=== PATIENT | female | born 1935 | race Caucasian/White ===

== ENCOUNTER → 2022-12-19 08:07 | Outpatient (ROUT) | payer OTHER, SELFPAY ==
[2022-12-19 08:24] LABS: Add Manual Diff / Slide Review NO; Basophils Absolute Auto 0 /uL (0-100); Basophils Percent Auto 0.8 % (0-2); Eosinophils Absolute Auto 300 /uL (0-450); Eosinophils Percent Auto 5.1 % (2-4); Hematocrit 35.7 % (36-46); Lymphocytes Absolute Auto 1500 /uL (1100-4500); Lymphocytes Percent Auto 24.6 % (25-40); Mean Corpuscular HGB Conc 33.5 % (30-36); Mean Corpuscular Hemoglobin 28.2 PG (26-34); Mean Corpuscular Volume 84.3 fL (80-100); Monocytes Absolute Auto 700 /uL (0-900); Monocytes Percent Auto 10.5 % (3-14); Neutrophils Absolute Auto 3700 /uL (1500-7000); Platelet Count 264 X10^3/uL (150-400); Red Blood Cell Count 4.24 X10^6/uL (4.0-5.2); Red Cell Distribution Width 14.1 % (11.6-14.8); White Blood Cell Count 6.3 X10^3/uL (4.5-11.0)
[2022-12-19 08:41] LABS: Alanine Aminotransferase 9 IU/L (<35); Albumin 3.8 g/dL (3.5-5.0); Albumin Globulin Ratio 1.1 (1.0-2.8); Alkaline Phosphatase 83 U/L (38-126); Aspartate Aminotransferase 21 IU/L (14-36); BUN Creatinine Ratio 16.7 (6-22); Bilirubin Total 0.6 mg/dL (0.2-1.3); Blood Urea Nitrogen 15 mg/dL (7-17); Calcium 9.5 mg/dL (8.4-10.2); Carbon Dioxide 28 mmol/L (22-32); Chloride 102 mmol/L (98-107); Estimated Glomerular Filt Rate > 60 mL/min (>60); Globulin 3.4 g/dL (1.7-4.1); Glucose 111 mg/dL (80-110); HEMOLYSIS < 15 (0-50); Sodium 138 mmol/L (137-145); Total Protein 7.2 g/dL (6.3-8.2)
[2022-12-19 08:42] LABS: Potassium 4.3 mmol/L (3.4-5.1)
[2022-12-19 09:25] LABS: Vitamin B12 349 pg/mL (239-931)
== END ==
PROVIDERS: Visit Provider Nurse Practitioner Family
DX: E11.9 Type 2 diabetes mellitus without complications (principal); R63.4 Abnormal weight loss
CPT/HCPCS: 36415; 80053; 82607; 83036; 85025

== ENCOUNTER → 2023-02-14 18:19 | Outpatient (ROUT) | payer OTHER, SELFPAY | PROVIDERS: Visit Provider Internal Medicine | DX: N39.0 Urinary tract infection, site not specified (principal) | CPT/HCPCS: 87077; 87086; 87186 ==

== ENCOUNTER 2023-03-09 14:25 | Emergency (ER) | payer OTHER, MEDICAID, SELFPAY ==
[2023-03-09] VITALS (9 sets, daily range): BP systolic 120–137; BP diastolic 58–69; PULSE 61–89; RESP 14–16; TEMP 36.6; O2SAT 95–98; BMI 20.1
--- NOTE | 2023-03-09 14:49 | ED_ITS ---
HPI - Extremity Problem General Chief complaint: Extremity Problem,Nontraumatic Stated complaint: poss blood clot R leg Time Seen by Provider: 03/09/23 14:43 Source: patient Mode of arrival: Ambulatory Limitations: no limitations History of Present Illness HPI Narrative: Patient is an 87-year-old female who last evening developed swelling and redness to her right lower extremity. She denies any specific trauma. She states that her right leg from the mid antoine down was ?beefy red? last evening. She actually states that things are much improved this morning than what they were last evening. She has no pain behind her knee. No pain in her proximal leg. No chest pain. No shortness of breath. No fevers. She can ambulate with only very minimal discomfort. Can flex and extend at her right ankle with only minimal discomfort. She has not on blood thinners. Related Data Previous Rx's Medication Instructions Recorded cephalexin 500 mg tablet 500 mg PO QID 7 days #28 tabs 03/09/23 Allergies Allergy/AdvReac Type Severity Reaction Status Date / Time celecoxib [From Celebrex] AdvReac Verified 03/09/23 14:34 Review of Systems Constitutional Constitutional: Reports system reviewed and no additional complaints, except as documented Musculoskeletal Musculoskeletal: Reports system reviewed and no additional complaints, except as documented Integumentary/Breasts Skin/Breast: Reports system reviewed and no additional complaints, except as documented Neurologic Neurologic: Reports system reviewed and no additional complaints, except as documented Hematologic/Lymphatic On Anticoagulants: No Exam Initial Vital Signs Initial Vital Signs: Vital Signs Temperature 97.9 F 03/09/23 14:29 Pulse Rate 89 03/09/23 14:29 Respiratory Rate 16 03/09/23 14:29 Blood Pressure 120/58 L 03/09/23 14:29 Pulse Oximetry 95 03/09/23 14:29 Oxygen Delivery Method Room Air 03/09/23 14:29 HENVT Head: normal to inspection and normocephalic Resp Effort & Inspection: normal respiratory effort Cardio Rate: regular rate Pulses: dorsalis pedis present on the right Skin Other: Very minimal redness circumferentially from the mid antoine down to her mid foot. No tenderness to palpation. Neuro Sensory Exam: no sensory deficits noted Extrem Other: Only minimal discomfort of her calf muscle. No tenderness behind the right knee. No tenderness along the medial aspect of the right thigh. Scores Wells' Criteria for DVT Active Cancer (Treatment within 6 months): No Bedridden recently >3 days or major surgery within 4 weeks: No Calf Swelling >3cm compared to other leg: Yes Collateral (nonvericose) superficial veins present: No Entire leg swollen: No Localized tenderness along the deep vein system: No Pitting edema, confined to symtomatic leg: No Paralysis, paresis, or recent plaster immobilization of ext: No Previously documented DVT: No Alternative dx to DVT as likely or more likely: Yes Wells' criteria for DVT: -1 Course Orders Ordered: ED Orders 03/09/23 15:33 Basic Metabolic Panel Stat Complete Blood Count AUTO DIFF Stat D Dimer Stat 03/09/23 15:53 US periph venous low extrem rt Stat Vital Signs Vital signs: Vital Signs - 8 hr 03/09/23 14:29 Temperature 97.9 F Pulse Rate 89 Respiratory Rate 16 Blood Pressure 120/58 L Pulse Oximetry 95 Oxygen Delivery Method Room Air MDM - Extremity (Nontraumatic) Lab Data 03/09/23 15:33 03/09/23 15:33 Labs: Lab Results 03/09/23 Range/Units 15:33 WBC 6.5 (4.5-11.0) X10^3/uL RBC 4.11 (4.0-5.2) X10^6/uL Hgb 11.5 L (12.0-16.0) g/dL Hct 34.9 L (36-46) % MCV 85.1 (80-100) fL MCH 27.9 (26-34) PG MCHC 32.8 (30-36) % RDW 14.8 (11.6-14.8) % Plt Count 248 (150-400) X10^3/uL Neut % (Auto) 60.3 (50-75) % Lymph % (Auto) 24.9 L (25-40) % [place] % (Auto) 9.7 (3-14) % Eos % (Auto) 4.2 H (2-4) % Baso % (Auto) 0.9 (0-2) % Neut # (Auto) 3900 (9390-4381) /uL Lymph # (Auto) 1600 (2636-0091) /uL [place] # (Auto) 600 (0-900) /uL Eos # (Auto) 300 (0-450) /uL Baso # (Auto) 100 (0-100) /uL D-Dimer 4957 H (<500) ng/ml Sodium 141 (137-145) mmol/L Potassium 4.5 (3.4-5.1) mmol/L Chloride 106 (98-107) mmol/L Carbon Dioxide 26 (22-32) mmol/L BUN 17 (7-17) mg/dL Creatinine 0.95 (0.52-1.04) mg/dL Estimated GFR 58 L (>60) mL/min BUN/Creatinine Ratio 17.9 (6-22) Glucose 106 (80-110) mg/dL Calcium 9.3 (8.4-10.2) mg/dL Imaging Data US - DVT: Radiologist's Impression: PROCEDURE: US PERIPH VENOUS LOW EXTREM RT INDICATIONS: eval for DVT TECHNIQUE: Real-time imaging, as well as color and pulse Doppler interrogation, were performed of the lower extremity deep veins from the inguinal ligament to the popliteal fossa, with documentation of the visualized calf veins. COMPARISON: [facility], US, US VENOUS LOWER EXTREMITY DOPPLER BILATERAL, 10/04/2020, 9:32. FINDINGS: The common femoral, femoral, popliteal, and the visualized calf veins are normally compressible, and free of intraluminal thrombus. Color and pulse Doppler demonstrate normal phasic intraluminal flow. There is normal augmentation response to distal compression maneuver. IMPRESSION: No findings of lower extremity deep venous thrombosis. MDM Narrative Medical decision making narrative: Patient is positive per Wells criteria for DVT. Her D-dimer is positive. Subsequent ultrasound is negative. She is afebrile. No leukocytosis. Minimal discomfort to palpation of the right lower extremity. She actually reports that the redness in the swelling are better today than what they were last evening. Not convinced that this is cellulitis. We discussed the possibility that this an allergic reaction however there is no specific exposures that would support this. Plan will be to send her home with the print a prescription for antibiotics. She was going to hold on filling this. If over the next 24-48 hours her symptoms worsen or she develops new symptoms she will fill the prescription and take it as directed. She was given return precautions. She expressed understanding and agreement. Discharge Plan Departure Patient Disposition: Home Clinical Impression: Localized swelling of lower leg Activity Restrictions/Additional Instructions: The ultrasound today did not show any signs of a blood clot. Like we discussed I am also not convinced that this is an infection. You have no fevers. Your white blood cell count is negative and you actually report that your symptoms are improving from last evening. Plan will be is to discharge you home with the prescription for antibiotics. I asked that you hold on filling this for now. If over the next 24-48 hours the symptoms return, worsen or you develop fevers worsening pain then you can fill this prescription and take it as directed. If your symptoms just resolve on their own then you can discard this prescription without filling it. Return to the emergency department for new symptoms. Prescriptions: New cephalexin 500 mg tablet 500 mg PO QID 7 Days Qty: 28 0RF Stand Alone Forms: Patient Portal/API
[2023-03-09 15:40] LABS: Add Manual Diff / Slide Review NO; Basophils Absolute Auto 100 /uL (0-100); Basophils Percent Auto 0.9 % (0-2); Eosinophils Absolute Auto 300 /uL (0-450); Eosinophils Percent Auto 4.2 % (2-4); Hematocrit 34.9 % (36-46); Hemoglobin 11.5 g/dL (12.0-16.0); Lymphocytes Absolute Auto 1600 /uL (1100-4500); Lymphocytes Percent Auto 24.9 % (25-40); Mean Corpuscular HGB Conc 32.8 % (30-36); Mean Corpuscular Hemoglobin 27.9 PG (26-34); Mean Corpuscular Volume 85.1 fL (80-100); Monocytes Absolute Auto 600 /uL (0-900); Monocytes Percent Auto 9.7 % (3-14); Neutrophils Absolute Auto 3900 /uL (1500-7000); Neutrophils Percent Auto 60.3 % (50-75); Platelet Count 248 X10^3/uL (150-400); Red Blood Cell Count 4.11 X10^6/uL (4.0-5.2); Red Cell Distribution Width 14.8 % (11.6-14.8); White Blood Cell Count 6.5 X10^3/uL (4.5-11.0)
[2023-03-09 15:48] LABS: D Dimer 4957 ng/ml (<500)
--- NOTE | 2023-03-09 15:53 | DI.US.S_ITS ---
PROCEDURE: US PERIPH VENOUS LOW EXTREM RT INDICATIONS: eval for DVT TECHNIQUE: Real-time imaging, as well as color and pulse Doppler interrogation, were performed of the lower extremity deep veins from the inguinal ligament to the popliteal fossa, with documentation of the visualized calf veins. COMPARISON: [facility], US, US VENOUS LOWER EXTREMITY DOPPLER BILATERAL, 10/04/2020, 9:32. FINDINGS: The common femoral, femoral, popliteal, and the visualized calf veins are normally compressible, and free of intraluminal thrombus. Color and pulse Doppler demonstrate normal phasic intraluminal flow. There is normal augmentation response to distal compression maneuver. IMPRESSION: No findings of lower extremity deep venous thrombosis. Dictated by: Jorge Luis Sweet M.D. on 03/09/2023 at 15:37 Approved by: Jorge Luis Sweet M.D. on 03/09/2023 at 15:38
[2023-03-09 15:55] LABS: BUN Creatinine Ratio 17.9 (6-22); Blood Urea Nitrogen 17 mg/dL (7-17); Calcium 9.3 mg/dL (8.4-10.2); Carbon Dioxide 26 mmol/L (22-32); Chloride 106 mmol/L (98-107); Estimated Glomerular Filt Rate 58 mL/min (>60); Glucose 106 mg/dL (80-110); HEMOLYSIS < 15 (0-50); Potassium 4.5 mmol/L (3.4-5.1); Sodium 141 mmol/L (137-145)
== END 2023-03-09 17:13 | disposition home or self-care (01) ==
PROVIDERS: Emergency Provider Emergency Medicine
DX: M79.89 Other specified soft tissue disorders (principal)
CPT/HCPCS: 36415; 80048; 85025; 85379; 93971; 99283

== ENCOUNTER → 2023-05-20 13:40 | Outpatient (ROUT) | payer OTHER, MEDICAID, SELFPAY ==
[2023-05-20 13:53] LABS: Appearance Urine UA SL CLOUDY; Bilirubin Urine UA NEGATIVE (NEGATIVE); Color Urine UA YELLOW; Glucose Urine UA NEGATIVE (Negative); Ketones Urine UA NEGATIVE (NEGATIVE); Leukocyte Esterase Urine UA 1+ (NEGATIVE); Nitrite Urine UA POSITIVE (Negative); Occult Blood Urine UA NEGATIVE (Negative); Protein Urine UA NEGATIVE (Negative); Urobilinogen Urine UA 0.2 E.U./dL (0.2)
[2023-05-20 13:57] LABS: pH Urine UA 5.5 (4.5-8.0)
[2023-05-20 13:58] LABS: Urine Volume 10mL (spun)
[2023-05-20 14:01] LABS: Bacteria Urine None Seen; Culture Indicated Urine Specimen Cultured; RBC Urine None Seen (0-5/HPF); Squamous Epithelial Cell Urine None Seen (0-5/HPF); WBC Urine 0-1/HPF (0-5/HPF)
== END ==
PROVIDERS: Visit Provider Internal Medicine
DX: Z13.89 Encounter for screening for other disorder (principal)
CPT/HCPCS: 81001; 87077; 87086; 87186

== ENCOUNTER → 2023-06-08 06:49 | Outpatient (ROUT) | payer OTHER, MEDICAID, SELFPAY ==
[2023-06-08 07:30] LABS: Appearance Urine UA CLOUDY; Bilirubin Urine UA NEGATIVE (NEGATIVE); Color Urine UA YELLOW; Glucose Urine UA NEGATIVE (Negative); Ketones Urine UA TRACE (NEGATIVE); Leukocyte Esterase Urine UA 2+ (NEGATIVE); Nitrite Urine UA POSITIVE (Negative); Occult Blood Urine UA 2+ (Negative); Protein Urine UA 2+ (Negative); Specific Gravity Urine UA 1.025 (1.000-1.035); Urobilinogen Urine UA 0.2 E.U./dL (0.2)
[2023-06-08 07:34] LABS: pH Urine UA 5.5 (4.5-8.0)
[2023-06-08 07:41] LABS: Bacteria Urine Many (>30); RBC Urine 1-5/HPF (0-5/HPF); Squamous Epithelial Cell Urine 0-1 /HPF (0-5/HPF); Urine Volume 10mL (spun); WBC Urine >100/HPF (0-5/HPF)
[2023-06-08 07:42] LABS: Culture Indicated Urine Specimen Cultured
== END ==
PROVIDERS: Visit Provider Internal Medicine
DX: Z13.89 Encounter for screening for other disorder (principal)
CPT/HCPCS: 81001; 87077; 87086; 87186

== ENCOUNTER 2023-06-12 15:19 | Inpatient (IN) | payer OTHER, MEDICAID, SELFPAY ==
[2023-06-12] VITALS (18 sets, daily range): BP systolic 83–107; BP diastolic 46–59; PULSE 68–120; RESP 11–41; TEMP 36.6–37.8; O2SAT 92–99; BMI 21.6
--- NOTE | 2023-06-12 16:01 | PC.NURSE ---
Spoke staff at [facility] wanted pt to be evaluated for mild ADB discomfort, ABD distended, increased Urinary incontinence, weakness with 3 falls in past few days. Unknown last BM. Pt is less responsive than her baseline.
--- NOTE | 2023-06-12 16:14 | DI.RAD.S_ITS ---
PROCEDURE: XR ACUTE ABDOMEN SERIES INDICATIONS: Not provided. TECHNIQUE: One view chest and two views of the abdomen were acquired. COMPARISON: None. FINDINGS: Surgical changes and devices: Left total hip arthroplasty. Abdominal aortic stent present. Chest: Moderate emphysema. Hazy left basilar airspace opacity. Abdomen: Bowel gas pattern is normal. No suspicious calcifications. Visualized solid organ contours appear normal. Moderate colonic stool load. Bones: No suspicious bony lesions. IMPRESSION: Hazy left basilar airspace opacity, either infection or atelectasis. Moderate colonic stool load. Dictated by: Claudy Mayorga M.D. on 06/12/2023 at 16:48 Approved by: Claudy Mayorga M.D. on 06/12/2023 at 16:49
[2023-06-12 17:02] LABS: INR 1.1 (0.9-1.3); Prothrombin Time 12.5 SECONDS (9.4-12.5)
[2023-06-12 17:04] LABS: PTT Partial Thromboplastin Tim 30 SECONDS (25.1-36.5)
[2023-06-12 17:05] LABS: Add Manual Diff / Slide Review NO; Basophils Absolute Auto 0 /uL (0-100); Basophils Percent Auto 0.2 % (0-2); Eosinophils Absolute Auto 0 /uL (0-450); Hematocrit 34.9 % (36-46); Hemoglobin 11.4 g/dL (12.0-16.0); Lymphocytes Absolute Auto 100 /uL (1100-4500); Lymphocytes Percent Auto 0.5 % (25-40); Mean Corpuscular HGB Conc 32.6 % (30-36); Mean Corpuscular Hemoglobin 27.4 PG (26-34); Mean Corpuscular Volume 84.3 fL (80-100); Monocytes Absolute Auto 800 /uL (0-900); Monocytes Percent Auto 3.9 % (3-14); Neutrophils Absolute Auto 19200 /uL (1500-7000); Neutrophils Percent Auto 95.4 % (50-75); Platelet Count 231 X10^3/uL (150-400); Red Blood Cell Count 4.14 X10^6/uL (4.0-5.2); Red Cell Distribution Width 14.6 % (11.6-14.8); White Blood Cell Count 20.1 X10^3/uL (4.5-11.0)
[2023-06-12 17:08] LABS: Albumin Globulin Ratio 1.3 (1.0-2.8); Alkaline Phosphatase 87 U/L (38-126); Aspartate Aminotransferase 42 IU/L (14-36); BUN Creatinine Ratio 20.2 (6-22); Bilirubin Total 0.9 mg/dL (0.2-1.3); Blood Urea Nitrogen 22 mg/dL (7-17); Calcium 9.1 mg/dL (8.4-10.2); Carbon Dioxide 24 mmol/L (22-32); Chloride 103 mmol/L (98-107); Estimated Glomerular Filt Rate 49 mL/min (>60); Globulin 3.1 g/dL (1.7-4.1); Glucose 185 mg/dL (80-110); HEMOLYSIS < 15 (0-50); Lipase 12 U/L (23-300); Potassium 4.5 mmol/L (3.4-5.1); Sodium 135 mmol/L (137-145); Total Protein 7.1 g/dL (6.3-8.2)
[2023-06-12 17:14] LABS: Alanine Aminotransferase 29 IU/L (<35); Lactate (Lactic Acid) 4.4 mmol/L (0.7-2.1)
[2023-06-12] MEDS: SODIUM CHLORIDE 0.9% 1,000 ML 1000 ML IV (17:30)
[2023-06-12] MEDS: cefTRIAXone 1,000 MG in SODIUM CHLORIDE 0.9% 100 ML 200 MG IV (17:58)
[2023-06-12 18:02] LABS: Adenovirus Not Detected (Not Detect); B. parapertussis Not Detected (Not Detecte); Bordetella pertussis Not Detected (Not Detect); Chlamydophila pneumoniae Not Detected (Not Detect); Coronavirus 229E Not Detected (Not Detect); Coronavirus HKU1 Not Detected (Not Detect); Coronavirus NL 63 Not Detected (Not Detect); Coronavirus OC43 Not Detected (Not Detect); Human Metapneumovirus Not Detected (Not Detect); Human Rhinovirus/Enterovirus Not Detected (Not Detect); Influenza A Not Detected (Not Detect); Influenza B Not Detected (Not Detect); Mycoplasma pneumoniae Not Detected (Not Detect); Parainfluenza Virus 1 Not Detected (Not Detect); Parainfluenza Virus 2 Not Detected (Not Detect); Parainfluenza Virus 3 Not Detected (Not Detect); Parainfluenza Virus 4 Not Detected (Not Detect); Respiratory Syncytial Virus Not Detected (Not Detect); SARS- CoV-2 Not Detected (Not Detecte)
[2023-06-12 18:08] LABS: Appearance Urine UA CLEAR; Bilirubin Urine UA NEGATIVE (NEGATIVE); Color Urine UA YELLOW; Glucose Urine UA NEGATIVE (Negative); Ketones Urine UA TRACE (NEGATIVE); Leukocyte Esterase Urine UA 1+ (NEGATIVE); Nitrite Urine UA NEGATIVE (Negative); Occult Blood Urine UA NEGATIVE (Negative); Protein Urine UA TRACE (Negative); Urobilinogen Urine UA 0.2 E.U./dL (0.2)
[2023-06-12 18:09] LABS: pH Urine UA 5.5 (4.5-8.0)
--- NOTE | 2023-06-12 18:15 | ED_ITS ---
HPI - Sepsis General Chief Complaint: Upper Respiratory Symptoms Mode of arrival: Wheelchair Source: patient and EMS Evaluation Sepsis Screen: No Definite Risk Sepsis Infection Criteria Present: Documented Infection Narrative: 87-year-old female with history of dementia presents by EMS from her assisted living facility for worsening confusion. History is obtained from daughter at bedside, who last saw the patient 4 days ago. Daughter states that patient recently completed treatment for a urinary tract infection, but yesterday she started antibiotics again out of concern that there may be a UTI. She does not remember the name of the antibiotics, however the antibiotic listed on patient's paperwork from [facility] as 1 of patient's medications. Patient also was complaining of abdominal discomfort earlier in the day to nursing staff, however by the time that patient's daughter arrived to the emergency department patient was pain-free and has not complained of pain since being in the emergency department. Review of Systems Review of Systems Narrative: Limited due to dementia, otherwise see HPI Patient History Medical History HLD (hyperlipidemia) Restless legs HTN (hypertension) Diabetes Social History Smoking Status: Former smoker alcohol intake: current Exam Initial Vital Signs Initial Vital Signs: Vital Signs Temperature 97.8 F 06/12/23 15:17 Pulse Rate 68 06/12/23 15:17 Respiratory Rate 15 06/12/23 15:17 Blood Pressure 94/50 L 06/12/23 15:17 Pulse Oximetry 98 06/12/23 15:17 Oxygen Delivery Method Room Air 06/12/23 15:17 Const: Awake, alert, no acute distress, frail Cardiac: regular rate, regular rhythm RESP: unlabored, clear bilaterally, no wheezing GI: Soft, mild lower abdominal distention, daughter states appears normal, no reproducible tenderness to palpation Skin: Warm, Dry, intact, no rashes Neuro: AO x2, CN II-XII grossly intact, moves all extremities Course Orders Ordered: ED Orders 06/12/23 18:25 Blood Culture Stat 06/12/23 19:41 CT abdomen pelvis w con Stat Acetaminophen (Acetaminophen 325 Mg Tablet) 650 mg PO Q6H PRN PRN Reason: Fever/Mild Pain (1-3) Docusate Sodium (Docusate 100 Mg Capsule) 100 mg PO BID PRN PRN Reason: Constipation Heparin Sodium (Porcine) (Heparin 5,000 Unit/Ml Vial) 5,000 unit SUBCUT BID AMISHA Ceftriaxone Sodium 1,000 mg/ (Sodium Chloride) 100 mls @ 200 mls/hr IV Q24H AMISHA Azithromycin 500 mg/ Dextrose 250 mls @ 250 mls/hr IV Q24H AMISHA Sodium Chloride (Normal Saline 0.9%) 1,000 mls @ 150 mls/hr IV CONT AMISHA Last Admin: 06/13/23 02:25 Dose: 150 mls/hr Documented By: AT Dextrose (D10w) 100 mls @ 1,200 mls/hr IV PRN PRN PRN Reason: Hypoglycemia Insulin Human Lispro (Insulin Lispro 100 Unit/Ml 3ml Vial) 0 unit SUBCUT ACHS AMISHA; Protocol Naloxone HCl (Naloxone 0.4 Mg/Ml Vial) 0.2 mg IV Q2MIN PRN PRN Reason: Opiate Reversal Ondansetron HCl (Ondansetron 4 Mg/2 Ml Inj) 4 mg IV Q8HR PRN PRN Reason: Nausea And Vomiting Pramipexole Dihydrochloride (Pramipexole 0.25 Mg Tablet) 0.5 mg PO BEDTIME PRN PRN Reason: restless leg Discontinued Medications Sodium Chloride (Normal Saline 0.9%) 1,000 mls @ 1,000 mls/hr IV BOLUS ONE Stop: 06/12/23 18:14 Last Infusion: 06/12/23 19:50 Dose: Infused Documented By: Admin: 06/12/23 17:30 Dose: 1,000 mls/hr Documented By: GUERO Ceftriaxone Sodium 1,000 mg/ (Sodium Chloride) 100 mls @ 200 mls/hr IV NOW ONE Stop: 06/12/23 17:52 Last Infusion: 06/12/23 18:21 Dose: Infused Documented By: Admin: 06/12/23 17:58 Dose: 200 mls/hr Documented By: GUERO Azithromycin 500 mg/ Dextrose 250 mls @ 250 mls/hr IV NOW ONE Stop: 06/12/23 17:52 Last Infusion: 06/12/23 19:27 Dose: Infused Documented By: Admin: 06/12/23 18:20 Dose: 250 mls/hr Documented By: GUERO Ondansetron HCl (Ondansetron 4 Mg/2 Ml Inj) 4 mg IV NOW PRN PRN Reason: Nausea And Vomiting Ondansetron HCl (Ondansetron 4 Mg Odt) 4 mg SL NOW PRN PRN Reason: Nausea And Vomiting Pramipexole Dihydrochloride (Pramipexole 0.25 Mg Tablet) 1 mg PO NOW ONE Stop: 06/12/23 19:56 Last Admin: 06/12/23 20:25 Dose: 1 mg Documented By: DKKarl Sodium Biphosphate/Sodium Phosphate (Fleets Enema) 1 each AL NOW ONE Stop: 06/12/23 22:53 Last Admin: 06/13/23 01:03 Dose: 1 each Documented By: AT Vital Signs Vital signs: Vital Signs - 8 hr 06/12/23 19:30 06/12/23 19:30 06/12/23 19:33 Temperature 99.9 F H 99.9 F H Pulse Rate 79 77 Respiratory Rate Blood Pressure 83/54 L Pulse Oximetry 96 95 06/12/23 19:33 06/12/23 20:00 06/12/23 20:30 Temperature 99.7 F H 99.7 F H Pulse Rate 120 H 80 Respiratory Rate 41 H Blood Pressure 84/52 L Pulse Oximetry Sepsis Evaluation (ED) Triage Screening Sepsis Screen: No Definite Risk Level 1 - Infection Sepsis Infection Criteria Present: Documented Infection Level 2 - SIRS Sepsis SIRS Criteria Present: WBC < 4k or > 12k or Bands > 10% Level 3 - Organ Dysfunction Sepsis Organ Dysfunction Criteria Present: New/Unexplained Change in Mental Status Response It is my opinion that his patient have a likely infectious etiology for meeting sepsis criteria: Does Fluid calculation based on 30 mL/kg within 1hr of criteria: Other Antibiotics initiated within 1 hr of Sepis dx: Yes Tissue Perfusion Reassessed within 6 hrs of infusion start time: Yes Date of Tissue Perfusion Reassessment completed: 06/12/23 Time Tissue Perfusion Reassessment completed: 21:00 MDM - Sepsis Differential Diagnosis Current stage of sepsis: sepsis Possible source sepsis: pulmonary Lab Data 06/12/23 16:30 06/12/23 16:30 Labs: Lab Results 06/12/23 06/12/23 06/12/23 Range/Units 16:30 17:10 17:45 WBC 20.1 H (4.5-11.0) X10^3/uL RBC 4.14 (4.0-5.2) X10^6/uL Hgb 11.4 L (12.0-16.0) g/dL Hct 34.9 L (36-46) % MCV 84.3 (80-100) fL MCH 27.4 (26-34) PG MCHC 32.6 (30-36) % RDW 14.6 (11.6-14.8) % Plt Count 231 (150-400) X10^3/uL Neut % (Auto) 95.4 H (50-75) % Lymph % (Auto) 0.5 L (25-40) % [place] % (Auto) 3.9 (3-14) % Eos % (Auto) 0.0 L (2-4) % Baso % (Auto) 0.2 (0-2) % Neut # (Auto) 46740 H (6844-9161) /uL Lymph # (Auto) 100 L (3589-9590) /uL [place] # (Auto) 800 (0-900) /uL Eos # (Auto) 0 (0-450) /uL Baso # (Auto) 0 (0-100) /uL PT 12.5 (9.4-12.5) SECONDS INR 1.1 (0.9-1.3) APTT 30 (25.1-36.5) SECONDS Sodium 135 L (137-145) mmol/L Potassium 4.5 (3.4-5.1) mmol/L Chloride 103 (98-107) mmol/L Carbon Dioxide 24 (22-32) mmol/L BUN 22 H (7-17) mg/dL Creatinine 1.09 H (0.52-1.04) mg/dL Estimated GFR 49 L (>60) mL/min BUN/Creatinine Ratio 20.2 (6-22) Glucose 185 H (80-110) mg/dL Lactate 4.4 H* (0.7-2.1) mmol/L Calcium 9.1 (8.4-10.2) mg/dL Total Bilirubin 0.9 (0.2-1.3) mg/dL AST 42 H (14-36) IU/L ALT 29 (<35) IU/L Alkaline Phosphatase 87 (38-126) U/L Total Protein 7.1 (6.3-8.2) g/dL Albumin 4.0 (3.5-5.0) g/dL Globulin 3.1 (1.7-4.1) g/dL Albumin/Globulin Ratio 1.3 (1.0-2.8) Lipase 12 L (23-300) U/L Procalcitonin 11.0 H (<0.5) ng/mL Urine Color Yellow Urine Appearance Clear Urine pH 5.5 (4.5-8.0) Ur Specific [place] 1.020 (1.000-1.035) Urine Protein Trace H (Negative) Urine Glucose (UA) Negative (Negative) g/dL Urine Ketones Trace H (NEGATIVE) Urine Occult Blood Negative (Negative) Urine Nitrate Negative (Negative) Urine Bilirubin Negative (NEGATIVE) Urine Urobilinogen 0.2 (0.2) E.U./dL Ur Leukocyte Esterase 1+ H (NEGATIVE) Urine RBC 0-1/hpf (0-5/HPF) Urine WBC 1-5/hpf (0-5/HPF) Ur Squamous Epith Cells 1-5 /hpf (0-5/HPF) Urine Bacteria Few (2-10) H (None) Urine Mucus 2+ H (Negative) Ur Culture Indicated? Specimen cultured Vol Urine Centrifuged 10ml (spun) Chlamy pneumoniae PCR Not detected (Not Detect) Adenovirus (PCR) Not detected (Not Detect) B.parapertussis DNA PCR Not detected (Not Detecte) Coronavirus OC43 (PCR) Not detected (Not Detect) Coronavirus HKU1 (PCR) Not detected (Not Detect) Coronavirus 229E (PCR) Not detected (Not Detect) SARS-CoV-2 (PCR) Not detected (Not Detecte) Coronavirus NL63 (PCR) Not detected (Not Detect) Human Metapneumovir PCR Not detected (Not Detect) Influenza Type A (PCR) Not detected (Not Detect) Influenza Type B (PCR) Not detected (Not Detect) M. pneumoniae (PCR) Not detected (Not Detect) Parainfluenza 1 (PCR) Not detected (Not Detect) Parainfluenza 2 (PCR) Not detected (Not Detect) Parainfluenza 3 (PCR) Not detected (Not Detect) Parainfluenza 4 (PCR) Not detected (Not Detect) RSV (PCR) Not detected (Not Detect) Entero/Rhino (PCR) Not detected (Not Detect) 06/12/23 Range/Units 18:20 WBC (4.5-11.0) X10^3/uL RBC (4.0-5.2) X10^6/uL Hgb (12.0-16.0) g/dL Hct (36-46) % MCV (80-100) fL MCH (26-34) PG MCHC (30-36) % RDW (11.6-14.8) % Plt Count (150-400) X10^3/uL Neut % (Auto) (50-75) % Lymph % (Auto) (25-40) % [place] % (Auto) (3-14) % Eos % (Auto) (2-4) % Baso % (Auto) (0-2) % Neut # (Auto) (1525-1823) /uL Lymph # (Auto) (0382-1716) /uL [place] # (Auto) (0-900) /uL Eos # (Auto) (0-450) /uL Baso # (Auto) (0-100) /uL PT (9.4-12.5) SECONDS INR (0.9-1.3) APTT (25.1-36.5) SECONDS Sodium (137-145) mmol/L Potassium (3.4-5.1) mmol/L Chloride (98-107) mmol/L Carbon Dioxide (22-32) mmol/L BUN (7-17) mg/dL Creatinine (0.52-1.04) mg/dL Estimated GFR (>60) mL/min BUN/Creatinine Ratio (6-22) Glucose (80-110) mg/dL Lactate 3.4 H (0.7-2.1) mmol/L Calcium (8.4-10.2) mg/dL Total Bilirubin (0.2-1.3) mg/dL AST (14-36) IU/L ALT (<35) IU/L Alkaline Phosphatase (38-126) U/L Total Protein (6.3-8.2) g/dL Albumin (3.5-5.0) g/dL Globulin (1.7-4.1) g/dL Albumin/Globulin Ratio (1.0-2.8) Lipase (23-300) U/L Procalcitonin (<0.5) ng/mL Urine Color Urine Appearance Urine pH (4.5-8.0) Ur Specific [place] (1.000-1.035) Urine Protein (Negative) Urine Glucose (UA) (Negative) g/dL Urine Ketones (NEGATIVE) Urine Occult Blood (Negative) Urine Nitrate (Negative) Urine Bilirubin (NEGATIVE) Urine Urobilinogen (0.2) E.U./dL Ur Leukocyte Esterase (NEGATIVE) Urine RBC (0-5/HPF) Urine WBC (0-5/HPF) Ur Squamous Epith Cells (0-5/HPF) Urine Bacteria (None) Urine Mucus (Negative) Ur Culture Indicated? Vol Urine Centrifuged Chlamy pneumoniae PCR (Not Detect) Adenovirus (PCR) (Not Detect) B.parapertussis DNA PCR (Not Detecte) Coronavirus OC43 (PCR) (Not Detect) Coronavirus HKU1 (PCR) (Not Detect) Coronavirus 229E (PCR) (Not Detect) SARS-CoV-2 (PCR) (Not Detecte) Coronavirus NL63 (PCR) (Not Detect) Human Metapneumovir PCR (Not Detect) Influenza Type A (PCR) (Not Detect) Influenza Type B (PCR) (Not Detect) M. pneumoniae (PCR) (Not Detect) Parainfluenza 1 (PCR) (Not Detect) Parainfluenza 2 (PCR) (Not Detect) Parainfluenza 3 (PCR) (Not Detect) Parainfluenza 4 (PCR) (Not Detect) RSV (PCR) (Not Detect) Entero/Rhino (PCR) (Not Detect) Imaging Data CT scan - abdomen/pelvis: Radiologist's Impression: PROCEDURE: CT ABDOMEN PELVIS W CON INDICATIONS: ABD DISTENSION, LOWER ABD PAIN TECHNIQUE: After the administration of intravenous contrast, axial sections acquired from the lung bases to the pubic symphysis. Coronal and sagittal reformats were performed. For radiation dose reduction, the following was used: automated exposure control, adjustment of mA and/or kV according to patient size. COMPARISON: [facility], CT, CT ANGIO ABDOMEN PELVIS, 08/04/2021, 8:28. [facility], CR, XR ACUTE ABDOMEN SERIES, 06/12/2023, 16:08. FINDINGS: Image quality: Portions of the lower pelvis are suboptimally evaluated secondary to metallic streak artifact from hip arthroplasty. Lower Chest: No significant findings. ABDOMEN: Liver: No solid mass. Liver demonstrates significant steatosis. Right posterior lateral enhancement is present series 2, image 30 measuring 6 mm. This is unchanged. Gallbladder: No radiopaque gallstones or wall thickening. Biliary ducts: No biliary dilation. Pancreas: No ductal dilation. Mild atrophy. Spleen: Size is within normal limits. Adrenal Glands: No adrenal nodules. Kidneys and Ureters: No hydronephrosis. No solid mass. No complex renal cystic lesion which requires follow up. Simple right renal cyst. Stomach and Bowel: Normal colonic caliber, without significant wall thickening. Appendix is normal. Moderate colonic stool. Colonic diverticula are present without associated inflammatory change Peritoneum: No abnormal intraperitoneal fluid. No free air. Ventral Wall: No significant ventral hernia. Abdominal Nodes: No retroperitoneal or mesenteric adenopathy by size criteria. Vessels: The inferior vena cava is normal in size. 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 Overall appearance is unchanged compared to prior exam. PELVIS: Pelvic Organs: Unremarkable. Bladder: No bladder wall thickening, accounting for underdistention. Pelvic Nodes: No enlarged lymph nodes. Miscellaneous: Bilateral bowel containing inguinal hernias are seen. No inflammatory change or proximal obstruction. No gross imaging of incarceration or strangulation. Bones: No aggressive osseous abnormality. IMPRESSION: No acute intra-abdominal or pelvic process. Prominent colonic stool without obstruction. Diverticulosis. Right posterior lateral hepatic focus of enhancement unchanged. This could represent a small hemangioma. Dictated by: Miriam Singer M.D. on 06/12/2023 at 20:18 Approved by: Miriam Singer M.D. on 06/12/2023 at 20:23 Chest x-ray: Radiologist's Impression: PROCEDURE: XR ACUTE ABDOMEN SERIES INDICATIONS: Not provided. TECHNIQUE: One view chest and two views of the abdomen were acquired. COMPARISON: None. FINDINGS: Surgical changes and devices: Left total hip arthroplasty. Abdominal aortic stent present. Chest: Moderate emphysema. Hazy left basilar airspace opacity. Abdomen: Bowel gas pattern is normal. No suspicious calcifications. Visualized solid organ contours appear normal. Moderate colonic stool load. Bones: No suspicious bony lesions. IMPRESSION: Hazy left basilar airspace opacity, either infection or atelectasis. Moderate colonic stool load. Dictated by: Claudy Mayorga M.D. on 06/12/2023 at 16:48 Approved by: Claudy Mayorga M.D. on 06/12/2023 at 16:49 [facility] Narrative Medical decision making narrative: Several days of mental status change with possible urinary tract infection. Patient is pleasantly confused, daughter at bedside states that she was more confused than her baseline. Although she has no abdominal pain at this time since it was bad enough for patient to complained to staff and be sent over here we will order CT of the abdomen and pelvis. Laboratory work reviewed, WBC count 20.1 with large neutrophil predominance. Sodium 135, potassium 4.5, creatinine 1.09, lactate 4.4, normal liver enzymes, procalcitonin 11. Urinalysis with some bacteria, however infection does not appear to be overwhelming or primary source of sepsis. Chest x-ray shows left airspace opacity, either infection or atelectasis. Given setting of sepsis with elevated procalcitonin, lactic acid, WBC count suspect that this is pneumonia. CT of the abdomen and pelvis shows no acute findings. Patient overall clinically appears to be better than her laboratory work would imply. Patient given broad-spectrum antibiotics. We will admit for further treatment. Discharge Plan Departure Patient Disposition: Admitted As Inpatient Clinical Impression: Sepsis, Pneumonia Admit Date/Time: 06/12/23 20:49 Admit Provider: Navneet Fabian
[2023-06-12 18:16] LABS: Bacteria Urine Few (2-10); Culture Indicated Urine Specimen Cultured; Mucus Urine 2+ (Negative); RBC Urine 0-1/HPF (0-5/HPF); Squamous Epithelial Cell Urine 1-5 /HPF (0-5/HPF); Urine Volume 10mL (spun); WBC Urine 1-5/HPF (0-5/HPF)
[2023-06-12] MEDS: AZITHROMYCIN 500 MG in DEXTROSE 5% IN WATER 250 ML 250 MG IV (18:20)
[2023-06-12 18:32] LABS: Reflexed Lactate in 2 Hours Y
[2023-06-12 18:44] LABS: Lactate 2HR (Lactic Acid Rflx) 3.4 mmol/L (0.7-2.1)
--- NOTE | 2023-06-12 19:41 | DI.CT.S_ITS ---
PROCEDURE: CT ABDOMEN PELVIS W CON INDICATIONS: ABD DISTENSION, LOWER ABD PAIN TECHNIQUE: After the administration of intravenous contrast, axial sections acquired from the lung bases to the pubic symphysis. Coronal and sagittal reformats were performed. For radiation dose reduction, the following was used: automated exposure control, adjustment of mA and/or kV according to patient size. COMPARISON: [facility], CT, CT ANGIO ABDOMEN PELVIS, 08/04/2021, 8:28. [facility], CR, XR ACUTE ABDOMEN SERIES, 06/12/2023, 16:08. FINDINGS: Image quality: Portions of the lower pelvis are suboptimally evaluated secondary to metallic streak artifact from hip arthroplasty. Lower Chest: No significant findings. ABDOMEN: Liver: No solid mass. Liver demonstrates significant steatosis. Right posterior lateral enhancement is present series 2, image 30 measuring 6 mm. This is unchanged. Gallbladder: No radiopaque gallstones or wall thickening. Biliary ducts: No biliary dilation. Pancreas: No ductal dilation. Mild atrophy. Spleen: Size is within normal limits. Adrenal Glands: No adrenal nodules. Kidneys and Ureters: No hydronephrosis. No solid mass. No complex renal cystic lesion which requires follow up. Simple right renal cyst. Stomach and Bowel: Normal colonic caliber, without significant wall thickening. Appendix is normal. Moderate colonic stool. Colonic diverticula are present without associated inflammatory change Peritoneum: No abnormal intraperitoneal fluid. No free air. Ventral Wall: No significant ventral hernia. Abdominal Nodes: No retroperitoneal or mesenteric adenopathy by size criteria. Vessels: The inferior vena cava is normal in size. 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 Overall appearance is unchanged compared to prior exam. PELVIS: Pelvic Organs: Unremarkable. Bladder: No bladder wall thickening, accounting for underdistention. Pelvic Nodes: No enlarged lymph nodes. Miscellaneous: Bilateral bowel containing inguinal hernias are seen. No inflammatory change or proximal obstruction. No gross imaging of incarceration or strangulation. Bones: No aggressive osseous abnormality. IMPRESSION: No acute intra-abdominal or pelvic process. Prominent colonic stool without obstruction. Diverticulosis. Right posterior lateral hepatic focus of enhancement unchanged. This could represent a small hemangioma. Dictated by: Miriam Singer M.D. on 06/12/2023 at 20:18 Approved by: Miriam Singer M.D. on 06/12/2023 at 20:23
[2023-06-12] MEDS: PRAMIPEXOLE 0.25 MG TABLET 1 MG PO (20:25)
--- NOTE | 2023-06-12 23:42 | PM.HP.1 ---
History of Present Illness History of Present Illness Date Patient Seen: 06/12/23 Time Patient Seen: 23:00 Chief complaint: shortness of breath Narrative: 87 y/o with PMH of HTN, HLD, NIDDM, RLS, recurrent UTIs, depression, cognitive deficits, presented to ED with SOB, leukocytosis, hypotensive with evidence of LLL infiltrate. In addition, distended abdomen with severe constipation. Started on empiric antibiotics and IVFs. Unable to provide history. [facility] Medical History (Updated 06/13/23 @ 01:11 by Navneet Arevalo MD) HLD (hyperlipidemia) Restless legs HTN (hypertension) Diabetes Social History (System 05/28/23 @ 10:57 by Lady Latisha Canales) Smoking Status: Former smoker alcohol intake: current Meds Home Medications and Allergies Home Medications Medication Instructions Recorded Confirmed Type acetaminophen 325 mg tablet 325 mg PO 06/13/23 History cranberry extract 500 mg capsule mg PO 06/13/23 History (Cranberry Concentrate) cyanocobalamin (vitamin B-12) 1,000 mcg PO DAILY 06/13/23 06/13/23 History 1,000 mcg tablet (Vitamin B-12) duloxetine 20 mg capsule,delayed 20 mg PO BID 06/13/23 06/13/23 History release furosemide 20 mg tablet 20 mg PO 06/13/23 History lidocaine 5 % topical patch 1 patch topical DAILY 06/13/23 06/13/23 History loperamide 2 mg capsule 2 mg PO 06/13/23 History losartan 25 mg tablet 12.5 mg PO DAILY 06/13/23 06/13/23 History metformin 500 mg tablet 500 mg PO 3XD 06/13/23 06/13/23 History nitrofurantoin 1 cap PO BID 06/13/23 06/13/23 History monohydrate/macrocrystals 100 mg capsule pramipexole 0.5 mg tablet mg PO 06/13/23 History simvastatin 20 mg tablet 20 mg PO 06/13/23 History tolterodine 4 mg PO 06/13/23 History Allergies Allergy/AdvReac Type Severity Reaction Status Date / Time celecoxib [From Celebrex] AdvReac Verified 06/12/23 15:33 Review of Systems Review of Systems Narrative: Unobtainable due to cognitive deficits Exam Vital Signs (past 8 hours): - 06/12/23 16:04 06/12/23 16:29 06/12/23 16:30 Temperature Pulse Rate 87 85 Respiratory Rate Blood Pressure 107/53 L Pulse Oximetry 96 96 Oxygen Flow Rate 06/12/23 16:41 06/12/23 17:00 06/12/23 17:00 Temperature Pulse Rate 86 Respiratory Rate 25 H Blood Pressure 100/56 L Pulse Oximetry 99 94 Oxygen Flow Rate 06/12/23 17:30 06/12/23 17:30 06/12/23 18:00 Temperature 99.9 F H Pulse Rate 87 84 Respiratory Rate 24 23 Blood Pressure 101/58 L Pulse Oximetry 92 Oxygen Flow Rate 06/12/23 18:00 06/12/23 18:30 06/12/23 18:31 Temperature 100.0 F H 100.0 F H Pulse Rate 80 81 Respiratory Rate 26 H 11 L Blood Pressure 99/59 L Pulse Oximetry 92 96 Oxygen Flow Rate 06/12/23 18:31 06/12/23 19:00 06/12/23 19:00 Temperature 100.0 F H Pulse Rate 80 Respiratory Rate Blood Pressure 91/52 L 88/56 L Pulse Oximetry Oxygen Flow Rate 06/12/23 19:30 06/12/23 19:30 06/12/23 19:33 Temperature 99.9 F H 99.9 F H Pulse Rate 79 77 Respiratory Rate Blood Pressure 83/54 L Pulse Oximetry 96 95 Oxygen Flow Rate 06/12/23 19:33 06/12/23 20:00 06/12/23 20:30 Temperature 99.7 F H 99.7 F H Pulse Rate 120 H 80 Respiratory Rate 41 H Blood Pressure 84/52 L Pulse Oximetry Oxygen Flow Rate 06/12/23 21:00 06/12/23 21:20 06/12/23 21:55 Temperature 99.7 F H 97.8 F Pulse Rate 82 Respiratory Rate 30 H 20 Blood Pressure 90/52 L 96/46 L Pulse Oximetry 96 Oxygen Flow Rate 0 Oxygen Delivery Method Room Air Oxygen Flow Rate 0 Const Other: Laying in bed in no distress HENMT Other: appearance normal Resp Other: tachypnea Cardio Other: RRR GI Other: distended abdomen Skin Other: w/o rashes Neuro Other: cognitive deficits Extrem Other: w/o swelling Objective Labs 06/12/23 16:30 06/12/23 16:30 Labs: Laboratory Results - last 24 hr 06/12/23 06/12/23 06/12/23 16:30 17:10 17:45 WBC 20.1 H RBC 4.14 Hgb 11.4 L Hct 34.9 L MCV 84.3 MCH 27.4 MCHC 32.6 RDW 14.6 Plt Count 231 Neut % (Auto) 95.4 H Lymph % (Auto) 0.5 L [place] % (Auto) 3.9 Eos % (Auto) 0.0 L Baso % (Auto) 0.2 Neut # (Auto) 41187 H Lymph # (Auto) 100 L [place] # (Auto) 800 Eos # (Auto) 0 Baso # (Auto) 0 PT 12.5 INR 1.1 APTT 30 Sodium 135 L Potassium 4.5 Chloride 103 Carbon Dioxide 24 BUN 22 H Creatinine 1.09 H Estimated GFR 49 L BUN/Creatinine Ratio 20.2 Glucose 185 H Lactate 4.4 H* Calcium 9.1 Total Bilirubin 0.9 AST 42 H ALT 29 Alkaline Phosphatase 87 Total Protein 7.1 Albumin 4.0 Globulin 3.1 Albumin/Globulin Ratio 1.3 Lipase 12 L Procalcitonin 11.0 H Urine Color Yellow Urine Appearance Clear Urine pH 5.5 Ur Specific [place] 1.020 Urine Protein Trace H Urine Glucose (UA) Negative Urine Ketones Trace H Urine Occult Blood Negative Urine Nitrate Negative Urine Bilirubin Negative Urine Urobilinogen 0.2 Ur Leukocyte Esterase 1+ H Urine RBC 0-1/hpf Urine WBC 1-5/hpf Ur Squamous Epith Cells 1-5 /hpf Urine Bacteria Few (2-10) H Urine Mucus 2+ H Ur Culture Indicated? Specimen cultured Vol Urine Centrifuged 10ml (spun) Chlamy pneumoniae PCR Not detected Adenovirus (PCR) Not detected B.parapertussis DNA PCR Not detected Coronavirus OC43 (PCR) Not detected Coronavirus HKU1 (PCR) Not detected Coronavirus 229E (PCR) Not detected SARS-CoV-2 (PCR) Not detected Coronavirus NL63 (PCR) Not detected Human Metapneumovir PCR Not detected Influenza Type A (PCR) Not detected Influenza Type B (PCR) Not detected M. pneumoniae (PCR) Not detected Parainfluenza 1 (PCR) Not detected Parainfluenza 2 (PCR) Not detected Parainfluenza 3 (PCR) Not detected Parainfluenza 4 (PCR) Not detected RSV (PCR) Not detected Entero/Rhino (PCR) Not detected 06/12/23 18:20 WBC RBC Hgb Hct MCV MCH MCHC RDW Plt Count Neut % (Auto) Lymph % (Auto) [place] % (Auto) Eos % (Auto) Baso % (Auto) Neut # (Auto) Lymph # (Auto) [place] # (Auto) Eos # (Auto) Baso # (Auto) PT INR APTT Sodium Potassium Chloride Carbon Dioxide BUN Creatinine Estimated GFR BUN/Creatinine Ratio Glucose Lactate 3.4 H Calcium Total Bilirubin AST ALT Alkaline Phosphatase Total Protein Albumin Globulin Albumin/Globulin Ratio Lipase Procalcitonin Urine Color Urine Appearance Urine pH Ur Specific [place] Urine Protein Urine Glucose (UA) Urine Ketones Urine Occult Blood Urine Nitrate Urine Bilirubin Urine Urobilinogen Ur Leukocyte Esterase Urine RBC Urine WBC Ur Squamous Epith Cells Urine Bacteria Urine Mucus Ur Culture Indicated? Vol Urine Centrifuged Chlamy pneumoniae PCR Adenovirus (PCR) B.parapertussis DNA PCR Coronavirus OC43 (PCR) Coronavirus HKU1 (PCR) Coronavirus 229E (PCR) SARS-CoV-2 (PCR) Coronavirus NL63 (PCR) Human Metapneumovir PCR Influenza Type A (PCR) Influenza Type B (PCR) M. pneumoniae (PCR) Parainfluenza 1 (PCR) Parainfluenza 2 (PCR) Parainfluenza 3 (PCR) Parainfluenza 4 (PCR) RSV (PCR) Entero/Rhino (PCR) Assessment & Plan Assessment and plan (1) Pneumonia: Status: Acute (2) Sepsis: Status: Acute (3) Constipation: Status: Acute (4) Diabetes: Status: Acute Assessment & Plan narrative: LLL CAP / Sepsis / possible DWAYNE - Rocephin, Zithromax, IVFs Constipation - large colonic stool burden - enema, laxatives NIDDM - hold metformin, questionable PO intake - SS instead HTN - Losartan, Lasix on hold RLS - Mirapex prn HLD - statin on hold Recurrent UTIs - w/o evidence of UTI today DVT prophylaxis - heparin
[2023-06-13] MEDS: FLEETS ENEMA 1 EACH PR (01:03)
[2023-06-13] MEDS: SODIUM CHLORIDE 0.9% 1,000 ML 150 ML IV ×2 (02:25→10:38)
[2023-06-13 04:08] LABS: Add Manual Diff / Slide Review NO; Basophils Absolute Auto 100 /uL (0-100); Basophils Percent Auto 0.4 % (0-2); Eosinophils Absolute Auto 100 /uL (0-450); Eosinophils Percent Auto 0.4 % (2-4); Hematocrit 30.6 % (36-46); Lymphocytes Absolute Auto 200 /uL (1100-4500); Lymphocytes Percent Auto 1.2 % (25-40); Mean Corpuscular HGB Conc 32.9 % (30-36); Mean Corpuscular Hemoglobin 27.3 PG (26-34); Mean Corpuscular Volume 83.1 fL (80-100); Monocytes Absolute Auto 600 /uL (0-900); Monocytes Percent Auto 3.6 % (3-14); Neutrophils Absolute Auto 14900 /uL (1500-7000); Neutrophils Percent Auto 94.4 % (50-75); Platelet Count 200 X10^3/uL (150-400); Red Blood Cell Count 3.68 X10^6/uL (4.0-5.2); Red Cell Distribution Width 14.7 % (11.6-14.8); White Blood Cell Count 15.8 X10^3/uL (4.5-11.0)
[2023-06-13 04:15] LABS: BUN Creatinine Ratio 24.8 (6-22); Blood Urea Nitrogen 27 mg/dL (7-17); Calcium 8.4 mg/dL (8.4-10.2); Carbon Dioxide 22 mmol/L (22-32); Chloride 105 mmol/L (98-107); Estimated Glomerular Filt Rate 49 mL/min (>60); Glucose 170 mg/dL (80-110); HEMOLYSIS < 15 (0-50); Lactate (Lactic Acid) 2.9 mmol/L (0.7-2.1); Potassium 4.1 mmol/L (3.4-5.1); Sodium 133 mmol/L (137-145)
[2023-06-13 05:15] VITALS: BP 95/47; PULSE 94; RESP 19; TEMP 36.8; O2SAT 92
[2023-06-13 05:36] LABS: Reflexed Lactate in 2 Hours Y
[2023-06-13] MEDS: SODIUM CHLORIDE 0.9% 1,000 ML 1000 ML IV (05:58)
[2023-06-13 06:10] LABS: Lactate 2HR (Lactic Acid Rflx) 1.9 mmol/L (0.7-2.1)
[2023-06-13 07:30] VITALS: BP 90/63; RESP 20; TEMP 36.6; O2SAT 93
--- NOTE | 2023-06-13 08:16 | P.PN_ITS ---
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 In addition, distended abdomen with severe constipation. Started on empiric antibiotics and IVFs. Unable to provide history. Today: She appears to have significant cognitive impairment. She has not able to articulate any problems. She was breathing comfortably. Exam Vital Signs (past 8 hours): - 06/13/23 05:15 06/13/23 07:30 Temperature 98.2 F 97.8 F Pulse Rate 94 H Respiratory Rate 19 20 Blood Pressure 95/47 L 90/63 Pulse Oximetry 92 93 Oxygen Flow Rate 0 0 Oxygen Delivery Method Room Air Oxygen Flow Rate 0 Narrative Exam Narrative: Cognitively impaired, restless, no apparent distress. Lungs are clear. Normal rate and effort. Heart is regular, no murmur. Abdomen is soft. Nondistended. No leg edema. She was spontaneous movement of arms and legs. Objective Imaging Multiple studies:: Radiologist's impression: Abdomen and pelvis CT: No acute intra-abdominal or pelvic process. Prominent colonic stool without obstruction. Diverticulosis. Right posterior lateral hepatic focus of enhancement unchanged. This could represent a small hemangioma. Chest x-ray: Hazy left basilar airspace opacity, either infection or atelectasis. Moderate colonic stool load. Labs 06/13/23 03:50 06/13/23 03:50 Labs: Laboratory Results - last 24 hr 06/12/23 06/12/23 06/12/23 16:30 17:10 17:45 WBC 20.1 H RBC 4.14 Hgb 11.4 L Hct 34.9 L MCV 84.3 MCH 27.4 MCHC 32.6 RDW 14.6 Plt Count 231 Neut % (Auto) 95.4 H Lymph % (Auto) 0.5 L [place] % (Auto) 3.9 Eos % (Auto) 0.0 L Baso % (Auto) 0.2 Neut # (Auto) 37408 H Lymph # (Auto) 100 L [place] # (Auto) 800 Eos # (Auto) 0 Baso # (Auto) 0 PT 12.5 INR 1.1 APTT 30 Sodium 135 L Potassium 4.5 Chloride 103 Carbon Dioxide 24 BUN 22 H Creatinine 1.09 H Estimated GFR 49 L BUN/Creatinine Ratio 20.2 Glucose 185 H Lactate 4.4 H* Calcium 9.1 Total Bilirubin 0.9 AST 42 H ALT 29 Alkaline Phosphatase 87 Total Protein 7.1 Albumin 4.0 Globulin 3.1 Albumin/Globulin Ratio 1.3 Lipase 12 L Procalcitonin 11.0 H Urine Color Yellow Urine Appearance Clear Urine pH 5.5 Ur Specific [place] 1.020 Urine Protein Trace H Urine Glucose (UA) Negative Urine Ketones Trace H Urine Occult Blood Negative Urine Nitrate Negative Urine Bilirubin Negative Urine Urobilinogen 0.2 Ur Leukocyte Esterase 1+ H Urine RBC 0-1/hpf Urine WBC 1-5/hpf Ur Squamous Epith Cells 1-5 /hpf Urine Bacteria Few (2-10) H Urine Mucus 2+ H Ur Culture Indicated? Specimen cultured Vol Urine Centrifuged 10ml (spun) Chlamy pneumoniae PCR Not detected Adenovirus (PCR) Not detected B.parapertussis DNA PCR Not detected Coronavirus OC43 (PCR) Not detected Coronavirus HKU1 (PCR) Not detected Coronavirus 229E (PCR) Not detected SARS-CoV-2 (PCR) Not detected Coronavirus NL63 (PCR) Not detected Human Metapneumovir PCR Not detected Influenza Type A (PCR) Not detected Influenza Type B (PCR) Not detected M. pneumoniae (PCR) Not detected Parainfluenza 1 (PCR) Not detected Parainfluenza 2 (PCR) Not detected Parainfluenza 3 (PCR) Not detected Parainfluenza 4 (PCR) Not detected RSV (PCR) Not detected Entero/Rhino (PCR) Not detected 06/12/23 06/13/23 06/13/23 18:20 03:50 05:44 WBC 15.8 H RBC 3.68 L Hgb 10.0 L Hct 30.6 L MCV 83.1 MCH 27.3 MCHC 32.9 RDW 14.7 Plt Count 200 Neut % (Auto) 94.4 H Lymph % (Auto) 1.2 L [place] % (Auto) 3.6 Eos % (Auto) 0.4 L Baso % (Auto) 0.4 Neut # (Auto) 94493 H Lymph # (Auto) 200 L [place] # (Auto) 600 Eos # (Auto) 100 Baso # (Auto) 100 PT INR APTT Sodium 133 L Potassium 4.1 Chloride 105 Carbon Dioxide 22 BUN 27 H Creatinine 1.09 H Estimated GFR 49 L BUN/Creatinine Ratio 24.8 H Glucose 170 H Lactate 3.4 H 2.9 H 1.9 Calcium 8.4 Total Bilirubin AST ALT Alkaline Phosphatase Total Protein Albumin Globulin Albumin/Globulin Ratio Lipase Procalcitonin Urine Color Urine Appearance Urine pH Ur Specific [place] Urine Protein Urine Glucose (UA) Urine Ketones Urine Occult Blood Urine Nitrate Urine Bilirubin Urine Urobilinogen Ur Leukocyte Esterase Urine RBC Urine WBC Ur Squamous Epith Cells Urine Bacteria Urine Mucus Ur Culture Indicated? Vol Urine Centrifuged Chlamy pneumoniae PCR Adenovirus (PCR) B.parapertussis DNA PCR Coronavirus OC43 (PCR) Coronavirus HKU1 (PCR) Coronavirus 229E (PCR) SARS-CoV-2 (PCR) Coronavirus NL63 (PCR) Human Metapneumovir PCR Influenza Type A (PCR) Influenza Type B (PCR) M. pneumoniae (PCR) Parainfluenza 1 (PCR) Parainfluenza 2 (PCR) Parainfluenza 3 (PCR) Parainfluenza 4 (PCR) RSV (PCR) Entero/Rhino (PCR) PFSH Medical History HLD (hyperlipidemia) Restless legs HTN (hypertension) Diabetes Social History Smoking Status: Former smoker alcohol intake: current Assessment & Plan Assessment & Plan narrative: 1. CAP (LLL), present on admission and active. 2. Sepsis. Present on admission and active. 3. Acute kidney injury, present on admission and active. 4. Constipation and abdominal distention, present on admission and active. 5. NIDDM2, present on admission and active. 6. HTN, present on admission and active. 7. RLS, present on admission and active. 8. HLD, present on admission and active. 9. Recurrent UTIs, present on admission and active. Plan: -continue antibiotics soft, ceftriaxone and azithromycin. -bowel program -hold oral diabetic agents monitor glucose -hold blood pressure medications and monitor renal function and blood pressure -out of bed, advance activity -1 small dose of Ativan for agitation. -monitor renal function. -monitor blood pressure. DVT prophylaxis - heparin
--- NOTE | 2023-06-13 09:16 | CM.DANOTE ---
Initial DCP Assessment Visit Note Reviewed EMR and team rounds for status updates. Pt resides at [facility], has a hx of advanced dementia, family were not available at the time of this visit. S[employer]KING [employer]ER will attempt to call her dtr at some point later today to check in re: concerns/needs for eventual d/c back to [facility]. Payor: Pollo Willingham PCP: U/K Pt is a 87 year-old F who presented to the ED via EMS yesterday evening after her dtr visited and found her to have worsening confusion and shortness of breath. She has also had a recent UTI, had been taking oral antibiotics, stopped them, and UTI symptoms worsened again. In the ED she was found to be confused, c/o abdominal pain to staff. Imaging and labs in the ED was concerning for sepsis/pneumonia, she was started on IV ABO's and admitted to the floor for further eval/tx. DCP will continue to follow Discharge Planning/Care Management CM Discharge Assessment Start: 06/13/23 09:06 Freq: Status: Active Protocol: Document 06/13/23 09:06 DPL (Rec: 06/13/23 09:16 DPL [id number]) Discharge Planning Assessment Assigned Medical Referral Coordinator YUVAL Gee Advance Directives? Yes Advance Directives on File Yes History Provided By Family Member,Medical Record Has Patient been admitted in last 30 No days? Prior Living Arrangements Assisted Living Comment Memory care Type of transporation used prior to Relies on Others admit Facility Name Admitted From: [facility] Willing to Return to Facility? Yes Independent with ADL's No Is patient alert and oriented? No Needs Assistance With Bathing,Eating,Grooming, Managing Medications,Home Chores / Shopping Caregiver for Another No DME Already Rented / Owned Bath Bench,Hospital Bed, Elevated Toilet Seat,FWW / Walker Comment [facility]isted Living Barriers to Discharge No Discharge Plan Assisted Living Facility Transportation Arrangement Facility Referrals Initiated None needed Whiteboard Updated in Patient Room with Yes name and ext. # of Medical Referral Coordinator Review Status In Process Please Provide Date Initial DC 06/13/23 Assessment Was Performed
[2023-06-13] MEDS: INSULIN LISPRO 100 UNIT/ML 3ML VIAL SUBCUT (09:21)
[2023-06-13] MEDS: HEPARIN 5,000 UNIT/ML VIAL 5000 UNIT SUBCUT (09:21)
--- NOTE | 2023-06-13 10:10 | DIET.CONS ---
Dietary Consultation Note Admission Date: 06/12/2023 20:49 Assessment: 87 y F admitted with worsening confusion and SOB. Nutrition screened for low MNA. Pt with hx of advanced dementia. Per RN, soft foods recc due to concerns for food pocketing. Coordinated with unit host/kitchen for best tolerated foods. Limited wt hx in chart. Low BMI for age. Ht: 165.1 cm Wt: 52.2 kg BMI: 19.2 UBW: 54.885 kg per chart on 03/09/23 (-5% weight loss in 3 months, non-severe) Last BM: 06/13/23 (06/13/23 01:47) MNA: 9 David Score: 18 Diet: 06/13/23 Breakfast Carbohydrate Consistent Diet Diet Modifications: Carbohydrate level: Medium (3 CHO) Reflex DM orders: No Food Texture: Level 7 - Regular Liquid Consistency: Level 0 - Thin Labs: RBC 3.68 X10^6/uL (4.0-5.2) L 06/13/23 03:50 Hgb 10.0 g/dL (12.0-16.0) L 06/13/23 03:50 Hct 30.6 % (36-46) L 06/13/23 03:50 Creatinine 1.09 mg/dL (0.52-1.04) H 06/13/23 03:50 Lactate 1.9 mmol/L (0.7-2.1) 06/13/23 05:44 Nutrition Diagnosis: Underweight for age r/t inadequate energy intake in setting of advanced dementia as evidenced by BMI 19.2 Interventions: 1. Coordinated with unit host/kitchen and daughter for best tolerated foods EER: [id number] kcals (30 kcals/kg per BMI) 60-70 g protein (1.2 g/kg) Monitoring/Evaluations: f/u prn Electronically Signed by: Karina Lamar 06/13/23 10:10 Clinical Dietitian [address] [id number]
--- NOTE | 2023-06-13 11:07 | PM.DS.1 ---
History of Present Illness History of Present Illness Chief complaint: shortness of breath Narrative: 87 y/o with PMH of HTN, HLD, NIDDM, RLS, recurrent UTIs, depression, cognitive deficits, presented to ED with SOB, leukocytosis, hypotensive with evidence of LLL infiltrate. In addition, distended abdomen with severe constipation. Started on empiric antibiotics and IVFs. Unable to provide history. Discharge Providers Provider Date of admission: 06/12/23 20:49 Discharge Date: 06/13/23 Consults: None. Discharge provider: Rafi Hernandez MD Summary Hospital Course Discharge Diagnosis: 1. CAP (LLL), present on admission and active. 2. Sepsis. Present on admission and active. 3. Acute kidney injury, present on admission and active. 4. Constipation and abdominal distention, present on admission and active. 5. NIDDM2, present on admission and active. 6. HTN, present on admission and active. 7. RLS, present on admission and active. 8. HLD, present on admission and active. 9. Recurrent UTIs, present on admission and active. Hospital Course: She was admitted with possible pneumonia and sepsis as well as constipation. She was started on empiric antibiotics and an enema was given with good results. On the day of discharge I met with her daughter. Her daughter brought up the possibility of returning her to her memory care unit at [facility]. The patient is doing well, she does have baseline severe cognitive impairment but was breathing comfortably on room air and in no distress. Ultimately we agreed to return the patient and continue oral antibiotics for 5 additional days. Status at Discharge Cognitive/behavioral status at discharge: at baseline, confused Functional status at discharge: uses cane/walker Overall status at discharge: patient is back to baseline Time Spent with Patient Time spent: Greater than 30 minutes Exam Vital Signs (past 8 hours): - 06/13/23 05:15 06/13/23 07:30 Temperature 98.2 F 97.8 F Pulse Rate 94 H Respiratory Rate 19 20 Blood Pressure 95/47 L 90/63 Pulse Oximetry 92 93 Oxygen Flow Rate 0 0 Oxygen Delivery Method Room Air Oxygen Flow Rate 0 Narrative Exam Narrative: Cognitively impaired, restless, no apparent distress. Lungs are clear. Normal rate and effort. Heart is regular, no murmur. Abdomen is soft. Nondistended. No leg edema. She was spontaneous movement of arms and legs. Objective Imaging Multiple studies:: Radiologist's impression: Abdomen and pelvis CT: No acute intra-abdominal or pelvic process. Prominent colonic stool without obstruction. Diverticulosis. Right posterior lateral hepatic focus of enhancement unchanged. This could represent a small hemangioma. Chest x-ray: Hazy left basilar airspace opacity, either infection or atelectasis. Moderate colonic stool load. Labs 06/13/23 03:50 06/13/23 03:50 Labs: Laboratory Results - last 24 hr 06/12/23 06/12/23 06/12/23 16:30 17:10 17:45 WBC 20.1 H RBC 4.14 Hgb 11.4 L Hct 34.9 L MCV 84.3 MCH 27.4 MCHC 32.6 RDW 14.6 Plt Count 231 Neut % (Auto) 95.4 H Lymph % (Auto) 0.5 L [place] % (Auto) 3.9 Eos % (Auto) 0.0 L Baso % (Auto) 0.2 Neut # (Auto) 11018 H Lymph # (Auto) 100 L [place] # (Auto) 800 Eos # (Auto) 0 Baso # (Auto) 0 PT 12.5 INR 1.1 APTT 30 Sodium 135 L Potassium 4.5 Chloride 103 Carbon Dioxide 24 BUN 22 H Creatinine 1.09 H Estimated GFR 49 L BUN/Creatinine Ratio 20.2 Glucose 185 H Lactate 4.4 H* Calcium 9.1 Total Bilirubin 0.9 AST 42 H ALT 29 Alkaline Phosphatase 87 Total Protein 7.1 Albumin 4.0 Globulin 3.1 Albumin/Globulin Ratio 1.3 Lipase 12 L Procalcitonin 11.0 H Urine Color Yellow Urine Appearance Clear Urine pH 5.5 Ur Specific [place] 1.020 Urine Protein Trace H Urine Glucose (UA) Negative Urine Ketones Trace H Urine Occult Blood Negative Urine Nitrate Negative Urine Bilirubin Negative Urine Urobilinogen 0.2 Ur Leukocyte Esterase 1+ H Urine RBC 0-1/hpf Urine WBC 1-5/hpf Ur Squamous Epith Cells 1-5 /hpf Urine Bacteria Few (2-10) H Urine Mucus 2+ H Ur Culture Indicated? Specimen cultured Vol Urine Centrifuged 10ml (spun) Chlamy pneumoniae PCR Not detected Adenovirus (PCR) Not detected B.parapertussis DNA PCR Not detected Coronavirus OC43 (PCR) Not detected Coronavirus HKU1 (PCR) Not detected Coronavirus 229E (PCR) Not detected SARS-CoV-2 (PCR) Not detected Coronavirus NL63 (PCR) Not detected Human Metapneumovir PCR Not detected Influenza Type A (PCR) Not detected Influenza Type B (PCR) Not detected M. pneumoniae (PCR) Not detected Parainfluenza 1 (PCR) Not detected Parainfluenza 2 (PCR) Not detected Parainfluenza 3 (PCR) Not detected Parainfluenza 4 (PCR) Not detected RSV (PCR) Not detected Entero/Rhino (PCR) Not detected 06/12/23 06/13/23 06/13/23 18:20 03:50 05:44 WBC 15.8 H RBC 3.68 L Hgb 10.0 L Hct 30.6 L MCV 83.1 MCH 27.3 MCHC 32.9 RDW 14.7 Plt Count 200 Neut % (Auto) 94.4 H Lymph % (Auto) 1.2 L Cors[place] % (Auto) 3.6 Eos % (Auto) 0.4 L Baso % (Auto) 0.4 Neut # (Auto) 32140 H Lymph # (Auto) 200 L [place] # (Auto) 600 Eos # (Auto) 100 Baso # (Auto) 100 PT INR APTT Sodium 133 L Potassium 4.1 Chloride 105 Carbon Dioxide 22 BUN 27 H Creatinine 1.09 H Estimated GFR 49 L BUN/Creatinine Ratio 24.8 H Glucose 170 H Lactate 3.4 H 2.9 H 1.9 Calcium 8.4 Total Bilirubin AST ALT Alkaline Phosphatase Total Protein Albumin Globulin Albumin/Globulin Ratio Lipase Procalcitonin Urine Color Urine Appearance Urine pH Ur Specific [place] Urine Protein Urine Glucose (UA) Urine Ketones Urine Occult Blood Urine Nitrate Urine Bilirubin Urine Urobilinogen Ur Leukocyte Esterase Urine RBC Urine WBC Ur Squamous Epith Cells Urine Bacteria Urine Mucus Ur Culture Indicated? Vol Urine Centrifuged Chlamy pneumoniae PCR Adenovirus (PCR) B.parapertussis DNA PCR Coronavirus OC43 (PCR) Coronavirus HKU1 (PCR) Coronavirus 229E (PCR) SARS-CoV-2 (PCR) Coronavirus NL63 (PCR) Human Metapneumovir PCR Influenza Type A (PCR) Influenza Type B (PCR) M. pneumoniae (PCR) Parainfluenza 1 (PCR) Parainfluenza 2 (PCR) Parainfluenza 3 (PCR) Parainfluenza 4 (PCR) RSV (PCR) Entero/Rhino (PCR) [facility] Medical History HLD (hyperlipidemia) Restless legs HTN (hypertension) Diabetes Social History Smoking Status: Former smoker alcohol intake: current Discharge Assessment & Plan Assessment and Plan Assessment: 1. CAP (LLL), present on admission and active. 2. Sepsis. Present on admission and improved. 3. Acute kidney injury, present on admission and improved. 4. Constipation and abdominal distention, present on admission and improved. 5. NIDDM2, present on admission and active. 6. HTN, present on admission and active. 7. RLS, present on admission and active. 8. HLD, present on admission and active. 9. Recurrent UTIs, present on admission and active. Plan of Treatment: Returned to his area memory care unit. We will resume all usual medications. We will add cefdinir 300 b.i.d. for 5 days. Follow up with PCP for shortness of breath, fevers or lack of improvement. Discharge Plan Discharge Plan Patient Disposition: Assisted Living Transfer to: [facility] Provider Discharge Comment: Stable for discharge back to her memory care facility. Discussed with daughter who believes that this is fine and she would be better off there. Discharge orders & Medications Discharge Orders: Discharge (Order); Ordered 06/13/23 Ordered By: Rafi Hernandez Prescriptions: New cefdinir 300 mg capsule 300 mg PO BID Qty: 10 0RF Continued pramipexole 0.5 mg tablet PO lidocaine 5 % adhesive patch,medicated 1 patch topical DAILY cyanocobalamin (vitamin B-12) [Vitamin B-12] 1,000 mcg tablet 1,000 mcg PO DAILY metformin 500 mg tablet 500 mg PO 3XD acetaminophen 325 mg tablet 325 mg PO Rx Instructions: 2 tabs by mouth loperamide 2 mg capsule 2 mg PO Rx Instructions: prn diarhhea simvastatin 20 mg tablet 20 mg PO losartan 25 mg tablet 12.5 mg PO DAILY furosemide 20 mg tablet 20 mg PO cranberry extract [Cranberry Concentrate] 500 mg capsule PO nitrofurantoin monohyd/m-cryst 100 mg capsule 1 cap PO BID duloxetine 20 mg capsule,delayed release(DR/EC) 20 mg PO BID tolterodine 4 mg capsule 4 mg PO Medication counseling provided by Pharmacist: No Discharge Health Status Multidrug resistant organism: No MDRO Diet/Activity/Treatments Diet: Carb-consistent/Diabetic Liquid consistency: Normal/Thin Food texture: Regular Skin/Wound/Dressing Care Report to your healthcare provider any signs of infection, such as:: chills, fever Visit Report/Discharge Packet Instructions: DI for Pneumonia -- Adult, Cefdinir Stand Alone Forms: Patient Portal/API
--- NOTE | 2023-06-13 11:42 | CM.DPC ---
DCP Cont. Update: Pt has been medically cleared for discharge, her dtr is going to transport her back to [facility] later this morning. No further DCP needs identified at this time.
--- NOTE | 2023-06-13 11:50 | PC.NURSE ---
Patient is A&Ox1, VSS, afebrile on RA. Slightly hypostensive denies dizziness. She is medically cleared for discharge on oral antibiotics. She assisted to dress, stevens catheter and IV removed. Daughter is supportive and bedside and reviews discharge instructions with RN. She reports she has already picked up prescription cefdinir and dropped off to memory care facility. She is [facility] via w[facility]ch [facility] all personal belongings [facility]
--- NOTE | 2023-06-13 13:27 | PC.NURSE ---
Pt out via w/c by [employer] to POV with daughter and all belongings.
== END 2023-06-13 13:29 | DRG 871 ==
LOC: ED 17:46 → AC 20:49
PROVIDERS: Emergency Medicine; Admitting Provider Internal Medicine; Emergency Provider Emergency Medicine; Referring Provider Emergency Medicine; Visit Provider Internal Medicine
DX: A41.9 Sepsis, unspecified organism (principal); J18.9 Pneumonia, unspecified organism; N17.9 Acute kidney failure, unspecified; K59.00 Constipation, unspecified; E11.9 Type 2 diabetes mellitus without complications; I10 Essential (primary) hypertension; G25.81 Restless legs syndrome; E78.5 Hyperlipidemia, unspecified; F03.90 Unspecified dementia, unspecified severity, without behavioral disturbance, psychotic disturbance, mood disturbance, and anxiety; Z79.84 Long term (current) use of oral hypoglycemic drugs; Z87.440 Personal history of urinary (tract) infections; Z87.891 Personal history of nicotine dependence
CPT/HCPCS: 36415; 74022; 74177; 80048; 80053; 81001; 82962; 83605; 83690; 84145; 85025; 85610; 85730; 87040; 87086; 87633; 96365; 96367; 99285; J0696; J1644; J1815; Q9967

== ENCOUNTER 2023-07-07 20:21 | Emergency (ER) | payer OTHER, MEDICAID, SELFPAY ==
[2023-06-12 21:10] VITALS: BMI 21.6
[2023-07-07 20:28] VITALS: BP 191/77; PULSE 67; RESP 16; TEMP 36.6; O2SAT 92; BMI 24.3
--- NOTE | 2023-07-07 20:37 | DI.CT.S_ITS ---
PROCEDURE: CT CERVICAL SPINE WO CON INDICATIONS: fall head injury, hematoma TECHNIQUE: Noncontrast 3 mm thick sections acquired from the skull base to the T4 level. Sagittal and coronal reformats were then constructed. For radiation dose reduction, the following was used: automated exposure control, adjustment of mA and/or kV according to patient size. COMPARISON: None. FINDINGS: Image quality: Excellent. Bones: No fractures or dislocations. Loss of disc height, degenerative endplate changes and bilateral uncovertebral hypertrophic changes are noted throughout cervical spine with dorsal disc osteophyte complex formation at C5-6 and C6-7 levels causing [id number] central canal stenosis and mild bilateral neural foraminal narrowing. Visualized superior ribs are intact. Soft tissues: Prevertebral soft tissues are normal in thickness. No paravertebral hematomas. No apical pneumothoraces. IMPRESSION: 1. No displaced cervical spine fracture or traumatic subluxation. 2. Degenerative disc disease throughout cervical spine as above. Dictated by: Paxton Denton M.D. on 07/07/2023 at 21:08 Approved by: Paxton Denton M.D. on 07/07/2023 at 21:09
--- NOTE | 2023-07-07 20:37 | DI.CT.S_ITS ---
PROCEDURE: CT HEAD/BRAIN WO CON INDICATIONS: fall head injury, hematoma left forhead TECHNIQUE: Noncontrast 4.5 mm thick angled axial sections acquired from the foramen magnum to the vertex, with coronal and sagittal reformats. For radiation dose reduction, the following was used: automated exposure control, adjustment of mA and/or kV according to patient size. COMPARISON: None. FINDINGS: Image quality: Diagnostic. CSF spaces: Basal cisterns are patent. No extra-axial fluid collections. The ventricles are symmetric in size and shape. Brain: No intracranial bleeds or masses. There is cerebral volume loss for age, with resultant ventricular and sulcal prominence. There are periventricular and deep white matter chronic small vessel ischemic changes. There is intracranial internal carotid artery atherosclerosis. Skull and face: Left frontal scalp swelling and hematoma is seen. No acute skull fracture. Sinuses: Visualized sinuses and mastoids are clear. IMPRESSION: 1. No acute intracranial pathology. 2. Left frontal scalp hematoma and swelling. No acute skull fracture. Dictated by: Paxton Denton M.D. on 07/07/2023 at 21:07 Approved by: Paxton Denton M.D. on 07/07/2023 at 21:08
--- NOTE | 2023-07-07 21:12 | DI.RAD.S_ITS ---
PROCEDURE: XR HIP W PEL IF DONE LT 2V INDICATIONS: pain in left hip after fall. TECHNIQUE: AP pelvis and lateral view of the hip acquired. COMPARISON: [facility], CR, XR PELVIS WITH LATERAL HIP LEFT, 05/08/2022, 17:46. [facility], CR, XR ACUTE ABDOMEN SERIES, 06/12/2023, 16:08. FINDINGS: Bones: Patient is status post left hip arthroplasty, with hardware components in expected positions. Left hip alignment is anatomic. No gross hardware loosening or failure. No periprosthetic fracture is seen. Soft tissues: No suspicious soft tissue densities. IMPRESSION: Prior left total hip arthroplasty. Stable anatomic left hip alignment. No gross hardware loosening or failure. No acute fracture or dislocation. Dictated by: Paxton Denton M.D. on 07/07/2023 at 21:42 Approved by: Paxton Denton M.D. on 07/07/2023 at 21:44
[2023-07-07] MEDS: ACETAMINOPHEN 325 MG TABLET 650 MG PO (21:49)
[2023-07-07 23:57] VITALS: PULSE 59; O2SAT 94
[2023-07-07 23:59] VITALS: BP 138/70
[2023-07-08] VITALS (8 sets, daily range): BP systolic 126–175; BP diastolic 64–74; PULSE 57–77; RESP 12–18; O2SAT 92–96
--- NOTE | 2023-07-08 01:01 | ED_ITS ---
HPI - Fall General Chief Complaint: Fall Stated Complaint: GLF no thinners Time Seen by Provider: 07/07/23 20:37 Source: patient, family (daughter), EMS, RN notes reviewed and old records reviewed Mode of arrival: EMS Limitations: no limitations History of Present Illness HPI Narrative: 87-year-old female with history of dementia, hypertension, dyslipidemia, diabetes no reported anticoagulants per family. Patient had a ground level fall today. Reportedly went to lean against a wall and missed. Daughter at bedside states patient is not sure but has had frequent falls. She forgets to use her walker and then falls. Patient has a large goose a has a small cut on her scalp, no reported loss of consciousness she describes some back pain as well as left hip pain. She does not have any neck pain. She denies any headache currently. No chest pain or shortness of breath. No nausea or vomiting. No other GI or urinary symptoms. She has pain when she lays on her hip but is able to lift her left leg. She does not have any pain with the other extremities. Patient former smoker, no regular alcohol intake. Allergic to Celebrex. She lives in a memory care unit. She is accompanied by her daughter. Related Data Home Medications Medication Instructions Recorded Confirmed acetaminophen 325 mg tablet 325 mg PO 06/13/23 cranberry extract 500 mg capsule mg PO 06/13/23 (Cranberry Concentrate) cyanocobalamin (vitamin B-12) 1,000 mcg PO DAILY 06/13/23 06/13/23 1,000 mcg tablet (Vitamin B-12) duloxetine 20 mg capsule,delayed 20 mg PO BID 06/13/23 06/13/23 release furosemide 20 mg tablet 20 mg PO 06/13/23 lidocaine 5 % topical patch 1 patch topical DAILY 06/13/23 06/13/23 loperamide 2 mg capsule 2 mg PO 06/13/23 losartan 25 mg tablet 12.5 mg PO DAILY 06/13/23 06/13/23 metformin 500 mg tablet 500 mg PO 3XD 06/13/23 06/13/23 nitrofurantoin 1 cap PO BID 06/13/23 06/13/23 monohydrate/macrocrystals 100 mg capsule pramipexole 0.5 mg tablet mg PO 06/13/23 simvastatin 20 mg tablet 20 mg PO 06/13/23 tolterodine 4 mg PO 06/13/23 Previous Rx's Medication Instructions Recorded cefdinir 300 mg capsule 300 mg PO BID #10 caps 06/13/23 cephalexin 500 mg capsule 500 mg PO BID 7 days #14 caps 07/08/23 docusate sodium 100 mg capsule 100 mg PO BID PRN constipation #20 07/08/23 (Colace) caps oxycodone 5 mg tablet 5 mg PO Q6H PRN pain #7 tabs 07/08/23 phenazopyridine 100 mg tablet 100 mg PO TID PRN pain 6 doses #6 07/08/23 (Pyridium) tabs Allergies Allergy/AdvReac Type Severity Reaction Status Date / Time celecoxib [From Celebrex] AdvReac Verified 06/12/23 15:33 Review of Systems Review of Systems ROS Unobtainable: All systems reviewed & are unremarkable except as noted in HPI and below Patient History Medical History HLD (hyperlipidemia) Restless legs HTN (hypertension) Diabetes Social History Smoking Status: Former smoker alcohol intake: current Smoking Status: Former smoker alcohol intake frequency: holidays/special occasions only Substance Use Type: does not use Exam Narrative Exam Narrative: GEN: C-collar prior to arrival. Patient appears in mild distress. HEAD: Patient has a large left frontal forehead hematoma, patient has left parietal scalp laceration that is approximately 0.75cm but does gape, no periorbital ecchymosis or swelling,, no raccoon/Whitlock sign. NECK: Nontender, painless range of motion, trachea midline Positive Nexus criteria, there is no line tenderness, distracting injury, altered mental status, patient has dementia at baseline but per family seems to be in her usual, neuro deficit, recent EtOH. EYES: PERRLA, EOMI ENT: External inspection normal other than above, trachea is midline, TM's are normal no hemotypanum, Nares are clear, no septal hematoma, no dental or oral injury, airway is normal and with normal occlusion, No bony tenderness RESP: Chest is nontender and has symmetric movement, no ecchymosis, breath sounds are normal no crackles, wheezes or rales CVS: Heart sounds are normal, no murmur noted, No JVD. ABG/GI: Nontender, soft, normal bowel sounds, no distention, no organomegaly, pelvic rock is negative NEURO: Alert and oriented, neuro is grossly intact, sensation and motor is normal all 4 extremities moving, cranial nerves II through XII are intact, GCS is 15 PSYCH: Normal mood and affect SKIN: Intact, warm and dry, no crepitus and without decubitus BACK: No CVA tenderness, no vertebral tenderness, no step-off's, no crepitus EXT: Patient has tenderness with palpation over her left hip. No obvious deformity. She can straight leg raise her left leg with minimal pain, no pain on the right, no other bony tenderness of upper and lower extremities., no pedal edema, normal color and temperature, 2+ pulses all 4 extremities. Initial Vital Signs Initial Vital Signs: Vital Signs Temperature 97.8 F 07/07/23 20:28 Pulse Rate 67 07/07/23 20:28 Respiratory Rate 16 07/07/23 20:28 Blood Pressure 191/77 H 07/07/23 20:28 Pulse Oximetry 92 07/07/23 20:28 Oxygen Delivery Method Room Air 07/07/23 20:[address] Head Rule Age <16 years old: No Patient on blood thinners: No Seizure after injury: No Exclusion: Patient NOT Excluded, Proceed to next steps Age greater or equal to 65 years: Yes GCS [place] coma scale eye opening: Spontaneous [place] coma scale verbal response: Orientated [place] coma scale motor response: Obey commands [place] coma scale total score: 15 Nexus Score for C-Spine Focal Neurologic deficit present: No Midline spinal tenderness present: No Altered level of conciousness present: Yes (dementia at baseline) Intoxication present: No Distracting Injury Present: No Nexus Criteria for C-spine: 1 Course Orders Ordered: ED Orders 07/07/23 21:12 XR hip w pel if done LT 2V Stat 07/08/23 02:24 Urinalysis and Microscopic Stat Urine Culture Stat Discontinued Medications Acetaminophen (Acetaminophen 325 Mg Tablet) 650 mg PO NOW ONE Stop: 07/07/23 21:45 Last Admin: 07/07/23 21:49 Dose: 650 mg Documented By: CHANG Cephalexin HCl (Cephalexin 250 Mg Capsule) 500 mg PO NOW ONE Stop: 07/08/23 02:40 Last Admin: 07/08/23 02:51 Dose: 500 mg Documented By: MACHO Lidocaine/Prilocaine (Lidocaine/Prilocaine 5 Gm) 5 gm TOP NOW ONE Stop: 07/08/23 01:14 Last Admin: 07/08/23 01:20 Dose: 5 gm Documented By: MACHO Oxycodone/Acetaminophen (Oxycodone/Acetaminophen 5/325 Tablet) 1 tab PO NOW ONE Stop: 07/08/23 02:08 Last Admin: 07/08/23 02:28 Dose: 1 tab Documented By: MACHO Phenazopyridine HCl (Phenazopyridine 100 Mg Tablet) 100 mg PO NOW ONE Stop: 07/08/23 02:40 Last Admin: 07/08/23 02:51 Dose: 100 mg Documented By: MACHO Vital Signs Vital signs: Vital Signs - 8 hr 07/07/23 23:57 07/07/23 23:59 07/08/23 00:00 Pulse Rate 59 L Respiratory Rate Blood Pressure 138/70 145/74 H Pulse Oximetry 94 Oxygen Delivery Method 07/08/23 00:00 07/08/23 00:30 07/08/23 00:30 Pulse Rate 67 57 L Respiratory Rate Blood Pressure 151/66 H Pulse Oximetry 96 Oxygen Delivery Method 07/08/23 01:00 07/08/23 01:00 07/08/23 01:30 Pulse Rate 59 L Respiratory Rate Blood Pressure 153/68 H 143/64 H Pulse Oximetry 96 Oxygen Delivery Method 07/08/23 01:30 07/08/23 01:44 07/08/23 02:00 Pulse Rate 57 L 60 Respiratory Rate Blood Pressure 175/72 H Pulse Oximetry 93 95 Oxygen Delivery Method 07/08/23 03:00 07/08/23 03:00 07/08/23 03:09 Pulse Rate 58 L 77 Respiratory Rate 18 12 Blood Pressure 126/67 Pulse Oximetry 92 93 Oxygen Delivery Method Room Air - Fall Lab Data Labs: Lab Results 07/08/23 Range/Units 02:24 Urine Color Straw Urine Appearance Cloudy Urine pH 7.0 (4.5-8.0) Ur Specific [place] 1.010 (1.000-1.035) Urine Protein Negative (Negative) Urine Glucose (UA) Negative (Negative) g/dL Urine Ketones Negative (NEGATIVE) Urine Occult Blood 1+ H (Negative) Urine Nitrate Positive H (Negative) Urine Bilirubin Negative (NEGATIVE) Urine Urobilinogen Normal (0.2) E.U./dL Ur Leukocyte Esterase 3+ H (NEGATIVE) Urine RBC 0-1/hpf (0-5/HPF) Urine WBC >100/hpf H (0-5/HPF) Ur Squamous Epith Cells 0-1 /hpf (0-5/HPF) Urine Bacteria Many (>30) H (None) Ur Culture Indicated? Specimen cultured Vol Urine Centrifuged 10ml (spun) Imaging Data CT scan - head: Radiologist's Impression: Katiuska Art??87??F??1935 ? Allergy/Adv: celecoxib Close Hip X-Ray (Signed) Paxton Denton - 07/07/[address] (Signed) Paxton Denton - 07/07/[address] (Signed) Paxton Denton - 07/07/23 Telemetry Strips 06/12/23 Abdomen/Pelvis CT (Signed) Miriam Singer - 06/12/23 Chest/Abdomen X-ray (Signed) Claudy Mayorga - 06/12/23 Vascular Ultrasound (Signed) Jorge Luis Sweet - 03/09/23 Launch?[place] [address] CT Scan Report Signed Patient: Katiuska Art MR#: [id number] : 1935 Acct:[id number] Age/Sex: 87 / F Date of Service: 07/07/23 Loc: ED Accession Number: [id number] Procedure: CT head/brain wo con Ordering Provider: Anastasiia Major D.O. PROCEDURE: CT HEAD/BRAIN WO CON INDICATIONS: fall head injury, hematoma left forhead TECHNIQUE: Noncontrast 4.5 mm thick angled axial sections acquired from the foramen magnum to the vertex, with coronal and sagittal reformats. For radiation dose reduction, the following was used: automated exposure control, adjustment of mA and/or kV according to patient size. COMPARISON: None. FINDINGS: Image quality: Diagnostic. CSF spaces: Basal cisterns are patent. No extra-axial fluid collections. The ventricles are symmetric in size and shape. Brain: No intracranial bleeds or masses. There is cerebral volume loss for age, with resultant ventricular and sulcal prominence. There are periventricular and deep white matter chronic small vessel ischemic changes. There is intracranial internal carotid artery atherosclerosis. Skull and face: Left frontal scalp swelling and hematoma is seen. No acute skull fracture. Sinuses: Visualized sinuses and mastoids are clear. IMPRESSION: 1. No acute intracranial pathology. 2. Left frontal scalp hematoma and swelling. No acute skull fracture. Dictated by: Paxton Denton M.D. on 07/07/2023 at 21:07 Approved by: Paxton Denton M.D. on 07/07/2023 at 21:08 CT - cervical spine: Radiologist's Impression: [address] [address] [address] Scan Report? Signed Patient: Katiuska Art MR#: [id number] : 1935 Acct:[id number] Age/Sex: 87 / F Date of Service: 07/07/23 Loc: ED Accession Number: [id number]? ? Procedure: CT cervical spine wo con Ordering Provider: Anastasiia Major D.O. PROCEDURE:? CT CERVICAL SPINE WO CON ? INDICATIONS:? fall head injury, hematoma ? TECHNIQUE:?? Noncontrast 3 mm thick sections acquired from the skull base to the T4 level.? Sagittal? and coronal reformats were then constructed.? For radiation dose reduction, the following? was used:? automated exposure control, adjustment of mA and/or kV according to patient? size.?? ? COMPARISON:? None. ? FINDINGS:?? Image quality:? Excellent.?? ? Bones:? No fractures or dislocations.? Loss of disc height, degenerative endplate changes? and bilateral uncovertebral hypertrophic changes are noted throughout cervical spine with? dorsal disc osteophyte complex formation at C5-6 and C6-7 levels causing [id number]? central canal stenosis and mild bilateral neural foraminal narrowing.? Visualized? superior ribs are intact.?? ? Soft tissues:? Prevertebral soft tissues are normal in thickness.? No paravertebral? hematomas.? No apical pneumothoraces.? IMPRESSION:?? ? 1. No displaced cervical spine fracture or traumatic subluxation. ? 2. Degenerative disc disease throughout cervical spine as above. ? ? Dictated by: Paxton Denton M.D. on 07/07/2023 at 21:08? ? ? Approved by: Paxton Denton M.D. on 07/07/2023 at 21:09? ? hip xray: Radiologist's Impression: [address] [address] XRay Report Signed Patient: Katiuska Art MR#: [id number] : 1935 Acct:[id number] Age/Sex: 87 / F Date of Service: 07/07/23 Loc: ED Accession Number: [id number] Procedure: XR hip w pel if done LT 2V Ordering Provider: Anastasiia Major D.O. PROCEDURE: XR HIP W PEL IF DONE LT 2V INDICATIONS: pain in left hip after fall. TECHNIQUE: AP pelvis and lateral view of the hip acquired. COMPARISON: [facility], CR, XR PELVIS WITH LATERAL HIP LEFT, 05/08/2022, 17:46. [facility], CR, XR ACUTE ABDOMEN SERIES, 06/12/2023, 16:08. FINDINGS: Bones: Patient is status post left hip arthroplasty, with hardware components in expected positions. Left hip alignment is anatomic. No gross hardware loosening or failure. No periprosthetic fracture is seen. Soft tissues: No suspicious soft tissue densities. IMPRESSION: Prior left total hip arthroplasty. Stable anatomic left hip alignment. No gross hardware loosening or failure. No acute fracture or dislocation. Dictated by: Paxton Denton M.D. on 07/07/2023 at 21:42 Approved by: Paxton Denton M.D. on 07/07/2023 at 21:44 [facility] Narrative Medical decision making narrative: Pleasant 87-year-old female who had a suspected mechanical ground level fall. Patient has obvious ecchymosis with a large hematoma on her forehead. Based on age and history of dementia head CT was obtained as well as CT C-spine she is high-risk for fracture. She does not have any neck pain did these show a hematoma but no intracranial bleed fracture, cervical spine does not show any subluxation or fracture. Patient does have very small laceration on the parietal scalp repaired with 1 staple. Patient is tender over the left hip she is pain with movement but is able to straight leg raise hip x-ray shows no acute changes and has left hip arthroplasty which appears expected positions. Patient received Tylenol for pain here in the department. Patient passed ambulation trial. Patient still quite uncomfortable. Daughter states she is tolerated oxycodone in the past so we will give 1 dose here. Discussed can have a PRN dose but increases her fall risk and alteration in mental status particularly with her dementia. They are okay with sparing use. Daughter notes she has had a lot of urinary frequency she is concerned about UTI. Patient had urine sample and has a nitrate positive urine we will go ahead and start Keflex and give dose Pyridium. Discharge Plan Departure Patient Disposition: Home Clinical Impression: Hematoma of frontal scalp, Hip pain, left, Fall, Acute UTI, Laceration of scalp Activity Restrictions/Additional Instructions: Follow up with your physician. You a large hematoma on your scalp but no signs of bleeding in your brain. Your imaging did not show any changes to the hardware in your hip you had some degenerative changes in your neck but no breaks or fractures of the bones. You do have 1 staple in your left scalp that needs to be removed in 7-10 days, this can be done by primary care, urgent care or the emergency department. You can take Tylenol up to a 1000 mg every 6 hours as needed for pain, if in adequate you can take 1 tablet of oxycodone every 6 hours. This medication can make you sleepy do not drive, perform hazardous activities or make any major decisions while taking it. This medication will make you constipated please take a stool softener such as Colace once to twice daily until stools are soft and regular. Your urine does show changes consistent with infection, take oral antibiotic as prescribed. There has also a prescription for Pyridium which she can take 1 tablet every 6 hours for sense of urgency and bladder spasm. This medication will make your urine bright orange. You received your 1st doses here this evening in the emergency department. Prescription was sent to [facility] pharmacy Please return for sudden changes in mentation, severe headaches, persistent vomiting, new weakness, rapidly worsening pain or other new or concerning symptoms. Prescriptions: New cephalexin 500 mg capsule 500 mg PO BID 7 Days Qty: 14 0RF phenazopyridine [Pyridium] 100 mg tablet 100 mg PO TID PRN (Reason: pain) Qty: 6 0RF oxycodone 5 mg tablet 5 mg PO Q6H PRN (Reason: pain) Qty: 7 0RF docusate sodium [Colace] 100 mg capsule 100 mg PO BID PRN (Reason: constipation) Qty: 20 0RF No Action pramipexole 0.5 mg tablet PO lidocaine 5 % adhesive patch,medicated 1 patch topical DAILY cyanocobalamin (vitamin B-12) [Vitamin B-12] 1,000 mcg tablet 1,000 mcg PO DAILY metformin 500 mg tablet 500 mg PO 3XD acetaminophen 325 mg tablet 325 mg PO Rx Instructions: 2 tabs by mouth loperamide 2 mg capsule 2 mg PO Rx Instructions: prn diarhhea simvastatin 20 mg tablet 20 mg PO losartan 25 mg tablet 12.5 mg PO DAILY furosemide 20 mg tablet 20 mg PO cranberry extract [Cranberry Concentrate] 500 mg capsule PO nitrofurantoin monohyd/m-cryst 100 mg capsule 1 cap PO BID duloxetine 20 mg capsule,delayed release(DR/EC) 20 mg PO BID tolterodine 4 mg capsule 4 mg PO cefdinir 300 mg capsule 300 mg PO BID Qty: 10 0RF Stand Alone Forms: Patient Portal/API
[2023-07-08] MEDS: LIDOCAINE/PRILOCAINE 5 GM TOP (01:20)
[2023-07-08] MEDS: OXYCODONE/ACETAMINOPHEN 5/325 TABLET 1 TAB PO (02:28)
[2023-07-08 02:32] LABS: Appearance Urine UA CLOUDY; Color Urine UA Straw
[2023-07-08 02:33] LABS: Glucose Urine UA NEGATIVE (Negative); Ketones Urine UA NEGATIVE (NEGATIVE); Occult Blood Urine UA 1+ (Negative); Protein Urine UA Negative (Negative)
[2023-07-08 02:34] LABS: Bilirubin Urine UA Negative (NEGATIVE); Leukocyte Esterase Urine UA 3+ (NEGATIVE); Nitrite Urine UA POSITIVE (Negative); Urobilinogen Urine UA Normal E.U./dL (0.2)
[2023-07-08 02:37] LABS: Bacteria Urine Many (>30); RBC Urine 0-1/HPF (0-5/HPF); Squamous Epithelial Cell Urine 0-1 /HPF (0-5/HPF); Urine Volume 10mL (spun)
[2023-07-08 02:38] LABS: Culture Indicated Urine Specimen Cultured; WBC Urine >100/HPF (0-5/HPF)
[2023-07-08] MEDS: PHENAZOPYRIDINE 100 MG TABLET PO (02:51)
[2023-07-08] MEDS: cephALEXin 250 MG CAPSULE 500 MG PO (02:51)
== END 2023-07-08 03:11 | disposition home or self-care (01) ==
PROVIDERS: Emergency Provider Emergency Medicine
DX: S01.01XA Laceration without foreign body of scalp, initial encounter (principal); S00.83XA Contusion of other part of head, initial encounter; M25.552 Pain in left hip; N39.0 Urinary tract infection, site not specified; W18.30XA Fall on same level, unspecified, initial encounter; Z91.81 History of falling
CPT/HCPCS: 70450; 72125; 73502; 81001; 87077; 87086; 87186; 99283; 99284

== ENCOUNTER → 2023-08-26 16:55 | Outpatient (ROUT) | payer OTHER, MEDICAID, SELFPAY ==
[2023-06-12 21:10] VITALS: BMI 21.6
[2023-08-26 17:12] LABS: Appearance Urine UA CLEAR; Bilirubin Urine UA NEGATIVE (NEGATIVE); Color Urine UA YELLOW; Glucose Urine UA NEGATIVE (Negative); Ketones Urine UA NEGATIVE (NEGATIVE); Leukocyte Esterase Urine UA TRACE (NEGATIVE); Nitrite Urine UA NEGATIVE (Negative); Occult Blood Urine UA NEGATIVE (Negative); Protein Urine UA NEGATIVE (Negative); Specific Gravity Urine UA 1.025 (1.000-1.035); Urobilinogen Urine UA 0.2 E.U./dL (0.2)
[2023-08-26 17:28] LABS: Bacteria Urine Occasional (0-1); Culture Indicated Urine Specimen Cultured; RBC Urine None Seen (0-5/HPF); Renal Epithelial Cells Urine 0-1/HPF (0-1/HPF); Squamous Epithelial Cell Urine 0-1 /HPF (0-5/HPF); Urine Volume 10mL (spun); WBC Urine 5-10/HPF (0-5/HPF); pH Urine UA 5.5 (4.5-8.0)
== END ==
PROVIDERS: Visit Provider Nurse Practitioner Family
DX: N39.0 Urinary tract infection, site not specified (principal)
CPT/HCPCS: 81001; 87086

== ENCOUNTER → 2023-09-02 19:31 | Outpatient (ROUT) | payer OTHER, MEDICAID, SELFPAY ==
[2023-06-12 21:10] VITALS: BMI 21.6
[2023-09-02 19:41] LABS: Appearance Urine UA CLEAR; Bilirubin Urine UA 1+ (NEGATIVE); Color Urine UA YELLOW; Glucose Urine UA TRACE g/dL (Negative); Ketones Urine UA TRACE (NEGATIVE); Leukocyte Esterase Urine UA TRACE (NEGATIVE); Nitrite Urine UA NEGATIVE (Negative); Occult Blood Urine UA NEGATIVE (Negative); Protein Urine UA TRACE (Negative); Specific Gravity Urine UA 1.025 (1.000-1.035)
[2023-09-02 19:59] LABS: Amorphous Sediment Urine 1+; Bacteria Urine Few (2-10); RBC Urine None Seen (0-5/HPF); Renal Epithelial Cells Urine 1-5/HPF (0-1/HPF); Squamous Epithelial Cell Urine 1-5 /HPF (0-5/HPF); Urine Volume 10mL (spun); WBC Urine 5-10/HPF (0-5/HPF)
[2023-09-02 20:00] LABS: Granular Casts Urine 1-5/LPF; Hyaline Casts Urine 1-5/LPF; Mucus Urine 1+ (Negative)
[2023-09-02 20:02] LABS: Ictotest Urine Positive (Negative)
== END ==
PROVIDERS: Visit Provider Registered Nurse
DX: N39.0 Urinary tract infection, site not specified (principal)
CPT/HCPCS: 81001

== ENCOUNTER → 2023-09-05 15:57 | Outpatient (ROUT) | payer OTHER, MEDICAID, SELFPAY ==
[2023-06-12 21:10] VITALS: BMI 21.6
[2023-09-05 16:22] LABS: Appearance Urine UA CLEAR; Bilirubin Urine UA NEGATIVE (NEGATIVE); Color Urine UA YELLOW; Glucose Urine UA NEGATIVE (Negative); Ketones Urine UA NEGATIVE (NEGATIVE); Leukocyte Esterase Urine UA TRACE (NEGATIVE); Nitrite Urine UA NEGATIVE (Negative); Occult Blood Urine UA NEGATIVE (Negative); Protein Urine UA NEGATIVE (Negative); Specific Gravity Urine UA 1.025 (1.000-1.035); Urobilinogen Urine UA 0.2 E.U./dL (0.2)
[2023-09-05 16:23] LABS: pH Urine UA 5.5 (4.5-8.0)
[2023-09-05 16:24] LABS: Culture Indicated Urine Specimen Cultured; Urine Volume 10mL (spun)
[2023-09-05 16:33] LABS: Bacteria Urine Few (2-10); RBC Urine 0-1/HPF (0-5/HPF); Squamous Epithelial Cell Urine 0-1 /HPF (0-5/HPF); WBC Urine 1-5/HPF (0-5/HPF)
== END ==
PROVIDERS: Visit Provider Registered Nurse
DX: Z13.89 Encounter for screening for other disorder (principal)
CPT/HCPCS: 81001; 87086

== ENCOUNTER → 2023-09-17 14:30 | Outpatient (ROUT) | payer OTHER, MEDICAID, SELFPAY ==
[2023-06-12 21:10] VITALS: BMI 21.6
[2023-09-17 15:00] LABS: Appearance Urine UA CLEAR; Bilirubin Urine UA 1+ (NEGATIVE); Color Urine UA YELLOW; Glucose Urine UA NEGATIVE (Negative); Ketones Urine UA TRACE (NEGATIVE); Leukocyte Esterase Urine UA TRACE (NEGATIVE); Nitrite Urine UA NEGATIVE (Negative); Occult Blood Urine UA NEGATIVE (Negative); Protein Urine UA 1+ (Negative); Specific Gravity Urine UA 1.015 (1.000-1.035)
[2023-09-17 15:08] LABS: Bacteria Urine Moderate (10-30); RBC Urine None Seen (0-5/HPF); Urine Volume 10mL (spun); WBC Urine 5-10/HPF (0-5/HPF)
[2023-09-17 15:09] LABS: Renal Epithelial Cells Urine 1-5/HPF (0-1/HPF); Squamous Epithelial Cell Urine 1-5 /HPF (0-5/HPF)
[2023-09-17 15:11] LABS: Ictotest Urine Positive (Negative)
== END ==
PROVIDERS: Visit Provider Nurse Practitioner Family
DX: N39.0 Urinary tract infection, site not specified (principal)
CPT/HCPCS: 81001; 87086

== ENCOUNTER → 2023-09-18 07:17 | Outpatient (ROUT) | payer OTHER, MEDICAID, SELFPAY ==
[2023-06-12 21:10] VITALS: BMI 21.6
[2023-09-18 07:38] LABS: Add Manual Diff / Slide Review NO; Basophils Absolute Auto 0 /uL (0-100); Basophils Percent Auto 0.3 % (0-2); Eosinophils Absolute Auto 400 /uL (0-450); Eosinophils Percent Auto 4.3 % (2-4); Hematocrit 32.8 % (36-46); Hemoglobin 10.9 g/dL (12.0-16.0); Lymphocytes Absolute Auto 400 /uL (1100-4500); Lymphocytes Percent Auto 4.1 % (25-40); Mean Corpuscular HGB Conc 33.1 % (30-36); Mean Corpuscular Hemoglobin 27.8 PG (26-34); Mean Corpuscular Volume 83.8 fL (80-100); Monocytes Absolute Auto 300 /uL (0-900); Monocytes Percent Auto 2.9 % (3-14); Neutrophils Absolute Auto 9000 /uL (1500-7000); Neutrophils Percent Auto 88.4 % (50-75); Platelet Count 292 X10^3/uL (150-400); Red Blood Cell Count 3.92 X10^6/uL (4.0-5.2); Red Cell Distribution Width 15.2 % (11.6-14.8); White Blood Cell Count 10.2 X10^3/uL (4.5-11.0)
[2023-09-18 08:05] LABS: Alanine Aminotransferase 99 IU/L (<35); Albumin 3.3 g/dL (3.5-5.0); Alkaline Phosphatase 815 U/L (38-126); Aspartate Aminotransferase 128 IU/L (14-36); BUN Creatinine Ratio 29.1 (6-22); Bilirubin Total 1.2 mg/dL (0.2-1.3); Blood Urea Nitrogen 32 mg/dL (7-17); Calcium 9.1 mg/dL (8.4-10.2); Carbon Dioxide 23 mmol/L (22-32); Chloride 106 mmol/L (98-107); Estimated Glomerular Filt Rate 49 mL/min (>60); Globulin 3.2 g/dL (1.7-4.1); Glucose 185 mg/dL (80-110); HEMOLYSIS < 15 (0-50); Potassium 4.2 mmol/L (3.4-5.1); Sodium 136 mmol/L (137-145); Total Protein 6.5 g/dL (6.3-8.2)
[2023-09-18 08:35] LABS: Thyroid Stimulating Hormone 3.71 uIU/mL (0.47-4.68)
== END ==
PROVIDERS: Visit Provider Registered Nurse
DX: N18.9 Chronic kidney disease, unspecified (principal); R53.83 Other fatigue
CPT/HCPCS: 36415; 80053; 84443; 85025

== ENCOUNTER 2023-09-26 13:05 | Emergency (ER) | payer OTHER, MEDICAID, SELFPAY ==
[2023-06-12 21:10] VITALS: BMI 21.6
[2023-09-26] VITALS (7 sets, daily range): BP systolic 121–126; BP diastolic 57–67; PULSE 88–97; RESP 26–30; TEMP 36.4; O2SAT 90–100; BMI 19.6
--- NOTE | 2023-09-26 13:17 | DI.RAD.S_ITS ---
PROCEDURE: XR CHEST 1V INDICATIONS: Chest pain and shortness of breath TECHNIQUE: One view of the chest was acquired. COMPARISON: , CT, CT ANGIO CHEST PE, 05/03/2022, 14:03. , CR, XR CHEST 1 VIEW, 05/03/2022, 11:49. , CR, XR CHEST 1 VIEW, 08/24/2022, 16:13. FINDINGS: Surgical changes and devices: None. Lungs and pleura: The lungs are hyperexpanded. Generalized interstitial prominence can be seen. Mild blunting of the right costophrenic angle is seen. No pneumothorax is seen. Mediastinum: The cardiac contours are within normal limits. The aorta demonstrates calcification and tortuosity. Bones and chest wall: No suspicious bony lesions. Age-appropriate bony degenerative changes are seen. Mild dextroconvex scoliotic curvature is seen. Overlying soft tissues appear unremarkable. IMPRESSION: Generalized interstitial prominence and a likely small right-sided pleural effusion are present. Fluid overload is suspected. No norma cardiomegaly can be seen. Dictated by: Jorge Luis Sweet M.D. on 09/26/2023 at 15:40 Approved by: Jorge Luis Sweet M.D. on 09/26/2023 at 15:41
--- NOTE | 2023-09-26 13:34 | ED.CHESTPAIN ---
HPI - Chest Pain General Chief Complaint: Chest Pain Stated Complaint: Chest pain, wheezing Time Seen by Provider: 09/26/23 13:16 Source: patient and EMS Mode of arrival: EMS Limitations: other History of Present Illness HPI narrative: Patient is an 88-year-old female who states she does not have a reported lung history such as COPD or emphysema who is here for evaluation of chest pain and wheezing and shortness of breath. I am little unsure as to when her symptoms started she did state that yesterday she had some shortness of breath but it seems to have worsened today. She was not on home oxygen. She denies fevers. Denies cough. She does come from [facility] facility. There was reports she was pale and shaky. Potentially some abdominal distention. Patient does seem to have quite a bit of discomfort with HPI and review of systems Related Data Home Medications Medication Instructions Recorded Confirmed acetaminophen 325 mg tablet 325 mg PO 06/13/23 cranberry extract 500 mg capsule mg PO 06/13/23 (Cranberry Concentrate) cyanocobalamin (vitamin B-12) 1,000 mcg PO DAILY 06/13/23 06/13/23 1,000 mcg tablet (Vitamin B-12) duloxetine 20 mg capsule,delayed 20 mg PO BID 06/13/23 06/13/23 release furosemide 20 mg tablet 20 mg PO 06/13/23 lidocaine 5 % topical patch 1 patch topical DAILY 06/13/23 06/13/23 loperamide 2 mg capsule 2 mg PO 06/13/23 losartan 25 mg tablet 12.5 mg PO DAILY 06/13/23 06/13/23 metformin 500 mg tablet 500 mg PO 3XD 06/13/23 06/13/23 nitrofurantoin 1 cap PO BID 06/13/23 06/13/23 monohydrate/macrocrystals 100 mg capsule pramipexole 0.5 mg tablet mg PO 06/13/23 simvastatin 20 mg tablet 20 mg PO 06/13/23 tolterodine 4 mg PO 06/13/23 Previous Rx's Medication Instructions Recorded cefdinir 300 mg capsule 300 mg PO BID #10 caps 06/13/23 docusate sodium 100 mg capsule 100 mg PO BID PRN constipation #20 07/08/23 (Colace) caps oxycodone 5 mg tablet 5 mg PO Q6H PRN pain #7 tabs 07/08/23 phenazopyridine 100 mg tablet 100 mg PO TID PRN pain 6 doses #6 07/08/23 (Pyridium) tabs Allergies Allergy/AdvReac Type Severity Reaction Status Date / Time celecoxib [From Celebrex] AdvReac Verified 06/12/23 15:33 Review of Systems Review of Systems Narrative: See HPI. Very limited secondary to patient's memory issues Patient History Medical History HLD (hyperlipidemia) Restless legs HTN (hypertension) Diabetes Social History Smoking Status: Former smoker alcohol intake: current Smoking Status: Former smoker alcohol intake frequency: holidays/special occasions only Substance Use Type: does not use Exam Initial Vital Signs Initial Vital Signs: Vital Signs Temperature 97.6 F 09/26/23 13:17 Pulse Rate 95 H 09/26/23 13:17 Respiratory Rate 30 H 09/26/23 13:17 Blood Pressure 123/67 09/26/23 13:17 Pulse Oximetry 90 L 09/26/23 13:17 Oxygen Delivery Method Room Air 09/26/23 13:17 Const General: cooperative and comfortable HENMT Head: normal to inspection and normocephalic Resp Effort & Inspection: no cough and tachypneic Auscultation: clear to auscultation bilaterally Cardio Rate: regular rate Rhythm: regular rhythm GI Inspection: normal to inspection and non-distended Palpation: soft and No tender Skin General: no rashes or lesions noted Neuro General: patient alert, patient awake and moves all extremities Extrem General: capillary refill normal Course Orders Ordered: ED Orders 09/26/23 13:17 XR chest 1V Stat EKG-12 Lead Stat RT Consult Eval and Treat Now 09/26/23 13:42 Respiratory Panel (Film Array) Stat 09/26/23 13:55 Complete Blood Count AUTO DIFF Stat Comprehensive Metabolic Panel Stat Lipase Stat Magnesium Stat NT-proBNP (BNP-Adult 18+) Stat Procalcitonin Stat Troponin & CK Cardiac Panel Stat Vital Signs Vital signs: Vital Signs - 8 hr 09/26/23 13:17 09/26/23 16:30 09/26/23 16:30 Temperature 97.6 F Pulse Rate 95 H 88 Respiratory Rate 30 H 26 H Blood Pressure 123/67 121/57 L Pulse Oximetry 90 L 97 Oxygen Delivery Method Room Air Room Air 09/26/23 16:49 Temperature Pulse Rate Respiratory Rate Blood Pressure Pulse Oximetry 98 Oxygen Delivery Method Room Air MDM - Chest Pain Lab Data Attestation: I reviewed the patient's lab results. 09/26/23 13:55 09/26/23 13:55 Labs: Lab Results 09/26/23 09/26/23 Range/Units 13:42 13:55 WBC 14.1 H (4.5-11.0) X10^3/uL RBC 4.17 (4.0-5.2) X10^6/uL Hgb 11.6 L (12.0-16.0) g/dL Hct 36.2 (36-46) % MCV 86.6 (80-100) fL MCH 27.9 (26-34) PG MCHC 32.2 (30-36) % RDW 16.0 H (11.6-14.8) % Plt Count 362 (150-400) X10^3/uL Neut % (Auto) 90.2 H (50-75) % Lymph % (Auto) 5.8 L (25-40) % [place] % (Auto) 2.7 L (3-14) % Eos % (Auto) 0.9 L (2-4) % Baso % (Auto) 0.4 (0-2) % Neut # (Auto) 13826 H (1397-6095) /uL Lymph # (Auto) 800 L (1233-1811) /uL [place] # (Auto) 400 (0-900) /uL Eos # (Auto) 100 (0-450) /uL Baso # (Auto) 100 (0-100) /uL Sodium 141 (137-145) mmol/L Potassium 4.2 (3.4-5.1) mmol/L Chloride 112 H (98-107) mmol/L Carbon Dioxide 16 L (22-32) mmol/L BUN 16 (7-17) mg/dL Creatinine 0.93 (0.52-1.04) mg/dL Estimated GFR 59 L (>60) mL/min BUN/Creatinine Ratio 17.2 (6-22) Glucose 114 H (80-110) mg/dL Calcium 8.8 (8.4-10.2) mg/dL Magnesium 1.8 (1.6-2.3) mg/dL Total Bilirubin 0.8 (0.2-1.3) mg/dL AST 30 (14-36) IU/L ALT 33 (<35) IU/L Alkaline Phosphatase 388 H D (38-126) U/L Total Creatine Kinase 25 L (30-135) U/L Troponin I < 0.012 (0.01-0.034) ng/mL NT-Pro-B Natriuret Pep 665 H (<450) pg/mL Total Protein 7.0 (6.3-8.2) g/dL Albumin 3.4 L (3.5-5.0) g/dL Globulin 3.6 (1.7-4.1) g/dL Albumin/Globulin Ratio 0.9 L (1.0-2.8) Lipase 30 (23-300) U/L Procalcitonin 0.152 (<0.5) ng/mL Chlamy pneumoniae PCR Not detected (Not Detect) Adenovirus (PCR) Not detected (Not Detect) B.parapertussis DNA PCR Not detected (Not Detecte) Coronavirus OC43 (PCR) Not detected (Not Detect) Coronavirus HKU1 (PCR) Not detected (Not Detect) Coronavirus 229E (PCR) Not detected (Not Detect) SARS-CoV-2 (PCR) Not detected (Not Detecte) Coronavirus NL63 (PCR) Not detected (Not Detect) Human Metapneumovir PCR Not detected (Not Detect) Influenza Type A (PCR) Not detected (Not Detect) Influenza Type B (PCR) Not detected (Not Detect) M. pneumoniae (PCR) Not detected (Not Detect) Parainfluenza 1 (PCR) Not detected (Not Detect) Parainfluenza 2 (PCR) Not detected (Not Detect) Parainfluenza 3 (PCR) Not detected (Not Detect) Parainfluenza 4 (PCR) Not detected (Not Detect) RSV (PCR) Not detected (Not Detect) Entero/Rhino (PCR) Not detected (Not Detect) ECG Data Attestation: I personally reviewed and interpreted this ECG as follows: Interpretation: Sinus rhythm Ventricular rate 97 Normal axis Normal QRS Normal QTC No ST T wave changes MDM Narrative Medical decision making narrative: Patient does have leukocytosis however specific source of infection is not found. Chest x-ray does not show a focal pneumonia. Her respiratory panel was negative. She was not clinically in heart failure. Has normal oxygen saturations on room air. She did receive a DuoNeb prior to arrival which potentially help some of her symptoms. Her abdomen is soft. Had a discussion with the patient's daughters who are at bedside. Patient does have a history of memory impairment. Will discharge patient home with return precautions. Discharge Plan Departure Patient Disposition: Home Clinical Impression: Shortness of breath Activity Restrictions/Additional Instructions: Workup here in the emergency department did not show any signs of an infection. Her oxygen saturations were normal on room air. Recommend that she continue all of her normal medications as directed. She can return to the emergency department as needed for new symptoms. Prescriptions: No Action pramipexole 0.5 mg tablet PO lidocaine 5 % adhesive patch,medicated 1 patch topical DAILY cyanocobalamin (vitamin B-12) [Vitamin B-12] 1,000 mcg tablet 1,000 mcg PO DAILY metformin 500 mg tablet 500 mg PO 3XD acetaminophen 325 mg tablet 325 mg PO Rx Instructions: 2 tabs by mouth loperamide 2 mg capsule 2 mg PO Rx Instructions: prn diarhhea simvastatin 20 mg tablet 20 mg PO losartan 25 mg tablet 12.5 mg PO DAILY furosemide 20 mg tablet 20 mg PO cranberry extract [Cranberry Concentrate] 500 mg capsule PO nitrofurantoin monohyd/m-cryst 100 mg capsule 1 cap PO BID duloxetine 20 mg capsule,delayed release(DR/EC) 20 mg PO BID tolterodine 4 mg capsule 4 mg PO cefdinir 300 mg capsule 300 mg PO BID Qty: 10 0RF phenazopyridine [Pyridium] 100 mg tablet 100 mg PO TID PRN (Reason: pain) Qty: 6 0RF oxycodone 5 mg tablet 5 mg PO Q6H PRN (Reason: pain) Qty: 7 0RF docusate sodium [Colace] 100 mg capsule 100 mg PO BID PRN (Reason: constipation) Qty: 20 0RF Stand Alone Forms: Patient Portal/API
--- NOTE | 2023-09-26 13:42 | EKG_ITS ---
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
[2023-09-26 14:11] LABS: Add Manual Diff / Slide Review NO; Basophils Absolute Auto 100 /uL (0-100); Basophils Percent Auto 0.4 % (0-2); Eosinophils Absolute Auto 100 /uL (0-450); Eosinophils Percent Auto 0.9 % (2-4); Hematocrit 36.2 % (36-46); Hemoglobin 11.6 g/dL (12.0-16.0); Lymphocytes Absolute Auto 800 /uL (1100-4500); Lymphocytes Percent Auto 5.8 % (25-40); Mean Corpuscular HGB Conc 32.2 % (30-36); Mean Corpuscular Hemoglobin 27.9 PG (26-34); Mean Corpuscular Volume 86.6 fL (80-100); Monocytes Absolute Auto 400 /uL (0-900); Monocytes Percent Auto 2.7 % (3-14); Neutrophils Absolute Auto 12700 /uL (1500-7000); Neutrophils Percent Auto 90.2 % (50-75); Platelet Count 362 X10^3/uL (150-400); Red Blood Cell Count 4.17 X10^6/uL (4.0-5.2); White Blood Cell Count 14.1 X10^3/uL (4.5-11.0)
[2023-09-26 14:30] LABS: Creatine Kinase 25 U/L (30-135)
[2023-09-26 14:31] LABS: Alanine Aminotransferase 33 IU/L (<35); Albumin 3.4 g/dL (3.5-5.0); Albumin Globulin Ratio 0.9 (1.0-2.8); Alkaline Phosphatase 388 U/L (38-126); Aspartate Aminotransferase 30 IU/L (14-36); BUN Creatinine Ratio 17.2 (6-22); Bilirubin Total 0.8 mg/dL (0.2-1.3); Blood Urea Nitrogen 16 mg/dL (7-17); Calcium 8.8 mg/dL (8.4-10.2); Carbon Dioxide 16 mmol/L (22-32); Chloride 112 mmol/L (98-107); Estimated Glomerular Filt Rate 59 mL/min (>60); Globulin 3.6 g/dL (1.7-4.1); Glucose 114 mg/dL (80-110); Lipase 30 U/L (23-300); Magnesium 1.8 mg/dL (1.6-2.3); Potassium 4.2 mmol/L (3.4-5.1); Sodium 141 mmol/L (137-145)
[2023-09-26 14:33] LABS: HEMOLYSIS 51 (0-50)
[2023-09-26 14:40] LABS: NT-proBNP (BNP-Adult 18+) 665 pg/mL (<450)
[2023-09-26 14:43] LABS: Troponin I < 0.012 ng/mL (0.01-0.034)
[2023-09-26 14:47] LABS: Procalcitonin 0.152 ng/mL (<0.5)
[2023-09-26 15:35] LABS: Adenovirus Not Detected (Not Detect); B. parapertussis Not Detected (Not Detecte); Bordetella pertussis Not Detected (Not Detect); Chlamydophila pneumoniae Not Detected (Not Detect); Coronavirus 229E Not Detected (Not Detect); Coronavirus HKU1 Not Detected (Not Detect); Coronavirus NL 63 Not Detected (Not Detect); Coronavirus OC43 Not Detected (Not Detect); Human Metapneumovirus Not Detected (Not Detect); Human Rhinovirus/Enterovirus Not Detected (Not Detect); Influenza A Not Detected (Not Detect); Influenza B Not Detected (Not Detect); Mycoplasma pneumoniae Not Detected (Not Detect); Parainfluenza Virus 1 Not Detected (Not Detect); Parainfluenza Virus 2 Not Detected (Not Detect); Parainfluenza Virus 3 Not Detected (Not Detect); Parainfluenza Virus 4 Not Detected (Not Detect); Respiratory Syncytial Virus Not Detected (Not Detect); SARS- CoV-2 Not Detected (Not Detecte)
--- NOTE | 2023-09-26 16:30 | PC.NURSE ---
Pt oxygen saturation found to be 100% on 4L NC. Removed NC and placed patient on room air. Oxygen saturation remaining 100% after 10 minutes on room air.
== END 2023-09-26 17:25 | disposition home or self-care (01) ==
PROVIDERS: Emergency Provider Emergency Medicine
DX: R06.02 Shortness of breath (principal); Z79.899 Other long term (current) drug therapy; Z11.52 Encounter for screening for COVID-19
CPT/HCPCS: 36415; 71045; 80053; 82550; 83690; 83735; 83880; 84145; 84484; 85025; 87633; 93005; 93010; 99283; 99284

== ENCOUNTER → 2023-10-08 16:18 | Outpatient (ROUT) | payer OTHER, MEDICAID, SELFPAY ==
[2023-06-12 21:10] VITALS: BMI 21.6
[2023-10-08 16:29] LABS: Appearance Urine UA CLEAR; Bilirubin Urine UA NEGATIVE (NEGATIVE); Color Urine UA YELLOW; Glucose Urine UA NEGATIVE (Negative); Ketones Urine UA TRACE (NEGATIVE); Leukocyte Esterase Urine UA TRACE (NEGATIVE); Nitrite Urine UA NEGATIVE (Negative); Occult Blood Urine UA NEGATIVE (Negative); Protein Urine UA TRACE (Negative); Specific Gravity Urine UA 1.025 (1.000-1.035); Urobilinogen Urine UA 0.2 E.U./dL (0.2)
[2023-10-08 16:32] LABS: pH Urine UA 5.5 (4.5-8.0)
[2023-10-08 16:58] LABS: Bacteria Urine Few (2-10); Culture Indicated Urine Cult Not Indicated; RBC Urine 0-1/HPF (0-5/HPF); Squamous Epithelial Cell Urine 10-30 /HPF (0-5/HPF); Urine Volume 10mL (spun); WBC Urine 0-1/HPF (0-5/HPF)
== END ==
PROVIDERS: Visit Provider Registered Nurse
DX: R35.0 Frequency of micturition (principal)
CPT/HCPCS: 81001; 87086

== ENCOUNTER → 2023-12-19 11:28 | Outpatient (ROUT) | payer OTHER, MEDICAID, SELFPAY ==
[2023-06-12 21:10] VITALS: BMI 21.6
[2023-12-19 12:08] LABS: Appearance Urine UA SL CLOUDY; Bilirubin Urine UA NEGATIVE (NEGATIVE); Color Urine UA YELLOW; Glucose Urine UA NEGATIVE (Negative); Ketones Urine UA NEGATIVE (NEGATIVE); Leukocyte Esterase Urine UA 2+ (NEGATIVE); Nitrite Urine UA POSITIVE (Negative); Occult Blood Urine UA TRACE-INTACT (Negative); Protein Urine UA TRACE (Negative); Specific Gravity Urine UA 1.025 (1.000-1.035); Urobilinogen Urine UA 0.2 E.U./dL (0.2)
[2023-12-19 12:10] LABS: pH Urine UA 5.5 (4.5-8.0)
[2023-12-19 12:24] LABS: Bacteria Urine Many (>30); Culture Indicated Urine Specimen Cultured; RBC Urine None Seen (0-5/HPF); Squamous Epithelial Cell Urine 1-5 /HPF (0-5/HPF); Urine Volume 10mL (spun); WBC Urine 30-100/HPF (0-5/HPF)
== END ==
PROVIDERS: Visit Provider Nurse Practitioner Family
DX: N39.0 Urinary tract infection, site not specified (principal)
CPT/HCPCS: 81001; 87077; 87086; 87186

== ENCOUNTER 2023-12-20 00:44 | Emergency (ER) | payer OTHER, MEDICAID, SELFPAY ==
[2023-06-12 21:10] VITALS: BMI 21.6
[2023-12-20] VITALS (10 sets, daily range): BP systolic 115–157; BP diastolic 57–80; PULSE 88–109; RESP 24–35; TEMP 36.8; O2SAT 89–95
--- NOTE | 2023-12-20 00:45 | DI.RAD.S_ITS ---
PROCEDURE: XR CHEST 1V INDICATIONS: SOB TECHNIQUE: One view of the chest was acquired. COMPARISON: [facility], CR, XR CHEST 1V, 09/26/2023, 13:55. FINDINGS: Surgical changes and devices: None. Lungs and pleura: Mildly prominent interstitium. No drainable pleural effusions. No dense consolidation. Background emphysema is suspected. Mediastinum: Heart size is upper limit of normal, unchanged. Aortic calcifications. The Bones and chest wall: Degenerative changes IMPRESSION: Mildly prominent interstitium could represent edema versus atypical infection. No dense consolidation or pleural effusions on this limited single view study. Dictated by: Juan Jose Mccarthy M.D. on 12/20/2023 at 1:00 Approved by: Juan Jose Mccarthy M.D. on 12/20/2023 at 1:03
[2023-12-20] MEDS: ALBUTEROL/IPRATROPIUM 3 ML AMPUL INH (00:48)
--- NOTE | 2023-12-20 00:50 | EKG_ITS ---
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
--- NOTE | 2023-12-20 00:52 | ED_ITS ---
HPI - General Adult General Chief complaint: Shortness of Breath/Dyspnea Stated complaint: resp distress Time Seen by Provider: 12/20/23 00:44 Source: patient Mode of arrival: Ambulatory Limitations: no limitations History of Present Illness HPI narrative: 88-year-old female. Is a DNR/DNI with limited interventions. Her PLOST form is available for review who was brought to the emergency department for evaluation of what was initially described as respiratory distress. She lives at a locked [facility] care facility near the hospital. She was found to be ?shaking? and ?short of breath? by staff. EMS was called. She did receive a breathing treatment prior to arrival. Here in the ER patient is really unable to provide any HPI. She did state that she was not having chest pain or abdominal pain. Unsure as to if she was had any recent fevers. Patient did have a urinalysis as an outpatient earlier today and was prescribed antibiotics for urinary tract infection. Related Data Home Medications Medication Instructions Recorded Confirmed acetaminophen 325 mg tablet 325 mg PO 06/13/23 cranberry extract 500 mg capsule mg PO 06/13/23 (Cranberry Concentrate) cyanocobalamin (vitamin B-12) 1,000 mcg PO DAILY 06/13/23 06/13/23 1,000 mcg tablet (Vitamin B-12) duloxetine 20 mg capsule,delayed 20 mg PO BID 06/13/23 06/13/23 release furosemide 20 mg tablet 20 mg PO 06/13/23 lidocaine 5 % topical patch 1 patch topical DAILY 06/13/23 06/13/23 loperamide 2 mg capsule 2 mg PO 06/13/23 losartan 25 mg tablet 12.5 mg PO DAILY 06/13/23 06/13/23 metformin 500 mg tablet 500 mg PO 3XD 06/13/23 06/13/23 nitrofurantoin 1 cap PO BID 06/13/23 06/13/23 monohydrate/macrocrystals 100 mg capsule pramipexole 0.5 mg tablet mg PO 06/13/23 simvastatin 20 mg tablet 20 mg PO 06/13/23 tolterodine 4 mg PO 06/13/23 Previous Rx's Medication Instructions Recorded cefdinir 300 mg capsule 300 mg PO BID #10 caps 06/13/23 docusate sodium 100 mg capsule 100 mg PO BID PRN constipation #20 07/08/23 (Colace) caps oxycodone 5 mg tablet 5 mg PO Q6H PRN pain #7 tabs 07/08/23 phenazopyridine 100 mg tablet 100 mg PO TID PRN pain 6 doses #6 07/08/23 (Pyridium) tabs Allergies Allergy/AdvReac Type Severity Reaction Status Date / Time celecoxib [From Celebrex] AdvReac Verified 06/12/23 15:33 Review of Systems Review of Systems ROS Unobtainable: Unobtainable due to mental condition Patient History Medical History HLD (hyperlipidemia) Restless legs HTN (hypertension) Diabetes Social History Smoking Status: Former smoker alcohol intake: current Smoking Status: Former smoker alcohol intake frequency: holidays/special occasions only Substance Use Type: does not use Exam Initial Vital Signs Initial Vital Signs: Vital Signs Temperature 98.3 F 12/20/23 00:41 Pulse Rate 88 12/20/23 00:41 Respiratory Rate 24 12/20/23 00:41 Blood Pressure 115/80 12/20/23 00:41 Pulse Oximetry 94 12/20/23 00:41 Oxygen Delivery Method Aerosol Mask 12/20/23 00:41 Oxygen Flow Rate 9 12/20/23 00:41 Const General: No ill appearing HENMT Head: normal to inspection Resp Effort & Inspection: tachypneic Auscultation: wheezes Cardio Rate: tachycardic Rhythm: regular rhythm GI Palpation: soft Extrem General: normal to inspection Course Orders Ordered: ED Orders 12/20/23 00:45 XR chest 1V Stat EKG-12 Lead Stat RT Consult Eval and Treat Now 12/20/23 00:50 Complete Blood Count AUTO DIFF Stat Comprehensive Metabolic Panel Stat Lipase Stat Magnesium Stat NT-proBNP (BNP-Adult 18+) Stat PTT Partial Thromboplastin Anish Stat Procalcitonin Stat Prothrombin Time INR Stat Troponin & CK Cardiac Panel Stat 12/20/23 01:02 Respiratory Panel (Film Array) Stat Discontinued Medications Albuterol/Ipratropium (Albuterol/Ipratropium 3 Ml Ampul) 3 ml INH NOW ONE Stop: 12/20/23 00:45 Last Admin: 12/20/23 00:48 Dose: 3 ml Documented By: Vital Signs Vital signs: Vital Signs - 8 hr 11/08/24 00:41 12/20/23 00:45 12/20/23 00:46 Temperature 98.3 F Pulse Rate 88 89 Respiratory Rate 24 31 H Blood Pressure 115/80 115/80 Pulse Oximetry 94 95 Oxygen Delivery Method Aerosol Mask Oxygen Flow Rate 9 12/20/23 01:00 12/20/23 01:00 12/20/23 01:30 Temperature Pulse Rate 100 H 109 H Respiratory Rate 33 H 26 H Blood Pressure 157/71 H Pulse Oximetry 93 93 Oxygen Delivery Method Oxygen Flow Rate 12/20/23 01:30 12/20/23 02:00 12/20/23 02:00 Temperature Pulse Rate 108 H Respiratory Rate 27 H Blood Pressure 147/65 H 140/61 Pulse Oximetry 95 Oxygen Delivery Method Oxygen Flow Rate 12/20/23 02:30 12/20/23 02:30 12/20/23 03:00 Temperature Pulse Rate 98 H 97 H Respiratory Rate 25 H 35 H Blood Pressure 139/63 Pulse Oximetry 89 L 92 Oxygen Delivery Method Oxygen Flow Rate 3 3 12/20/23 03:00 12/20/23 03:30 12/20/23 03:30 Temperature Pulse Rate 98 H Respiratory Rate 27 H Blood Pressure 130/57 L 133/62 Pulse Oximetry 92 Oxygen Delivery Method Oxygen Flow Rate 12/20/23 04:00 12/20/23 04:00 Temperature Pulse Rate 99 H Respiratory Rate 29 H Blood Pressure 125/66 Pulse Oximetry 93 Oxygen Delivery Method Oxygen Flow Rate Medical Decision Making Medical Records Medical records reviewed: Yes I reviewed the patient's medical records. Lab Data Lab results reviewed: Yes I reviewed the patient's lab results. 12/20/23 00:50 12/20/23 00:50 Labs: Lab Results 12/20/23 12/20/23 Range/Units 00:50 01:02 WBC 17.4 H (4.5-11.0) X10^3/uL RBC 4.65 (4.0-5.2) X10^6/uL Hgb 12.5 (12.0-16.0) g/dL Hct 38.7 (36-46) % MCV 83.3 (80-100) fL MCH 26.9 (26-34) PG MCHC 32.3 (30-36) % RDW 14.9 H (11.6-14.8) % Plt Count 308 (150-400) X10^3/uL Neut % (Auto) 88.8 H (50-75) % Lymph % (Auto) 8.1 L (25-40) % [place] % (Auto) 1.5 L (3-14) % Eos % (Auto) 1.2 L (2-4) % Baso % (Auto) 0.4 (0-2) % Neut # (Auto) 93571 H (2161-5622) /uL Lymph # (Auto) 1400 (3248-5888) /uL [place] # (Auto) 300 (0-900) /uL Eos # (Auto) 200 (0-450) /uL Baso # (Auto) 100 (0-100) /uL PT 11.0 (9.4-12.5) SECONDS INR 1.0 (0.9-1.3) APTT 29 (25.1-36.5) SECONDS Sodium 136 L (137-145) mmol/L Potassium 3.8 (3.4-5.1) mmol/L Chloride 101 (98-107) mmol/L Carbon Dioxide 27 (22-32) mmol/L BUN 20 H (7-17) mg/dL Creatinine 0.86 (0.52-1.04) mg/dL Estimated GFR > 60 (>60) mL/min BUN/Creatinine Ratio 23.3 H (6-22) Glucose 213 H (80-110) mg/dL Calcium 9.5 (8.4-10.2) mg/dL Magnesium 1.4 L (1.6-2.3) mg/dL Total Bilirubin 0.5 (0.2-1.3) mg/dL AST 19 (14-36) IU/L ALT 14 (<35) IU/L Alkaline Phosphatase 112 (38-126) U/L Total Creatine Kinase 37 (30-135) U/L Troponin I < 0.012 (0.01-0.034) ng/mL NT-Pro-B Natriuret Pep 308 (<450) pg/mL Total Protein 8.1 (6.3-8.2) g/dL Albumin 3.8 (3.5-5.0) g/dL Globulin 4.3 H (1.7-4.1) g/dL Albumin/Globulin Ratio 0.9 L (1.0-2.8) Lipase 192 (23-300) U/L Procalcitonin 0.064 (<0.5) ng/mL Chlamy pneumoniae PCR Not detected (Not Detect) Adenovirus (PCR) Not detected (Not Detect) B. pertussis DNA (PCR) Not detected (Not Detect) B.parapertussis DNA PCR Not detected (Not Detecte) Coronavirus OC43 (PCR) Not detected (Not Detect) Coronavirus HKU1 (PCR) Not detected (Not Detect) Coronavirus 229E (PCR) Not detected (Not Detect) SARS-CoV-2 (PCR) Not detected (Not Detecte) Coronavirus NL63 (PCR) Not detected (Not Detect) Human Metapneumovir PCR Not detected (Not Detect) Influenza Type A (PCR) Not detected (Not Detect) Influenza Type B (PCR) Not detected (Not Detect) M. pneumoniae (PCR) Not detected (Not Detect) Parainfluenza 1 (PCR) Not detected (Not Detect) Parainfluenza 2 (PCR) Not detected (Not Detect) Parainfluenza 3 (PCR) Not detected (Not Detect) Parainfluenza 4 (PCR) Not detected (Not Detect) RSV (PCR) Not detected (Not Detect) Entero/Rhino (PCR) Not detected (Not Detect) Imaging Data Chest x-ray: Radiologist's Impression: PROCEDURE: XR CHEST 1V INDICATIONS: SOB TECHNIQUE: One view of the chest was acquired. COMPARISON: [facility], , XR CHEST 1V, 09/26/2023, 13:55. FINDINGS: Surgical changes and devices: None. Lungs and pleura: Mildly prominent interstitium. No drainable pleural effusions. No dense consolidation. Background emphysema is suspected. Mediastinum: Heart size is upper limit of normal, unchanged. Aortic calcifications. The Bones and chest wall: Degenerative changes IMPRESSION: Mildly prominent interstitium could represent edema versus atypical infection. No dense consolidation or pleural effusions on this limited single view study. ECG Data Attestation: I personally reviewed and interpreted this ECG as follows: Interpretation: Sinus rhythm Ventricular rate of [address] T wave changes MDM Narrative Medical decision making narrative: Review of the medical record shows that she had a very similar presentation several months ago. She received breathing treatments the time when was subsequently discharged home. Here in the ER she received another nebulizer treatment. Labs are relatively unremarkable. Chest x-ray unremarkable. She was not in overt heart failure. Will discharge patient back to her living facility. Discharge Plan Departure Patient Disposition: Home Clinical Impression: Shortness of Breath Instructions: DI for Shortness of Breath Activity Restrictions/Additional Instructions: Recommend that Katiuska continue to take all of her medication as directed. Recommend that her primary doctor be notified of her visit today. Return to the emergency department for new symptoms. Prescriptions: No Action pramipexole 0.5 mg tablet PO lidocaine 5 % adhesive patch,medicated 1 patch topical DAILY cyanocobalamin (vitamin B-12) [Vitamin B-12] 1,000 mcg tablet 1,000 mcg PO DAILY metformin 500 mg tablet 500 mg PO 3XD acetaminophen 325 mg tablet 325 mg PO Rx Instructions: 2 tabs by mouth loperamide 2 mg capsule 2 mg PO Rx Instructions: prn diarhhea simvastatin 20 mg tablet 20 mg PO losartan 25 mg tablet 12.5 mg PO DAILY furosemide 20 mg tablet 20 mg PO cranberry extract [Cranberry Concentrate] 500 mg capsule PO nitrofurantoin monohyd/m-cryst 100 mg capsule 1 cap PO BID duloxetine 20 mg capsule,delayed release(DR/EC) 20 mg PO BID tolterodine 4 mg capsule 4 mg PO cefdinir 300 mg capsule 300 mg PO BID Qty: 10 0RF phenazopyridine [Pyridium] 100 mg tablet 100 mg PO TID PRN (Reason: pain) Qty: 6 0RF oxycodone 5 mg tablet 5 mg PO Q6H PRN (Reason: pain) Qty: 7 0RF docusate sodium [Colace] 100 mg capsule 100 mg PO BID PRN (Reason: constipation) Qty: 20 0RF Stand Alone Forms: Patient Portal/API/Survey
--- NOTE | 2023-12-20 00:52 | EKG_ITS ---
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
[2023-12-20 01:03] LABS: Add Manual Diff / Slide Review NO; Basophils Absolute Auto 100 /uL (0-100); Basophils Percent Auto 0.4 % (0-2); Eosinophils Absolute Auto 200 /uL (0-450); Eosinophils Percent Auto 1.2 % (2-4); Hematocrit 38.7 % (36-46); Hemoglobin 12.5 g/dL (12.0-16.0); Lymphocytes Absolute Auto 1400 /uL (1100-4500); Lymphocytes Percent Auto 8.1 % (25-40); Mean Corpuscular HGB Conc 32.3 % (30-36); Mean Corpuscular Hemoglobin 26.9 PG (26-34); Mean Corpuscular Volume 83.3 fL (80-100); Monocytes Absolute Auto 300 /uL (0-900); Monocytes Percent Auto 1.5 % (3-14); Neutrophils Absolute Auto 15500 /uL (1500-7000); Neutrophils Percent Auto 88.8 % (50-75); Platelet Count 308 X10^3/uL (150-400); Red Blood Cell Count 4.65 X10^6/uL (4.0-5.2); Red Cell Distribution Width 14.9 % (11.6-14.8); White Blood Cell Count 17.4 X10^3/uL (4.5-11.0)
[2023-12-20 01:10] LABS: PTT Partial Thromboplastin Tim 29 SECONDS (25.1-36.5)
[2023-12-20 01:11] LABS: Alanine Aminotransferase 14 IU/L (<35); Albumin 3.8 g/dL (3.5-5.0); Albumin Globulin Ratio 0.9 (1.0-2.8); Alkaline Phosphatase 112 U/L (38-126); Aspartate Aminotransferase 19 IU/L (14-36); BUN Creatinine Ratio 23.3 (6-22); Bilirubin Total 0.5 mg/dL (0.2-1.3); Blood Urea Nitrogen 20 mg/dL (7-17); Calcium 9.5 mg/dL (8.4-10.2); Carbon Dioxide 27 mmol/L (22-32); Chloride 101 mmol/L (98-107); Creatine Kinase 37 U/L (30-135); Estimated Glomerular Filt Rate > 60 mL/min (>60); Globulin 4.3 g/dL (1.7-4.1); Glucose 213 mg/dL (80-110); HEMOLYSIS < 15 (0-50); Lipase 192 U/L (23-300); Magnesium 1.4 mg/dL (1.6-2.3); Potassium 3.8 mmol/L (3.4-5.1); Sodium 136 mmol/L (137-145); Total Protein 8.1 g/dL (6.3-8.2)
[2023-12-20 01:23] LABS: NT-proBNP (BNP-Adult 18+) 308 pg/mL (<450); Troponin I < 0.012 ng/mL (0.01-0.034)
[2023-12-20 01:28] LABS: Procalcitonin 0.064 ng/mL (<0.5)
[2023-12-20 01:53] LABS: Adenovirus Not Detected (Not Detect); B. parapertussis Not Detected (Not Detecte); Bordetella pertussis Not Detected (Not Detect); Chlamydophila pneumoniae Not Detected (Not Detect); Coronavirus 229E Not Detected (Not Detect); Coronavirus HKU1 Not Detected (Not Detect); Coronavirus NL 63 Not Detected (Not Detect); Coronavirus OC43 Not Detected (Not Detect); Human Metapneumovirus Not Detected (Not Detect); Human Rhinovirus/Enterovirus Not Detected (Not Detect); Influenza A Not Detected (Not Detect); Influenza B Not Detected (Not Detect); Mycoplasma pneumoniae Not Detected (Not Detect); Parainfluenza Virus 1 Not Detected (Not Detect); Parainfluenza Virus 2 Not Detected (Not Detect); Parainfluenza Virus 3 Not Detected (Not Detect); Parainfluenza Virus 4 Not Detected (Not Detect); Respiratory Syncytial Virus Not Detected (Not Detect); SARS- CoV-2 Not Detected (Not Detecte)
== END 2023-12-20 04:40 | disposition home or self-care (01) ==
PROVIDERS: Emergency Provider Emergency Medicine
DX: R06.02 Shortness of breath (principal); Z11.52 Encounter for screening for COVID-19
CPT/HCPCS: 36415; 71045; 80053; 82550; 83690; 83735; 83880; 84145; 84484; 85025; 85610; 85730; 87633; 93005; 93010; 94640; 99284

== ENCOUNTER 2023-12-20 09:30 | Inpatient (IN) | payer OTHER, MEDICAID, SELFPAY ==
[2023-06-12 21:10] VITALS: BMI 21.6
[2023-12-20] VITALS (9 sets, daily range): BP systolic 100–134; BP diastolic 50–62; PULSE 74–98; RESP 16–33; TEMP 36.2–37.1; O2SAT 84–97; BMI 19.2
--- NOTE | 2023-12-20 09:38 | EKG_ITS ---
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
--- NOTE | 2023-12-20 09:39 | ED.SOB ---
HPI - SOB/Dyspnea General Chief Complaint: Shortness of Breath/Dyspnea Stated Complaint: SOB Time Seen by Provider: 12/20/23 09:37 Source: patient, EMS, RN notes reviewed and old records reviewed Mode of arrival: EMS Limitations: no limitations History of Present Illness HPI Narrative: 88-year-old female history of dementia, hypertension, dyslipidemia, diabetes type 2 with no report of COPD or emphysema who presents with complaint of shortness of breath this is her 2nd visit in 24 hours. Patient herself states she does feel little short of breath when asked, she denies fevers, no cold cough or congestion, no chest pain she denies any nausea or vomiting. Denies any abdominal pain. Denies any diarrhea or constipation or urinary symptoms. Patient is unable to tell me what medication she takes but that she does take medication. She states she has had a prior surgery but does not recall what it is. Reported allergy to Celebrex. Also reported that patient started cefdinir recently for UTI. She states very remote history of tobacco use when she was young, no alcohol or recreational drugs. Related Data Home Medications Medication Instructions Recorded Confirmed acetaminophen 325 mg tablet 325 mg PO 06/13/23 cranberry extract 500 mg capsule mg PO 06/13/23 (Cranberry Concentrate) cyanocobalamin (vitamin B-12) 1,000 mcg PO DAILY 06/13/23 06/13/23 1,000 mcg tablet (Vitamin B-12) duloxetine 20 mg capsule,delayed 20 mg PO BID 06/13/23 06/13/23 release furosemide 20 mg tablet 20 mg PO 06/13/23 lidocaine 5 % topical patch 1 patch topical DAILY 06/13/23 06/13/23 loperamide 2 mg capsule 2 mg PO 06/13/23 losartan 25 mg tablet 12.5 mg PO DAILY 06/13/23 06/13/23 metformin 500 mg tablet 500 mg PO 3XD 06/13/23 06/13/23 nitrofurantoin 1 cap PO BID 06/13/23 06/13/23 monohydrate/macrocrystals 100 mg capsule pramipexole 0.5 mg tablet mg PO 06/13/23 simvastatin 20 mg tablet 20 mg PO 06/13/23 tolterodine 4 mg PO 06/13/23 Previous Rx's Medication Instructions Recorded cefdinir 300 mg capsule 300 mg PO BID #10 caps 06/13/23 docusate sodium 100 mg capsule 100 mg PO BID PRN constipation #20 07/08/23 (Colace) caps oxycodone 5 mg tablet 5 mg PO Q6H PRN pain #7 tabs 07/08/23 phenazopyridine 100 mg tablet 100 mg PO TID PRN pain 6 doses #6 07/08/23 (Pyridium) tabs Allergies Allergy/AdvReac Type Severity Reaction Status Date / Time celecoxib [From Celebrex] AdvReac Verified 12/20/23 09:37 Review of Systems Review of Systems ROS Unobtainable: All systems reviewed & are unremarkable except as noted in HPI and below Patient History Medical History HLD (hyperlipidemia) Restless legs HTN (hypertension) Diabetes Social History Smoking Status: Former smoker alcohol intake: current Smoking Status: Former smoker alcohol intake frequency: holidays/special occasions only Substance Use Type: does not use Exam Narrative Exam Narrative: GEN: Thin elderly female, alert and oriented x 2, patient appears to be in mild distress. Patient is conversant. HEENT: Atraumatic, pupils are equal round reactive to light, extraocular movements are intact, nares are clear, there is no conjunctival pallor. Throat is clear without any exudates, erythema, tonsillar enlargement or uvular deviation HEART: Regular rate and rhythm without murmur, clicks, rubs. Pulses are equal in upper and lower extremities, no edema bilateral lower extremities. LUNGS: Patient has a little bit of rhonchi in the right lower chest, no wheezes, no crackles, chest moves symmetrically, no tachypnea accessory muscle use ABD:bowel sounds normal, soft, non-tender, no guarding, rebound, rigidity, no masses noted, no hepatosplenomegaly :No CVA tenderness MSCL: Non-tender, no muscle atrophy, muscles strength 5/5 upper and lower extremities, full range of motion NEURO:CN 2-12 intact, sensation normal. Initial Vital Signs Initial Vital Signs: Vital Signs Pulse Rate 95 H 12/20/23 09:36 Respiratory Rate 16 12/20/23 09:36 Pulse Oximetry 84 L 12/20/23 09:36 Course Orders Ordered: ED Orders 12/20/23 09:20 Complete Blood Count AUTO DIFF Stat Comprehensive Metabolic Panel Stat Lactate (Lactic Acid) Stat Lipase Stat NT-proBNP (BNP-Adult 18+) Stat Procalcitonin Stat Troponin & CK Cardiac Panel Stat 12/20/23 09:38 XR chest 1V Stat Respiratory Panel (Film Array) Stat EKG-12 Lead Stat 12/20/23 10:15 Blood Culture Stat Discontinued Medications Albuterol (Albuterol 2.5 Mg/3 Ml Neb (Adult)) 2.5 mg INH NOW ONE Stop: 12/20/23 10:14 Last Admin: 12/20/23 10:45 Dose: 2.5 mg Documented By: GATO Azithromycin (Azithromycin 250 Mg Tablet) 500 mg PO NOW ONE Stop: 12/20/23 10:11 Last Admin: 12/20/23 10:44 Dose: 500 mg Documented By: YNES Furosemide (Furosemide 40 Mg/4 Ml Vial) 40 mg IV NOW ONE Stop: 12/20/23 10:28 Last Admin: 12/20/23 10:44 Dose: 40 mg Documented By: YNES Ceftriaxone Sodium 1,000 mg/ (Sodium Chloride) 100 mls @ 200 mls/hr IV NOW ONE Stop: 12/20/23 10:11 Last Admin: 12/20/23 10:44 Dose: 200 mls/hr Documented By: YNES Vital Signs Vital signs: Vital Signs - 8 hr 12/20/23 09:36 12/20/23 09:40 12/20/23 10:00 Temperature 98.7 F Pulse Rate 95 H 98 H Respiratory Rate 16 16 Blood Pressure 112/59 L 123/56 L Pulse Oximetry 84 L 87 L Oxygen Delivery Method Room Air 12/20/23 10:00 12/20/23 10:30 12/20/23 10:30 Temperature Pulse Rate 96 H 92 H Respiratory Rate 28 H 29 H Blood Pressure 128/55 L Pulse Oximetry 90 L 97 Oxygen Delivery Method 12/20/23 11:00 12/20/23 11:00 Temperature Pulse Rate 92 H Respiratory Rate 33 H Blood Pressure 134/62 Pulse Oximetry 86 L Oxygen Delivery Method MDM - SOB/Dyspnea Lab Data 12/20/23 09:20 12/20/23 09:20 Labs: Lab Results 12/20/23 12/20/23 Range/Units 09:20 09:38 WBC 20.7 H (4.5-11.0) X10^3/uL RBC 4.24 (4.0-5.2) X10^6/uL Hgb 11.3 L (12.0-16.0) g/dL Hct 35.3 L (36-46) % MCV 83.3 (80-100) fL MCH 26.5 (26-34) PG MCHC 31.9 (30-36) % RDW 14.9 H (11.6-14.8) % Plt Count 287 (150-400) X10^3/uL Neut % (Auto) 96.9 H (50-75) % Lymph % (Auto) 1.1 L (25-40) % [place] % (Auto) 2.0 L (3-14) % Eos % (Auto) 0.0 L (2-4) % Baso % (Auto) 0.0 (0-2) % Neut # (Auto) 48052 H (2688-4652) /uL Lymph # (Auto) 200 L (3119-4788) /uL [place] # (Auto) 400 (0-900) /uL Eos # (Auto) 0 (0-450) /uL Baso # (Auto) 0 (0-100) /uL Sodium 137 (137-145) mmol/L Potassium 4.2 (3.4-5.1) mmol/L Chloride 104 (98-107) mmol/L Carbon Dioxide 21 L (22-32) mmol/L BUN 23 H (7-17) mg/dL Creatinine 1.10 H (0.52-1.04) mg/dL Estimated GFR 49 L (>60) mL/min BUN/Creatinine Ratio 20.9 (6-22) Glucose 198 H (80-110) mg/dL Lactate 5.3 H* (0.7-2.1) mmol/L Calcium 9.3 (8.4-10.2) mg/dL Total Bilirubin 0.9 (0.2-1.3) mg/dL AST 28 (14-36) IU/L ALT 65 H (<35) IU/L Alkaline Phosphatase 97 (38-126) U/L Total Creatine Kinase 36 (30-135) U/L Troponin I 0.015 (0.01-0.034) ng/mL NT-Pro-B Natriuret Pep 1220 H (<450) pg/mL Total Protein 7.5 (6.3-8.2) g/dL Albumin 3.7 (3.5-5.0) g/dL Globulin 3.8 (1.7-4.1) g/dL Albumin/Globulin Ratio 1.0 (1.0-2.8) Lipase 32 D (23-300) U/L Procalcitonin 6.26 H (<0.5) ng/mL Chlamy pneumoniae PCR Not detected (Not Detect) Adenovirus (PCR) Not detected (Not Detect) B. pertussis DNA (PCR) Not detected (Not Detect) B.parapertussis DNA PCR Not detected (Not Detecte) Coronavirus OC43 (PCR) Not detected (Not Detect) Coronavirus HKU1 (PCR) Not detected (Not Detect) Coronavirus 229E (PCR) Not detected (Not Detect) SARS-CoV-2 (PCR) Not detected (Not Detecte) Coronavirus NL63 (PCR) Not detected (Not Detect) Human Metapneumovir PCR Not detected (Not Detect) Influenza Type A (PCR) Not detected (Not Detect) Influenza Type B (PCR) Not detected (Not Detect) M. pneumoniae (PCR) Not detected (Not Detect) Parainfluenza 1 (PCR) Not detected (Not Detect) Parainfluenza 2 (PCR) Not detected (Not Detect) Parainfluenza 3 (PCR) Not detected (Not Detect) Parainfluenza 4 (PCR) Not detected (Not Detect) RSV (PCR) Not detected (Not Detect) Entero/Rhino (PCR) Not detected (Not Detect) Imaging Data Chest x-ray: Radiologist's Impression: Close Chest X-Ray (Signed) Paxton Denton - 12/20/23 Chest X-Ray (Signed) Juan Jose Mccarthy - 12/20/23 Chest X-Ray (Signed) Jorge Luis Sweet - 09/26/23 Hip X-Ray (Signed) Paxton Denton - 07/07/[address] (Signed) Paxton Denton - 07/07/[address] (Signed) Paxton Denton - 07/07/23 Telemetry Strips 06/12/23 Abdomen/Pelvis CT (Signed) Miriam Singer - 06/12/23 Chest/Abdomen X-ray (Signed) Claudy Mayorga - 06/12/23 Vascular Ultrasound (Signed) Jorge Luis Sweet - 03/09/23 Launch?Image [address] [address] XRay Report Signed Patient: Katiuska Art MR#: [id number] : 1935 Acct:[id number] Age/Sex: 88 / F Date of Service: 12/20/23 Loc: ED Accession Number: [id number] Procedure: XR chest 1V Ordering Provider: Anastasiia Major D.O. PROCEDURE: XR CHEST 1V INDICATIONS: sob TECHNIQUE: One view of the chest was acquired. COMPARISON: [facility], CR, XR CHEST 1V, 12/20/2023, 0:42. FINDINGS: Surgical changes and devices: None. Lungs and pleura: Chronic emphysematous changes are noted in bilateral lung zambrano. There is mild pulmonary vascular congestion. Perihilar and infrahilar infiltrates cannot be excluded. Blunting of bilateral costophrenic angles are noted suggestive of trace right greater than left bilateral pleural effusion. No pneumothorax. Mediastinum: Mediastinal contours appear normal. Heart size is mildly enlarged. Bones and chest wall: No suspicious bony lesions. Overlying soft tissues appear unremarkable. IMPRESSION: Finding may represent CHF. Underlying perihilar and infrahilar infiltrates cannot be excluded. No pneumothorax. Trace bilateral pleural effusion. Dictated by: Paxton Denton M.D. on 12/20/2023 at 10:06 Approved by: Paxton Denton M.D. on 12/20/2023 at 10:07 ECG Data Attestation: I personally reviewed and interpreted this ECG as follows: Prior ECG tracings: available for review Interpretation: Sinus rhythm rate of 95 CA 168, QRS is 78 QTC 437, no acute ST elevation or depression. Patient has priors with nonspecific change last night EKG from 12/20/2023 had significant artifact so difficult for comparison. [facility] Narrative Medical decision making narrative: 88-year-old female presents for complaint of shortness of breath, initially had difficulty getting a good +with EMS and even here after hand was is 89% initially, no tachycardia, patient is in no respiratory distress. She was seen here last night with negative labs, chest x-ray and EKG as well as respiratory panel these were repeated. Patient does have some rhonchi in the right lower lobe so may have a component of pneumonia. Has recently been on cefdinir for UTI. Patient's paperwork reflects that she was DNR/DNI also noted in Dr. Batista's note from last night. Labs white count of 20, hemoglobin 11.3, platelets of 287. Patient's white count was 17 last night. Coags are negative, sodium is 137 potassium 4.2 chloride 104 CO2 is 21 with a BUN 23 creatinine is 1.10 which is slightly up from prior last night, glucose is 198, lactate elevated 5.3. LFTs are overall appropriate except for an ALT is 65 BNP is increased from yesterday at 1220 was 308 last night. Troponin is 0.015. Procalcitonin is positive at 6.26. Chest x-ray formal read show chronic emphysematous changes noted bilateral lung zambrano mild pulmonary vascular congestion perihilar infra hilar infiltrates can not be excluded blunting of bilateral costophrenic angles suggesting trace right greater than left bilateral pleural effusion no pneumothorax. Chest x-ray from last night while prompt interstitial edema versus atypical infection. EKG sinus rhythm Respiratory panel is negative Patient had lactate, procalcitonin blood cultures added on. After initial white count shows 20 trending upwards from 12. Patient had Rocephin and azithromycin ordered as I suspect she may have pneumonia. Patient's exam seem more consistent with pneumonia but does have a elevated BNP with prior to comparison from last night with chest x-ray findings leaning towards pulmonary edema so was given a dose of Lasix 40 mg. Patient was not given a 30 cc/kilos bolus Ms. Appears to have little bit of fluid overload. She was given 40 mg of Lasix. Given 1 albuterol but minimal improvement no resolution of O2 sat. Spoke with patient's daughter she was aware she was here last night and returned today. She confirms patient is DNR/DNI but okay with other medical interventions. She planning to come see patient little bit later today is currently at work. She does note her mother has a history of Raynaud's and sometimes has difficulty obtaining pulse oximetry. Spoke with Dr. Hernandez, hospitalist accepts for inpatient for pneumonia. Discharge Plan Departure Patient Disposition: Admitted As Inpatient Clinical Impression: Pneumonia, CHF (congestive heart failure) Admit Date/Time: 12/20/23 11:09
[2023-12-20 09:55] LABS: Add Manual Diff / Slide Review NO; Basophils Absolute Auto 0 /uL (0-100); Eosinophils Absolute Auto 0 /uL (0-450); Hematocrit 35.3 % (36-46); Hemoglobin 11.3 g/dL (12.0-16.0); Lymphocytes Absolute Auto 200 /uL (1100-4500); Lymphocytes Percent Auto 1.1 % (25-40); Mean Corpuscular HGB Conc 31.9 % (30-36); Mean Corpuscular Hemoglobin 26.5 PG (26-34); Mean Corpuscular Volume 83.3 fL (80-100); Monocytes Absolute Auto 400 /uL (0-900); Neutrophils Absolute Auto 20100 /uL (1500-7000); Neutrophils Percent Auto 96.9 % (50-75); Platelet Count 287 X10^3/uL (150-400); Red Blood Cell Count 4.24 X10^6/uL (4.0-5.2); Red Cell Distribution Width 14.9 % (11.6-14.8); White Blood Cell Count 20.7 X10^3/uL (4.5-11.0)
[2023-12-20 10:09] LABS: Alanine Aminotransferase 65 IU/L (<35); Albumin 3.7 g/dL (3.5-5.0); Alkaline Phosphatase 97 U/L (38-126); Aspartate Aminotransferase 28 IU/L (14-36); BUN Creatinine Ratio 20.9 (6-22); Bilirubin Total 0.9 mg/dL (0.2-1.3); Blood Urea Nitrogen 23 mg/dL (7-17); Calcium 9.3 mg/dL (8.4-10.2); Carbon Dioxide 21 mmol/L (22-32); Chloride 104 mmol/L (98-107); Creatine Kinase 36 U/L (30-135); Estimated Glomerular Filt Rate 49 mL/min (>60); Globulin 3.8 g/dL (1.7-4.1); Glucose 198 mg/dL (80-110); HEMOLYSIS < 15 (0-50); Lipase 32 U/L (23-300); Potassium 4.2 mmol/L (3.4-5.1); Sodium 137 mmol/L (137-145); Total Protein 7.5 g/dL (6.3-8.2)
[2023-12-20 10:20] LABS: NT-proBNP (BNP-Adult 18+) 1220 pg/mL (<450); Troponin I 0.015 ng/mL (0.01-0.034)
[2023-12-20 10:37] LABS: Lactate (Lactic Acid) 5.3 mmol/L (0.7-2.1)
[2023-12-20] MEDS: cefTRIAXone 1,000 MG in SODIUM CHLORIDE 0.9% 100 ML 200 MG IV (10:44)
[2023-12-20] MEDS: AZITHROMYCIN 250 MG TABLET 500 MG PO (10:44)
[2023-12-20] MEDS: FUROSEMIDE 40 MG/4 ML VIAL IV (10:44)
[2023-12-20] MEDS: ALBUTEROL 2.5 MG/3 ML NEB (ADULT) INH (10:45)
[2023-12-20 10:46] LABS: Adenovirus Not Detected (Not Detect); B. parapertussis Not Detected (Not Detecte); Bordetella pertussis Not Detected (Not Detect); Chlamydophila pneumoniae Not Detected (Not Detect); Coronavirus 229E Not Detected (Not Detect); Coronavirus HKU1 Not Detected (Not Detect); Coronavirus NL 63 Not Detected (Not Detect); Coronavirus OC43 Not Detected (Not Detect); Human Metapneumovirus Not Detected (Not Detect); Human Rhinovirus/Enterovirus Not Detected (Not Detect); Influenza A Not Detected (Not Detect); Influenza B Not Detected (Not Detect); Mycoplasma pneumoniae Not Detected (Not Detect); Parainfluenza Virus 1 Not Detected (Not Detect); Parainfluenza Virus 2 Not Detected (Not Detect); Parainfluenza Virus 3 Not Detected (Not Detect); Parainfluenza Virus 4 Not Detected (Not Detect); Respiratory Syncytial Virus Not Detected (Not Detect); SARS- CoV-2 Not Detected (Not Detecte)
[2023-12-20 10:53] LABS: Procalcitonin 6.26 ng/mL (<0.5)
--- NOTE | 2023-12-20 11:26 | PC.NURSE ---
Tiffani called: patient was started on Macrobid yesterday for a UTI -100mg 2x day x 7days. She has had 1 dose so far.
[2023-12-20 11:52] LABS: Reflexed Lactate in 2 Hours Y
--- NOTE | 2023-12-20 12:00 | P.HP_ITS ---
History of Present Illness History of Present Illness Chief complaint: SOB Narrative: From ED physician: 88-year-old female history of dementia, hypertension, dyslipidemia, diabetes type 2 with no report of COPD or emphysema who presents with complaint of shortness of breath this is her 2nd visit in 24 hours. Patient herself states she does feel little short of breath when asked, she denies fevers, no cold cough or congestion, no chest pain she denies any nausea or vomiting. Denies any abdominal pain. Denies any diarrhea or constipation or urinary symptoms. Patient is unable to tell me what medication she takes but that she does take medication. She states she has had a prior surgery but does not recall what it is. Reported allergy to Celebrex. Also reported that patient started cefdinir recently for UTI. She states very remote history of tobacco use when she was young, no alcohol or recreational drugs. Additional information: The patient denies chest pain, or recent cough. She has cognitive impairment and can only answer simple questions. She denies any nausea, vomiting, or diarrhea. No leg swelling. [facility] Medical History HLD (hyperlipidemia) Restless legs HTN (hypertension) Diabetes Social History household members: none Smoking Status: Former smoker alcohol intake: current Meds Home Medications and Allergies Home Medications Medication Instructions Recorded Confirmed Type acetaminophen 325 mg tablet 325 mg PO 06/13/23 History cefdinir 300 mg capsule 300 mg PO BID #10 caps 06/13/23 Rx cranberry extract 500 mg capsule mg PO 06/13/23 History (Cranberry Concentrate) cyanocobalamin (vitamin B-12) 1,000 mcg PO DAILY 06/13/23 06/13/23 History 1,000 mcg tablet (Vitamin B-12) duloxetine 20 mg capsule,delayed 20 mg PO BID 06/13/23 06/13/23 History release furosemide 20 mg tablet 20 mg PO 06/13/23 History lidocaine 5 % topical patch 1 patch topical DAILY 06/13/23 06/13/23 History loperamide 2 mg capsule 2 mg PO 06/13/23 History losartan 25 mg tablet 12.5 mg PO DAILY 06/13/23 06/13/23 History metformin 500 mg tablet 500 mg PO 3XD 06/13/23 06/13/23 History nitrofurantoin 1 cap PO BID 06/13/23 06/13/23 History monohydrate/macrocrystals 100 mg capsule pramipexole 0.5 mg tablet mg PO 06/13/23 History simvastatin 20 mg tablet 20 mg PO 06/13/23 History tolterodine 4 mg PO 06/13/23 History docusate sodium 100 mg capsule 100 mg PO BID PRN constipation #20 07/08/23 Rx (Colace) caps oxycodone 5 mg tablet 5 mg PO Q6H PRN pain #7 tabs 07/08/23 Rx phenazopyridine 100 mg tablet 100 mg PO TID PRN pain 6 doses #6 07/08/23 Rx (Pyridium) tabs Allergies Allergy/AdvReac Type Severity Reaction Status Date / Time celecoxib [From Celebrex] AdvReac Verified 12/20/23 09:37 Review of Systems Review of Systems Narrative: Difficult to obtain due to cognitive impairment. Exam Vital Signs (past 8 hours): - 12/20/23 09:36 12/20/23 09:40 12/20/23 10:00 Temperature 98.7 F Pulse Rate 95 H 98 H Respiratory Rate 16 16 Blood Pressure 112/59 L 123/56 L Pulse Oximetry 84 L 87 L Oxygen Delivery Method Room Air Oxygen Flow Rate 12/20/23 10:00 12/20/23 10:30 12/20/23 10:30 Temperature Pulse Rate 96 H 92 H Respiratory Rate 28 H 29 H Blood Pressure 128/55 L Pulse Oximetry 90 L 97 Oxygen Delivery Method Oxygen Flow Rate 12/20/23 10:45 12/20/23 11:00 12/20/23 11:00 Temperature Pulse Rate 86 92 H Respiratory Rate 18 33 H Blood Pressure 134/62 Pulse Oximetry 94 86 L Oxygen Delivery Method Nasal Cannula Oxygen Flow Rate 2 12/20/23 11:30 12/20/23 11:30 Temperature Pulse Rate 94 H Respiratory Rate 27 H Blood Pressure 127/61 Pulse Oximetry 89 L Oxygen Delivery Method Oxygen Flow Rate 2 Oxygen Delivery Method Nasal Cannula Oxygen Flow Rate 2 Narrative Exam Narrative: NAD, alert and oriented to person, fluent speech, calm. She attempts to answer questions. Normocephalic skull, EOMI, anicteric sclera, symmetric pupils. Oropharynx unremarkable, no droop. Neck supple, midline trachea, no adenopathy. Lungs clear, normal rate and effort. Minimal wheezing. Heart regular, no murmur gallop or rub. Abdomen is soft, non distended and non tender. Extremities are free of edema. Skin is free of rash or lesions. Joints are not swollen or deformed. Judgment appears to be abnormal. Objective Imaging Chest x-ray: My impression: Bilateral scattered infiltrates and obscuration of diaphragms bilaterally. Radiologist's impression: Finding may represent CHF. Underlying perihilar and infrahilar infiltrates cannot be excluded. No pneumothorax. Trace bilateral pleural effusion. Labs 12/20/23 09:20 12/20/23 09:20 Labs: Laboratory Results - last 24 hr 12/20/23 12/20/23 09:20 09:38 WBC 20.7 H RBC 4.24 Hgb 11.3 L Hct 35.3 L MCV 83.3 MCH 26.5 MCHC 31.9 RDW 14.9 H Plt Count 287 Neut % (Auto) 96.9 H Lymph % (Auto) 1.1 L [place] % (Auto) 2.0 L Eos % (Auto) 0.0 L Baso % (Auto) 0.0 Neut # (Auto) 50523 H Lymph # (Auto) 200 L [place] # (Auto) 400 Eos # (Auto) 0 Baso # (Auto) 0 Sodium 137 Potassium 4.2 Chloride 104 Carbon Dioxide 21 L BUN 23 H Creatinine 1.10 H Estimated GFR 49 L BUN/Creatinine Ratio 20.9 Glucose 198 H Lactate 5.3 H* Calcium 9.3 Total Bilirubin 0.9 AST 28 ALT 65 H Alkaline Phosphatase 97 Total Creatine Kinase 36 Troponin I 0.015 NT-Pro-B Natriuret Pep 1220 H Total Protein 7.5 Albumin 3.7 Globulin 3.8 Albumin/Globulin Ratio 1.0 Lipase 32 D Procalcitonin 6.26 H Chlamy pneumoniae PCR Not detected Adenovirus (PCR) Not detected B. pertussis DNA (PCR) Not detected B.parapertussis DNA PCR Not detected Coronavirus OC43 (PCR) Not detected Coronavirus HKU1 (PCR) Not detected Coronavirus 229E (PCR) Not detected SARS-CoV-2 (PCR) Not detected Coronavirus NL63 (PCR) Not detected Human Metapneumovir PCR Not detected Influenza Type A (PCR) Not detected Influenza Type B (PCR) Not detected M. pneumoniae (PCR) Not detected Parainfluenza 1 (PCR) Not detected Parainfluenza 2 (PCR) Not detected Parainfluenza 3 (PCR) Not detected Parainfluenza 4 (PCR) Not detected RSV (PCR) Not detected Entero/Rhino (PCR) Not detected Assessment & Plan Assessment & Plan narrative: 1. Possible pneumonia, present on admission and active. 2. Pulmonary edema, , present on admission and active. 3. Latic acidosis, present on admission and active. 4. Leulocytosis, present on admission and active. 5. Dementia, present on admission and active. 6. HTN, present on admission and active. 7. DM 2, present on admission and active., 8. HLD, present on admission and active. PLAN: -we will treat for pneumonia with IV antibiotics, ceftriaxone and azithromycin. -blood cultures. -20 mg of Lasix x1. Unable to give IV fluids until we assess her cardiac function with her chest x-ray revealing pulmonary edema and pleural effusions. -echo to assess LV function -trend lactic acid She is DNR Inpatient status, anticipate a 2 midnight length of hospital stay. SUSAN: November 20 if she improves with regard to her breathing. Time-Based Coding :: 40 min spent with patient and on the chart (including review of chart, obtaining history, exam, reviewing outside data, placing orders, documenting exam and treatment plan, and counseling patient) on 12/19. Quality MIPS - Admit I confirm the patient?s Advance Care Plan is present, Code status is documented, Surrogate decision maker is in patient?s record [If Yes, STOP here]: Yes MIPS - Meds 'Current medications' to include all prescriptions, [id number] products, herbals, cannabis/cannabidiol products, and vitamin/mineral/dietary (nutritional) supplements. I have utilized all available resources to obtain, update, or review the patient?s current medications. [If Yes, STOP here]: Yes
[2023-12-20 15:25] LABS: Lactate (Lactic Acid) 3.9 mmol/L (0.7-2.1)
[2023-12-20 16:46] LABS: Reflexed Lactate in 2 Hours Y
--- NOTE | 2023-12-20 18:51 | PC.NURSE ---
Patient arrived to room 210 approximately 1205 this afternoon. VSS, afebrile, on 2 LNC.She is pleasantly confused, forgetful, impulsive but extremely weak, Unable to weight without x2 assist today. Purewick in place. Skin is c/d/i slight moisture rash noted under breasts, nystatin applied. She is agreeable to care. Bed alarm, frequent rounding, q 2 turning, assistance with ADL's.
[2023-12-20] MEDS: HEPARIN 5,000 UNIT/ML VIAL 5000 UNIT SUBCUT (21:49)
[2023-12-20] MEDS: DOCUSATE 100 MG CAPSULE PO (21:49)
[2023-12-20] MEDS: DULOXETINE 20 MG CAPSULE PO (21:49)
[2023-12-20] MEDS: PRAMIPEXOLE 0.25 MG TABLET 0.5 MG PO (21:51)
[2023-12-20 23:08] LABS: Lactate (Lactic Acid) 1.2 mmol/L (0.7-2.1)
--- NOTE | 2023-12-21 02:37 | PC.NURSE ---
0220: PaO2 87% on room air. Patient removing NC and oximask, or turning head away, as soon as being placed on by staff. Dr. Arevalo made aware.
[2023-12-21] MEDS: LORazepam 2 MG/ML INJ 0.5 MG IV (02:45)
[2023-12-21 07:00] VITALS: BP 110/58; PULSE 78; RESP 14; TEMP 36.6; O2SAT 94
[2023-12-21 07:20] LABS: Add Manual Diff / Slide Review NO; Basophils Absolute Auto 0 /uL (0-100); Basophils Percent Auto 0.4 % (0-2); Eosinophils Absolute Auto 300 /uL (0-450); Eosinophils Percent Auto 2.4 % (2-4); Hematocrit 29.5 % (36-46); Hemoglobin 9.8 g/dL (12.0-16.0); Lymphocytes Absolute Auto 900 /uL (1100-4500); Lymphocytes Percent Auto 7.2 % (25-40); Mean Corpuscular Hemoglobin 26.9 PG (26-34); Mean Corpuscular Volume 81.4 fL (80-100); Monocytes Absolute Auto 900 /uL (0-900); Monocytes Percent Auto 7.6 % (3-14); Neutrophils Absolute Auto 10000 /uL (1500-7000); Neutrophils Percent Auto 82.4 % (50-75); Platelet Count 228 X10^3/uL (150-400); Red Blood Cell Count 3.63 X10^6/uL (4.0-5.2); Red Cell Distribution Width 14.9 % (11.6-14.8); White Blood Cell Count 12.1 X10^3/uL (4.5-11.0)
[2023-12-21 07:27] LABS: BUN Creatinine Ratio 26.5 (6-22); Blood Urea Nitrogen 35 mg/dL (7-17); Calcium 8.6 mg/dL (8.4-10.2); Carbon Dioxide 28 mmol/L (22-32); Chloride 103 mmol/L (98-107); Estimated Glomerular Filt Rate 39 mL/min (>60); Glucose 123 mg/dL (80-110); HEMOLYSIS < 15 (0-50); Potassium 4.3 mmol/L (3.4-5.1); Sodium 133 mmol/L (137-145)
--- NOTE | 2023-12-21 07:49 | PM.PN.1 ---
Subjective Subjective Interval history: A 88-year-old female admitted with probable pneumonia and possible pulmonary edema. She declined echo yesterday. S: She states she feels fine and denies any problems. No cough or dyspnea. She is on 2 L of oxygen with SaO2 100%. Exam Vital Signs (past 8 hours): - 12/21/23 03:56 Oxygen Delivery Method Nasal Cannula Oxygen Flow Rate 2 Fraction of Inspired Oxygen 28 Fraction of Inspired Oxygen 28 Oxygen Delivery Method Nasal Cannula Oxygen Flow Rate 2 Narrative Exam Narrative: NAD, alert and oriented. Fluent speech. Lungs are clear, normal rate and effort. Heart is regular, no murmur gallop or rub. Abdomen is soft, non distended. Extremities are free of edema. Objective Imaging Chest x-ray: Radiologist's impression: My impression: Bilateral scattered infiltrates and obscuration of diaphragms bilaterally. Radiologist's impression: Finding may represent CHF. Underlying perihilar and infrahilar infiltrates cannot be excluded. No pneumothorax. Trace bilateral pleural effusion. Labs 12/21/23 06:30 12/21/23 06:30 Labs: Laboratory Results - last 24 hr 12/20/23 12/20/23 12/20/23 09:20 09:38 11:20 WBC 20.7 H RBC 4.24 Hgb 11.3 L Hct 35.3 L MCV 83.3 MCH 26.5 MCHC 31.9 RDW 14.9 H Plt Count 287 Neut % (Auto) 96.9 H Lymph % (Auto) 1.1 L Campbell % (Auto) 2.0 L Eos % (Auto) 0.0 L Baso % (Auto) 0.0 Neut # (Auto) 45326 H Lymph # (Auto) 200 L Campbell # (Auto) 400 Eos # (Auto) 0 Baso # (Auto) 0 Sodium 137 Potassium 4.2 Chloride 104 Carbon Dioxide 21 L BUN 23 H Creatinine 1.10 H Estimated GFR 49 L BUN/Creatinine Ratio 20.9 Glucose 198 H Lactate 5.3 H* 5.0 H* Calcium 9.3 Total Bilirubin 0.9 AST 28 ALT 65 H Alkaline Phosphatase 97 Total Creatine Kinase 36 Troponin I 0.015 NT-Pro-B Natriuret Pep 1220 H Total Protein 7.5 Albumin 3.7 Globulin 3.8 Albumin/Globulin Ratio 1.0 Lipase 32 D Procalcitonin 6.26 H Chlamy pneumoniae PCR Not detected Adenovirus (PCR) Not detected B. pertussis DNA (PCR) Not detected B.parapertussis DNA PCR Not detected Coronavirus OC43 (PCR) Not detected Coronavirus HKU1 (PCR) Not detected Coronavirus 229E (PCR) Not detected SARS-CoV-2 (PCR) Not detected Coronavirus NL63 (PCR) Not detected Human Metapneumovir PCR Not detected Influenza Type A (PCR) Not detected Influenza Type B (PCR) Not detected M. pneumoniae (PCR) Not detected Parainfluenza 1 (PCR) Not detected Parainfluenza 2 (PCR) Not detected Parainfluenza 3 (PCR) Not detected Parainfluenza 4 (PCR) Not detected RSV (PCR) Not detected Entero/Rhino (PCR) Not detected 12/20/23 12/20/23 12/21/23 15:09 22:45 06:30 WBC 12.1 H RBC 3.63 L Hgb 9.8 L Hct 29.5 L MCV 81.4 MCH 26.9 MCHC 33.0 RDW 14.9 H Plt Count 228 Neut % (Auto) 82.4 H Lymph % (Auto) 7.2 L Campbell % (Auto) 7.6 Eos % (Auto) 2.4 Baso % (Auto) 0.4 Neut # (Auto) 89163 H Lymph # (Auto) 900 L Campbell # (Auto) 900 Eos # (Auto) 300 Baso # (Auto) 0 Sodium 133 L Potassium 4.3 Chloride 103 Carbon Dioxide 28 BUN 35 H Creatinine 1.32 H Estimated GFR 39 L BUN/Creatinine Ratio 26.5 H Glucose 123 H Lactate 3.9 H 1.2 Calcium 8.6 Total Bilirubin AST ALT Alkaline Phosphatase Total Creatine Kinase Troponin I NT-Pro-B Natriuret Pep Total Protein Albumin Globulin Albumin/Globulin Ratio Lipase Procalcitonin Chlamy pneumoniae PCR Adenovirus (PCR) B. pertussis DNA (PCR) B.parapertussis DNA PCR Coronavirus OC43 (PCR) Coronavirus HKU1 (PCR) Coronavirus 229E (PCR) SARS-CoV-2 (PCR) Coronavirus NL63 (PCR) Human Metapneumovir PCR Influenza Type A (PCR) Influenza Type B (PCR) M. pneumoniae (PCR) Parainfluenza 1 (PCR) Parainfluenza 2 (PCR) Parainfluenza 3 (PCR) Parainfluenza 4 (PCR) RSV (PCR) Entero/Rhino (PCR) PFSH Medical History HLD (hyperlipidemia) Restless legs HTN (hypertension) Diabetes Social History household members: none Smoking Status: Former smoker alcohol intake: current Assessment & Plan Assessment & Plan narrative: 1. Possible pneumonia, present on admission and active. 2. Pulmonary edema, , present on admission and active. 3. Lactic acidosis, present on admission and resolved. 4. Leukocytosis, present on admission and active. 5. Dementia, present on admission and active. 6. HTN, present on admission and active. 7. DM 2, present on admission and active., 8. HLD, present on admission and active. 9. DWAYNE, new and active. PLAN: -Continue ceftriaxone and azithromycin. -blood cultures negative. -echo to assess LV function, she declined. -lactic acid normalized -wean O2 as able. SUSAN: 12/21 She is DNR Inpatient status, anticipate a 2 midnight length of hospital stay. Time-Based Coding :: [TOTAL MINUTES] spent with patient and on the chart (including review of chart, obtaining history, exam, reviewing outside data, placing orders, documenting exam and treatment plan, and counseling patient) on [DATE]. Quality VTE Deep Vein Thrombosis/Pulmonary Embolism Present on Admission: No
[2023-12-21] MEDS: HEPARIN 5,000 UNIT/ML VIAL 5000 UNIT SUBCUT ×2 (08:57→22:03)
[2023-12-21] MEDS: ATORVASTATIN 20 MG TABLET 10 MG PO (08:57)
[2023-12-21] MEDS: DOCUSATE 100 MG CAPSULE PO ×2 (08:57→22:03)
[2023-12-21] MEDS: LIDOCAINE 5% PATCH 1 EACH TOP (09:02)
[2023-12-21] MEDS: OXYBUTYNIN 5 MG ER TAB 10 MG PO (09:02)
[2023-12-21] MEDS: DULOXETINE 20 MG CAPSULE PO ×2 (09:02→22:03)
[2023-12-21] MEDS: METFORMIN HCL 500 MG TABLET 1000 MG PO (09:02)
[2023-12-21] MEDS: AZITHROMYCIN 500 MG in DEXTROSE 5% IN WATER 250 ML 250 MG IV (09:39)
[2023-12-21] MEDS: cefTRIAXone 1,000 MG in SODIUM CHLORIDE 0.9% 100 ML 200 MG IV (11:41)
[2023-12-21] MEDS: INSULIN LISPRO 100 UNIT/ML 3ML VIAL SUBCUT (12:02)
--- NOTE | 2023-12-21 15:11 | CM.DANOTE ---
Patient is 88 yo F admitted with PNA with pulm edema on . Patient is confused, hx of dementia. Chart reviewed, discussed in rounds, and discussed with patient's daughter, Veronica. Patient resides at [facility] and will return there at d/c, no pt/ot at this time. Possible d/c on Saturday per Dr. Hernandez. Dtr would like to be notified when ready for d/c, states she was recently d/c'd from the ED and she was unaware patient had been sent back. No other needs at this time. HANNAH Yoo Discharge Planning/Care Management CM Discharge Assessment Start: 12/21/23 15:10 Freq: Status: Active Protocol: Document 12/21/23 15:11 KG (Rec: 12/21/23 15:11 KG [id number]) Discharge Planning Assessment Assigned Irish Moss Operator Anh Guerra Advance Directives? Yes Advance Directives on File Yes History Provided By Family Member,Medical Record Has Patient been admitted in last 30 No days? Prior Living Arrangements Assisted Living Comment [facility] Household Members none Type of transporation used prior to Relies on Others admit Facility Name Admitted From: [facility] Willing to Return to Facility? Yes Independent with ADL's No Is patient alert and oriented? No Caregiver for Another No Discharge Plan Assisted Living Facility Transportation Arrangement Facility Referrals Initiated None needed
[2023-12-21] MEDS: METFORMIN HCL 500 MG TABLET PO (17:31)
[2023-12-21 20:00] VITALS: BP 130/64; PULSE 68; RESP 18; TEMP 36.4; O2SAT 95
[2023-12-21] MEDS: PRAMIPEXOLE 0.25 MG TABLET 0.5 MG PO (22:04)
[2023-12-22 06:34] LABS: Add Manual Diff / Slide Review NO; Basophils Absolute Auto 0 /uL (0-100); Basophils Percent Auto 0.6 % (0-2); Eosinophils Absolute Auto 300 /uL (0-450); Eosinophils Percent Auto 3.9 % (2-4); Hematocrit 32.1 % (36-46); Hemoglobin 10.5 g/dL (12.0-16.0); Lymphocytes Absolute Auto 800 /uL (1100-4500); Lymphocytes Percent Auto 10.9 % (25-40); Mean Corpuscular HGB Conc 32.7 % (30-36); Mean Corpuscular Hemoglobin 26.8 PG (26-34); Mean Corpuscular Volume 82.2 fL (80-100); Monocytes Absolute Auto 600 /uL (0-900); Monocytes Percent Auto 8.9 % (3-14); Neutrophils Absolute Auto 5400 /uL (1500-7000); Neutrophils Percent Auto 75.7 % (50-75); Platelet Count 248 X10^3/uL (150-400); Red Blood Cell Count 3.91 X10^6/uL (4.0-5.2); Red Cell Distribution Width 14.7 % (11.6-14.8); White Blood Cell Count 7.1 X10^3/uL (4.5-11.0)
[2023-12-22 06:44] LABS: Blood Urea Nitrogen 26 mg/dL (7-17); Calcium 8.8 mg/dL (8.4-10.2); Carbon Dioxide 24 mmol/L (22-32); Chloride 102 mmol/L (98-107); Estimated Glomerular Filt Rate 52 mL/min (>60); Glucose 113 mg/dL (80-110); HEMOLYSIS < 15 (0-50); Potassium 4.4 mmol/L (3.4-5.1); Sodium 132 mmol/L (137-145)
[2023-12-22 08:00] VITALS: BP 86/58; PULSE 68; TEMP 36.3; O2SAT 94
[2023-12-22] MEDS: ATORVASTATIN 20 MG TABLET 10 MG PO (08:29)
[2023-12-22] MEDS: HEPARIN 5,000 UNIT/ML VIAL 5000 UNIT SUBCUT (08:29)
[2023-12-22] MEDS: DOCUSATE 100 MG CAPSULE PO (08:29)
[2023-12-22] MEDS: OXYBUTYNIN 5 MG ER TAB 10 MG PO (08:29)
[2023-12-22] MEDS: LIDOCAINE 5% PATCH 1 EACH TOP (08:30)
[2023-12-22] MEDS: DULOXETINE 20 MG CAPSULE PO (08:30)
[2023-12-22] MEDS: METFORMIN HCL 500 MG TABLET 1000 MG PO (08:31)
[2023-12-22] MEDS: AZITHROMYCIN 500 MG in DEXTROSE 5% IN WATER 250 ML 250 MG IV (10:16)
--- NOTE | 2023-12-22 10:54 | PT.IIE ---
Current Diagnoses Pneumonia, unspecified organism (12/20/23) Medical History (Last Reviewed 12/21/23 @ 07:50 by Rafi Hernandez MD) Diabetes HLD (hyperlipidemia) HTN (hypertension) Restless legs Physical Therapy Inpatient Evaluation/Re-Eval M1 PT/OT-IP Prior Functional Status Start: 12/22/23 09:13 Freq: NEEDED Status: Active Protocol: Document 12/22/23 09:19 MB (Rec: 12/22/23 10:54 MB [id number]) Medical Review Prior Functional Status Medical History Reviewed Yes Communication Unsure baseline diet, pt with confusion and she is hypoverbal Mobility and Gait Pt cannot report, lives at [facility] per rounds, she does not appear to be familiar with RW when attempted to use to get up with PT this a.m. Activities of Daily Living and IADL's Unsure baseline, lives at [facility] Social History Household Members none Living Arrangements Assisted Living Number of Floors (Floors) One Floor Number of Stairs To Enter/Railing? Accessible entrance and accessible BR, unsure baseline AD use, to return to facility this date M2 PT-IP Current Condition Start: 12/22/23 09:13 Freq: NEEDED Status: Active Protocol: Document 12/22/23 09:19 MB (Rec: 12/22/23 10:54 MB [id number]) Physical Therapy Current Condition Current Condition Evaluation Date 12/22/23 Treatment Diagnosis SOB, sepsis, PNA M3 PT-IP Subjective Start: 12/22/23 09:13 Freq: NEEDED Status: Active Protocol: Document 12/22/23 09:19 MB (Rec: 12/22/23 10:54 MB [id number]) Subjective Physical Therapy Visit Type Type Initial Evaluation Visit Start Time 09:19 Visit Stop Time 09:38 Number of EDITORIAL PROJECT MANAGER Visits 0 Physical Therapy Visit Comments Patient Comments Pt is hypoverbal and does not make conversation, can only answer name and Therapy Pain Assessment Pain When Pain Assessed At Rest Pain Present Pain Present Denied Pain M4 PT-IP Mobility and Gait Start: 12/22/23 09:13 Freq: NEEDED Status: Active Protocol: Document 12/22/23 09:19 MB (Rec: 12/22/23 10:54 MB [id number]) PT-Bed Mobility Assessment Rolling Type of Rolling Roll to Left Level of Assist Contact Guard Assistance Supine to Sit Supine to Sit Contact Guard Assistance Scooting Scooting to Edge of Bed Contact Guard Assistance PT-Transfer Assessment Sit to and From Stand Sit to and from Stand Minimal Assistance,1 Person Assistance,Use of Upper Extremities Equipment Transfer Assistive Device Gait Belt,Front Wheeled Walker Transfers Transfer Destination Chair Transfer Technique Stepping Transfer Ability Level of Assist Minimal Assistance,1 Person Assistance,Use of Upper Extremities Comments Mobility Comments O2 does not read from reader and TALENT DEVELOPMENT ANALYST to change after eval. Pt cannot follow commands to keep right arm still for BP reading and so getting orthostatics is challenging. BP and HR right UE: supine 106 /52, 60; standing 116/62, 76; standing 1' 117/60, 78. Gait Assessment Gait Gait Assistance Required: Minimum Assistance Distance (Feet) 2 Able to Maintain Weight Bearing Status Yes During Gait Assistive Devices Assistive Device Gait Belt,Front Wheeled Walker Orthotic/Prosthetic Devices or Brace: No Gait Deviations General Gait Pattern Flexed Trunk Factors Limiting Gait Function Factors Limiting Gait Function Difficulty Following Directions,Poor Balance,Poor Safety Awareness Comments Gait Comments Pt with posterior lean and tends to warp picker the walker, confusion with AD use PT-Balance Assessment Sitting Balance and Reactions Static Sitting Balance Ability Good Dynamic Sitting Balance Ability Fair Standing Balance and Reactions Static Standing Balance Ability Fair Dynamic Standing Balance Ability Fair Device Used RW and gait, belt, cues not to lift walker and to stand up M5 PT-IP Objective Assessments Start: 12/22/23 09:13 Freq: NEEDED Status: Active Protocol: Document 12/22/23 09:19 MB (Rec: 12/22/23 10:54 MB [id number]) Orientation Orientation/Cognition Level of Alertness Confusional State Orientation Name,Birthday Safety Awareness Decreased Safety Awareness Memory Description Short Term Impaired,Half-Way Impaired Gross Range of Motion Upper Extremity ROM Impairments Appears functional and pt cannot follow commands Lower Extremity ROM Impairments Appears functional for age and pt cannot follow commands Strength Comments Strength Comments Strength appears functional for age and pt cannot follow commands Coordination Assessment Assessment Coordination Comments Pt cannot follow commands Sensation Assessment Comments Sensation Comments Pt cannot follow commands Muscle Tone Muscle Tone WNL Yes M6 PT-IP Treatment Start: 12/22/23 09:13 Freq: NEEDED Status: Active Protocol: Document 12/22/23 09:19 MB (Rec: 12/22/23 10:54 MB [id number]) Physical Therapy Treatment Education Education Provided Safety M7 PT-IP Assessment and Plan Start: 12/22/23 09:13 Freq: NEEDED Status: Active Protocol: Document 12/22/23 09:19 MB (Rec: 12/22/23 10:54 MB [id number]) PT Summary Assessment and Plan Potential Rehabilitation Potential Poor Status of Condition at Evaluation Evolving Summary Impairments Balance,Cognition,Bed Mobility ,Transfers,Gait Progress Towards Goals Slow Progress - Other Assessment Summary Pt is an 88 y/o female presenting with confusion and who was adm with SOB. PT has trouble getting orthostatics given confusion (pt moving arm ) and O2 sats do not read with mobility. She is not dyspneic and does not have pain with mobility. She requires simple cues for bed mobility and has a lot of trouble trying to use RW for balance and stepping. In rounds, discussed that pt may d/c back to [facility] today. She will need 24 hour superv at d/c, assistance for mobility and ADLs. Goals Bed Mobility Goal Standby Assistance Transfer Goal Standby Assistance,Front Wheeled Walker Gait Goal Standby Assistance,Front Wheel Walker Gait Distance 75 Days to Meet Goals 5 Frequency of Treatment Frequency Of Treatment Once a Day Treatment Plan Physical Therapy Treatment Plan Bed Mobility Training,Transfer Training,Gait Training, Therapeutic Exercise,Balance Retraining,Discharge Planning, Hot or Cold Pack,Neuromuscular Re-ed,Coordination Retraining ,Manual Therapy Precautions Other Precautions Fall risk Recommendations To Nursing Amount of Assist Needed 1 Person Assist Discharge Recommendations Other Discharge Recommendations Return to [facility] Transportation Needs at Discharge Private Vehicle,Wheelchair/ Cabulance
[2023-12-22] MEDS: cefTRIAXone 1,000 MG in SODIUM CHLORIDE 0.9% 100 ML 200 MG IV (11:42)
--- NOTE | 2023-12-22 13:09 | P.DS_ITS ---
History of Present Illness History of Present Illness Chief complaint: SOB Narrative: From ED physician: 88-year-old female history of dementia, hypertension, dyslipidemia, diabetes type 2 with no report of COPD or emphysema who presents with complaint of shortness of breath this is her 2nd visit in 24 hours. Patient herself states she does feel little short of breath when asked, she denies fevers, no cold cough or congestion, no chest pain she denies any nausea or vomiting. Denies any abdominal pain. Denies any diarrhea or constipation or urinary symptoms. Patient is unable to tell me what medication she takes but that she does take medication. She states she has had a prior surgery but does not recall what it is. Reported allergy to Celebrex. Also reported that patient started cefdinir recently for UTI. She states very remote history of tobacco use when she was young, no alcohol or recreational drugs. Additional information: The patient denies chest pain, or recent cough. She has cognitive impairment and can only answer simple questions. She denies any nausea, vomiting, or diarrhea. No leg swelling. Discharge Providers Provider Date of admission: 12/20/23 11:09 Discharge Date: 12/22/23 Consults: 12/22/23 08:14 Consult to Physical Therapy Evaluate & Treat Comment: Physician Instructions: Evaluate and Treat Discharge provider: Rafi Hernandez MD Summary Hospital Course Discharge Diagnosis: 1. Possible pneumonia, present on admission and improved. 2. Pulmonary edema, , present on admission and resolved. 3. Lactic acidosis, present on admission and resolved. 4. Leukocytosis, present on admission and resolved. 5. Dementia, present on admission and active. 6. HTN, present on admission and active. 7. DM 2, present on admission and active., 8. HLD, present on admission and active. 9. DWAYNE, new and resolved. 10. Acute hypoxemic respiratory failure, present on admission and improved. 11. Sepsis with WBC of 20.7, lactic acid of over 5, respiratory rate of 28 and acute hypoxic respiratory failure with a SpO2 of 84-87% on room air at arrival. Present on admission and improved. Hospital Course: She was admitted due to shortness a breath and being found to have a possible pneumonia. Her admission chest x-ray also suggested pulmonary edema. She was given IV antibiotics. Fluids were held due to initially DWAYNE. Her lactic acidosis did improve as did her renal function. She was able to wean off from oxygen while being on IV antibiotic and declined a echo. The patient remained stable with regards to hypertension and diabetes. On the day of discharge she was at baseline with saturations between 90 94% on room air and her chronic cognitive impairment. Her creatinine had normalized in her lactic acid had also normalized. Her WBC was 7.1 on the day of discharge. I met with her daughter, and review the situation. She does have oral antibiotics were given to her December 19 which she will continue back at her already. Therapy did assess her in the day of discharge stable for return to her assisted living memory care unit. Status at Discharge Cognitive/behavioral status at discharge: at baseline, confused Functional status at discharge: uses cane/walker Overall status at discharge: patient is progressing back to baseline Time Spent with Patient Time spent: Greater than 30 minutes Exam Vital Signs (past 8 hours): - 12/22/23 08:00 Temperature 97.4 F L Pulse Rate 68 Blood Pressure 86/58 L Pulse Oximetry 94 Oxygen Flow Rate 0 Fraction of Inspired Oxygen 28 Oxygen Delivery Method Room Air Oxygen Flow Rate 0 Narrative Exam Narrative: NAD, alert and oriented. Fluent speech. Cognitive impairment which is chronic. Lungs are clear, normal rate and effort. Heart is regular, no murmur gallop or rub. Abdomen is soft, non distended. Extremities are free of edema. Objective Imaging Chest x-ray: Radiologist's impression: Chest x-ray: My impression: Bilateral scattered infiltrates and obscuration of diaphragms bilaterally. Radiologist's impression: Finding may represent CHF. Underlying perihilar and infrahilar infiltrates cannot be excluded. No pneumothorax. Trace bilateral pleural effusion. Labs 12/22/23 06:00 12/22/23 06:00 Labs: Laboratory Results - last 24 hr 12/22/23 06:00 WBC 7.1 RBC 3.91 L Hgb 10.5 L Hct 32.1 L MCV 82.2 MCH 26.8 MCHC 32.7 RDW 14.7 Plt Count 248 Neut % (Auto) 75.7 H Lymph % (Auto) 10.9 L Bland % (Auto) 8.9 Eos % (Auto) 3.9 Baso % (Auto) 0.6 Neut # (Auto) 5400 Lymph # (Auto) 800 L Bland # (Auto) 600 Eos # (Auto) 300 Baso # (Auto) 0 Sodium 132 L Potassium 4.4 Chloride 102 Carbon Dioxide 24 BUN 26 H Creatinine 1.04 Estimated GFR 52 L BUN/Creatinine Ratio 25.0 H Glucose 113 H Calcium 8.8 [facility] Medical History HLD (hyperlipidemia) Restless legs HTN (hypertension) Diabetes Social History household members: none Smoking Status: Former smoker alcohol intake: current Discharge Assessment & Plan Assessment and Plan Assessment: 1. Possible pneumonia, present on admission and improved. 2. Pulmonary edema, , present on admission and resolved. 3. Lactic acidosis, present on admission and resolved. 4. Leukocytosis, present on admission and resolved. 5. Dementia, present on admission and active. 6. HTN, present on admission and active. 7. DM 2, present on admission and active., 8. HLD, present on admission and active. 9. DWAYNE, new and resolved. 10. Acute hypoxemic respiratory failure, present on admission and improved. 11. Sepsis with WBC of 20.7, lactic acid of over 5, respiratory rate of 28 and acute hypoxic respiratory failure with a SpO2 of 84-87% on room air at arrival. Present on admission and improved. Plan of Treatment: Discharge home to chronic medications without change and continue cefdinir for urine and lung coverage, which she had just started a course of at her home. Discharge Plan Discharge Plan Patient Disposition: Assisted Living Transfer to: [facility] Living Under care of provider: Facility provider Provider Discharge Comment: Stable for discharge home with antibiotics for possible pneumonia. Discharge orders & Medications Discharge Orders: Discharge (Order); Ordered 12/22/23 Ordered By: Rafi Hernandez Prescriptions: Continued pramipexole 0.5 mg tablet 0.5 mg PO BEDTIME lidocaine 5 % adhesive patch,medicated 1 patch topical DAILY cyanocobalamin (vitamin B-12) [Vitamin B-12] 1,000 mcg tablet 1,000 mcg PO DAILY metformin 500 mg tablet 1,000 mg PO DAILY acetaminophen 325 mg tablet 325 mg PO Q6HR PRN (Reason: Pain (Scale Score 1-3)) Rx Instructions: 2 tabs by mouth simvastatin 20 mg tablet 20 mg PO DAILY losartan 25 mg tablet 12.5 mg PO DAILY furosemide 20 mg tablet 20 mg PO DAILY cranberry extract [Cranberry Concentrate] 500 mg capsule 500 mg PO DAILY duloxetine 20 mg capsule,delayed release(DR/EC) 20 mg PO BID tolterodine 4 mg capsule 4 mg PO DAILY cefdinir 300 mg capsule 300 mg PO BID Qty: 10 0RF docusate sodium [Colace] 100 mg capsule 100 mg PO BID PRN (Reason: constipation) Qty: 20 0RF metformin 500 mg Tablet 500 mg PO BEDTIME Discharge Health Status Multidrug resistant organism: No MDRO Diet/Activity/Treatments Diet: Carb-consistent/Diabetic Visit Report/Discharge Packet Instructions: DI for Pneumonia -- Adult Stand Alone Forms: Patient Portal/API Quality VTE Deep Vein Thrombosis/Pulmonary Embolism Present on Admission: No
--- NOTE | 2023-12-22 14:54 | PC.NURSE ---
D/c instructions reviewed with Pt and daughter and d/c packet given to the daughter. Pt to d/c back to [facility]. IV removed. Pt and family confirmed they had all belongings. Pt exited via w/c with daughter.
--- NOTE | 2023-12-22 15:46 | CM.DPNOTE ---
DC Note Discharge home to [facility] today. Placed call to [facility] ([phone]) to review plan. Patient welcomed home, daughter contacted and agreeable. facility van arrived to pick patient up at approx 1345. DC summary and signed med list faxed to [facility] [phone] per [facility]'s request and did not go through, error message. SHARITA
== END 2023-12-22 13:30 | DRG 194 ==
LOC: ED 11:09 → AC 11:10
PROVIDERS: Admitting Provider Hospitalist; Emergency Provider Emergency Medicine; Referring Provider Emergency Medicine; Visit Provider Hospitalist
DX: J18.9 Pneumonia, unspecified organism (principal); E87.20 Acidosis, unspecified; J81.1 Chronic pulmonary edema; N17.9 Acute kidney failure, unspecified; D72.829 Elevated white blood cell count, unspecified; F03.90 Unspecified dementia, unspecified severity, without behavioral disturbance, psychotic disturbance, mood disturbance, and anxiety; I10 Essential (primary) hypertension; E78.5 Hyperlipidemia, unspecified; E11.9 Type 2 diabetes mellitus without complications; G25.81 Restless legs syndrome; Z87.440 Personal history of urinary (tract) infections; Z66 Do not resuscitate; Z87.891 Personal history of nicotine dependence; Z79.84 Long term (current) use of oral hypoglycemic drugs
CPT/HCPCS: 36415; 71045; 80048; 80053; 82550; 82962; 83605; 83690; 83880; 84145; 84484; 85025; 87040; 87633; 93005; 94640; 94762; 96365; 96375; 97161; 99285; J0696; J1644; J1815; J1940; J2060; J7613

== ENCOUNTER 2023-12-22 21:33 | Inpatient (IN) | payer OTHER, MEDICAID, SELFPAY ==
[2023-12-20 12:08] VITALS: BMI 19.2
[2023-12-22] VITALS (11 sets, daily range): BP systolic 109–170; BP diastolic 58–72; PULSE 97–109; RESP 24–36; TEMP 37.2; O2SAT 87–96
--- NOTE | 2023-12-22 21:35 | EKG_ITS ---
[facility] [address] [place] [address] Test Date: 2023-12-22 Pat Name: Katiuska [facility] Department: [facility] Room: Gender: Female Hand Turner: : 1935 Requested By: Order Number: [id number] Reading MD: Sachin Baker MD Measurements Intervals Burt Rate: 102 P: 119 ME: 144 QRS: 212 QRSD: 90 T: 130 QT: 348 QTc: 453 Interpretive Statements Suspect arm lead reversal, interpretation assumes no reversal Sinus tachycardia Lateral infarct , age undetermined Electronically Signed On 12-23-2023 7:31:30 PST by Sachin Baker MD
--- NOTE | 2023-12-22 21:36 | ED.SOB ---
HPI - SOB/Dyspnea General Chief Complaint: Shortness of Breath/Dyspnea Stated Complaint: SOB Time Seen by Provider: 12/22/23 21:35 History of Present Illness HPI Narrative: Patient is a 88-year-old female with a history of dementia, hypertension, hyperlipidemia, diabetes, presents from facility with EMS for evaluation of shortness of breath. According to the patient she has been experiencing intermittent shortness of breath ongoing and persistent for the past several days, has had multiple visits here in the emergency department for the similar things. According to medics when they arrived patient with pulse ox in the low 90s, at time of evaluation patient on 4 L nasal cannula, no dyspnea with conversation protecting airway tolerating secretions no voice changes no stridor no trismus. Review of records show that patient has been seen here for the same 2 times on 12/20/2023. At that time patient did have chest x-ray showed CHF trace bilateral pleural effusions patient is DNR/DNI. At that time patient was given Rocephin and azithromycin and treated for pneumonia. Was given dose of Lasix 40 mg. To note patient does have a history of Raynaud's therefore it is traditionally difficult to get a reliable pulse ox. At that time patient was admitted to the hospital for pneumonia versus CHF exacerbation. Patient was discharged today on cefdinir to cover urine and lung infection 2312: The patient's management plan was discussed Dr. Arevalo, who agrees to admit the patient to their service and assumes care of this patient at this time. Full admission orders will be placed by the primary team. Related Data Home Medications Medication Instructions Recorded Confirmed acetaminophen 325 mg tablet 325 mg PO Q6HR PRN Pain (Scale 06/13/23 12/20/23 Score 1-3) cranberry extract 500 mg capsule 500 mg PO DAILY 06/13/23 12/20/23 (Cranberry Concentrate) cyanocobalamin (vitamin B-12) 1,000 mcg PO DAILY 06/13/23 12/20/23 1,000 mcg tablet (Vitamin B-12) duloxetine 20 mg capsule,delayed 20 mg PO BID 06/13/23 12/20/23 release furosemide 20 mg tablet 20 mg PO DAILY 06/13/23 12/20/23 lidocaine 5 % topical patch 1 patch topical DAILY 06/13/23 12/20/23 losartan 25 mg tablet 12.5 mg PO DAILY 06/13/23 12/20/23 metformin 500 mg tablet 1,000 mg PO DAILY 06/13/23 12/20/23 pramipexole 0.5 mg tablet 0.5 mg PO BEDTIME 06/13/23 12/20/23 simvastatin 20 mg tablet 20 mg PO DAILY 06/13/23 12/20/23 tolterodine 4 mg PO DAILY 06/13/23 12/20/23 metformin 500 mg tablet 500 mg PO BEDTIME 12/20/23 12/20/23 Previous Rx's Medication Instructions Recorded cefdinir 300 mg capsule 300 mg PO BID #10 caps 06/13/23 docusate sodium 100 mg capsule 100 mg PO BID PRN constipation #20 07/08/23 (Colace) caps Allergies Allergy/AdvReac Type Severity Reaction Status Date / Time celecoxib [From Celebrex] AdvReac Verified 12/20/23 09:37 Review of Systems Review of Systems Narrative: General: Denies fever, chills, weight loss HEENT: Denies headache, eye drainage, eye irritation, head trauma, sore throat, voice change Cardiovascular: Denies any chest pain, palpitations, shortness of breath, tachycardia Respiratory: Positive shortness of breath, cough, denies wheeze, stridor GI/: Denies any abdominal pain, nausea, vomiting, diarrhea, bright red blood per rectum, melanotic stools, urinary frequency, urinary retention, dysuria, hematuria MSK: Denies any joint pain, muscle pains, swelling Skin: Denies any rashes, lesions, discoloration Neuro: Denies any headache, lightheadedness, dizziness, fainting, weakness Psych: Denies SI/HI Patient History Medical History HLD (hyperlipidemia) Restless legs HTN (hypertension) Diabetes Social History household members: none Smoking Status: Former smoker alcohol intake: current Smoking Status: Former smoker alcohol intake frequency: holidays/special occasions only Substance Use Type: does not use Exam Narrative Exam Narrative: General: Cooperative, comfortable, well-developed, not in acute distress HEENT: Normocephalic, atraumatic, PERRLA, normal sclera, eyelids normal, Neck: Active full range of motion, atraumatic Chest: Normal to inspection, negative crepitus, no overlying erythema ecchymosis Respiratory: Normal respiratory effort, not in acute respiratory distress, clear to auscultation bilaterally negative cough, wheeze, tachypnea, rhonchi, rales Cardiology: Regular rate rhythm negative gallop, murmur, rubs GI/: Normal to inspection, soft, nonrigid, no tenderness to palpation, exam deferred MSK: Full range of active range of motion of all 4 extremities, atraumatic Skin: No rashes lesions noted Neuro: Alert awake oriented x3, moves all 4 extremities spontaneously, cranial nerves intact, able to answer all questions appropriately follows commands appropriately Psych: Cooperative, negative suicidal or homicidal ideations Initial Vital Signs Initial Vital Signs: Vital Signs Blood Pressure 170/72 H 12/22/23 21:39 Pulse Oximetry 87 L 12/22/23 21:39 Oxygen Delivery Method Nasal Cannula 12/22/23 21:39 Oxygen Flow Rate 4 12/22/23 21:39 Course Orders Ordered: ED Orders 12/22/23 21:35 XR chest 1V Stat EKG-12 Lead Stat 12/22/23 21:39 Arterial Blood Gas STAT 12/22/23 21:58 Complete Blood Count AUTO DIFF Stat Comprehensive Metabolic Panel Stat Lipase Stat NT-proBNP (BNP-Adult 18+) Stat Procalcitonin Stat Troponin & CK Cardiac Panel Stat 12/22/23 22:00 Covid-19 + FLU A/B + RSV - PCR Stat Discontinued Medications Furosemide (Furosemide 40 Mg/4 Ml Vial) 40 mg IV NOW ONE Stop: 12/22/23 22:38 Last Admin: 12/22/23 23:05 Dose: 40 mg Documented By: FELIX Vital Signs Vital signs: Vital Signs - 8 hr 12/22/23 21:39 12/22/23 21:39 12/22/23 21:43 Temperature 98.9 F Pulse Rate 103 H Respiratory Rate 24 Blood Pressure 170/72 H 170/72 H Pulse Oximetry 87 L 88 L Oxygen Delivery Method Nasal Cannula Nasal Cannula Oxygen Flow Rate 4 4 12/22/23 22:02 12/22/23 22:15 12/22/23 22:15 Temperature Pulse Rate 106 H 109 H Respiratory Rate Blood Pressure 161/66 H Pulse Oximetry Oxygen Delivery Method Oxygen Flow Rate 12/22/23 22:16 12/22/23 22:16 12/22/23 22:21 Temperature Pulse Rate 105 H Respiratory Rate Blood Pressure 161/66 H 137/60 Pulse Oximetry Oxygen Delivery Method Oxygen Flow Rate 12/22/23 22:21 Temperature Pulse Rate 104 H Respiratory Rate 36 H Blood Pressure Pulse Oximetry 91 Oxygen Delivery Method Nasal Cannula Oxygen Flow Rate 4 MDM - SOB/Dyspnea Differential Diagnosis Differential diagnosis: Likely congestive heart failure, community acquired pneumonia and other (Electrolyte abnormality, COVID, flu) Lab Data 12/22/23 21:58 12/22/23 21:58 Labs: Lab Results 12/22/23 12/22/23 12/22/23 Range/Units 21:58 22:00 22:15 WBC 7.8 (4.5-11.0) X10^3/uL RBC 4.51 (4.0-5.2) X10^6/uL Hgb 12.1 (12.0-16.0) g/dL Hct 37.2 (36-46) % MCV 82.5 (80-100) fL MCH 26.8 (26-34) PG MCHC 32.5 (30-36) % RDW 14.6 (11.6-14.8) % Plt Count 276 (150-400) X10^3/uL Neut % (Auto) 93.8 H (50-75) % Lymph % (Auto) 3.3 L (25-40) % [place] % (Auto) 1.3 L (3-14) % Eos % (Auto) 1.5 L (2-4) % Baso % (Auto) 0.1 (0-2) % Neut # (Auto) 7300 H (9436-2011) /uL Lymph # (Auto) 300 L (2890-4291) /uL [place] # (Auto) 100 (0-900) /uL Eos # (Auto) 100 (0-450) /uL Baso # (Auto) 0 (0-100) /uL ABG Sample Site Right radial ABG pH 7.41 (7.35-7.45) ABG pCO2 33.3 L (35-45) mmHg ABG pO2 57 L (80-100) mmHg ABG HCO3 21 L (23-27) mmol/L ABG Total CO2 21 L (23-27) mmol/L ABG O2 Saturation 90 L (95-100) % ABG Base Excess -2.9 L (-2-3) mmol/L Rafi Test Positive O2 Delivery Device Cannula Sodium 132 L (137-145) mmol/L Potassium 3.9 (3.4-5.1) mmol/L Chloride 103 (98-107) mmol/L Carbon Dioxide 20 L (22-32) mmol/L BUN 29 H (7-17) mg/dL Creatinine 1.11 H (0.52-1.04) mg/dL Estimated GFR 48 L (>60) mL/min BUN/Creatinine Ratio 26.1 H (6-22) Glucose 148 H (80-110) mg/dL Calcium 9.2 (8.4-10.2) mg/dL Total Bilirubin 0.7 (0.2-1.3) mg/dL AST 29 (14-36) IU/L ALT 20 (<35) IU/L Alkaline Phosphatase 127 H (38-126) U/L Total Creatine Kinase 31 (30-135) U/L Troponin I < 0.012 (0.01-0.034) ng/mL NT-Pro-B Natriuret Pep 2230 H (<450) pg/mL Total Protein 7.6 (6.3-8.2) g/dL Albumin 3.4 L (3.5-5.0) g/dL Globulin 4.2 H (1.7-4.1) g/dL Albumin/Globulin Ratio 0.8 L (1.0-2.8) Lipase 34 (23-300) U/L Procalcitonin 4.42 H (<0.5) ng/mL SARS-CoV-2 (PCR) Negative (Negative) Influenza A (RT-PCR) Flu a negative (NEGATIVE) Influenza B (RT-PCR) Flu b negative (NEGATIVE) RSV (PCR) Negative (Negative) Imaging Data Chest x-ray: Radiologist's Impression: [address] [address] XRay Report Signed Patient: Katiuska Art MR#: [id number] : 1935 Acct:[id number] Age/Sex: 88 / F Date of Service: 12/22/23 Loc: ED Accession Number: [id number] Procedure: XR chest 1V Ordering Provider: David Shea D.O. PROCEDURE: XR CHEST 1V INDICATIONS: chest pain TECHNIQUE: One view of the chest was acquired. COMPARISON: [facility], CR, XR CHEST 1V, 12/20/2023, 9:49. [facility], CR, XR CHEST 1V, 12/20/2023, 0:42. FINDINGS: Surgical changes and devices: Abdominal aortic stent graft is partially imaged. Lungs and pleura: Diffuse bilateral interstitial prominence and chronic emphysematous changes. Suspected trace bilateral pleural effusions. Mediastinum: Mediastinal contours appear normal. Heart size is normal. Bones and chest wall: No suspicious bony lesions. Overlying soft tissues appear unremarkable. IMPRESSION: Trace bilateral pleural effusions. Bilateral interstitial prominence is likely chronic although superimposed edema or a viral or atypical pneumonia are not excluded. ECG Data Interpretation: EKG interpreted ED physician sinus tachycardia 102 beats per minute, QTC 453, normal axis, nonspecific ST changes, no STEMI MDM Narrative Medical decision making narrative: Patient is a 88-year-old female history of dementia, hypertension, hyperlipidemia, diabetes, presents from facility for shortness of breath hypoxemia. This has been ongoing persistent for the past several days was seen recently seen here and discharged for pneumonia, CHF, urinary tract infection. Is on cefdinir for this. While she was at her nursing facility she was noted to have low pulse ox, however it is noted that patient has a history of Raynaud's therefore it attempting pulse ox has been difficult in the past. Medics states that patient was 90% on room air when they initially arrived did place her on 4 L nasal cannula which improved to 97%. At evaluation patient not dyspneic with conversation but complaining of shortness of breath. Patient ABG on 4 L as follows: PH 7.409, pCO2 33.3, PO2 56.9. Patient without leukocytosis, however patient with up trending BNP previous 12/20/2023 was 1220, today it is 2230. He is requiring supplemental oxygen with x-ray consistent with CHF, therefore she will require admission for continued diuresis and supplemental oxygen requirement. Call placed out to hospitalist for admission additional dose of Lasix has been ordered. Discharge Plan Departure Patient Disposition: Admitted as Observation Clinical Impression: CHF (congestive heart failure), Acute hypoxemic respiratory failure Admit Date/Time: 12/22/23 23:11 Admit Provider: Navneet Fabian
--- NOTE | 2023-12-22 22:05 | PC.NURSE ---
RT at bedside upon patient arrival. This RN and RT having difficultly getting a consistent oxygen saturation reading due to patient cold hand and pulling of ear probe. Warm blankets applied and patient redirected many times.
[2023-12-22 22:08] LABS: Add Manual Diff / Slide Review NO; Basophils Absolute Auto 0 /uL (0-100); Basophils Percent Auto 0.1 % (0-2); Eosinophils Absolute Auto 100 /uL (0-450); Eosinophils Percent Auto 1.5 % (2-4); Hematocrit 37.2 % (36-46); Hemoglobin 12.1 g/dL (12.0-16.0); Lymphocytes Absolute Auto 300 /uL (1100-4500); Lymphocytes Percent Auto 3.3 % (25-40); Mean Corpuscular HGB Conc 32.5 % (30-36); Mean Corpuscular Hemoglobin 26.8 PG (26-34); Mean Corpuscular Volume 82.5 fL (80-100); Monocytes Absolute Auto 100 /uL (0-900); Monocytes Percent Auto 1.3 % (3-14); Neutrophils Absolute Auto 7300 /uL (1500-7000); Neutrophils Percent Auto 93.8 % (50-75); Platelet Count 276 X10^3/uL (150-400); Red Blood Cell Count 4.51 X10^6/uL (4.0-5.2); Red Cell Distribution Width 14.6 % (11.6-14.8); White Blood Cell Count 7.8 X10^3/uL (4.5-11.0)
[2023-12-22 22:18] LABS: Alanine Aminotransferase 20 IU/L (<35); Albumin 3.4 g/dL (3.5-5.0); Albumin Globulin Ratio 0.8 (1.0-2.8); Alkaline Phosphatase 127 U/L (38-126); Aspartate Aminotransferase 29 IU/L (14-36); BUN Creatinine Ratio 26.1 (6-22); Bilirubin Total 0.7 mg/dL (0.2-1.3); Blood Urea Nitrogen 29 mg/dL (7-17); Calcium 9.2 mg/dL (8.4-10.2); Carbon Dioxide 20 mmol/L (22-32); Chloride 103 mmol/L (98-107); Creatine Kinase 31 U/L (30-135); Estimated Glomerular Filt Rate 48 mL/min (>60); Globulin 4.2 g/dL (1.7-4.1); Glucose 148 mg/dL (80-110); HEMOLYSIS < 15 (0-50); Lipase 34 U/L (23-300); Potassium 3.9 mmol/L (3.4-5.1); Sodium 132 mmol/L (137-145); Total Protein 7.6 g/dL (6.3-8.2)
[2023-12-22 22:19] LABS: Allen Test for ABG Passed? Positive; Base Excess ABG -2.9 mmol/L (-2-3); Blood Gas Collection Site Right Radial; Delivery System Cannula; HCO3 ABG 21 mmol/L (23-27); Oxygen Saturation ABG 90 % (95-100); PCO2 ABG 33.3 mmHg (35-45); PO2 ABG 57 mmHg (80-100); TCO2 ABG 21 mmol/L (23-27); pH ABG 7.41 (7.35-7.45)
[2023-12-22 22:30] LABS: NT-proBNP (BNP-Adult 18+) 2230 pg/mL (<450); Troponin I < 0.012 ng/mL (0.01-0.034)
[2023-12-22 22:36] LABS: Procalcitonin 4.42 ng/mL (<0.5)
[2023-12-22 22:49] LABS: Influenza A - CEPHEID Flu A NEGATIVE (NEGATIVE); Influenza B - CEPHEID Flu B NEGATIVE (NEGATIVE); Respiratory Syncytial Virus Negative (Negative)
[2023-12-22 22:51] LABS: COVID-19 CEPHEID 4-PLEX PCR Negative (Negative)
[2023-12-22] MEDS: FUROSEMIDE 40 MG/4 ML VIAL IV (23:05)
--- NOTE | 2023-12-22 23:31 | DI.ECHO.S_ITS ---
[facility] +---------+ [facility] : : [address] : : [place] : : [id number] : : Phone: [phone] Echocardiogram Report + + :Name: NORA OJEDA Study Date: 12/23/2023 Height: 65 in : :[facility] ReadingLocation: Weight: 118 lb: : Gender: Female BSA: 1.6 m2 : :: 1935 Age: 88 yrs BP: 86/58 mmHg: :Reason For Study: CONGESTIVE HEART FAILURE : :Ordering Physician: CONSTANZA : :MARILYNN HWANG Performed By: Juliet Gregory : :Referring: MARILYNN MCCORMICK : + + Interpretation Summary Normal left ventricle size with ejection fraction 60-65%. Diastolic parameters suggest a relaxation abnormality of the left ventricle, consistent with probable normal filling pressures. The right ventricle is mildly dilated. The right ventricular systolic function is normal. The left atrium is mildly dilated. The aortic valve is mildly calcified. There is mild mitral annular calcification. The right ventricular systolic pressure is estimated to be at least 38 mmHg based on an estimated right atrial pressure of 15 mm Hg. Procedure: A two-dimensional transthoracic echocardiogram with color flow and Doppler was performed. The study quality was technically adequate. There is no prior echocardiogram noted for this patient. The patient was in sinus rhythm with heart rates between 71-85 bpm during the exam. Left Ventricle: The left ventricle is normal in size and wall thickness. The ejection fraction is estimated to be 60-65%. There are no focal wall motion abnormalities. Diastolic parameters suggest a relaxation abnormality of the left ventricle, consistent with probable normal filling pressures. Right Ventricle: The right ventricle is mildly dilated. The right ventricular systolic function is normal. Atria: The left atrium is mildly dilated. The right atrium is borderline dilated. There is no Doppler evidence for an interatrial shunt. Mitral Valve: There is mild mitral annular calcification. The mitral valve leaflets appear mildly thickened, but open well. There is trace mitral regurgitation. Aortic Valve: The aortic valve is mildly calcified. The aortic valve is trileaflet. There is discrete nodular thickening of the non- coronary cusp. There is mildly reduced leaflet mobility. There is no hemodynamically significant valvular aortic stenosis. No aortic regurgitation is present. Tricuspid Valve: The tricuspid valve is normal in structure and function. There is trace tricuspid regurgitation. The right ventricular systolic pressure is estimated to be at least 38 mmHg based on an estimated right atrial pressure of 15 mm Hg. Pulmonic Valve: The pulmonic valve leaflets are thin and pliable; valve motion is normal. There is no pulmonic valvular regurgitation. Great Vessels: The aortic root is normal size. The dimensions of the ascending aorta are normal. The IVC is dilated (diameter is greater than 2.1 cm) and it collapses less than 50% with a sniff. This suggests a high right atrial pressure of 15 mm Hg. Pericardium/ Pleura There is no pericardial effusion. There is no pleural effusion. MMode/2D Measurements & Calculations LVIDd: 4.2 cm LVOT diam: 2.1 cm LVIDs: 3.0 cm Ao root diam: 3.0 cm FS: 28.7 % asc Aorta Diam: 3.2 cm EPSS: 0.68 cm Ao Arch Diam (Prox Trans): 2.3 cm IVSd: 0.98 cm LVPWd: 0.82 cm LV cortez. diameter/BSA (cm/m^2): 2.7 LV sys. diameter/BSA (cm/m^2): 1.9 LA A2 area: 18.6 cm2 RA long axis: 5.1 cm LA A4 area: 19.3 cm2 RA area: 18.2 cm2 LA length (vol): 5.3 cm RA vol: 55.1 ml LA vol: 56.9 ml RA : 34.9 ml/m2 LA vol index: 36.0 ml/m2 IVC diam: 2.1 cm RVD1 (basal): 4.2 cm RVD2 (mid): 3.1 cm TAPSE: 2.3 cm Doppler Measurements & Calculations Ao V2 max: 185.5 cm/sec LVOT Max Greg: 108.0 cm/sec Ao V2 mean: 130.2 cm/sec LV V1 max P.7 mmHg Ao max P.8 mmHg LV V1 VTI: 22.3 cm Ao mean P.6 mmHg KAY(I,D): 2.2 cm2 Ao V2 VTI: 35.5 cm KAY(V,D): 2.0 cm2 sev ratio: 0.63 KAY indexed to BSA (cm^2/m^2): 1.4 MV E max greg: 75.4 cm/sec TR max greg: 241.1 cm/sec MV A max greg: 102.1 cm/sec TR max P.2 mmHg MV E/A: 0.74 PA V2 max: 95.3 cm/sec Med Peak E' Greg: 5.5 cm/sec PA V2 mean: 65.9 cm/sec E/E' med: 13.7 PA mean P.9 mmHg Lat Peak E' Greg: 6.6 cm/sec PA pr(Accel): 36.2 mmHg E/E' lat: 11.4 E/e' average: 12.6 MV dec time: 0.24 sec SV(LVOT): 77.9 ml Electronically signed by: Sanjana Nuñez on Reading Physician:12/23/2023 12:36 PM
[2023-12-23] VITALS (9 sets, daily range): BP systolic 103–141; BP diastolic 40–62; PULSE 69–89; RESP 15–24; TEMP 36.3–36.9; O2SAT 92–98; BMI 18.5
--- NOTE | 2023-12-23 01:54 | PM.HP.1 ---
History of Present Illness History of Present Illness Date Patient Seen: 12/23/23 Time Patient Seen: 01:00 Chief complaint: SOB Narrative: 88 y/o just discharged to [facility] after hospitalization for CHF, PNA and UTI, where she became progressively short of breath requiring oxygen and was sent to ED. Summary from the hospitalization:She was admitted due to shortness a breath and being found to have a possible pneumonia. Her admission chest x-ray also suggested pulmonary edema. She was given IV antibiotics. Fluids were held due to initially DWAYNE. Her lactic acidosis did improve as did her renal function. She was able to wean off from oxygen while being on IV antibiotic and declined a echo. The patient remained stable with regards to hypertension and diabetes. On the day of discharge she was at baseline with saturations between 90 94% on room air and her chronic cognitive impairment. Her creatinine had normalized in her lactic acid had also normalized. Her WBC was 7.1 on the day of discharge. She is unable to provide history due to dementia She was given Lasix IV in the ED and she was placed in observation [facility] Medical History HLD (hyperlipidemia) Restless legs HTN (hypertension) Diabetes Social History household members: none Smoking Status: Former smoker alcohol intake: current Meds Home Medications and Allergies Home Medications Medication Instructions Recorded Confirmed Type acetaminophen 325 mg tablet 325 mg PO Q6HR PRN Pain (Scale 06/13/23 12/23/23 History Score 1-3) cefdinir 300 mg capsule 300 mg PO BID #10 caps 06/13/23 12/23/23 Rx cranberry extract 500 mg capsule 500 mg PO DAILY 06/13/23 12/23/23 History (Cranberry Concentrate) cyanocobalamin (vitamin B-12) 1,000 mcg PO DAILY 06/13/23 12/23/23 History 1,000 mcg tablet (Vitamin B-12) duloxetine 20 mg capsule,delayed 20 mg PO BID 06/13/23 12/23/23 History release furosemide 20 mg tablet 10 mg PO USEASDIRECTD 06/13/23 12/23/23 History lidocaine 5 % topical patch 1 patch topical DAILY back pain 06/13/23 12/23/23 History losartan 25 mg tablet 12.5 mg PO DAILY 06/13/23 12/23/23 History metformin 500 mg tablet 1,000 mg PO DAILY 06/13/23 12/23/23 History pramipexole 0.5 mg tablet 0.5 mg PO BEDTIME 06/13/23 12/23/23 History simvastatin 20 mg tablet 20 mg PO DAILY 06/13/23 12/23/23 History metformin 500 mg tablet 500 mg PO BEDTIME 12/20/23 12/23/23 History loperamide 2 mg capsule 2 mg PO Q OTHER DAY Diarrhea 12/23/23 12/23/23 History nitrofurantoin 100 mg PO BID 12/23/23 12/23/23 History monohydrate/macrocrystals 100 mg capsule olanzapine 2.5 mg tablet 2.5 mg PO BEDTIME PRN Agitation 12/23/23 12/23/23 History oxycodone 5 mg tablet 5 mg PO Q6HR Pain 12/23/23 12/23/23 History polyethylene glycol 3350 17 17 g PO PRN PRN Constipation 12/23/23 12/23/23 History gram/dose oral powder sennosides 8.6 mg tablet (senna) 17.2 mg PO DAILY 12/23/23 12/23/23 History Allergies Allergy/AdvReac Type Severity Reaction Status Date / Time celecoxib [From Celebrex] AdvReac Verified 12/20/23 09:37 Review of Systems Review of Systems Narrative: Unobtainable due to dementia She was not talking or answering questions Exam Vital Signs (past 8 hours): - 12/22/23 21:39 12/22/23 21:39 12/22/23 21:43 Temperature 98.9 F Pulse Rate 103 H Respiratory Rate 24 Blood Pressure 170/72 H 170/72 H Pulse Oximetry 87 L 88 L Oxygen Delivery Method Nasal Cannula Nasal Cannula Oxygen Flow Rate 4 4 12/22/23 22:02 12/22/23 22:15 12/22/23 22:15 Temperature Pulse Rate 106 H 109 H Respiratory Rate Blood Pressure 161/66 H Pulse Oximetry Oxygen Delivery Method Oxygen Flow Rate 12/22/23 22:16 12/22/23 22:16 12/22/23 22:21 Temperature Pulse Rate 105 H Respiratory Rate Blood Pressure 161/66 H 137/60 Pulse Oximetry Oxygen Delivery Method Oxygen Flow Rate 12/22/23 22:21 12/22/23 22:30 12/22/23 22:30 Temperature Pulse Rate 104 H 103 H Respiratory Rate 36 H Blood Pressure 132/58 L Pulse Oximetry 91 90 L Oxygen Delivery Method Nasal Cannula Nasal Cannula Oxygen Flow Rate 4 5 12/22/23 23:00 12/22/23 23:01 12/22/23 23:01 Temperature Pulse Rate 103 H 102 H Respiratory Rate Blood Pressure 109/58 L Pulse Oximetry 92 Oxygen Delivery Method Nasal Cannula Oxygen Flow Rate 4 12/22/23 23:14 12/22/23 23:30 12/22/23 23:30 Temperature Pulse Rate 97 H Respiratory Rate Blood Pressure 157/68 H Pulse Oximetry 96 Oxygen Delivery Method Nasal Cannula Nasal Cannula Oxygen Flow Rate 4 12/22/23 23:32 12/23/23 00:10 12/23/23 00:30 Temperature 98.4 F Pulse Rate 89 Respiratory Rate 20 Blood Pressure 122/56 L Pulse Oximetry 95 95 Oxygen Delivery Method Oxygen Flow Rate 7 5 7 Oxygen Delivery Method Nasal Cannula Oxygen Flow Rate 7 Const Other: not in distress HENMT Other: oxygen via NC, atraumatic Resp Other: decreased airflow b/l Cardio Other: RRR GI Other: soft, not tender Skin Other: w/o rashes Neuro Other: w/o acute focal weakness Extrem Other: w/o edema Psych Other: cognitive deficits Objective ECG Impression: NSR, w/o ischemic changes Labs 12/22/23 21:58 12/22/23 21:58 Labs: Laboratory Results - last 24 hr 12/22/23 12/22/23 12/22/23 21:58 22:00 22:15 WBC 7.8 RBC 4.51 Hgb 12.1 Hct 37.2 MCV 82.5 MCH 26.8 MCHC 32.5 RDW 14.6 Plt Count 276 Neut % (Auto) 93.8 H Lymph % (Auto) 3.3 L Kay % (Auto) 1.3 L Eos % (Auto) 1.5 L Baso % (Auto) 0.1 Neut # (Auto) 7300 H Lymph # (Auto) 300 L Kay # (Auto) 100 Eos # (Auto) 100 Baso # (Auto) 0 ABG Sample Site Right radial ABG pH 7.41 ABG pCO2 33.3 L ABG pO2 57 L ABG HCO3 21 L ABG Total CO2 21 L ABG O2 Saturation 90 L ABG Base Excess -2.9 L Rafi Test Positive O2 Delivery Device Cannula Sodium 132 L Potassium 3.9 Chloride 103 Carbon Dioxide 20 L BUN 29 H Creatinine 1.11 H Estimated GFR 48 L BUN/Creatinine Ratio 26.1 H Glucose 148 H Calcium 9.2 Total Bilirubin 0.7 AST 29 ALT 20 Alkaline Phosphatase 127 H Total Creatine Kinase 31 Troponin I < 0.012 NT-Pro-B Natriuret Pep 2230 H Total Protein 7.6 Albumin 3.4 L Globulin 4.2 H Albumin/Globulin Ratio 0.8 L Lipase 34 Procalcitonin 4.42 H SARS-CoV-2 (PCR) Negative Influenza A (RT-PCR) Flu a negative Influenza B (RT-PCR) Flu b negative RSV (PCR) Negative Assessment & Plan Assessment and plan (1) Acute hypoxemic respiratory failure: Status: Acute (2) CHF (congestive heart failure): Status: Acute (3) Emphysema (subcutaneous) (surgical) resulting from a procedure: Status: Acute (4) HTN (hypertension): Status: Acute (5) Diabetes: Status: Acute (6) Restless legs: Status: Acute (7) Dementia: Status: Acute Assessment & Plan narrative: Acute Hypoxemic Respiratory Failure - 2nd to CHF and underlying severe emphysema - diuresed with lasix, monitored renal function and electrolytes, Is/Os - repeated hypoxia in the absence of PNA or significant pulmonary edema - prn bronchodilator - echocardiogram - she should probably have arranged home oxygen, her CXR shows severe emphysema HTN/CKD - Losartan held as on increased Lasix NIDDM - metformin, CCD, SS Dementia - supportive care RLS - pramipexole DVT prophylaxis - heparin Time-Based Coding :: [TOTAL MINUTES] spent with patient and on the chart (including review of chart, obtaining history, exam, reviewing outside data, placing orders, documenting exam and treatment plan, and counseling patient) on [DATE].
--- NOTE | 2023-12-23 02:02 | PC.NURSE ---
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 Denies pain. Alert to self, place, & date. Confused about situation. Restless at times and removes nasal cannula. VSS, SpO2 in mid 90's on 7L NC. 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 Patient does not appear edematous, SOB, or in any distress. Lungs are clear/diminished. Voiding via purewick. Fall precautions in place. Plan of care ongoing.
[2023-12-23 08:20] LABS: Add Manual Diff / Slide Review NO; Basophils Absolute Auto 0 /uL (0-100); Basophils Percent Auto 0.1 % (0-2); Eosinophils Absolute Auto 0 /uL (0-450); Hematocrit 33.7 % (36-46); Hemoglobin 10.6 g/dL (12.0-16.0); Lymphocytes Absolute Auto 300 /uL (1100-4500); Lymphocytes Percent Auto 1.6 % (25-40); Mean Corpuscular HGB Conc 31.6 % (30-36); Mean Corpuscular Hemoglobin 26.3 PG (26-34); Mean Corpuscular Volume 83.3 fL (80-100); Monocytes Absolute Auto 1000 /uL (0-900); Monocytes Percent Auto 5.4 % (3-14); Neutrophils Absolute Auto 18000 /uL (1500-7000); Neutrophils Percent Auto 92.9 % (50-75); Platelet Count 239 X10^3/uL (150-400); Red Blood Cell Count 4.04 X10^6/uL (4.0-5.2); Red Cell Distribution Width 14.9 % (11.6-14.8); White Blood Cell Count 19.4 X10^3/uL (4.5-11.0)
[2023-12-23 08:30] LABS: BUN Creatinine Ratio 24.6 (6-22); Blood Urea Nitrogen 32 mg/dL (7-17); Calcium 8.6 mg/dL (8.4-10.2); Carbon Dioxide 23 mmol/L (22-32); Chloride 103 mmol/L (98-107); Estimated Glomerular Filt Rate 40 mL/min (>60); Glucose 181 mg/dL (80-110); HEMOLYSIS < 15 (0-50); Phosphorous 4.5 mg/dL (2.8-4.1); Potassium 4.1 mmol/L (3.4-5.1); Sodium 135 mmol/L (137-145)
[2023-12-23 08:39] LABS: NT-proBNP (BNP-Adult 18+) 3370 pg/mL (<450)
[2023-12-23] MEDS: HEPARIN 5,000 UNIT/ML VIAL 5000 UNIT SUBCUT ×2 (08:45→20:10)
[2023-12-23] MEDS: METFORMIN HCL 500 MG TABLET 1000 MG PO (08:48)
[2023-12-23] MEDS: OXYBUTYNIN 5 MG ER TAB 10 MG PO (08:48)
[2023-12-23] MEDS: CEFDINIR 300 MG CAPSULE PO ×2 (08:48→20:10)
[2023-12-23] MEDS: FUROSEMIDE 40 MG TABLET PO (08:50)
[2023-12-23 09:55] LABS: D Dimer 19006 ng/ml (<500)
[2023-12-23 09:59] LABS: NT-proBNP (BNP-Adult 18+) 3280 pg/mL (<450); Troponin I < 0.012 ng/mL (0.01-0.034)
--- NOTE | 2023-12-23 12:04 | PC.NURSE ---
pt is confused, alert to self only and has pulled out her IV. Pt is refusing to wear her oxygen as well. Provider informed.
--- NOTE | 2023-12-23 12:06 | PM.PN.1 ---
Subjective Subjective Interval history: S; she feels little short of breath in his still in the oxygen. Review of x-ray reveals pleural effusions. Dimer is elevated, as his BNP. Troponin is normal. Exam Vital Signs (past 8 hours): - 12/23/23 06:59 12/23/23 07:00 Temperature 97.3 F L Pulse Rate 75 69 Respiratory Rate 24 Blood Pressure 141/48 H Pulse Oximetry 92 98 Oxygen Delivery Method High Flow Nasal Cannula Humidification Oxygen Flow Rate 7 5 Oxygen Delivery Method High Flow Nasal Cannula,Humidification Oxygen Flow Rate 5 Narrative Exam Narrative: NAD, alert and oriented. Fluent speech. 7 L O2 N/C. Lungs are clear, normal rate and effort. Heart is regular, no murmur gallop or rub. Abdomen is soft, non distended. Extremities are free of edema. Objective Labs 12/23/23 08:10 12/23/23 08:10 Labs: Laboratory Results - last 24 hr 12/22/23 12/22/23 12/22/23 21:58 22:00 22:15 WBC 7.8 RBC 4.51 Hgb 12.1 Hct 37.2 MCV 82.5 MCH 26.8 MCHC 32.5 RDW 14.6 Plt Count 276 Neut % (Auto) 93.8 H Lymph % (Auto) 3.3 L Lagrange % (Auto) 1.3 L Eos % (Auto) 1.5 L Baso % (Auto) 0.1 Neut # (Auto) 7300 H Lymph # (Auto) 300 L Lagrange # (Auto) 100 Eos # (Auto) 100 Baso # (Auto) 0 D-Dimer ABG Sample Site Right radial ABG pH 7.41 ABG pCO2 33.3 L ABG pO2 57 L ABG HCO3 21 L ABG Total CO2 21 L ABG O2 Saturation 90 L ABG Base Excess -2.9 L Rafi Test Positive O2 Delivery Device Cannula Sodium 132 L Potassium 3.9 Chloride 103 Carbon Dioxide 20 L BUN 29 H Creatinine 1.11 H Estimated GFR 48 L BUN/Creatinine Ratio 26.1 H Glucose 148 H Calcium 9.2 Phosphorus Total Bilirubin 0.7 AST 29 ALT 20 Alkaline Phosphatase 127 H Total Creatine Kinase 31 Troponin I < 0.012 NT-Pro-B Natriuret Pep 2230 H Total Protein 7.6 Albumin 3.4 L Globulin 4.2 H Albumin/Globulin Ratio 0.8 L Lipase 34 Procalcitonin 4.42 H SARS-CoV-2 (PCR) Negative Influenza A (RT-PCR) Flu a negative Influenza B (RT-PCR) Flu b negative RSV (PCR) Negative 12/23/23 12/23/23 08:10 09:30 WBC 19.4 H D RBC 4.04 Hgb 10.6 L Hct 33.7 L MCV 83.3 MCH 26.3 MCHC 31.6 RDW 14.9 H Plt Count 239 Neut % (Auto) 92.9 H Lymph % (Auto) 1.6 L Lagrange % (Auto) 5.4 Eos % (Auto) 0.0 L Baso % (Auto) 0.1 Neut # (Auto) 43769 H Lymph # (Auto) 300 L Lagrange # (Auto) 1000 H Eos # (Auto) 0 Baso # (Auto) 0 D-Dimer 87805 H ABG Sample Site ABG pH ABG pCO2 ABG pO2 ABG HCO3 ABG Total CO2 ABG O2 Saturation ABG Base Excess Rafi Test O2 Delivery Device Sodium 135 L Potassium 4.1 Chloride 103 Carbon Dioxide 23 BUN 32 H Creatinine 1.30 H Estimated GFR 40 L BUN/Creatinine Ratio 24.6 H Glucose 181 H Calcium 8.6 Phosphorus 4.5 H Total Bilirubin AST ALT Alkaline Phosphatase Total Creatine Kinase Troponin I < 0.012 NT-Pro-B Natriuret Pep 3370 H 3280 H Total Protein Albumin Globulin Albumin/Globulin Ratio Lipase Procalcitonin SARS-CoV-2 (PCR) Influenza A (RT-PCR) Influenza B (RT-PCR) RSV (PCR) [facility] Medical History HLD (hyperlipidemia) Restless legs HTN (hypertension) Diabetes Social History household members: none Smoking Status: Former smoker alcohol intake: current Assessment & Plan Assessment & Plan narrative: Acute Hypoxemic Respiratory Failure, present on admission and active. - 2nd to CHF and underlying severe emphysema - diuresed with lasix, monitored renal function and electrolytes, Is/Os - repeated hypoxia in the absence of PNA or significant pulmonary edema - prn bronchodilator - echocardiogram - she should probably have arranged home oxygen, her CXR shows severe emphysema HTN/CKD, stable. - Losartan held as on increased Lasix NIDDM - metformin, CCD, SS Dementia, stable. - supportive care RLS, stable. - pramipexole PLAN: -check dimer, BNP, and troponin. -2D echo to assess LV function and rule out evidence of pulmonary hypertension. SUSAN: 12/23. Requires a 2nd midnight of care, supports inpatient status. DVT prophylaxis - heparin Time-Based Coding :: [TOTAL MINUTES] spent with patient and on the chart (including review of chart, obtaining history, exam, reviewing outside data, placing orders, documenting exam and treatment plan, and counseling patient) on [DATE].
--- NOTE | 2023-12-23 12:27 | DIET.CONS ---
Dietary Consultation Note Admission Date: 12/22/2023 23:11 Assessment: 88 y F admitted for SOB. RD screened for low MNA score. Pt w/ PMH of dementia, CHF, CKD, NIDDM (A1c 7.0% 12/19/22). Pt is confused, EMR reviewed. Average recorded PO intakes <50%. BMI underweight for age. Ht: 160.02 cm Wt: 47.5 kg BMI: 18.5 UBW: 53.524 kg on 09/26/23 (-11% weight in 3 months, severe) Last BM: () MNA: 4 David Score: 19 Diet: 12/23/23 Breakfast General (Regular) Diet Diet Modifications: Food Texture: Level 7 - Regular Liquid Consistency: Level 0 - Thin Labs: RBC 4.04 X10^6/uL (4.0-5.2) 12/23/23 08:10 Hgb 10.6 g/dL (12.0-16.0) L 12/23/23 08:10 Hct 33.7 % (36-46) L 12/23/23 08:10 Creatinine 1.30 mg/dL (0.52-1.04) H 12/23/23 08:10 NT-Pro-B Natriuret Pep 3280 pg/mL (<450) H 12/23/23 09:30 Nutrition Diagnosis: Unintentional weight loss r/t decreased PO intakes aeb 11% weight loss in 3 months, severe Interventions: 1. ONS BID EER: 0186-1119 kcals (30-35 kcals/kg) 50 g protein (renal) Monitoring/Evaluations: PO intakes, ONS tolerance Electronically Signed by: Karina Lamar 12/23/23 12:27 Clinical Dietitian [address] [id number]
[2023-12-23] MEDS: LOSARTAN 25 MG TABLET 12.5 MG PO (13:05)
--- NOTE | 2023-12-23 16:12 | CM.DANOTE ---
B DCP Assessment note pt is an 88yo F here with CHF/resp failure. Readmit, returned to ED same day of DC. PCP none listed, likely [facility] provider Payer [employer] and Medicaid LICENSED LIFE AND HEALTH AGENT reviewed EMR. per chart, pt lives at [facility] Memory care, discharged there Saturday. pt immediately returned to ED. Pt POC is Dtr Veronica ([phone]). Per provider in morning rounds, echo pending. SUSAN tomorrow. Per RN, pt keep taking oxygen off due to confusion/dementia. oriented to self only. [employer] HE[employer] AGENT unable to coordinate with [facility] or dtr today due to triaging needs. P: anticipate return to [facility] when medically stable. CM team will follow closely for coordination of return to [facility]. YUVAL Morley Discharge Planning/Care Management CM Discharge Assessment Start: 12/23/23 16:10 Freq: Status: Active Protocol: Document 12/23/23 16:10 (Rec: 12/23/23 16:11 [id number]) Discharge Planning Assessment Assigned Senior Marketing Specialist YUVAL Amado DPOA/Assigned Designee Name Veronicaawilda Contact Information [phone] Advance Directives? Yes Advance Directives on File Yes History Provided By Patient,Medical Record Prior Living Arrangements Assisted Living Comment [facility] Household Members none Type of transporation used prior to Relies on Others admit Facility Name Admitted From: [facility]isted [facility] Independent with ADL's No Is patient alert and oriented? No Needs Assistance With Meal Prep,Managing Medications ,Home Chores / Shopping Discharge Plan Assisted Living Facility Transportation Arrangement Facility Referrals Initiated None needed Whiteboard Updated in Patient Room with No name and ext. # of Senior Marketing Specialist Review Status In Process Please Provide Date Initial DC 12/23/23 Assessment Was Performed Next Review Type Continued Stay Review
[2023-12-23] MEDS: METFORMIN HCL 500 MG TABLET PO (20:11)
[2023-12-23] MEDS: PRAMIPEXOLE 0.25 MG TABLET 0.5 MG PO (20:11)
[2023-12-24 04:00] VITALS: BP 105/50; PULSE 61; RESP 16; TEMP 36.3; O2SAT 91
[2023-12-24 08:00] VITALS: BP 119/63; PULSE 59; RESP 16; TEMP 36.4; O2SAT 94
[2023-12-24 08:36] VITALS: BP 119/63
[2023-12-24] MEDS: FUROSEMIDE 40 MG TABLET PO (08:36)
[2023-12-24] MEDS: OXYBUTYNIN 5 MG ER TAB 10 MG PO (08:36)
[2023-12-24] MEDS: LOSARTAN 25 MG TABLET 12.5 MG PO (08:36)
[2023-12-24] MEDS: CEFDINIR 300 MG CAPSULE PO (08:36)
[2023-12-24] MEDS: CYANOCOBALAMIN (VITAMIN B-12) 500 MCG TABLET 1000 MCG PO (08:36)
[2023-12-24] MEDS: HEPARIN 5,000 UNIT/ML VIAL 5000 UNIT SUBCUT (08:39)
[2023-12-24] MEDS: METFORMIN HCL 500 MG TABLET 1000 MG PO (08:39)
--- NOTE | 2023-12-24 11:13 | CM.DPNOTE ---
Addendum entered by YUVAL Morley 12/24/23 15:50: GRINDER AND HONER OPERATOR AUTOMATIC coordinated with Rebecca maintenance director at [facility], can take pt back, p/u at 4:30. will pickling operator pt in room. stave machine tender updated dtr. in agreement with plan. GRINDER AND HONER OPERATOR AUTOMATIC updated RN/TAPPER SUPERVISOR. gave report number. GRINDER AND HONER OPERATOR AUTOMATIC updated provider. GRINDER AND HONER OPERATOR AUTOMATIC to place signed med list in chart to take with pt to [facility] Addendum entered by YUVAL Morley 12/24/23 12:28: Per RN, pt able to ambulate with walker to bathroom indep. PT eval pending. Per Herminia Elizalde at [facility], asked for updated information on pt's vitals. GRINDER AND HONER OPERATOR AUTOMATIC right faxed copy of screenshot of vitals. Per Herminia Elizalde, new [facility] transportation director Rebecca plans to review clinicals and assess pt this afternoon Original Note: DCP Npte GRINDER AND HONER OPERATOR AUTOMATIC reviewed EMR. Per chart review, pt on room air. Per RN, pt was only 1PA due to being on O2 before and our staff not wanting pt to get tangled in cord. Per provider in morning rounds/nursing staff, pt pulse ox was reading different readouts on different fingers? doing well on room air, different fingers just need to be tested for most accurate measure. Per provider, pt will not dc home on O2. per provider, pt can dc back to [facility] today. GRINDER AND HONER OPERATOR AUTOMATIC spoke with John, memory home care physical therapist at [facility] (p [phone] and f [phone]). John shared her concerns about accepting pt back if not at baseline mobility and asked that pt work with PT to confirm mobility status. Asked for current clinicals. Concerned about pt's UTI. Concerned about accepting her back on O2. GRINDER AND HONER OPERATOR AUTOMATIC updated John that pt currently on PO abx from last admission for UTI and that pt will not go home on O2. GRINDER AND HONER OPERATOR AUTOMATIC faxed current clinicals to [facility], PT eval pending. John reports maintenance director rebecca will come to assess pt sometime between [phone], likely can take pt back today. P: anticipate return to [facility] today pending PT evals/[facility] maintenance director assessment. transport pending. CM team will update dtr Veronica with news when able YUVAL Morley
[2023-12-24 12:00] VITALS: BP 130/53; PULSE 75; RESP 18; TEMP 36.4; O2SAT 95
--- NOTE | 2023-12-24 14:20 | PT.IIE ---
Current Diagnoses Type 2 diabetes mellitus without complications (12/22/23) Unspecified dementia, unspecified severity, without behavioral disturbance, psychotic disturbance, mood disturbance, and anxiety (12/22/23) Restless legs syndrome (12/22/23) Essential (primary) hypertension (12/22/23) Heart failure, unspecified (12/22/23) Acute respiratory failure with hypoxia (12/22/23) Emphysema (subcutaneous) resulting from a procedure, initial encounter (12/22/23) Medical History (Last Reviewed 12/23/23 @ 12:07 by Rafi Hernandez MD) Diabetes HLD (hyperlipidemia) HTN (hypertension) Restless legs Physical Therapy Inpatient Evaluation/Re-Eval M1 PT/OT-IP Prior Functional Status Start: 12/24/23 14:53 Freq: NEEDED Status: Active Protocol: Document 12/24/23 14:20 AB (Rec: 12/24/23 15:03 AB [id number]) Medical Review Prior Functional Status Medical History Reviewed Yes Communication able to make needs known but with confusion Mobility and Gait pt stated that she was modified independent with ambulation using a FWW but stated that she has people to assist her if needed Social History Household Members caregiver Living Arrangements Assisted Living Number of Stairs To Enter/Railing? pt lives at [facility] Home Environment High Toilet,Walk in Shower Home Equipment Front Wheel Walker,Hand Held Shower,Grab Bars Near Toilet, Grab Bars In Shower Additional Social History Comment has an adjustable bed per pt M2 PT-IP Current Condition Start: 12/24/23 14:53 Freq: NEEDED Status: Active Protocol: Document 12/24/23 14:20 AB (Rec: 12/24/23 15:03 AB [id number]) Physical Therapy Current Condition Current Condition Evaluation Date 12/24/23 Treatment Diagnosis CHF; difficulty in walking Onset Date 12/22/23 M3 PT-IP Subjective Start: 12/24/23 14:53 Freq: NEEDED Status: Active Protocol: Document 12/24/23 14:20 AB (Rec: 12/24/23 15:03 AB [id number]) Subjective Physical Therapy Visit Type Type Initial Evaluation Visit Start Time 14:20 Visit Stop Time 14:50 Number of PHOTOGRAPHIC PROCESS SCREEN MAKER Visits 0 Physical Therapy Visit Comments Patient Comments agreeable to do PT Therapy Pain Assessment Pain Present Pain Present Denied Pain M4 PT-IP Mobility and Gait Start: 11/12/24 14:53 Freq: NEEDED Status: Active Protocol: Document 12/24/23 14:20 AB (Rec: 12/24/23 15:03 AB [id number]) PT-Bed Mobility Assessment Supine to Sit Supine to Sit Standby Assistance,Head of Bed Elevated PT-Transfer Assessment Sit to and From Stand Sit to and from Stand Minimal Assistance,1 Person Assistance,Use of Upper Extremities Equipment Transfer Assistive Device Gait Belt,Front Wheeled Walker Orthotic/Prosthetic Devices or Brace: No Transfers Transfer Destination Chair Transfer Technique ambulated Transfer Ability Level of Assist Minimal Assistance,1 Person Assistance,Use of Upper Extremities Comments Mobility Comments pt supin ein bed and agreed to get up. obtained PLOF and home set up but pt with memory issues and not sure with info provided. pt completed supine to sit SBA and able to sit on EOB SBA. completed sit to stand min A with increase posterior trunk lean requiring assist for steadiness and cues to get to midline. pt ambulated in room ~ 35 ft using FWW min A and cues. pt with unsteady small based gait with (+) LOB x 1 requiring min A for regaining balance. pt also needs cues to maneuvering FWW. pt agreed to sit on the chair. positioned pt on the chair. call light and table placed within reach. informed casework supervisor regarding pt's mobility level. Gait Assessment Gait Gait Assistance Required: Minimum Assistance,1 Person Assist Distance (Feet) 35 Able to Maintain Weight Bearing Status Yes During Gait Assistive Devices Assistive Device Gait Belt,Front Wheeled Walker Orthotic/Prosthetic Devices or Brace: No Factors Limiting Gait Function Factors Limiting Gait Function Decreased Activity Tolerance, Decreased Strength,Difficulty Following Directions,Poor Balance,Poor Safety Awareness PT-Balance Assessment Sitting Balance and Reactions Static Sitting Balance Ability Normal Dynamic Sitting Balance Ability Good Standing Balance and Reactions Static Standing Balance Ability Fair Dynamic Standing Balance Ability Fair Device Used FWW M5 PT-IP Objective Assessments Start: 12/24/23 14:53 Freq: NEEDED Status: Active Protocol: Document 12/24/23 14:20 AB (Rec: 12/24/23 15:03 AB [id number]) Orientation Orientation/Cognition Level of Alertness Alert Orientation Name Language Function Ability No Deficits Noted Safety Awareness Decreased Safety Awareness Memory Description Short Term Impaired,Automotive Refinish Technician Impaired Comments with confusion Gross Range of Motion Lower Extremity ROM Assessment Within Functional Limits Strength Lower Extremity Strength Assessment Within Functional Limits Sensation Assessment Sensation Gross Sensation WNL Muscle Tone Muscle Tone WNL Yes M6 PT-IP Treatment Start: 12/24/23 14:53 Freq: NEEDED Status: Active Protocol: Document 12/24/23 14:20 AB (Rec: 12/24/23 15:03 AB [id number]) Physical Therapy Treatment Education Education Provided Safety M7 PT-IP Assessment and Plan Start: 12/24/23 14:53 Freq: NEEDED Status: Active Protocol: Document 12/24/23 14:20 AB (Rec: 12/24/23 15:03 AB [id number]) PT Summary Assessment and Plan Potential Rehabilitation Potential Fair Status of Condition at Evaluation Evolving Summary Impairments Pain,ROM,Strength,Balance, Coordination,Sensation,Tone, Cognition,Bed Mobility, Transfers,Gait,Activity Tolerance Assessment Summary pt is an 88 y/o F who is admitted for CHF. pt with dx of dementia affecting current level of assistance due to decrease safety awareness. pt requiring SBA with bed mobility, min A for transfers and ambulation using FWW with (+) LOB requiring min A for recovery. pt will require assist and may go back to [facility] if [facility] will be able to provide appropriate assistance to pt. pt will benefit from HHPT. Goals Bed Mobility Goal Independent Transfer Goal Independent,Front Wheeled Walker Gait Goal Independent,Front Wheel Walker Gait Distance 200 Days to Meet Goals 10 Frequency of Treatment Frequency Of Treatment Once a Day Treatment Plan Physical Therapy Treatment Plan Bed Mobility Training,Transfer Training,Gait Training, Therapeutic Exercise,Balance Retraining,Discharge Planning, Hot or Cold Pack,Neuromuscular Re-ed,Coordination Retraining Precautions Other Precautions falls Recommendations To Nursing Amount of Assist Needed 1 Person Assist Discharge Recommendations PT Discharge Recommendations Home with 24/7 Assist Available,Home Health Transportation Needs at Discharge Private Vehicle,Wheelchair/ Cabulance
--- NOTE | 2023-12-24 15:57 | PM.DS.1 ---
History of Present Illness History of Present Illness Chief complaint: SOB Narrative: From H&P: 88 y/o just discharged to [facility] after hospitalization for CHF, PNA and UTI, where she became progressively short of breath requiring oxygen and was sent to ED. Summary from the hospitalization:She was admitted due to shortness a breath and being found to have a possible pneumonia. Her admission chest x-ray also suggested pulmonary edema. She was given IV antibiotics. Fluids were held due to initially DWAYNE. Her lactic acidosis did improve as did her renal function. She was able to wean off from oxygen while being on IV antibiotic and declined a echo. The patient remained stable with regards to hypertension and diabetes. On the day of discharge she was at baseline with saturations between 90 94% on room air and her chronic cognitive impairment. Her creatinine had normalized in her lactic acid had also normalized. Her WBC was 7.1 on the day of discharge. She is unable to provide history due to dementia She was given Lasix IV in the ED and she was placed in observation Discharge Providers Provider Date of admission: 12/22/23 23:11 Discharge Date: 12/24/23 Consults: 12/24/23 10:02 Consult to Physical Therapy Evaluate & Treat Comment: Physician Instructions: Evaluate and Treat Discharge provider: Rafi Hernandez MD Summary Hospital Course Discharge Diagnosis: Acute hypoxemic respiratory failure, present on admission and active. Acute on chronic heart failure, present on admission and improved. HTN/CKD, stable. NIDDM, stable. Dementia, stable. RLS, stable. Hospital Course: She was discharged home after being admitted for pneumonia and possible volume overload. In the day of discharge she would SpO2 of 94% on room air. She came back several hours later, said to be hypoxemic and short of breath. She was on 7 L of oxygen overnight and is weaned down to no oxygen over the next day. Her nurse notes that the patient was widely variable SBO Saturday depending on which finger is used, this was corroborated by her daughter who notes that she has been telling the facility this for many years. The patient never appeared to be in distress or clearly short of breath since her arrival. She was continued on oral antibiotics and oral Lasix without any other interventions. She was felt to be stable for discharge back to the facility, we will increase her Lasix to 40 mg a day from 20 to see if this does make any difference. The facility is urged to check her oxygenation on multiple fingers and talked to her daughter before activated EMS. Status at Discharge Cognitive/behavioral status at discharge: at baseline, confused Functional status at discharge: independent ambulation Overall status at discharge: patient is back to baseline Time Spent with Patient Time spent: Greater than 30 minutes Exam Vital Signs (past 8 hours): - 12/24/23 08:00 12/24/23 08:36 12/24/23 12:00 Temperature 97.6 F 97.5 F L Pulse Rate 59 L 75 Respiratory Rate 16 18 Blood Pressure 119/63 119/63 130/53 L Pulse Oximetry 94 95 Oxygen Delivery Method Room Air Oxygen Flow Rate 0 Narrative Exam Narrative: NAD, alert and oriented. Fluent speech. Baseline cognitive impairment. Lungs are clear, normal rate and effort. Heart is regular, no murmur gallop or rub. Abdomen is soft, non distended. Extremities are free of edema. Objective Imaging Chest x-ray: Radiologist's impression: IMPRESSION: Trace bilateral pleural effusions. Bilateral interstitial prominence is likely chronic although superimposed edema or a viral or atypical pneumonia are not excluded. Echo: Radiologist's impression: Interpretation Summary Normal left ventricle size with ejection fraction 60-65%. Diastolic parameters suggest a relaxation abnormality of the left ventricle, consistent with probable normal filling pressures. The right ventricle is mildly dilated. The right ventricular systolic function is normal. The left atrium is mildly dilated. The aortic valve is mildly calcified. There is mild mitral annular calcification. The right ventricular systolic pressure is estimated to be at least 38 mmHg based on an estimated right atrial pressure of 15 mm Hg. Labs 12/23/23 08:10 12/23/23 08:10 [facility] Medical History HLD (hyperlipidemia) Restless legs HTN (hypertension) Diabetes Social History household members: caregiver Smoking Status: Former smoker alcohol intake: current Discharge Assessment & Plan Assessment and Plan Assessment: Acute hypoxemic respiratory failure, present on admission and active. Acute on chronic heart failure, present on admission and improved. HTN/CKD, stable. NIDDM, stable. Dementia, stable. RLS, stable. Plan of Treatment: Discussed with daughter and facility, we will discharge home on a higher dose of Lasix with close follow up. He was advised to check her oximetry on multiple fingers as she reads differently on different fingers. Discharge Plan Discharge Plan Patient Disposition: Home Transfer to: [facility] Provider Discharge Comment: Stable for discharge back to assisted living on an increased dose of Lasix. Resume physical therapy. Discharge orders & Medications Prescriptions: New furosemide [Lasix] 40 mg tablet 40 mg PO DAILY Qty: 30 0RF Continued pramipexole 0.5 mg tablet 0.5 mg PO BEDTIME lidocaine 5 % adhesive patch,medicated 1 patch topical DAILY cyanocobalamin (vitamin B-12) [Vitamin B-12] 1,000 mcg tablet 1,000 mcg PO DAILY metformin 500 mg tablet 1,000 mg PO DAILY acetaminophen 325 mg tablet 325 mg PO Q6HR PRN (Reason: Pain (Scale Score 1-3)) Rx Instructions: 2 tabs by mouth simvastatin 20 mg tablet 20 mg PO DAILY losartan 25 mg tablet 12.5 mg PO DAILY furosemide 20 mg tablet 10 mg PO USEASDIRECTD Rx Instructions: give 10mg every sat, sat, saturday PO for fluid control cranberry extract [Cranberry Concentrate] 500 mg capsule 500 mg PO DAILY duloxetine 20 mg capsule,delayed release(DR/EC) 20 mg PO BID cefdinir 300 mg capsule 300 mg PO BID Qty: 10 0RF loperamide 2 mg capsule 2 mg PO Q OTHER DAY sennosides [senna] 8.6 mg tablet 17.2 mg PO DAILY olanzapine 2.5 mg tablet 2.5 mg PO BEDTIME PRN (Reason: Agitation) polyethylene glycol 3350 17 gram/dose powder 17 g PO PRN PRN (Reason: Constipation) oxycodone 5 mg tablet 5 mg PO Q6HR nitrofurantoin monohyd/m-cryst 100 mg capsule 100 mg PO BID metformin 500 mg Tablet 500 mg PO BEDTIME Discharge Health Status Multidrug resistant organism: No MDRO Diet/Activity/Treatments Diet: Carb-consistent/Diabetic Visit Report/Discharge Packet Instructions: DI for Heart Failure Stand Alone Forms: Congestive Heart Failure, Patient Portal/API, Stroke Signs & Symptoms
--- NOTE | 2023-12-24 16:15 | PC.NURSE ---
Addendum entered by Maci Ndiaye R.N. 12/24/23 16:39: Pt out via w/c by [facility] personnel with packet and all belongings. Original Note: Called report to [facility] at [facility] and gave full Pt status-no further questions. Packet with script and d/c info to go with Pt upon transport.
== END 2023-12-24 16:40 | DRG 291 ==
LOC: ED 22:44 → AC 23:12
PROVIDERS: Hospitalist; Admitting Provider Internal Medicine; Emergency Provider Student in an Organized Health Care Education/Training Program; Referring Provider Student in an Organized Health Care Education/Training Program; Visit Provider Internal Medicine
DX: I13.0 Hypertensive heart and chronic kidney disease with heart failure and stage 1 through stage 4 chronic kidney disease, or unspecified chronic kidney disease (principal); J96.01 Acute respiratory failure with hypoxia; N39.0 Urinary tract infection, site not specified; I50.9 Heart failure, unspecified; J43.9 Emphysema, unspecified; G25.81 Restless legs syndrome; F03.90 Unspecified dementia, unspecified severity, without behavioral disturbance, psychotic disturbance, mood disturbance, and anxiety; N18.9 Chronic kidney disease, unspecified; E11.22 Type 2 diabetes mellitus with diabetic chronic kidney disease; E78.5 Hyperlipidemia, unspecified; Z87.891 Personal history of nicotine dependence; Z11.52 Encounter for screening for COVID-19; Z79.84 Long term (current) use of oral hypoglycemic drugs
CPT/HCPCS: 0241U; 36415; 36600; 71045; 80048; 80053; 81001; 82550; 82805; 82962; 83690; 83735; 83880; 84100; 84145; 84484; 85025; 85379; 85610; 85730; 87077; 87086; 87186; 87633; 93005; 93010; 93306; 94640; 94762; 96374; 97162; 97530; 99284; 99285; J1644; J1940

== ENCOUNTER → 2024-01-01 06:26 | Outpatient (ROUT) | payer OTHER, MEDICAID, SELFPAY ==
[2023-12-23 00:55] VITALS: BMI 18.5
[2024-01-01 08:38] LABS: BUN Creatinine Ratio 31.9 (6-22); Blood Urea Nitrogen 45 mg/dL (7-17); Carbon Dioxide 26 mmol/L (22-32); Chloride 103 mmol/L (98-107); Estimated Glomerular Filt Rate 36 mL/min (>60); Glucose 162 mg/dL (80-110); HEMOLYSIS < 15 (0-50); Potassium 4.4 mmol/L (3.4-5.1); Sodium 136 mmol/L (137-145)
== END ==
PROVIDERS: Visit Provider Nurse Practitioner Family
DX: I50.9 Heart failure, unspecified (principal)
CPT/HCPCS: 36415; 80048

== ENCOUNTER → 2024-01-25 13:37 | Outpatient (ROUT) | payer OTHER, MEDICAID, SELFPAY ==
[2023-12-23 00:55] VITALS: BMI 18.5
[2024-01-25 13:47] LABS: Appearance Urine UA CLEAR; Bilirubin Urine UA NEGATIVE (NEGATIVE); Color Urine UA YELLOW; Glucose Urine UA NEGATIVE (Negative); Ketones Urine UA NEGATIVE (NEGATIVE); Leukocyte Esterase Urine UA TRACE (NEGATIVE); Nitrite Urine UA NEGATIVE (Negative); Occult Blood Urine UA NEGATIVE (Negative); Protein Urine UA NEGATIVE (Negative); Specific Gravity Urine UA 1.015 (1.000-1.035); Urobilinogen Urine UA 0.2 E.U./dL (0.2)
[2024-01-25 13:58] LABS: Bacteria Urine Occasional (0-1); Culture Indicated Urine Cult Not Indicated; RBC Urine None Seen (0-5/HPF); Squamous Epithelial Cell Urine 0-1 /HPF (0-5/HPF); Urine Volume 10mL (spun); WBC Urine 1-5/HPF (0-5/HPF)
== END ==
PROVIDERS: Visit Provider Nurse Practitioner Family
DX: N39.0 Urinary tract infection, site not specified (principal)
CPT/HCPCS: 81001

== ENCOUNTER → 2024-01-29 06:25 | Outpatient (ROUT) | payer OTHER, MEDICAID, SELFPAY ==
[2023-12-23 00:55] VITALS: BMI 18.5
[2024-01-29 08:27] LABS: Blood Urea Nitrogen 27 mg/dL (7-17); Calcium 9.4 mg/dL (8.4-10.2); Carbon Dioxide 30 mmol/L (22-32); Chloride 104 mmol/L (98-107); Estimated Glomerular Filt Rate 38 mL/min (>60); Glucose 155 mg/dL (80-110); HEMOLYSIS < 15 (0-50); Potassium 4.3 mmol/L (3.4-5.1); Sodium 140 mmol/L (137-145)
== END ==
PROVIDERS: Visit Provider Nurse Practitioner Family
DX: N18.9 Chronic kidney disease, unspecified (principal); I50.9 Heart failure, unspecified
CPT/HCPCS: 36415; 80048

== ENCOUNTER 2024-04-10 16:38 | Inpatient (IN) | payer OTHER, MEDICAID, SELFPAY ==
[2023-12-23 00:55] VITALS: BMI 18.5
[2024-04-10] VITALS (30 sets, daily range): BP systolic 92–139; BP diastolic 43–81; PULSE 63–82; RESP 15–35; TEMP 36.4–38.8; O2SAT 87–97; BMI 20.5
--- NOTE | 2024-04-10 17:03 | DI.RAD.S_ITS ---
PROCEDURE: XR CHEST 1V INDICATIONS: suspected sepsis TECHNIQUE: One view of the chest was acquired. COMPARISON: [facility], CR, XR CHEST 1V, 12/22/2023, 21:39. [facility], CR, XR CHEST 1V, 12/20/2023, 9:49. FINDINGS AND IMPRESSION: On this single view study, no dense airspace disease or pleural effusions. Mildly prominent interstitium could represent atypical infection. Cardiomegaly. Aortic calcifications. Degenerative osseous changes. Dictated by: Juan Jose Mccarthy M.D. on 04/10/2024 at 17:28 Approved by: Juan Jose Mccarthy M.D. on 04/10/2024 at 17:29
--- NOTE | 2024-04-10 17:16 | EKG_ITS ---
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
[2024-04-10 17:22] LABS: Add Manual Diff / Slide Review NO; Basophils Absolute Auto 0 /uL (0-100); Basophils Percent Auto 0.4 % (0-2); Eosinophils Absolute Auto 200 /uL (0-450); Eosinophils Percent Auto 1.5 % (2-4); Hematocrit 35.9 % (36-46); Hemoglobin 11.6 g/dL (12.0-16.0); Lymphocytes Absolute Auto 600 /uL (1100-4500); Lymphocytes Percent Auto 5.3 % (25-40); Mean Corpuscular HGB Conc 32.3 % (30-36); Mean Corpuscular Hemoglobin 27.4 PG (26-34); Mean Corpuscular Volume 84.8 fL (80-100); Monocytes Absolute Auto 300 /uL (0-900); Monocytes Percent Auto 2.7 % (3-14); Neutrophils Absolute Auto 9700 /uL (1500-7000); Neutrophils Percent Auto 90.1 % (50-75); Platelet Count 285 X10^3/uL (150-400); Red Blood Cell Count 4.23 X10^6/uL (4.0-5.2); Red Cell Distribution Width 15.7 % (11.6-14.8); White Blood Cell Count 10.8 X10^3/uL (4.5-11.0)
[2024-04-10 17:27] LABS: Prothrombin Time 11.5 SECONDS (9.4-12.5)
[2024-04-10 17:30] LABS: PTT Partial Thromboplastin Tim 35 SECONDS (25.1-36.5)
[2024-04-10] MEDS: SODIUM CHLORIDE 0.9% 1,000 ML 1000 ML IV (17:30)
[2024-04-10 17:31] LABS: Alanine Aminotransferase 15 IU/L (<35); Albumin 4.3 g/dL (3.5-5.0); Albumin Globulin Ratio 0.9 (1.0-2.8); Alkaline Phosphatase 114 U/L (38-126); Aspartate Aminotransferase 24 IU/L (14-36); BUN Creatinine Ratio 26.7 (6-22); Bilirubin Total 0.5 mg/dL (0.2-1.3); Blood Urea Nitrogen 32 mg/dL (7-17); Calcium 8.9 mg/dL (8.4-10.2); Carbon Dioxide 26 mmol/L (22-32); Chloride 99 mmol/L (98-107); Estimated Glomerular Filt Rate 44 mL/min (>60); Globulin 4.8 g/dL (1.7-4.1); Glucose 210 mg/dL (80-110); HEMOLYSIS < 15 (0-50); Lactate (Lactic Acid) 2.5 mmol/L (0.7-2.1); Lipase 109 U/L (23-300); Potassium 3.7 mmol/L (3.4-5.1); Sodium 138 mmol/L (137-145); Total Protein 9.1 g/dL (6.3-8.2)
[2024-04-10] MEDS: SODIUM CHLORIDE 0.9% 500 ML 1000 ML IV ×2 (17:38→21:53)
[2024-04-10 17:48] LABS: Procalcitonin 0.112 ng/mL (<0.5)
[2024-04-10] MEDS: ACETAMINOPHEN 325 MG TABLET 650 MG PO (17:52)
[2024-04-10 18:10] LABS: COVID-19 CEPHEID 4-PLEX PCR Negative (Negative); Influenza A - CEPHEID Flu A NEGATIVE (NEGATIVE); Influenza B - CEPHEID Flu B NEGATIVE (NEGATIVE); Respiratory Syncytial Virus Negative (Negative)
--- NOTE | 2024-04-10 18:10 | ED.FEVER ---
HPI - Fever General Chief Complaint: Fever Stated Complaint: acting different, shivering Time Seen by Provider: 04/10/24 18:01 Source: EMS Mode of arrival: EMS History of Present Illness HPI Narrative: Patient is an 88-year-old female with a history of hypertension, diabetes, restless leg syndrome, and anxiety who presents with fever and general malaise. She denies chest pain, shortness of breath, and abdominal pain. She reports pain during urination and has a history of urinary tract infections. She has no new swelling in her legs and no recent changes in her abdominal size. She lives at a local care facility . The patient was brought in by EMS after they initially transported her roommate earlier in the day. Past Medical History: Hypertension, diabetes, restless leg syndrome, anxiety, heart failure. Medications: Tylenol administered for fever. Related Data Home Medications Medication Instructions Recorded Confirmed acetaminophen 325 mg tablet 325 mg PO Q6HR PRN Pain (Scale 06/13/23 04/10/24 Score 1-3) cranberry extract 500 mg capsule 500 mg PO DAILY 06/13/23 04/10/24 (Cranberry Concentrate) cyanocobalamin (vitamin B-12) 1,000 mcg PO DAILY 06/13/23 04/10/24 1,000 mcg tablet (Vitamin B-12) duloxetine 20 mg capsule,delayed 20 mg PO BID 06/13/23 04/10/24 release lidocaine 5 % topical patch 1 patch topical DAILY back pain 06/13/23 04/10/24 losartan 25 mg tablet 12.5 mg PO DAILY 06/13/23 04/10/24 metformin 500 mg tablet 1,000 mg PO DAILY 06/13/23 04/10/24 pramipexole 0.5 mg tablet 0.5 mg PO BEDTIME 06/13/23 04/10/24 simvastatin 20 mg tablet 20 mg PO DAILY 06/13/23 04/10/24 metformin 500 mg tablet 500 mg PO BEDTIME 12/20/23 04/10/24 loperamide 2 mg capsule 2 mg PO Q OTHER DAY Diarrhea 12/23/23 04/10/24 olanzapine 2.5 mg tablet 2.5 mg PO BEDTIME PRN Agitation 12/23/23 04/10/24 polyethylene glycol 3350 17 17 g PO PRN PRN Constipation 12/23/23 04/10/24 gram/dose oral powder sennosides 8.6 mg tablet (senna) 17.2 mg PO DAILY 12/23/23 04/10/24 Previous Rx's Medication Instructions Recorded furosemide 40 mg tablet (Lasix) 40 mg PO DAILY #30 tabs 12/24/23 Allergies Allergy/AdvReac Type Severity Reaction Status Date / Time celecoxib [From Celebrex] AdvReac Verified 12/20/23 09:37 Review of Systems Review of Systems Narrative: Constitutional: Reports fever and general malaise. ENT: Denies stuffy nose. Cardiovascular: Denies chest pain. Respiratory: Denies shortness of breath. Gastrointestinal: Denies abdominal pain, normal abdominal size. Genitourinary: Reports pain during urination, history of urinary tract infections. Musculoskeletal: No new swelling in legs. Skin: No overlying skin rash. Neurologic: No focal deficits. Patient History Medical History HLD (hyperlipidemia) Restless legs HTN (hypertension) Diabetes Social History household members: caregiver Smoking Status: Former smoker alcohol intake: current Smoking Status: Former smoker alcohol intake frequency: holidays/special occasions only Exam Narrative Exam Narrative: General: Well appearing, well nourished, in no distress. Skin: Good turgor, no rash, unusual bruising or prominent lesions. Head: Normocephalic, atraumatic. HEENT: Conjunctiva clear, EOM intact, PERRL, Mucous membranes moist. Neck: Supple, normal ROM. Heart: Regular rate and rhythm, no murmur or gallop or rubs. Lungs: Clear to auscultation. No rales, rhonchi, or wheezes. Abdomen: Soft and nontender. Bowel sounds normal. No mass or hernia. Back: Spine normal without deformity or tenderness, no CVA tenderness. Extremities: No deformities, edema. Peripheral pulses intact. Neurologic: CN 2-12 normal. Normal sensation and motor exam. Psychiatric: Alert but answers orientation questions somewhat incorrectly knows her name but unable to say where she is coming from, generally well answer questions correctly however. Normal mood and affect. Initial Vital Signs Initial Vital Signs: Vital Signs Temperature 100.2 F H 04/10/24 16:48 Pulse Rate 75 04/10/24 16:48 Respiratory Rate 22 04/10/24 16:48 Blood Pressure 128/77 04/10/24 16:48 Pulse Oximetry 96 04/10/24 16:48 Oxygen Delivery Method Room Air 04/10/24 16:48 Course Orders Ordered: Acetaminophen (Acetaminophen 325 Mg Tablet) 650 mg PO Q6H PRN PRN Reason: Fever/Mild Pain (1-3) Atorvastatin Calcium (Atorvastatin 20 Mg Tablet) 10 mg PO DAILY [facility] Duloxetine HCl (Duloxetine 20 Mg Capsule) 20 mg PO BID [facility] Furosemide (Furosemide 40 Mg Tablet) 40 mg PO DAILY [facility] Heparin Sodium (Porcine) (Heparin 5,000 Unit/Ml Vial) 5,000 unit SUBCUT BID [facility] Last Admin: 04/10/24 22:45 Dose: Not Given Documented By: DENNISE Azithromycin 500 mg/ Dextrose 250 mls @ 250 mls/hr IV BEDTIME [facility] Ceftriaxone Sodium 1,000 mg/ (Sodium Chloride) 100 mls @ 200 mls/hr IV BEDTIME [facility] Dextrose (D10w) 100 mls @ 999 mls/hr IV PRN PRN PRN Reason: Hypoglycemia Insulin Glargine (Insulin Glargine 100 Unit/Ml 3ml Pen) 10 unit SUBCUT BEDTIME [facility] Last Admin: 04/11/24 00:35 Dose: 10 unit Documented By: DENNISE Co-signed By: STEFANI Insulin Human Lispro (Insulin Lispro 100 Unit/Ml 3ml Vial) 0 unit SUBCUT ACHS [facility]; Protocol Naloxone HCl (Naloxone 0.4 Mg/Ml Vial) 0.2 mg IV Q2MIN PRN PRN Reason: Opiate Reversal Ondansetron HCl (Ondansetron 4 Mg/2 Ml Inj) 4 mg IV NOW PRN PRN Reason: Nausea And Vomiting Ondansetron HCl (Ondansetron 4 Mg Odt) 4 mg SL NOW PRN PRN Reason: Nausea And Vomiting Ondansetron HCl (Ondansetron 4 Mg/2 Ml Inj) 4 mg IV Q8HR PRN PRN Reason: Nausea And Vomiting Pramipexole Dihydrochloride (Pramipexole 0.25 Mg Tablet) 0.5 mg PO BEDTIME [facility] Discontinued Medications Acetaminophen (Acetaminophen 325 Mg Tablet) 650 mg PO NOW ONE Stop: 04/10/24 17:40 Last Admin: 04/10/24 17:52 Dose: 650 mg Documented By: [email or web address] Acetaminophen (Acetaminophen 325 Mg Tablet) 975 mg PO NOW ONE Stop: 04/10/24 21:48 Last Admin: 04/10/24 22:00 Dose: 975 mg Documented By: [email or web address] Sodium Chloride (Normal Saline 0.9%) 1,000 mls @ 1,000 mls/hr IV BOLUS ONE Stop: 04/10/24 18:02 Last Infusion: 04/10/24 17:36 Dose: Infused Documented By: Admin: 04/10/24 17:30 Dose: 1,000 mls/hr Documented By: KAYLENE Sodium Chloride (Normal Saline 0.9%) 500 mls @ 1,000 mls/hr IV BOLUS ONE Stop: 04/10/24 18:04 Last Infusion: 04/10/24 18:45 Dose: Infused Documented By: Admin: 04/10/24 17:38 Dose: 1,000 mls/hr Documented By: [email or web address] Ceftriaxone Sodium 1,000 mg/ (Sodium Chloride) 100 mls @ 200 mls/hr IV NOW ONE Stop: 04/10/24 19:22 Last Infusion: 04/10/24 20:21 Dose: Infused Documented By: Admin: 04/10/24 19:47 Dose: 200 mls/hr Documented By: [email or web address] Azithromycin 500 mg/ Dextrose 250 mls @ 250 mls/hr IV NOW ONE Stop: 04/10/24 19:22 Last Infusion: 04/10/24 21:48 Dose: Infused Documented By: Admin: 04/10/24 20:33 Dose: 250 mls/hr Documented By: [email or web address] Sodium Chloride (Normal Saline 0.9%) 500 mls @ 1,000 mls/hr IV BOLUS ONE Stop: 04/10/24 22:18 Last Admin: 04/10/24 21:53 Dose: 1,000 mls/hr Documented By: [email or web address] Sodium Chloride (Normal Saline 0.9%) 500 mls @ 1,000 mls/hr IV BOLUS ONE Stop: 04/11/24 03:59 Non-Formulary Medication (Simvastatin) 20 mg PO DAILY [facility] Vital Signs Vital signs: Vital Signs - 8 hr 04/10/24 19:30 04/10/24 19:44 04/10/24 19:54 Pulse Rate 74 79 Respiratory Rate 20 24 Blood Pressure 131/60 131/60 Pulse Oximetry 92 91 Oxygen Flow Rate 2 2 04/10/24 19:54 04/10/24 20:00 04/10/24 20:08 Pulse Rate 77 79 Respiratory Rate 20 24 15 Blood Pressure 127/58 L 120/60 Pulse Oximetry 91 91 91 Oxygen Flow Rate 2.5 2.5 2.5 MDM - Fever Lab Data 04/10/24 17:08 04/10/24 17:08 Labs: Lab Results 04/10/24 04/10/24 04/10/24 Range/Units 17:08 17:10 18:35 WBC 10.8 (4.5-11.0) X10^3/uL RBC 4.23 (4.0-5.2) X10^6/uL Hgb 11.6 L (12.0-16.0) g/dL Hct 35.9 L (36-46) % MCV 84.8 (80-100) fL MCH 27.4 (26-34) PG MCHC 32.3 (30-36) % RDW 15.7 H (11.6-14.8) % Plt Count 285 (150-400) X10^3/uL Neut % (Auto) 90.1 H (50-75) % Lymph % (Auto) 5.3 L (25-40) % [place] % (Auto) 2.7 L (3-14) % Eos % (Auto) 1.5 L (2-4) % Baso % (Auto) 0.4 (0-2) % Neut # (Auto) 9700 H (9481-7925) /uL Lymph # (Auto) 600 L (3451-1253) /uL [place] # (Auto) 300 (0-900) /uL Eos # (Auto) 200 (0-450) /uL Baso # (Auto) 0 (0-100) /uL PT 11.5 (9.4-12.5) SECONDS INR 1.0 (0.9-1.3) APTT 35 (25.1-36.5) SECONDS Sodium 138 (137-145) mmol/L Potassium 3.7 (3.4-5.1) mmol/L Chloride 99 (98-107) mmol/L Carbon Dioxide 26 (22-32) mmol/L BUN 32 H (7-17) mg/dL Creatinine 1.20 H (0.52-1.04) mg/dL Estimated GFR 44 L (>60) mL/min BUN/Creatinine Ratio 26.7 H (6-22) Glucose 210 H (80-110) mg/dL Lactate 2.5 H (0.7-2.1) mmol/L Calcium 8.9 (8.4-10.2) mg/dL Total Bilirubin 0.5 (0.2-1.3) mg/dL AST 24 (14-36) IU/L ALT 15 (<35) IU/L Alkaline Phosphatase 114 (38-126) U/L NT-Pro-B Natriuret Pep 737 H (<450) pg/mL Total Protein 9.1 H (6.3-8.2) g/dL Albumin 4.3 (3.5-5.0) g/dL Globulin 4.8 H (1.7-4.1) g/dL Albumin/Globulin Ratio 0.9 L (1.0-2.8) Lipase 109 (23-300) U/L Procalcitonin 0.112 (<0.5) ng/mL TSH 3.22 (0.47-4.68) uIU/mL Urine Color Yellow Urine Appearance Clear Urine pH 6.0 (4.5-8.0) Ur Specific [place] 1.010 (1.000-1.035) Urine Protein Negative (Negative) Urine Glucose (UA) Trace H (Negative) g/dL Urine Ketones Negative (NEGATIVE) Urine Occult Blood Negative (Negative) Urine Nitrate Negative (Negative) Urine Bilirubin Negative (NEGATIVE) Urine Urobilinogen 0.2 (0.2) E.U./dL Ur Leukocyte Esterase 1+ H (NEGATIVE) Urine RBC None seen (0-5/HPF) Urine WBC 1-5/hpf (0-5/HPF) Ur Squamous Epith Cells 0-1 /hpf (0-5/HPF) Urine Bacteria Occasional (0-1) (None) Ur Culture Indicated? Specimen cultured Vol Urine Centrifuged 10ml (spun) SARS-CoV-2 (PCR) Negative (Negative) Influenza A (RT-PCR) Flu a negative (NEGATIVE) Influenza B (RT-PCR) Flu b negative (NEGATIVE) RSV (PCR) Negative (Negative) 04/10/24 Range/Units 19:20 WBC (4.5-11.0) X10^3/uL RBC (4.0-5.2) X10^6/uL Hgb (12.0-16.0) g/dL Hct (36-46) % MCV (80-100) fL MCH (26-34) PG MCHC (30-36) % RDW (11.6-14.8) % Plt Count (150-400) X10^3/uL Neut % (Auto) (50-75) % Lymph % (Auto) (25-40) % [place] % (Auto) (3-14) % Eos % (Auto) (2-4) % Baso % (Auto) (0-2) % Neut # (Auto) (5940-3129) /uL Lymph # (Auto) (0638-1828) /uL [place] # (Auto) (0-900) /uL Eos # (Auto) (0-450) /uL Baso # (Auto) (0-100) /uL PT (9.4-12.5) SECONDS INR (0.9-1.3) APTT (25.1-36.5) SECONDS Sodium (137-145) mmol/L Potassium (3.4-5.1) mmol/L Chloride (98-107) mmol/L Carbon Dioxide (22-32) mmol/L BUN (7-17) mg/dL Creatinine (0.52-1.04) mg/dL Estimated GFR (>60) mL/min BUN/Creatinine Ratio (6-22) Glucose (80-110) mg/dL Lactate 1.9 (0.7-2.1) mmol/L Calcium (8.4-10.2) mg/dL Total Bilirubin (0.2-1.3) mg/dL AST (14-36) IU/L ALT (<35) IU/L Alkaline Phosphatase (38-126) U/L NT-Pro-B Natriuret Pep (<450) pg/mL Total Protein (6.3-8.2) g/dL Albumin (3.5-5.0) g/dL Globulin (1.7-4.1) g/dL Albumin/Globulin Ratio (1.0-2.8) Lipase (23-300) U/L Procalcitonin (<0.5) ng/mL TSH (0.47-4.68) uIU/mL Urine Color Urine Appearance Urine pH (4.5-8.0) Ur Specific [place] (1.000-1.035) Urine Protein (Negative) Urine Glucose (UA) (Negative) g/dL Urine Ketones (NEGATIVE) Urine Occult Blood (Negative) Urine Nitrate (Negative) Urine Bilirubin (NEGATIVE) Urine Urobilinogen (0.2) E.U./dL Ur Leukocyte Esterase (NEGATIVE) Urine RBC (0-5/HPF) Urine WBC (0-5/HPF) Ur Squamous Epith Cells (0-5/HPF) Urine Bacteria (None) Ur Culture Indicated? Vol Urine Centrifuged SARS-CoV-2 (PCR) (Negative) Influenza A (RT-PCR) (NEGATIVE) Influenza B (RT-PCR) (NEGATIVE) RSV (PCR) (Negative) I reviewed patient's laboratory workup which was overall reassuring patient has a mildly elevated white count at 10.8, lactic acid 2.5 no significant electrolyte abnormalities that require ED intervention. No significant anemia or thrombocytopenia. - Negative for COVID influenza A/B or RSV - procalcitonin 0.112 - urinalysis shows no signs of infection - no signs of significant abnormalities to LFTs, bilirubin and no abdominal tenderness lower suspicion for gallbladder etiology of patient's fever - patient admitted to inpatient team for ongoing management of potential pneumonia, trending of patient's blood cultures that were obtained prior to antibiotic administration. Patient has not been hypotensive or significantly tachycardic while here in the emergency department under my care. ECG Data Attestation: I personally reviewed and interpreted this ECG as follows: Prior ECG tracings: not available for review Interpretation: EKG reviewed this shows normal sinus rate with a rate of 72, no significant the enlarged MT interval, no significantly lengthened QRS duration, QTC 407. No signs of significant T-wave inversion, ST-elevation or other findings meeting STEMI criteria. MDM Narrative Medical decision making narrative: 88-year-old female history of diabetes, hypertension, CHF presenting to the Emergency department for fever and concerns for some confusion. INITIAL EVALUATION AND PLAN: - Perform flu test. - Obtain lab work. - Collect urine sample. - Conduct chest X-ray to rule out pneumonia. - Differential diagnosis includes but is not limited to: urinary tract infection, influenza, pneumonia, and other viral illnesses, bacteremia, skin infection - patient's lab evaluation as documented above - x-ray independently interpreted with no signs of consolidation or significant pneumonia, radiology read confirms only interstitial haziness believe possible atypical infection - Given patient's age, risk factors, new O2 requirement we will start treating with ceftriaxone and azithromycin for possible atypical pneumonia. - Lower suspicion for intra-abdominal source given patient has no abdominal tenderness on exam, urine studies show no signs of infection -- no signs of significant abnormalities to LFTs, bilirubin and no abdominal tenderness lower suspicion for gallbladder etiology of patient's fever - patient admitted to inpatient team for ongoing management of potential pneumonia, trending of patient's blood cultures that were obtained prior to antibiotic administration. Patient has not been hypotensive or significantly tachycardic while here in the emergency department under my care. - Jared Negro Discharge Plan Departure Patient Disposition: Admitted As Inpatient Clinical Impression: Bacteremia, Pneumonia Admit Date/Time: 04/10/24 20:08 Admit Provider: Gregg Lang
--- NOTE | 2024-04-10 18:13 | DI.CT.S_ITS ---
PROCEDURE: CT HEAD/BRAIN WO CON INDICATIONS: AMS TECHNIQUE: Noncontrast 4.5 mm thick angled axial sections acquired from the foramen magnum to the vertex, with coronal and sagittal reformats. For radiation dose reduction, the following was used: automated exposure control, adjustment of mA and/or kV according to patient size. COMPARISON: [facility], CT, CT HEAD/BRAIN WO CON, 07/07/2023, 20:50. FINDINGS: Image quality: Excellent CSF spaces: Basal cisterns are patent. Lateral ventricles are symmetric. Ventriculomegaly again seen, moderate Volume: Vascular calcifications. Periventricular white matter disease is commonly seen with chronic microangiopathy. Volume loss is present. These findings are moderate Brain: No intracranial hemorrhage. Salazar-white differentiation is grossly maintained. Craniofacial structures: No displaced fracture. Sinuses are clear. Orbits are intact. IMPRESSION: No acute intracranial pathology. If there is high concern for parenchymal pathology, consider further evaluation with MRI. Similar moderate senescent changes and ventriculomegaly, as described above Dictated by: Juan Jose Mccarthy M.D. on 04/10/2024 at 19:21 Approved by: Juan Jose Mccarthy M.D. on 04/10/2024 at 19:22
--- NOTE | 2024-04-10 18:21 | PC.NURSE ---
spoke with daughter/ASHISH Martin at this time, informed of pt status. Daughter confirms baseline mental status as confused. pt has hx of dementia and in memory care with frequent UTIs and incontinence. Provider aware
[2024-04-10 18:45] LABS: Appearance Urine UA CLEAR; Bilirubin Urine UA NEGATIVE (NEGATIVE); Color Urine UA YELLOW; Glucose Urine UA TRACE g/dL (Negative); Ketones Urine UA NEGATIVE (NEGATIVE); Leukocyte Esterase Urine UA 1+ (NEGATIVE); Nitrite Urine UA NEGATIVE (Negative); Occult Blood Urine UA NEGATIVE (Negative); Protein Urine UA NEGATIVE (Negative); Urobilinogen Urine UA 0.2 E.U./dL (0.2)
[2024-04-10 18:52] LABS: Reflexed Lactate in 2 Hours Y
[2024-04-10 19:07] LABS: Bacteria Urine Occasional (0-1); Culture Indicated Urine Specimen Cultured; RBC Urine None Seen (0-5/HPF); Squamous Epithelial Cell Urine 0-1 /HPF (0-5/HPF); Urine Volume 10mL (spun); WBC Urine 1-5/HPF (0-5/HPF)
[2024-04-10 19:39] LABS: Lactate 2HR (Lactic Acid Rflx) 1.9 mmol/L (0.7-2.1)
--- NOTE | 2024-04-10 19:44 | DI.CT.S_ITS ---
PROCEDURE: CT ANGIO CHEST PE PROTOCOL INDICATIONS: PE rule out TECHNIQUE: After the administration of intravenous contrast, 2 mm thick sections acquired from the pulmonary apices to the posterior costophrenic angles. 3-dimensional maximum intensity projection (MIP) coronal and sagittal reformats were then acquired through the thorax. For radiation dose reduction, the following was used: automated exposure control, adjustment of mA and/or kV according to patient size. COMPARISON: None. FINDINGS: Image quality: Diagnostic. Pulmonary arteries: Pulmonary arteries are normal in size, and demonstrate no intraluminal filling defects to suggest central pulmonary embolism. Lower Neck: No enlarged lymph nodes. Thyroid: No thyroid nodules which require sonographic follow up, per consensus guidelines. Axillae: No enlarged lymph nodes. Chest Wall: Unremarkable. Bones: Multilevel degenerative changes of the spine. Decreased osseous mineralization. Lungs and Pleura: No pneumothorax or pleural effusions. Biapical pleuroparenchymal scarring. Mild dependent atelectasis bilaterally. Mild interlobular septal thickening is noted. Peripheral reticulations, likely representing fibrotic changes. Lingular nodule measuring 6 x 4 mm (5/122). Small opacity in the left lower lobe (5/142) may be infectious. Heart: Heart size is normal. Severe coronary artery calcifications. No pericardial effusion. Thoracic Vessels: No aortic aneurysm. Atherosclerotic vascular calcifications. Mediastinum and [place]: No enlarged lymph nodes. Esophagus: No wall thickening. No hiatal hernia. Upper Abdomen: Visualized upper abdomen solid organs and bowel loops appear normal. IMPRESSION: No pulmonary embolus. Mild interlobular septal thickening is noted, may represent edema. Small opacity in the left lower lobe, may be infectious. Nodule in the lingula measuring 6 x 4 mm. Per Fleischner criteria, if patient is high risk, optional CT chest can be obtained in 12 months to assess stability. Dictated by: Amador Leach M.D. on 04/10/2024 at 21:17 Approved by: Amador Leach M.D. on 04/10/2024 at 21:25
[2024-04-10 19:46] LABS: Thyroid Stimulating Hormone 3.22 uIU/mL (0.47-4.68)
[2024-04-10] MEDS: cefTRIAXone 1,000 MG in SODIUM CHLORIDE 0.9% 100 ML 200 MG IV (19:47)
[2024-04-10] MEDS: AZITHROMYCIN 500 MG in DEXTROSE 5% IN WATER 250 ML 250 MG IV (20:33)
[2024-04-10] MEDS: ACETAMINOPHEN 325 MG TABLET 975 MG PO (22:00)
[2024-04-10 23:52] LABS: NT-proBNP (BNP-Adult 18+) 737 pg/mL (<450)
[2024-04-11] VITALS (10 sets, daily range): BP systolic 87–126; BP diastolic 45–67; PULSE 58–72; RESP 15–18; TEMP 36.2–36.9; O2SAT 92–97
[2024-04-11] MEDS: INSULIN GLARGINE 100 UNIT/ML 3ML PEN 10 UNIT SUBCUT (00:35)
[2024-04-11 01:04] LABS: Acinetobacter calcoa-baumannii Not Detected (Not Detect); Bacteroides fragilis Not Detected (Not Detect); Candida albicans Not Detected (Not Detect); Candida auris Not Detected (Not Detect); Candida glabrata Not Detected (Not Detect); Candida krusei Not Detected (Not Detect); Candida parapsilosis Not Detected (Not Detect); Candida tropicalis Not Detected (Not Detect); Cryptococcus neoformans/gatti Not Detected (Not Detect); Enterobacter cloacae complex Not Detected (Not Detect); Enterobacterales Not Detected (Not Detect); Enterococcus faecalis Not Detected (Not Detect); Enterococcus faecium Not Detected (Not Detect); Haemophilus influenzae Not Detected (Not Detect); Klebsiella aerogenes Not Detected (Not Detect); Listeria monocytogenes Not Detected (Not Detect); Neisseria meningitidis Not Detected (Not Detect); Proteus species Not Detected (Not Detect); Pseudomonas aeruginosa Not Detected (Not Detect); Salmonella species Not Detected (Not Detect); Serratia marcescens Not Detected (Not Detect); Staphylococcus epidermidis Not Detected (Not Detect); Staphylococcus lugdunensis Not Detected (Not Detect); Staphylococcus species Not Detected (Not Detect); Stenotrophomonas maltophilia Not Detected (Not Detect); Streptococcus agalactiae (Gr B Detected (Not Detect); Streptococcus pneumonia Not Detected (Not Detect); Streptococcus pyogenes (Gr A) Not Detected (Not Detect); Streptococcus species Detected (Not Detect)
[2024-04-11] MEDS: SODIUM CHLORIDE 0.9% 500 ML 1000 ML IV (04:25)
[2024-04-11 06:09] LABS: Add Manual Diff / Slide Review NO; Basophils Absolute Auto 100 /uL (0-100); Basophils Percent Auto 0.6 % (0-2); Eosinophils Absolute Auto 0 /uL (0-450); Eosinophils Percent Auto 0.1 % (2-4); Hematocrit 28.6 % (36-46); Hemoglobin 9.4 g/dL (12.0-16.0); Lymphocytes Absolute Auto 600 /uL (1100-4500); Lymphocytes Percent Auto 4.9 % (25-40); Mean Corpuscular HGB Conc 32.7 % (30-36); Mean Corpuscular Hemoglobin 27.4 PG (26-34); Mean Corpuscular Volume 83.7 fL (80-100); Monocytes Absolute Auto 300 /uL (0-900); Monocytes Percent Auto 2.7 % (3-14); Neutrophils Absolute Auto 11300 /uL (1500-7000); Neutrophils Percent Auto 91.7 % (50-75); Platelet Count 220 X10^3/uL (150-400); Red Blood Cell Count 3.42 X10^6/uL (4.0-5.2); Red Cell Distribution Width 15.2 % (11.6-14.8); White Blood Cell Count 12.3 X10^3/uL (4.5-11.0)
[2024-04-11 06:19] LABS: Blood Urea Nitrogen 30 mg/dL (7-17); Carbon Dioxide 26 mmol/L (22-32); Chloride 104 mmol/L (98-107); Estimated Glomerular Filt Rate 44 mL/min (>60); Glucose 145 mg/dL (80-110); HEMOLYSIS < 15 (0-50); Potassium 3.7 mmol/L (3.4-5.1); Sodium 137 mmol/L (137-145)
--- NOTE | 2024-04-11 06:47 | PM.HP.1 ---
History of Present Illness History of Present Illness Chief complaint: acting different, shivering Narrative: 88-year-old female with past medical history of restless leg syndrome, hypertension, gre-myoxoak-sgsbiputw diabetes, CHF and anxiety presents with a fever. Per the patient's report, the patient noted to have increasing fatigue and developed a fever today. The patient admitted to have some dysuria and report a history of urinary tract infection. Otherwise the patient denies any nausea, vomiting, abdominal pain, diarrhea, chest pain, coughing or shortness of breath. In emergency room, the patient was hemodynamically stable initially without signs of sepsis. WBC was 10 and lactic acid was normal. Upper respiratory viral panel was negative. Chest x-ray is just possible atypical pneumonia. The patient however did require [address] angio of the chest shows no pulm embolism but did show small posterior left lower lobe suggest possible infection. There is also a nodule in the lung measuring 6 x 4 mm I recommend to repeat CT chest in 12 months. There is also possible pulmonary edema mild. The patient was given IV ceftriaxone and azithromycin. FORMERLY [facility] Medical History HLD (hyperlipidemia) Restless legs HTN (hypertension) Diabetes Social History household members: caregiver Smoking Status: Former smoker alcohol intake: current Meds Home Medications and Allergies Home Medications Medication Instructions Recorded Confirmed Type acetaminophen 325 mg tablet 325 mg PO Q6HR PRN Pain (Scale 06/13/23 04/10/24 History Score 1-3) cranberry extract 500 mg capsule 500 mg PO DAILY 06/13/23 04/10/24 History (Cranberry Concentrate) cyanocobalamin (vitamin B-12) 1,000 mcg PO DAILY 06/13/23 04/10/24 History 1,000 mcg tablet (Vitamin B-12) duloxetine 20 mg capsule,delayed 20 mg PO BID 06/13/23 04/10/24 History release lidocaine 5 % topical patch 1 patch topical DAILY back pain 06/13/23 04/10/24 History losartan 25 mg tablet 12.5 mg PO DAILY 06/13/23 04/10/24 History metformin 500 mg tablet 1,000 mg PO DAILY 06/13/23 04/10/24 History pramipexole 0.5 mg tablet 0.5 mg PO BEDTIME 06/13/23 04/10/24 History simvastatin 20 mg tablet 20 mg PO DAILY 06/13/23 04/10/24 History metformin 500 mg tablet 500 mg PO BEDTIME 12/20/23 04/10/24 History loperamide 2 mg capsule 2 mg PO Q OTHER DAY Diarrhea 12/23/23 04/10/24 History olanzapine 2.5 mg tablet 2.5 mg PO BEDTIME PRN Agitation 12/23/23 04/10/24 History polyethylene glycol 3350 17 17 g PO PRN PRN Constipation 12/23/23 04/10/24 History gram/dose oral powder sennosides 8.6 mg tablet (senna) 17.2 mg PO DAILY 12/23/23 04/10/24 History furosemide 40 mg tablet (Lasix) 40 mg PO DAILY #30 tabs 12/24/23 04/10/24 Rx Allergies Allergy/AdvReac Type Severity Reaction Status Date / Time celecoxib [From Celebrex] AdvReac Verified 12/20/23 09:37 Review of Systems Review of Systems ROS: Yes All systems reviewed with the patient and are negative except as otherwise documented Exam Vital Signs (past 8 hours): - 04/10/24 23:00 04/10/24 23:00 04/11/24 01:30 Temperature 97.9 F 97.5 F L Pulse Rate 63 72 Respiratory Rate 18 18 Blood Pressure 92/43 L 95/46 L Pulse Oximetry 95 92 Oxygen Delivery Method Nasal Cannula Oxygen Flow Rate 2 0 04/11/24 04:00 04/11/24 05:20 Temperature 97.2 F L Pulse Rate 60 62 Respiratory Rate 18 Blood Pressure 87/45 L 97/56 L Pulse Oximetry 95 94 Oxygen Delivery Method Oxygen Flow Rate 0.5 0 Oxygen Delivery Method Nasal Cannula Oxygen Flow Rate 0 Narrative Exam Narrative: Physical Exam: GENERAL: The patient is not in any acute distressed. Awake and alert. HEENT: Nonicteric sclerae, PERRLA, EOMI. Oropharynx clear. Moist mucous membranes. Conjunctivae appear well perfused. HEART: Regular rate and rhythm without murmurs. No lower extremities edema. LUNGS: Clear to auscultation bilaterally. No wheezing, crackles or rhonchi ABDOMEN: Soft, positive bowel sounds, nontender. SKIN: No rash, no excessive bruising, petechiae, or purpura. NEUROLOGIC: AxO x 3. Cranial nerves II-XII intact without motor/sensory deficit. Objective Labs 04/11/24 04:50 04/11/24 04:50 Labs: Laboratory Results - last 24 hr 04/10/24 04/10/24 04/10/24 17:08 17:10 18:35 WBC 10.8 RBC 4.23 Hgb 11.6 L Hct 35.9 L MCV 84.8 MCH 27.4 MCHC 32.3 RDW 15.7 H Plt Count 285 Neut % (Auto) 90.1 H Lymph % (Auto) 5.3 L [place] % (Auto) 2.7 L Eos % (Auto) 1.5 L Baso % (Auto) 0.4 Neut # (Auto) 9700 H Lymph # (Auto) 600 L [place] # (Auto) 300 Eos # (Auto) 200 Baso # (Auto) 0 PT 11.5 INR 1.0 APTT 35 Sodium 138 Potassium 3.7 Chloride 99 Carbon Dioxide 26 BUN 32 H Creatinine 1.20 H Estimated GFR 44 L BUN/Creatinine Ratio 26.7 H Glucose 210 H Lactate 2.5 H Calcium 8.9 Total Bilirubin 0.5 AST 24 ALT 15 Alkaline Phosphatase 114 NT-Pro-B Natriuret Pep 737 H Total Protein 9.1 H Albumin 4.3 Globulin 4.8 H Albumin/Globulin Ratio 0.9 L Lipase 109 Procalcitonin 0.112 TSH 3.22 Urine Color Yellow Urine Appearance Clear Urine pH 6.0 Ur Specific [place] 1.010 Urine Protein Negative Urine Glucose (UA) Trace H Urine Ketones Negative Urine Occult Blood Negative Urine Nitrate Negative Urine Bilirubin Negative Urine Urobilinogen 0.2 Ur Leukocyte Esterase 1+ H Urine RBC None seen Urine WBC 1-5/hpf Ur Squamous Epith Cells 0-1 /hpf Urine Bacteria Occasional (0-1) Ur Culture Indicated? Specimen cultured Vol Urine Centrifuged 10ml (spun) A.calcoaceticus-baumannii cmplx PCR Bacteroides fragilis Aide albicans (PCR) Aide auris (PCR) C. glabrata (PCR) C. krusei (PCR) C. parapsilosis (PCR) C. tropicalis (PCR) SARS-CoV-2 (PCR) Negative C. neoform/gattii (PCR) Enterobacterales (PCR) E. cloacae complex PCR Enterococc faecalis PCR Enterococc faecium PCR E. coli (PCR) H. influenzae (PCR) Influenza A (RT-PCR) Flu a negative Influenza B (RT-PCR) Flu b negative Klebsiella aerogenes (PCR) Klebsiella oxytoca PCR Klebsiella pneumoniae List. monocytogenes PCR N. meningitidis (PCR) Proteus species (PCR) RSV (PCR) Negative Salmonella spp. (PCR) Serratia marcescens PCR Staphylococcus sp PCR Staph aureus (PCR) mecA/C & MREJ Resist Gene mecA/C-Methicil Resis Gene mcr-1 Colistin Res Gene PCR Staph epidermidis (PCR) Staph lugdunensis PCR S. maltophilia (PCR) Streptococcus sp PCR Group A Strep (PCR) Strep agalactiae (PCR) Strep pneumoniae (PCR) P. aeruginosa (PCR) Jason/B-Vanco Res Genes blaIMP Car res Gene PCR KPC-Carbap Res Gene PCR blaNDM Car Res Gene PCR OXA-48 Carbapenem Resis Gene (PCR) blaVIM Car Res Gene PCR CTX-M Gene Resistance (PCR) 04/10/24 04/10/24 04/11/24 19:20 23:43 04:50 WBC 12.3 H RBC 3.42 L Hgb 9.4 L Hct 28.6 L MCV 83.7 MCH 27.4 MCHC 32.7 RDW 15.2 H Plt Count 220 Neut % (Auto) 91.7 H Lymph % (Auto) 4.9 L [place] % (Auto) 2.7 L Eos % (Auto) 0.1 L Baso % (Auto) 0.6 Neut # (Auto) 69878 H Lymph # (Auto) 600 L [place] # (Auto) 300 Eos # (Auto) 0 Baso # (Auto) 100 PT INR APTT Sodium 137 Potassium 3.7 Chloride 104 Carbon Dioxide 26 BUN 30 H Creatinine 1.20 H Estimated GFR 44 L BUN/Creatinine Ratio 25.0 H Glucose 145 H Lactate 1.9 Calcium 8.0 L Total Bilirubin AST ALT Alkaline Phosphatase NT-Pro-B Natriuret Pep Total Protein Albumin Globulin Albumin/Globulin Ratio Lipase Procalcitonin TSH Urine Color Urine Appearance Urine pH Ur Specific [place] Urine Protein Urine Glucose (UA) Urine Ketones Urine Occult Blood Urine Nitrate Urine Bilirubin Urine Urobilinogen Ur Leukocyte Esterase Urine RBC Urine WBC Ur Squamous Epith Cells Urine Bacteria Ur Culture Indicated? Vol Urine Centrifuged A.calcoaceticus-baumannii cmplx PCR Not detected Bacteroides fragilis Not detected Aide albicans (PCR) Not detected Aide auris (PCR) Not detected C. glabrata (PCR) Not detected C. krusei (PCR) Not detected C. parapsilosis (PCR) Not detected C. tropicalis (PCR) Not detected SARS-CoV-2 (PCR) C. neoform/gattii (PCR) Not detected Enterobacterales (PCR) Not detected E. cloacae complex PCR Not detected Enterococc faecalis PCR Not detected Enterococc faecium PCR Not detected E. coli (PCR) Not detected H. influenzae (PCR) Not detected Influenza A (RT-PCR) Influenza B (RT-PCR) Klebsiella aerogenes (PCR) Not detected Klebsiella oxytoca PCR Not detected Klebsiella pneumoniae Not detected List. monocytogenes PCR Not detected N. meningitidis (PCR) Not detected Proteus species (PCR) Not detected RSV (PCR) Salmonella spp. (PCR) Not detected Serratia marcescens PCR Not detected Staphylococcus sp PCR Not detected Staph aureus (PCR) Not detected mecA/C & MREJ Resist Gene Not applicable mecA/C-Methicil Resis Gene Not applicable mcr-1 Colistin Res Gene PCR Not applicable Staph epidermidis (PCR) Not detected Staph lugdunensis PCR Not detected S. maltophilia (PCR) Not detected Streptococcus sp PCR Detected Group A Strep (PCR) Not detected Strep agalactiae (PCR) Detected Strep pneumoniae (PCR) Not detected P. aeruginosa (PCR) Not detected Jason/B-Vanco Res Genes Not applicable blaIMP Car res Gene PCR Not applicable KPC-Carbap Res Gene PCR Not applicable blaNDM Car Res Gene PCR Not applicable OXA-48 Carbapenem Resis Gene (PCR) Not applicable blaVIM Car Res Gene PCR Not applicable CTX-M Gene Resistance (PCR) Not applicable Assessment & Plan Assessment & Plan narrative: Community acquired pneumonia. Admit the patient to medical telemetry as inpatient. Continue IV ceftriaxone and azithromycin. Of note the patient is not septic at this point. Acute respiratory failure with hypoxemia. Again CT angio of the chest shows no pulmonary embolism. Though there was questionable mild pulmonary edema. Will monitor now and treat as above. Wean down oxygen as able. Confusion. Could be related to underlying infection. CT head is negative. Patient's mentation is improving. Monitor for now. Aqm-peulxkf-eayhhhzpq diabetes. Hold home metformin. Subcu insulin and monitor glucose. Current glucose in the 200s. Hypertension. Monitor blood pressure and resume home medication accordingly. History of CHF again no clear signs of volume overload no CT angio suggest mild edema. Resume home oral medication of Lasix for now. Check BNP. Hyperlipidemia. Resume home statin. Restless leg syndrome. Resume home pramipexole. DVT prophylaxis heparin subcu. CODE STATUS DNR/DNI Disposition likely home in versus care facility in 2 days ADDENDUM: Note blood culture came back positive for GPC. Vancomycin ordered. Time-Based Coding :: [TOTAL MINUTES] spent with patient and on the chart (including review of chart, obtaining history, exam, reviewing outside data, placing orders, documenting exam and treatment plan, and counseling patient) on [DATE]. Quality VTE Deep Vein Thrombosis/Pulmonary Embolism Present on Admission: No
--- NOTE | 2024-04-11 07:01 | PC.NURSE ---
Pt arrived on floor @ 2250 just finishing 500 ml bolus rom ER for hypotension BP monitored ~Q1 through night, provider updated the same. Pt weaned off O2 ~0400 (see vitals in EMAR) Pt restless/ambulated on unit 1p/ww, tolerated well. 500 ml bolus given ~0430, pressures improved, final BP this shift 105/51 (72)
[2024-04-11] MEDS: ATORVASTATIN 20 MG TABLET 10 MG PO (09:58)
[2024-04-11] MEDS: FUROSEMIDE 40 MG TABLET PO (09:59)
[2024-04-11] MEDS: HEPARIN 5,000 UNIT/ML VIAL 5000 UNIT SUBCUT ×2 (09:59→22:20)
[2024-04-11] MEDS: DULOXETINE 20 MG CAPSULE PO ×2 (09:59→22:20)
[2024-04-11] MEDS: INSULIN LISPRO 100 UNIT/ML 3ML VIAL SUBCUT ×2 (10:08→17:31)
[2024-04-11] MEDS: VANCOMYCIN HCL 750 MG in SODIUM CHLORIDE 0.9% 250 ML 250 MG IV (10:09)
--- NOTE | 2024-04-11 10:58 | DI.ECHO.S_ITS ---
[facility] : : [address] : [place] : : [id number] : : Phone: [phone] Echocardiogram Report + + :Name: NORA OJEDA Study Date: 04/12/2024 Height: 65 in : :Hospital ReadingLocation: Weight: 123 lb: : Gender: Female BSA: 1.6 m2 : :: 1935 Age: 88 yrs : :Reason For Study: BACTEREMIA : :Ordering Physician: LICHA, : :SANKET SAUCEDO Performed By: Juliet Gregory : :Referring: SANKET HURT : + + Interpretation Summary The left ventricle is normal in size. Left ventricular systolic function appears normal without focal wall motion abnormalities. The ejection fraction is estimated to be 55-60%. The right ventricle is normal in size and function. The right ventricular systolic pressure is estimated to be at least 52 mmHg based on an estimated right atrial pressure of 15 mm Hg. The left atrium is mildly dilated. There is no obvious vegetation seen on the mitral valve. There is mild mitral regurgitation. The aortic valve is mildly calcified. There is no aortic valve stenosis. There is no obvious aortic valvular vegetation. There is no obvious tricuspid valve vegetation. A pulmonic valvular vegetation cannot be excluded. Procedure: A two-dimensional transthoracic echocardiogram with color flow and Doppler was performed. The study quality was technically adequate. Comparison is made with the echocardiogram of 12/23/2023. Patient had frequent tremors throughout exam causing EKG artifact. The heart rate ranged between 69-98 bpm during the study. Left Ventricle: The left ventricle is normal in size. There is normal left ventricular wall thickness. Left ventricular systolic function appears normal without focal wall motion abnormalities. The ejection fraction is estimated to be 55-60%. Right Ventricle: The right ventricle is normal in size and function. Atria: The left atrium is mildly dilated. Right atrial size is normal. There is no Doppler evidence for an interatrial shunt. Mitral Valve: The mitral valve leaflets appear mildly thickened, but open well. There is mild mitral annular calcification. There is no obvious vegetation seen on the mitral valve. There is mild mitral regurgitation. Aortic Valve: The aortic valve is mildly calcified. The aortic valve is trileaflet. There is mild aortic valve sclerosis. There is no obvious aortic valvular vegetation. There is no aortic valve stenosis. Tricuspid Valve: The tricuspid valve is normal. There is no obvious tricuspid valve vegetation. There is mild tricuspid regurgitation. The right ventricular systolic pressure is estimated to be at least 52 mmHg based on an estimated right atrial pressure of 15 mm Hg. Pulmonic Valve: The pulmonic valve leaflets are thin and pliable; valve motion is normal. A pulmonic valvular vegetation cannot be excluded. There is no pulmonic valvular regurgitation. Great Vessels: The aortic root is normal size. The dimensions of the ascending aorta are normal. The IVC is dilated (diameter is greater than 2.1 cm) and it collapses less than 50% with a sniff. This suggests a high right atrial pressure of 15 mm Hg. Pericardium/ Pleura There is no pericardial effusion. There is no pleural effusion. MMode/2D Measurements & Calculations LVIDd: 4.9 cm LVOT diam: 2.0 cm LVIDs: 2.9 cm Ao root diam: 3.0 cm FS: 40.1 % asc Aorta Diam: 3.1 cm IVSd: 0.55 cm LVPWd: 0.67 cm LV cortez. diameter/BSA (cm/m^2): 3.0 LV sys. diameter/BSA (cm/m^2): 1.8 LA A2 area: 17.0 cm2 RA long axis: 4.8 cm LA A4 area: 19.8 cm2 RA area: 20.8 cm2 LA length (vol): 5.5 cm RA vol: 76.1 ml LA vol: 51.7 ml RA : 47.3 ml/m2 LA vol index: 32.2 ml/m2 IVC diam: 2.9 cm RVD1 (basal): 4.0 cm RVD2 (mid): 2.9 cm TAPSE: 2.7 cm Doppler Measurements & Calculations Ao V2 max: 185.0 cm/sec LVOT Max Greg: 96.5 cm/sec Ao V2 mean: 123.3 cm/sec LV V1 max P.7 mmHg Ao max P.7 mmHg LV V1 VTI: 20.5 cm Ao mean P.8 mmHg KAY(I,D): 1.5 cm2 Ao V2 VTI: 39.8 cm KAY(V,D): 1.6 cm2 sev ratio: 0.51 KAY indexed to BSA (cm^2/m^2): 0.96 MV E max greg: 125.9 cm/sec TR max greg: 305.1 cm/sec MV A max greg: 108.9 cm/sec TR max P.2 mmHg MV E/A: 1.2 PA V2 max: 84.6 cm/sec Med Peak E' Greg: 8.6 cm/sec PA V2 mean: 58.3 cm/sec E/E' med: 14.6 PA mean P.5 mmHg Lat Peak E' Greg: 10.0 cm/sec PA pr(Accel): 36.6 mmHg E/E' lat: 12.6 E/e' average: 13.6 MV dec time: 0.18 sec SV(LVOT): 61.2 ml Reading Physician:12:49 PM
--- NOTE | 2024-04-11 11:03 | PC.NURSE ---
[id number] Report received from nightswaft RN. Patient GARYO keshav's 1. Reoriented to place and time. Patient assisted to bathroom using front wheeled walker. Able to ZARATE. Denies numbness and tingling. Denies pain. PIV to left arm, dressing, clean, dry and intact. Call light within reach and bed in lowest position. 1030 Daughter at the bedside. Patient assisted to bathroom.
--- NOTE | 2024-04-11 11:25 | PT.IIE ---
Medical History (Last Reviewed 12/23/23 @ 12:07 by Rafi Hernandez MD) Diabetes HLD (hyperlipidemia) HTN (hypertension) Restless legs Physical Therapy Inpatient Evaluation/Re-Eval M1 PT/OT-IP Prior Functional Status Start: 04/11/24 12:31 Freq: NEEDED Status: Active Protocol: Document 04/11/24 11:25 AB (Rec: 04/11/24 12:46 AB [id number]) Medical Review Prior Functional Status Medical History Reviewed Yes Communication able to make needs known; with confusion Mobility and Gait daughter provided pt's PLOF and home setup: stated that pt requires supervision with ambulation using a FWW. pt lives at [facility]. Activities of Daily Living and IADL's pt gets assistance with dressing, shower and toileting needs Social History Household Members caregiver Living Arrangements Assisted Living Number of Stairs To Enter/Railing? pt lives at [facility] Home Environment Standard Height Toilet,Walk in Shower Home Equipment Front Wheel Walker,Raised Toilet Seat w/Armrests,Shower Seat with Backrest,Hand Held Shower,Grab Bars In Shower Additional Social History Comment pt has a hospital bed without rails M2 PT-IP Current Condition Start: 04/11/24 12:31 Freq: NEEDED Status: Active Protocol: Document 04/11/24 11:25 AB (Rec: 04/11/24 12:46 AB [id number]) Physical Therapy Current Condition Current Condition Evaluation Date 04/11/24 Treatment Diagnosis Bactermia; PNA; difficulty in walking Onset Date 04/10/24 M3 PT-IP Subjective Start: 04/11/24 12:31 Freq: NEEDED Status: Active Protocol: Document 04/11/24 11:25 AB (Rec: 04/11/24 12:46 AB [id number]) Subjective Physical Therapy Visit Type Type Initial Evaluation Visit Start Time 11:25 Visit Stop Time 11:55 Number of PANEL MAKER Visits 0 M4 PT-IP Mobility and Gait Start: 04/11/24 12:31 Freq: NEEDED Status: Active Protocol: Document 04/11/24 11:25 AB (Rec: 04/11/24 12:46 AB [id number]) PT-Bed Mobility Assessment Supine to Sit Supine to Sit Standby Assistance PT-Transfer Assessment Sit to and From Stand Sit to and from Stand Minimal Assistance,1 Person Assistance,Use of Upper Extremities Equipment Transfer Assistive Device Gait Belt,Front Wheeled Walker Orthotic/Prosthetic Devices or Brace: No Transfers Transfer Destination Toilet Transfer Technique ambulated Transfer Ability Level of Assist Contact Guard Assistance, Minimal Assistance,1 Person Assistance,Use of Upper Extremities Comments Mobility Comments pt sitting up from supine in bed with daughter in room. daughter stated that pt wants to use the toilet. PT assisted pt. pt needing CGA to min A for sitting balance with occasional posterior LOB. cued to correct. pt completed sit to stand min A and cues and ambulated to the toilet using FWW min A and cues. needs assistance with maneuvering fWW. pt needed assistance with hygiene care and brief management. sit to stand from the toilet using grab bar min A and pt ambulated towards the sink using fWW min A. pt able to stand CGA while completing handwashing. pt agreed to walk more and completed ~ 40 ft in room using fWW CGA to min A. pt sat on the chair. positioned pt on the chair. call light and table placed within reach. Left pt with daughter in room. Gait Assessment Gait Gait Assistance Required: Contact Guard Assist,Minimum Assistance Distance (Feet) 40 Able to Maintain Weight Bearing Status Yes During Gait Assistive Devices Assistive Device Gait Belt,Front Wheeled Walker Orthotic/Prosthetic Devices or Brace: No Gait Deviations General Gait Pattern Decreased Stride Length, Decreased Feet Clearance, Flexed Trunk Factors Limiting Gait Function Factors Limiting Gait Function Decreased Activity Tolerance, Decreased Strength,Difficulty Following Directions,Limited Range of Motion,Poor Balance, Poor Safety Awareness PT-Balance Assessment Sitting Balance and Reactions Static Sitting Balance Ability Good Dynamic Sitting Balance Ability Fair Standing Balance and Reactions Static Standing Balance Ability Fair Dynamic Standing Balance Ability Fair Device Used FWW M5 PT-IP Objective Assessments Start: 04/11/24 12:31 Freq: NEEDED Status: Active Protocol: Document 04/11/24 11:25 AB (Rec: 04/11/24 12:46 AB [id number]) Orientation Orientation/Cognition Level of Alertness Alert Orientation Name Safety Awareness Decreased Safety Awareness Memory Description Short Term Impaired,Fdc Impaired Comments with confusion Gross Range of Motion Lower Extremity ROM Assessment Within Functional Limits Strength Lower Extremity Strength Assessment Within Functional Limits Muscle Tone Muscle Tone WNL Yes M6 PT-IP Treatment Start: 04/11/24 12:31 Freq: NEEDED Status: Active Protocol: Document 04/11/24 11:25 AB (Rec: 04/11/24 12:46 AB [id number]) Physical Therapy Treatment Education Education Provided Safety M7 PT-IP Assessment and Plan Start: 04/11/24 12:31 Freq: NEEDED Status: Active Protocol: Document 04/11/24 11:25 AB (Rec: 04/11/24 12:46 AB [id number]) PT Summary Assessment and Plan Potential Rehabilitation Potential Fair Status of Condition at Evaluation Evolving Summary Impairments Pain,ROM,Strength,Balance, Coordination,Cognition,Bed Mobility,Transfers,Gait, Activity Tolerance Assessment Summary pt is an 88 y/o F who is admitte for bateremia, PNA. pt requiring CGA to min A using FWW. Pt lives at [facility] and was only needing supervision using FWW prior to admission. pt to continue PT here in the hospital to improve overall strength and mobility. Goals Bed Mobility Goal Standby Assistance Transfer Goal Standby Assistance,Front Wheeled Walker Gait Goal Standby Assistance,Front Wheel Walker Gait Distance 200 Days to Meet Goals 5 Frequency of Treatment Frequency Of Treatment Once a Day Treatment Plan Physical Therapy Treatment Plan Bed Mobility Training,Transfer Training,Gait Training, Therapeutic Exercise,Balance Retraining,Discharge Planning, Hot or Cold Pack,Neuromuscular Re-ed,Coordination Retraining ,Manual Therapy Precautions Other Precautions falls Recommendations To Nursing Amount of Assist Needed 1 Person Assist Discharge Recommendations PT Discharge Recommendations Home with 24/ Assist Available,Home Health Transportation Needs at Discharge Private Vehicle
[2024-04-11] MEDS: cefTRIAXone 1,000 MG in SODIUM CHLORIDE 0.9% 100 ML 200 MG IV (13:02)
--- NOTE | 2024-04-11 14:35 | CM.DANOTE ---
Initial DCP Assessment Note Pt is an 88 yo female, resident at [facility], admitted for management of PNA with acute resp failure, hypoxemia. PCP: MD [facility]ison Payer: [employer] DE/GRACIELA Reviewed chart, pt discussed in multidisciplinary rounds this morning. Patient lives at [facility]; receives assist with meals, chores, showering, toileting and med management. Patient uses a FWW and needs cueing due to dementia. Supportive daughter Veronica at bedside throughout the day. Plan: Discharge back to [facility] is anticipated when medically stable to do so, r/o need and/or want for HH with daughter and facility staff. PT has cleared patient for this plan. CM team will plan to follow clinical course closely. Anticipate need for coordination upon discharge. YUVAL Marcelo Discharge Planning/Care Management CM Discharge Assessment Start: 04/11/24 14:32 Freq: Status: Active Protocol: Document 04/11/24 14:32 SHARITA (Rec: 04/11/24 14:35 SHARITA [id number]) Discharge Planning Assessment Assigned Medical Library Assistant YUVAL Weeks DPOA/Assigned Designee Name moncho Siddiqui Contact Information [phone] Advance Directives? Yes Advance Directives on File Yes History Provided By Family Member,Medical Record Prior Living Arrangements Assisted Living Household Members caregiver Type of transporation used prior to Relies on Others admit Facility Name Admitted From: [facility] Willing to Return to Facility? Yes Independent with ADL's No Is patient alert and oriented? No Needs Assistance With Bathing,Grooming,Meal Prep, Toileting,Managing Medications ,Home Chores / Shopping DME Already Rented / Owned FWW / Walker Barriers to Discharge No Discharge Plan Assisted Living Facility Transportation Arrangement Facility vs family Referrals Initiated None needed Additional Comment Follow for HH referral
--- NOTE | 2024-04-11 15:56 | P.PN_ITS ---
Subjective Subjective Interval history: 88 F admitted with what looks to be group B strep bacteremia, most probably from a pneumonia. She feels well today, mild cough but no other symptoms. Encephalopathy has improved. Exam Vital Signs (past 8 hours): - 04/11/24 10:00 Temperature 98.3 F Pulse Rate 64 Respiratory Rate 15 Blood Pressure 115/56 L Pulse Oximetry 94 Oxygen Flow Rate 0 Oxygen Delivery Method Room Air Oxygen Flow Rate 0 Narrative Exam Narrative: Physical Exam: GENERAL: The patient is not in any acute distressed. Awake and alert. HEENT: Nonicteric sclerae, PERRLA, EOMI. Oropharynx clear. Moist mucous membranes. HEART: Regular rate and rhythm without murmurs. No lower extremities edema. LUNGS: Clear to auscultation bilaterally. LLL rhonchi no wheezing ABDOMEN: Soft, positive bowel sounds, nontender. SKIN: No rash, no excessive bruising, petechiae, or purpura. Objective Labs 04/11/24 04:50 04/11/24 04:50 Labs: Laboratory Results - last 24 hr 04/10/24 04/10/24 04/10/24 17:08 17:10 18:35 WBC 10.8 RBC 4.23 Hgb 11.6 L Hct 35.9 L MCV 84.8 MCH 27.4 MCHC 32.3 RDW 15.7 H Plt Count 285 Neut % (Auto) 90.1 H Lymph % (Auto) 5.3 L Mckenzie % (Auto) 2.7 L Eos % (Auto) 1.5 L Baso % (Auto) 0.4 Neut # (Auto) 9700 H Lymph # (Auto) 600 L Mckenzie # (Auto) 300 Eos # (Auto) 200 Baso # (Auto) 0 PT 11.5 INR 1.0 APTT 35 Sodium 138 Potassium 3.7 Chloride 99 Carbon Dioxide 26 BUN 32 H Creatinine 1.20 H Estimated GFR 44 L BUN/Creatinine Ratio 26.7 H Glucose 210 H Lactate 2.5 H Calcium 8.9 Total Bilirubin 0.5 AST 24 ALT 15 Alkaline Phosphatase 114 NT-Pro-B Natriuret Pep 737 H Total Protein 9.1 H Albumin 4.3 Globulin 4.8 H Albumin/Globulin Ratio 0.9 L Lipase 109 Procalcitonin 0.112 TSH 3.22 Urine Color Yellow Urine Appearance Clear Urine pH 6.0 Ur Specific [place] 1.010 Urine Protein Negative Urine Glucose (UA) Trace H Urine Ketones Negative Urine Occult Blood Negative Urine Nitrate Negative Urine Bilirubin Negative Urine Urobilinogen 0.2 Ur Leukocyte Esterase 1+ H Urine RBC None seen Urine WBC 1-5/hpf Ur Squamous Epith Cells 0-1 /hpf Urine Bacteria Occasional (0-1) Ur Culture Indicated? Specimen cultured Vol Urine Centrifuged 10ml (spun) A.calcoaceticus-baumannii cmplx PCR Bacteroides fragilis Aide albicans (PCR) Aide auris (PCR) C. glabrata (PCR) C. krusei (PCR) C. parapsilosis (PCR) C. tropicalis (PCR) SARS-CoV-2 (PCR) Negative C. neoform/gattii (PCR) Enterobacterales (PCR) E. cloacae complex PCR Enterococc faecalis PCR Enterococc faecium PCR E. coli (PCR) H. influenzae (PCR) Influenza A (RT-PCR) Flu a negative Influenza B (RT-PCR) Flu b negative Klebsiella aerogenes (PCR) Klebsiella oxytoca PCR Klebsiella pneumoniae List. monocytogenes PCR N. meningitidis (PCR) Proteus species (PCR) RSV (PCR) Negative Salmonella spp. (PCR) Serratia marcescens PCR Staphylococcus sp PCR Staph aureus (PCR) mecA/C & MREJ Resist Gene mecA/C-Methicil Resis Gene mcr-1 Colistin Res Gene PCR Staph epidermidis (PCR) Staph lugdunensis PCR S. maltophilia (PCR) Streptococcus sp PCR Group A Strep (PCR) Strep agalactiae (PCR) Strep pneumoniae (PCR) P. aeruginosa (PCR) Jason/B-Vanco Res Genes blaIMP Car res Gene PCR KPC-Carbap Res Gene PCR blaNDM Car Res Gene PCR OXA-48 Carbapenem Resis Gene (PCR) blaVIM Car Res Gene PCR CTX-M Gene Resistance (PCR) 04/10/24 04/10/24 04/11/24 19:20 23:43 04:50 WBC 12.3 H RBC 3.42 L Hgb 9.4 L Hct 28.6 L MCV 83.7 MCH 27.4 MCHC 32.7 RDW 15.2 H Plt Count 220 Neut % (Auto) 91.7 H Lymph % (Auto) 4.9 L Mckenzie % (Auto) 2.7 L Eos % (Auto) 0.1 L Baso % (Auto) 0.6 Neut # (Auto) 30381 H Lymph # (Auto) 600 L Mckenzie # (Auto) 300 Eos # (Auto) 0 Baso # (Auto) 100 PT INR APTT Sodium 137 Potassium 3.7 Chloride 104 Carbon Dioxide 26 BUN 30 H Creatinine 1.20 H Estimated GFR 44 L BUN/Creatinine Ratio 25.0 H Glucose 145 H Lactate 1.9 Calcium 8.0 L Total Bilirubin AST ALT Alkaline Phosphatase NT-Pro-B Natriuret Pep Total Protein Albumin Globulin Albumin/Globulin Ratio Lipase Procalcitonin TSH Urine Color Urine Appearance Urine pH Ur Specific [place] Urine Protein Urine Glucose (UA) Urine Ketones Urine Occult Blood Urine Nitrate Urine Bilirubin Urine Urobilinogen Ur Leukocyte Esterase Urine RBC Urine WBC Ur Squamous Epith Cells Urine Bacteria Ur Culture Indicated? Vol Urine Centrifuged A.calcoaceticus-baumannii cmplx PCR Not detected Bacteroides fragilis Not detected Aide albicans (PCR) Not detected Aide auris (PCR) Not detected C. glabrata (PCR) Not detected C. krusei (PCR) Not detected C. parapsilosis (PCR) Not detected C. tropicalis (PCR) Not detected SARS-CoV-2 (PCR) C. neoform/gattii (PCR) Not detected Enterobacterales (PCR) Not detected E. cloacae complex PCR Not detected Enterococc faecalis PCR Not detected Enterococc faecium PCR Not detected E. coli (PCR) Not detected H. influenzae (PCR) Not detected Influenza A (RT-PCR) Influenza B (RT-PCR) Klebsiella aerogenes (PCR) Not detected Klebsiella oxytoca PCR Not detected Klebsiella pneumoniae Not detected List. monocytogenes PCR Not detected N. meningitidis (PCR) Not detected Proteus species (PCR) Not detected RSV (PCR) Salmonella spp. (PCR) Not detected Serratia marcescens PCR Not detected Staphylococcus sp PCR Not detected Staph aureus (PCR) Not detected mecA/C & MREJ Resist Gene Not applicable mecA/C-Methicil Resis Gene Not applicable mcr-1 Colistin Res Gene PCR Not applicable Staph epidermidis (PCR) Not detected Staph lugdunensis PCR Not detected S. maltophilia (PCR) Not detected Streptococcus sp PCR Detected Group A Strep (PCR) Not detected Strep agalactiae (PCR) Detected Strep pneumoniae (PCR) Not detected P. aeruginosa (PCR) Not detected Jason/B-Vanco Res Genes Not applicable blaIMP Car res Gene PCR Not applicable KPC-Carbap Res Gene PCR Not applicable blaNDM Car Res Gene PCR Not applicable OXA-48 Carbapenem Resis Gene (PCR) Not applicable blaVIM Car Res Gene PCR Not applicable CTX-M Gene Resistance (PCR) Not applicable [facility] Medical History HLD (hyperlipidemia) Restless legs HTN (hypertension) Diabetes Social History household members: caregiver Smoking Status: Former smoker alcohol intake: current Assessment & Plan Assessment & Plan narrative: #Sepsis with acute metabolic encephalopathy, acute respiratory failure with hypoxia secondary to gram positive bacteremia. POA, improving - PCR for blood cultures showing group B strep - continue ceftriaxone (increased to 2g daily given bacteremia) and vancomycin for now pending final speciation and sensitivity. - encephalopathy improving today. - repeat blood cultures tomorrow to show clearance. Treatment is typically at least 2 weeks of IV antibiotics. - TTE ordered - source is probably pulmonary based on initial evaluation and imaging. #Nze-iicwkzn-edyxkhtqn diabetes. POA, chronic - hypoglycemic with 10 U of lantus given overnight - hold lantus, sliding scale only. hold home metformin #Hypertension. chronic - continue home furosemide #Chronic diastolic heart failure, POA - continue home furosemide 40 mg daily, appears euvolemic on exam today #Hyperlipidemia. chronic - continue home statin #Restless leg syndrome. chronic - continue home pramipexole. Chronic cognitive impairment - resides at [facility] normally. DVT prophylaxis heparin subcu. CODE STATUS DNR/DNI, surrogate is patient's daughter Disposition likely SNF with IV antibiotics. Inpatient status, likely 2-3 more days in the hospital needed. I have utilized all available immediate resources to obtain, update, or review the patient's current medications. Additional history obtained via discussions with the overnight provider and patient's daughter. These discussions contributed to the creation of the above assessment and plan. I have reviewed patient's presenting documentation, labs, and imaging personally. Time-Based Coding :: [TOTAL MINUTES] spent with patient and on the chart (including review of chart, obtaining history, exam, reviewing outside data, placing orders, documenting exam and treatment plan, and counseling patient) on [DATE]. Quality VTE Deep Vein Thrombosis/Pulmonary Embolism Present on Admission: No
[2024-04-11] MEDS: cefTRIAXone 2,000 MG in SODIUM CHLORIDE 0.9% 100 ML 200 MG IV (20:40)
[2024-04-11] MEDS: OLANZapine 2.5 MG TABLET PO (22:20)
[2024-04-11] MEDS: PRAMIPEXOLE 0.25 MG TABLET 0.5 MG PO (22:20)
[2024-04-11] MEDS: AZITHROMYCIN 500 MG in DEXTROSE 5% IN WATER 250 ML 250 MG IV (22:56)
[2024-04-12] MEDS: VANCOMYCIN HCL 750 MG in SODIUM CHLORIDE 0.9% 250 ML 250 MG IV (03:33)
[2024-04-12 04:00] VITALS: BP 113/51; PULSE 71; RESP 18; TEMP 36.8; O2SAT 92
[2024-04-12 05:01] LABS: Add Manual Diff / Slide Review NO; Basophils Absolute Auto 100 /uL (0-100); Eosinophils Absolute Auto 100 /uL (0-450); Eosinophils Percent Auto 1.2 % (2-4); Hemoglobin 9.3 g/dL (12.0-16.0); Lymphocytes Absolute Auto 1300 /uL (1100-4500); Mean Corpuscular HGB Conc 33.2 % (30-36); Mean Corpuscular Hemoglobin 27.6 PG (26-34); Mean Corpuscular Volume 83.1 fL (80-100); Monocytes Absolute Auto 900 /uL (0-900); Monocytes Percent Auto 12.5 % (3-14); Neutrophils Absolute Auto 4800 /uL (1500-7000); Neutrophils Percent Auto 67.3 % (50-75); Platelet Count 200 X10^3/uL (150-400); Red Blood Cell Count 3.37 X10^6/uL (4.0-5.2); Red Cell Distribution Width 15.3 % (11.6-14.8); White Blood Cell Count 7.1 X10^3/uL (4.5-11.0)
[2024-04-12 05:06] LABS: Alanine Aminotransferase 24 IU/L (<35); Albumin 3.1 g/dL (3.5-5.0); Albumin Globulin Ratio 0.9 (1.0-2.8); Alkaline Phosphatase 98 U/L (38-126); Aspartate Aminotransferase 39 IU/L (14-36); Bilirubin Total 0.2 mg/dL (0.2-1.3); Blood Urea Nitrogen 21 mg/dL (7-17); Calcium 8.1 mg/dL (8.4-10.2); Carbon Dioxide 24 mmol/L (22-32); Chloride 105 mmol/L (98-107); Estimated Glomerular Filt Rate 51 mL/min (>60); Globulin 3.6 g/dL (1.7-4.1); Glucose 111 mg/dL (80-110); HEMOLYSIS < 15 (0-50); Magnesium 1.7 mg/dL (1.6-2.3); Potassium 3.8 mmol/L (3.4-5.1); Sodium 135 mmol/L (137-145); Total Protein 6.7 g/dL (6.3-8.2)
[2024-04-12 05:08] LABS: C-Reactive Protein Quant 7.5 mg/dL (<1.0)
[2024-04-12 05:20] LABS: Erythrocyte Sedimentation Rate 52 MM/HR (0-20)
[2024-04-12] MEDS: HALOPERIDOL 5 MG/ML VIAL 2.5 MG IV (05:45)
--- NOTE | 2024-04-12 06:37 | PC.NURSE ---
Pt refusing to get back into bed. Suspicious of staff, confused, alert only to self. 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 Agitation increasing, refusing to express wants and needs. Patient placed back into bed, but frequently attempts to leave bed despite redirection, reorientation, and education. Rec'd order for one time dose of 2.5 mg IV haldol. Pt tolerated administration. Pt still only alert to self, does report an increase in spasticity of legs from RLS. This RN near bedside to ensure patient safety until patient ceases attempts to exit bed without assistance.
[2024-04-12] MEDS: ACETAMINOPHEN 325 MG TABLET 650 MG PO (07:01)
[2024-04-12 08:00] VITALS: BP 134/48; PULSE 76; RESP 20; TEMP 36.3; O2SAT 92
[2024-04-12] MEDS: MAGNESIUM CHLORIDE 64 MG TABLET 128 MG PO (08:12)
[2024-04-12] MEDS: HEPARIN 5,000 UNIT/ML VIAL 5000 UNIT SUBCUT ×2 (08:12→20:33)
[2024-04-12] MEDS: ATORVASTATIN 20 MG TABLET 10 MG PO (08:12)
[2024-04-12] MEDS: DULOXETINE 20 MG CAPSULE PO ×2 (08:12→20:34)
[2024-04-12] MEDS: FUROSEMIDE 40 MG TABLET PO (08:12)
[2024-04-12] MEDS: INSULIN LISPRO 100 UNIT/ML 3ML VIAL SUBCUT (08:13)
[2024-04-12 09:26] VITALS: O2SAT 95
[2024-04-12] MEDS: OXYCODONE IR 5 MG TABLET 2.5 MG PO (10:02)
--- NOTE | 2024-04-12 10:22 | P.PN_ITS ---
Subjective Subjective Interval history: 88 F admitted with group B strep bacteremia, most probably from a pneumonia but urine culture also positive with group B strep. She was restless last night, complains of discomfort in her legs, received haldol without much relief. Suspect related to SCDs, will stop these. Will trial small oxycodone dose of 2.5 mg to see if improvement. Exam Vital Signs (past 8 hours): - 04/12/24 04:00 04/12/24 08:00 04/12/24 09:26 Temperature 98.2 F 97.4 F L Pulse Rate 71 76 Respiratory Rate 18 20 Blood Pressure 113/51 L 134/48 L Pulse Oximetry 92 92 95 Oxygen Delivery Method Nasal Cannula Oxygen Flow Rate 1 1 1 Oxygen Delivery Method Nasal Cannula Oxygen Flow Rate 1 Narrative Exam Narrative: Physical Exam: GENERAL: The patient is not in any acute distressed. Awake and alert. HEENT: Nonicteric sclerae, PERRLA, EOMI. Oropharynx clear. Moist mucous membranes. HEART: Regular rate and rhythm without murmurs. No lower extremities edema. LUNGS: Clear to auscultation bilaterally. LLL rhonchi no wheezing ABDOMEN: Soft, positive bowel sounds, nontender. SKIN: No rash, no excessive bruising, petechiae, or purpura. Objective Labs 04/12/24 04:30 04/12/24 04:30 Labs: Laboratory Results - last 24 hr 04/12/24 04:30 WBC 7.1 RBC 3.37 L Hgb 9.3 L Hct 28.0 L MCV 83.1 MCH 27.6 MCHC 33.2 RDW 15.3 H Plt Count 200 Neut % (Auto) 67.3 D Lymph % (Auto) 18.0 L Pershing % (Auto) 12.5 Eos % (Auto) 1.2 L Baso % (Auto) 1.0 Neut # (Auto) 4800 Lymph # (Auto) 1300 Pershing # (Auto) 900 Eos # (Auto) 100 Baso # (Auto) 100 ESR 52 H Sodium 135 L Potassium 3.8 Chloride 105 Carbon Dioxide 24 BUN 21 H Creatinine 1.05 H Estimated GFR 51 L BUN/Creatinine Ratio 20.0 Glucose 111 H Calcium 8.1 L Magnesium 1.7 Total Bilirubin 0.2 AST 39 H ALT 24 Alkaline Phosphatase 98 C-Reactive Protein 7.5 H Total Protein 6.7 Albumin 3.1 L Globulin 3.6 Albumin/Globulin Ratio 0.9 L [facility] Medical History HLD (hyperlipidemia) Restless legs HTN (hypertension) Diabetes Social History household members: caregiver Smoking Status: Former smoker alcohol intake: current Assessment & Plan Assessment & Plan narrative: #Sepsis with acute metabolic encephalopathy, acute respiratory failure with hypoxia secondary to group B strep bacteremia. POA, improving - blood cultures showing group B strep, 4/4 bottles. Repeat blood cultures 04/11 pending still. - continue ceftriaxone (increased to 2g daily given bacteremia). Stopped vancomycin as cultures show sensitivity to ceftriaxone. - encephalopathy has improved. Likely restless overnight due to SCDs, will stop and trial pain medications. - repeat blood cultures tomorrow to show clearance. Treatment is typically at least 2 weeks of IV antibiotics. - TTE ordered - source is probably pulmonary based on initial evaluation and imaging. #Hlx-khsqknj-ywevbjvat diabetes. POA, chronic - hypoglycemic with 10 U of lantus given overnight on HD#1. - hold lantus, sliding scale only. hold home metformin #Hypertension. chronic - continue home furosemide #Chronic diastolic heart failure, POA - continue home furosemide 40 mg daily, appears euvolemic on exam today #Hyperlipidemia. chronic - continue home statin #Restless leg syndrome. chronic - continue home pramipexole, with overnight issues will attempt moving up bedtime dosing to 1800. - will trial additional gabapentin given inability to sit for more than 15 minutes today. start with 100 at lunch, 200 mg at bedtime. Chronic cognitive impairment - resides at [facility] normally. - continue home olanzapine at night DVT prophylaxis heparin subcu. CODE STATUS DNR/DNI, surrogate is patient's daughter Disposition likely SNF with IV antibiotics. Inpatient status, likely 2-3 more days in the hospital needed. I have utilized all available immediate resources to obtain, update, or review the patient's current medications. Additional history obtained via discussions with the overnight provider, bedside RN, case finishing machine adjuster today. These discussions contributed to the creation of the above assessment and plan. I have reviewed patient's presenting documentation, labs, and imaging personally. Time-Based Coding :: [TOTAL MINUTES] spent with patient and on the chart (including review of chart, obtaining history, exam, reviewing outside data, placing orders, documenting exam and treatment plan, and counseling patient) on [DATE]. Quality VTE Deep Vein Thrombosis/Pulmonary Embolism Present on Admission: No
--- NOTE | 2024-04-12 12:24 | PT-IP ANOTE ---
PT checks on pt who is finishing her lunch. Daughter nearby and they state she has been up walking in halls this morning. Pleasantly declining mobility at this time.
[2024-04-12] MEDS: GABAPENTIN 100 MG CAPSULE PO (12:26)
[2024-04-12] MEDS: OXYCODONE IR 5 MG TABLET PO (13:48)
--- NOTE | 2024-04-12 14:27 | CM.DPNOTE ---
DCP note RETAIL DEPARTMENT RESET reviewed EMR per provider in morning rounds, culture pos with group B strep. needs 2 weeks of IV Ceftriaxone. need PICC line. no PICC ordered at this time, RETAIL DEPARTMENT RESET inquired with RN on if there is a PICC plan. RETAIL DEPARTMENT RESET spoke with Alla Dtr ([phone]). Dtr preference is for pt to return to [facility] but acknowledges cannot with IV abx. preference is [facility] RETAIL DEPARTMENT RESET reviewed potential barriers (i.e. [employer] MCR auth) dtr expressed understanding. will review 2nd choices if [facility] unable to accept pt. RETAIL DEPARTMENT RESET spoke with Emmy at . acceptance pending, their DNS will review tomorrow. will attempt [employer] auth. PASRR pending. P: pt needs two weeks SNF for IV ceftriaxone final dosing pending, [facility] reviewing/auth pending. PICC Needed. CM team will continue to follow closely/update dtr as needed. vs return to [facility] if no IV abx indicated. YUVAL Morley
[2024-04-12 16:00] VITALS: BP 142/67; PULSE 65; RESP 18; TEMP 36.1; O2SAT 92
[2024-04-12 17:11] LABS: Hemoglobin A1C% w Est Avg Glu 6.9 % (4.0-6.0)
[2024-04-12] MEDS: PRAMIPEXOLE 0.25 MG TABLET 0.5 MG PO (18:39)
[2024-04-12 20:00] VITALS: BP 127/65; PULSE 60; RESP 12; TEMP 36.2; O2SAT 98
[2024-04-12] MEDS: AZITHROMYCIN 500 MG in DEXTROSE 5% IN WATER 250 ML 250 MG IV (20:24)
[2024-04-12] MEDS: OLANZapine 2.5 MG TABLET PO (20:34)
[2024-04-12] MEDS: GABAPENTIN 100 MG CAPSULE 200 MG PO (20:34)
[2024-04-12 21:04] VITALS: O2SAT 98
[2024-04-12] MEDS: cefTRIAXone 2,000 MG in SODIUM CHLORIDE 0.9% 100 ML 200 MG IV (22:14)
[2024-04-13] VITALS (7 sets, daily range): BP systolic 116–139; BP diastolic 56–73; PULSE 65–79; RESP 12–17; TEMP 36.1–36.5; O2SAT 93–97
[2024-04-13 05:06] LABS: Add Manual Diff / Slide Review NO; Basophils Absolute Auto 0 /uL (0-100); Basophils Percent Auto 0.5 % (0-2); Eosinophils Absolute Auto 300 /uL (0-450); Eosinophils Percent Auto 3.6 % (2-4); Hematocrit 28.2 % (36-46); Hemoglobin 9.4 g/dL (12.0-16.0); Lymphocytes Absolute Auto 1300 /uL (1100-4500); Lymphocytes Percent Auto 18.1 % (25-40); Mean Corpuscular HGB Conc 33.5 % (30-36); Mean Corpuscular Hemoglobin 27.9 PG (26-34); Mean Corpuscular Volume 83.2 fL (80-100); Monocytes Absolute Auto 1000 /uL (0-900); Monocytes Percent Auto 14.1 % (3-14); Neutrophils Absolute Auto 4400 /uL (1500-7000); Neutrophils Percent Auto 63.7 % (50-75); Platelet Count 216 X10^3/uL (150-400); Red Blood Cell Count 3.38 X10^6/uL (4.0-5.2); Red Cell Distribution Width 15.2 % (11.6-14.8)
[2024-04-13 05:16] LABS: Alanine Aminotransferase 20 IU/L (<35); Albumin 3.2 g/dL (3.5-5.0); Albumin Globulin Ratio 0.9 (1.0-2.8); Alkaline Phosphatase 102 U/L (38-126); Aspartate Aminotransferase 30 IU/L (14-36); Bilirubin Total 0.3 mg/dL (0.2-1.3); Blood Urea Nitrogen 18 mg/dL (7-17); Calcium 8.5 mg/dL (8.4-10.2); Carbon Dioxide 24 mmol/L (22-32); Chloride 107 mmol/L (98-107); Estimated Glomerular Filt Rate 44 mL/min (>60); Globulin 3.7 g/dL (1.7-4.1); Glucose 108 mg/dL (80-110); HEMOLYSIS < 15 (0-50); Magnesium 1.9 mg/dL (1.6-2.3); Potassium 3.9 mmol/L (3.4-5.1); Sodium 138 mmol/L (137-145); Total Protein 6.9 g/dL (6.3-8.2)
[2024-04-13] MEDS: ATORVASTATIN 20 MG TABLET 10 MG PO (09:55)
[2024-04-13] MEDS: DULOXETINE 20 MG CAPSULE PO ×2 (09:56→20:55)
[2024-04-13] MEDS: FUROSEMIDE 40 MG TABLET PO (09:56)
[2024-04-13] MEDS: HEPARIN 5,000 UNIT/ML VIAL 5000 UNIT SUBCUT ×2 (09:56→20:55)
--- NOTE | 2024-04-13 11:12 | PC.NURSE ---
Patient up ambulating in the halls, she is confused but pleasant. She denies pain and when she discharges she will have outpatient iv antibiotics in the SNF. Patient is unbalanced when she ambulated per PT, and tends to go to the right side. She is a min assist when ambulating.
--- NOTE | 2024-04-13 11:32 | PT.IPTN ---
Current Diagnoses Pneumonia, unspecified organism (04/10/24) Physical Therapy Treatment Note M2 PT-IP Current Condition Start: 04/11/24 12:31 Freq: NEEDED Status: Active Protocol: Document 04/13/24 10:42 SP (Rec: 04/13/24 11:55 SP [id number]) Physical Therapy Current Condition Current Condition Evaluation Date 04/11/24 Treatment Diagnosis Bactermia; PNA; difficulty in walking Onset Date 04/10/24 M3 PT-IP Subjective Start: 04/11/24 12:31 Freq: NEEDED Status: Active Protocol: Document 04/13/24 10:42 SP (Rec: 04/13/24 11:55 SP [id number]) Subjective Physical Therapy Visit Type Type Treatment Note Visit Start Time 10:42 Visit Stop Time 11:32 Notes Visitor patient's deepa Shelton in room when arrived , pt agreeable to her staying during tx. *Contact precautions were removed. Number of SERVICING MANAGER Visits 1 Physical Therapy Visit Comments Patient Comments Pt up in bed when arrived, agreeable to working with SERVICING MANAGER. M4 PT-IP Mobility and Gait Start: 04/11/24 12:31 Freq: NEEDED Status: Active Protocol: Document 04/13/24 10:42 SP (Rec: 04/13/24 11:55 SP [id number]) PT-Bed Mobility Assessment Sit to Supine Sit to Supine Standby Assistance,1 Person Assistance Scooting Scooting to Edge of Bed Standby Assistance PT-Transfer Assessment Sit to and From Stand Sit to and from Stand Contact Guard Assistance, Minimal Assistance,1 Person Assistance,Use of Upper Extremities Equipment Transfer Assistive Device Gait Belt,Front Wheeled Walker Orthotic/Prosthetic Devices or Brace: No Transfers Transfer Destination Chair,Toilet Transfer Technique ambulated with FWW Transfer Ability Level of Assist Contact Guard Assistance, Minimal Assistance,1 Person Assistance,Use of Upper Extremities Comments Mobility Comments Pt vitals BP supine LUE 132/80 HR 65 and SaO2 95% on RA. SaO2 88-91% on RA during mobility. Education on use of blue pickle blowing device found in her chair for carryover exhale breath support reduction congestion another provider must have given her. Complete sup>sit, scoot to EOB close SBA HOB flat today. STS cues push from bed comingtostanding /c FWW CGA- Min A due to R trunk lean . Cues midline L inside FWW. Progressed gait into hallway approx 200 ft /c FWW CG, 3 instances of Min A for LOB to R during turning. Pt needs Mod cuing for head up and navigation directioning to her room, bathroom, full pivot back to toilet, CG-Min A self pant mgt standing 1 UE on FWW/ rail hand over hand directioning, controlled sit and stand Min A, self pericare ), gait to sink CGA /c FWW. Completes wash hand unsupported close SBA. Pt returns to chair, Modcues for body and FWW assist backing up / centering front chair CG/ Luke controlled sit. SERVICING MANAGER assisted recliner leg elevation, donned chair alarm due fall risk and call light with tray needs in front. Friend in room when left. Pt and friend stated a man without badge nor lab coat came Yesterday and today, seemed like a visitor. SERVICING MANAGER passed this info along to [facility] nurse for safety awareness. Gait Assessment Gait Gait Assistance Required: Contact Guard Assist,Minimum Assistance Distance (Feet) 100 Assistive Devices Assistive Device Gait Belt,Front Wheeled Walker Orthotic/Prosthetic Devices or Brace: No Gait Deviations General Gait Pattern Decreased Stride Length, Decreased Feet Clearance, Flexed Trunk,Lateral Trunk Lean,Narrow Based Gait Factors Limiting Gait Function Factors Limiting Gait Function Decreased Activity Tolerance, Decreased Strength,Difficulty Following Directions,Poor Balance,Poor Safety Awareness Comments Gait Comments See mobility comments, had 3 LOB to R during turns, Min A recovery /c FWW Stair Climbing Assessment Comments Stair Climbing Comments no stairs at [facility] need to assess. PT-Balance Assessment Sitting Balance and Reactions Static Sitting Balance Ability Good Dynamic Sitting Balance Ability Fair Standing Balance and Reactions Static Standing Balance Ability Fair Dynamic Standing Balance Ability Fair Device Used FWW & GB M5 PT-IP Objective Assessments Start: 04/11/24 12:31 Freq: NEEDED Status: Active Protocol: Document 04/11/24 11:25 AB (Rec: 04/11/24 12:46 AB [id number]) Orientation Orientation/Cognition Level of Alertness Alert Orientation Name Safety Awareness Decreased Safety Awareness Memory Description Short Term Impaired,Freelance Digital Project Manager Impaired Comments with confusion Gross Range of Motion Lower Extremity ROM Assessment Within Functional Limits Strength Lower Extremity Strength Assessment Within Functional Limits Muscle Tone Muscle Tone WNL Yes M6 PT-IP Treatment Start: 04/11/24 12:31 Freq: NEEDED Status: Active Protocol: Document 04/13/24 10:42 SP (Rec: 04/13/24 11:55 SP [id number]) Physical Therapy Treatment Education Education Provided Safety M7 PT-IP Assessment and Plan Start: 04/11/24 12:31 Freq: NEEDED Status: Active Protocol: Document 04/13/24 10:42 SP (Rec: 04/13/24 11:55 SP [id number]) PT Summary Assessment and Plan Potential Rehabilitation Potential Fair Status of Condition at Evaluation Evolving Summary Impairments Pain,ROM,Strength,Balance, Coordination,Cognition,Bed Mobility,Transfers,Gait, Activity Tolerance Progress Towards Goals Slow Progress due to Activity Tolerance Assessment Summary Pt improved SBA sup>sit, CG/ MIn A transfers and gait with FWW, had 3 LOB to right during turns, tends to body position more to right in FWW, cues for corrections. She has decreased memory to directioning, needs hand over hand duringtransfers UEs on chair and proper positioning on FWW. Currently, he will require SNF for strength and safety transfer and gait stretegies and balance at d/c. Pt lives at [facility] and was only needing supervision using FWW prior to admission. pt to continue PT here in the hospital to improve overall strength and mobility. Goals Bed Mobility Goal Standby Assistance Transfer Goal Standby Assistance,Front Wheeled Walker Gait Goal Standby Assistance,Front Wheel Walker Gait Distance 200 Days to Meet Goals 5 Frequency of Treatment Frequency Of Treatment Once a Day Treatment Plan Physical Therapy Treatment Plan Bed Mobility Training,Transfer Training,Gait Training, Therapeutic Exercise,Balance Retraining,Discharge Planning, Hot or Cold Pack,Neuromuscular Re-ed,Coordination Retraining ,Manual Therapy Precautions Other Precautions falls Recommendations To Nursing Amount of Assist Needed 1 Person Assist Discharge Recommendations PT Discharge Recommendations SNF Rehab Transportation Needs at Discharge Wheelchair/Cabulance
--- NOTE | 2024-04-13 12:12 | DIET.CONS ---
Dietary Consultation Note Admission Date: 04/10/2024 20:08 Assessment: 88 y F admitted for sepsis. Dietitian screened for MNA. PMH of chronic cognitive impairment, CKD, CHF, and non-insulin dependent diabetes with latest A1c of 6.9%. EMR reviewed. Pt with 75-100% recorded PO intakes. UBW: Pt +8.5 kg from last admission in Dec 2023 (47.5 kg on 12/23/23). Pt's weight was trending between 55-60 kg first half of 2023. Per hospitalist progress note, pt appears euvolemic Ht: 165.1 cm Wt: 56 kg BMI: 20.5 Last BM: 04/08/24 (04/10/24 22:34) MNA: 8 David Score: 19 Diet: 04/11/24 Breakfast Carbohydrate Consistent Diet Diet Modifications: Carbohydrate level: Medium (3 CHO) Reflex DM orders: No Food Texture: Level 7 - Regular Liquid Consistency: Level 0 - Thin Nutrition Percent Meal Consumed 75% 04/13/24 10:00 Percent Meal Consumed 100% 04/12/24 12:41 Labs: RBC 3.38 X10^6/uL (4.0-5.2) L 04/13/24 04:10 Hgb 9.4 g/dL (12.0-16.0) L 04/13/24 04:10 Hct 28.2 % (36-46) L 04/13/24 04:10 Creatinine 1.20 mg/dL (0.52-1.04) H 04/13/24 04:10 Hemoglobin A1c 6.9 % (4.0-6.0) H 04/12/24 04:30 Lactate 1.9 mmol/L (0.7-2.1) 04/10/24 19:20 NT-Pro-B Natriuret Pep 737 pg/mL (<450) H 04/10/24 17:08 Monitoring/Evaluations: Continuing to monitor PO intakes Electronically Signed by: Karina Lamar 04/13/24 12:12 Clinical Dietitian [address] [id number]
[2024-04-13] MEDS: GABAPENTIN 100 MG CAPSULE PO (12:19)
--- NOTE | 2024-04-13 13:52 | P.PN_ITS ---
Subjective Subjective Interval history: 88 F admitted with group B strep bacteremia, most probably from a pneumonia but urine culture also positive with group B strep. Legs much less restless today. Exam Vital Signs (past 8 hours): - 04/13/24 08:00 04/13/24 08:18 04/13/24 12:00 Temperature 97.4 F L 97 F L Pulse Rate 71 73 Respiratory Rate 17 17 Blood Pressure 120/70 139/73 Pulse Oximetry 93 97 93 Oxygen Delivery Method Nasal Cannula Oxygen Flow Rate 0 1 0 Fraction of Inspired Oxygen 24 SaO2/FiO2 Ratio 408 Oxygen Delivery Method Nasal Cannula Oxygen Flow Rate 0 Narrative Exam Narrative: Physical Exam: GENERAL: The patient is not in any acute distressed. Awake and alert. HEENT: Nonicteric sclerae, PERRLA, EOMI. Oropharynx clear. Moist mucous membranes. HEART: Regular rate and rhythm without murmurs. No lower extremities edema. LUNGS: Clear to auscultation bilaterally. LLL rhonchi no wheezing ABDOMEN: Soft, positive bowel sounds, nontender. SKIN: No rash, no excessive bruising, petechiae, or purpura. Objective Labs 04/13/24 04:10 04/13/24 04:10 Labs: Laboratory Results - last 24 hr 04/12/24 04/13/24 04:30 04:10 WBC 7.0 RBC 3.38 L Hgb 9.4 L Hct 28.2 L MCV 83.2 MCH 27.9 MCHC 33.5 RDW 15.2 H Plt Count 216 Neut % (Auto) 63.7 Lymph % (Auto) 18.1 L [place] % (Auto) 14.1 H Eos % (Auto) 3.6 Baso % (Auto) 0.5 Neut # (Auto) 4400 Lymph # (Auto) 1300 [place] # (Auto) 1000 H Eos # (Auto) 300 Baso # (Auto) 0 Sodium 138 Potassium 3.9 Chloride 107 Carbon Dioxide 24 BUN 18 H Creatinine 1.20 H Estimated GFR 44 L BUN/Creatinine Ratio 15.0 Glucose 108 Hemoglobin A1c 6.9 H Calcium 8.5 Magnesium 1.9 Total Bilirubin 0.3 AST 30 ALT 20 Alkaline Phosphatase 102 Total Protein 6.9 Albumin 3.2 L Globulin 3.7 Albumin/Globulin Ratio 0.9 L [facility] Medical History HLD (hyperlipidemia) Restless legs HTN (hypertension) Diabetes Social History household members: caregiver Smoking Status: Former smoker alcohol intake: current Assessment & Plan Assessment & Plan narrative: #Sepsis with acute metabolic encephalopathy, acute respiratory failure with hypoxia secondary to group B strep bacteremia. POA, improving - blood cultures showing group B strep, 4/4 bottles. Repeat blood cultures 04/11 without growth. - continue ceftriaxone (increased to 2g daily given bacteremia). Stopped vancomycin as cultures show sensitivity to ceftriaxone. - encephalopathy has improved. Likely restless overnight due to SCDs, improved today. - 2 weeks of IV ceftriaxone, PICC tomorrow if repeat cultures negative at 48 hours. Will discuss with outpatient ID provider if any outpatient evaluation is needed or additional recommendations. - TTE without obvious vegetation. - source is probably pulmonary vs urine based on initial evaluation and imaging. #[id number]-[id number] diabetes. POA, chronic - hypoglycemic with 10 U of lantus given overnight on HD#1. - daughter refusing any insulin for patient, but blood sugars had been okay. Stopped fingersticks. Resume metformin on discharge. #Hypertension. chronic - continue home furosemide #Chronic diastolic heart failure, POA - continue home furosemide 40 mg daily, appears euvolemic on exam today #Hyperlipidemia. chronic - continue home statin #Restless leg syndrome. chronic, active. - continue home pramipexole, with overnight restlessness moved up bedtime dosing to 1800. - also added gabapentin with 100 at lunch, 200 mg at bedtime on 04/12 due to restless legs and inability to sit for more than 15 minutes per daughter. Oxycodone 2.5 not effective but 5 mg was better. Try to limit oxycodone to very severe symptoms. Chronic cognitive impairment - resides at [facility] normally. - continue home olanzapine at night DVT prophylaxis heparin subcu. CODE STATUS DNR/DNI, surrogate is patient's daughter Disposition likely SNF with IV antibiotics. Inpatient status, likely 2-3 more days in the hospital needed. Anticipate discharge 04/15. I have utilized all available immediate resources to obtain, update, or review the patient's current medications. Additional history obtained via discussions with the overnight provider, bedside RN, rehabilitation case coordinator today. These discussions contributed to the creation of the above assessment and plan. I have reviewed patient's presenting documentation, labs, and imaging personally. Time-Based Coding :: [TOTAL MINUTES] spent with patient and on the chart (including review of chart, obtaining history, exam, reviewing outside data, placing orders, documenting exam and treatment plan, and counseling patient) on [DATE]. Quality VTE Deep Vein Thrombosis/Pulmonary Embolism Present on Admission: No
--- NOTE | 2024-04-13 14:40 | OT.IP.EVAL ---
Current Diagnoses Pneumonia, unspecified organism (04/10/24) Past Medical History (Last Reviewed 12/23/23 @ 12:07 by Rafi Hernandez MD) Diabetes HLD (hyperlipidemia) HTN (hypertension) Restless legs Occupational Therapy Inpatient Evaluation/Re-Eval M1 PT/OT-IP Prior Functional Status Start: 04/11/24 12:31 Freq: NEEDED Status: Active Protocol: Document 04/13/24 14:17 JESUSNJALPHONSE (Rec: 04/13/24 14:40 [facility] [id number]) Medical Review Prior Functional Status Medical History Reviewed Yes Communication able to make needs known; with confusion Mobility and Gait daughter provided pt's PLOF and home setup: stated that pt requires supervision with ambulation using a FWW. pt lives at [facility]. Activities of Daily Living and IADL's pt gets assistance with dressing, shower and toileting needs Social History Household Members caregiver Living Arrangements Assisted Living Number of Stairs To Enter/Railing? pt lives at [facility] Home Environment Standard Height Toilet,Walk in Shower Home Equipment Front Wheel Walker,Raised Toilet Seat w/Armrests,Shower Seat with Backrest,Hand Held Shower,Grab Bars In Shower Additional Social History Comment pt has a hospital bed without rails M2 OT-IP Current Condition Start: 04/13/24 14:16 Freq: Status: Active Protocol: Document 04/13/24 14:17 JOAQUIN (Rec: 04/13/24 14:40 [facility] [id number]) Occupational Therapy Current Condition Current Condition Evaluation Date 04/13/24 Treatment Diagnosis pneumonia, acute respiratory failure with hypoxia, confusion Diagnosis Onset Date 04/10/24 Post Operative Precautions Other Precautions falls M3 OT- IP Subjective and Pain Start: 04/13/24 14:16 Freq: Status: Active Protocol: Document 04/13/24 14:17 JESUSNJALPHONSE (Rec: 04/13/24 14:40 [facility] [id number]) OT- Subjective Occupational Therapy Visit Type Type Initial Evaluation Visit Start Time 13:54 Visit Stop Time 14:10 Notes Pt pleasantly confused. Pt sitting up in chair and agreeable to OT eval. Occupational Therapy Visit Comments Patient Comments to go home OT Pain Assessment Pain Present Pain Present Denied Pain M4 OT- IP ADL's Start: 04/13/24 14:16 Freq: Status: Active Protocol: Document 04/13/24 14:17 JESUSNJTRAYNARAYAN (Rec: 04/13/24 14:40 [facility] [id number]) OT [id number] Comments OT Self-Feeding Comments not observed OT ADL-Grooming General Evaluation Grooming Ability Standby Assistance Areas Needing Assistance Combing/Brushing Hair,Face Washing Comments OT Grooming Comments sink side with vcs to locate items on counter OT ADL-Oral Care General Eval Oral Care Ability Standby Assistance Comments Oral Care Comments sink side with vcs to locate items on counter OT ADL-Dressing General Eval Upper Body Dressing Ability Standby Assistance Lower Body Dressing Ability Standby Assistance Comments OT Dressing Comments pt doff and dons sock while sitting EOB on request without assistance. pt is able to adjust and manage her gown when standing and preparing to amb in room. OT ADL-Toileting Comments OT Toileting Comments pt declined, stating she had just gone to the bathroom OT ADL-Bathing Comments OT Bathing Comments pt declined bathing at this time M5 OT- IP IADL's Start: 04/13/24 14:16 Freq: Status: Active Protocol: Document 04/13/24 14:17 JOAQUIN (Rec: 04/13/24 14:40 [facility] [id number]) OT-Instrumental Activities of Daily Living Home Safety Awareness Ability to Problem Solve Emergency Unable to Problem Solve Situations Medication Management Medication Management Caregiver Provides Supervision Money Management Money Management Caregiver Provides Supervision Meal Preparation Meal Preparation Caregiver Provides Supervision Cash Applications Coordinator Cash Applications Coordinator Caregiver Provides Assist Driving Driving Caregiver Provides Supervision OT- IP Functional Cognition Start: 04/13/24 14:16 Freq: Status: Active Protocol: Document 04/13/24 14:17 JOAQUIN (Rec: 04/13/24 14:40 [facility] [id number]) Cognitive Factors Limiting Selfcare Function Cognitive Ability Level of Alertness Confusional State Patient Orientation Name Attention Span Ability Capable of Focused Attention, Capable of Sustained Attention Ability to Follow Commands Able to Follow One Step Commands Memory Description Immediate Intact,Short Term Impaired,Finishing Area Supervisor Impaired, Working Impaired Problem Solving Ability Unable to Identify Errors, Needs Assist to Identify Solutions Executive Function Ability Unable to Switch Focus,Unable to Filter Distractions,Unable to Make Plans,Unable to Remember Details Cognitive Comments Cognitive Assessment Comments pt may benefit from SLUMs OT- Vision and Hearing OT- Hearing Assessment OT- Hearing Assessment WFL OT- Vision Assessment Visual Acuity WFL,Glasses For Reading M7 OT- IP Mobility and Balance Start: 04/13/24 14:16 Freq: Status: Active Protocol: Document 04/13/24 14:17 JOAQUIN (Rec: 04/13/24 14:40 [facility] [id number]) OT-Transfer Assessment Sit to and From Stand Sit to and from Stand Contact Guard Assistance,1 Person Assistance,Use of Upper Extremities Transfers Transfer Ability Contact Guard Assistance,1 Person Assistance,Use of Upper Extremities Technique Transfer Technique ambulated with FWW Devices Transfer Assistive Devices Gait Belt,Front Wheeled Walker Orthotic/Prosthetic Devices or Brace: No Comments Mobility Comments Pt vitals SaO2 95% on RA. Pt pushes up from chair and reaches for walker when standing without vcs. Pt amb with FWW to sink for sink side ADLs with CGA. Pt balances sink side for several minutes without LOB and good safety awareness. Pt returns to chair , requiring vcs to reach back with UE for chair prior to sitting. OT- Gait Assessment Gait Gait Assistance Required: Contact Guard Assist Distance (Feet) 15 Able to Maintain Weight Bearing Status Yes During Gait Assistive Devices Assistive Device Gait Belt,Front Wheeled Walker Orthotic/Prosthetic Devices or Brace: No OT- Balance Assessment Sitting Balance and Reactions Static Sitting Balance Ability Good Dynamic Sitting Balance Ability Good Standing Balance and Reactions Static Standing Balance Ability Good Dynamic Standing Balance Ability Fair M8 OT- IP Objective Assessments Start: 04/13/24 14:16 Freq: Status: Active Protocol: Document 04/13/24 14:17 JOAQUIN (Rec: 04/13/24 14:40 [facility] [id number]) OT Gross Range of Motion Upper Extremity Range of Motion Assessment Within Functional Limits OT Strength Upper Extremity Strength Assessment Within Functional Limits Hand Public Service Administrator Strength Hand Dominance Right Comments Strength Comments Pt with 4-/5 UE strength grossly OT-Muscle Tone Assessment Muscle Tone WNL Yes M9 OT- IP Assessment and Plan Start: 04/13/24 14:16 Freq: Status: Active Protocol: Document 04/13/24 14:17 JOAQUIN (Rec: 04/13/24 14:40 [facility] [id number]) OT Summary Assessment and Plan Potential Rehabilitation Potential Good Analytic Complexity at Evaluation Low Summary OT Impairments Strength,Functional Cognition, Dressing,Toileting,Bathing, Toilet Transfers,Shower Transfers Progress Towards Goals Progressing Toward Goals Assessment Summary Pt is an 88 yo F who is pleasantly confused. Pt is A&O to name only and may benefit from SLUMS assessment. Per chart review, pt lives at [facility] and has assistance with BADL/ IADL tasks as needed. Pt O2 on room air was 93% following sink side ADLs. Pt performs sink side ADLs with vc to find items to use. Pt don/doffs sock while seated without assistance. Pt would may need increased assistance with more taxing task like dressing after performing bathing. Pt may benefit from energy conservation education if this is taxing. Pt is appropriate for skilled OT services to address BADLs, functional cognition, activity tolerance, and functional t/fs. Goals Self-Feeding Goal Independent Grooming Goal Independent Dressing Goal Independent Toileting Goal Independent Bathing Goal Standby Assistance Toilet Transfer Goal Independent Shower Transfer Goal Standby Assistance Days to Meet Goals 5 Frequency of Treatment Other frequency 5x/wk Treatment Plan OT Treatment Plan ADL Training,Functional Cognition Training,Functional Mobility,Therapeutic Exercises ,Patient/Family Education, Discharge Planning Discharge Recommendations OT Discharge Recommendations Home with 24/7 Assist Available,Home Health Transportation Needs at Discharge Private Vehicle,Wheelchair/ Cabulance
--- NOTE | 2024-04-13 16:30 | CM.DPNOTE ---
DCP note PRODUCT MARKETING ANALYST reviewed EMR Per charge histotechnologist, PICC nurse available in house tomorrow. Per Ana Maria at , submitting for one time auth with danie [place]. Courtney from needs to review tomorrow to make sure they can meet her needs. PASRR needed PRODUCT MARKETING ANALYST met with pt and dtr Veronica in room. updated on auth/acceptance pending. answered questions to best of ability. pt pleasantly confused. dtr remains in agreement with plan. P: dc to [facility], pending auth/acceptance. NEED PICC. UPDATE DTR when DC time/date known so she can be here for DC to assist with pt paperwork. YUVAL Morley
[2024-04-13] MEDS: PRAMIPEXOLE 0.25 MG TABLET 0.5 MG PO (17:32)
[2024-04-13] MEDS: cefTRIAXone 2,000 MG in SODIUM CHLORIDE 0.9% 100 ML 200 MG IV (20:55)
[2024-04-13] MEDS: GABAPENTIN 100 MG CAPSULE 200 MG PO (20:55)
[2024-04-13] MEDS: AZITHROMYCIN 500 MG in DEXTROSE 5% IN WATER 250 ML 250 MG IV (21:44)
[2024-04-14] VITALS: BP 118/66; PULSE 62; RESP 15; TEMP 36; O2SAT 96
--- NOTE | 2024-04-14 04:28 | PC.NURSE ---
Deferred patients 0400 vitals to allow for uninterrupted sleep. Patients vital signs have been stable up till this point and appears to be resting comfortably with even unlabored breathing.
[2024-04-14 08:00] VITALS: BP 129/63; PULSE 60; RESP 15; TEMP 36.1; O2SAT 95
[2024-04-14 08:15] LABS: Add Manual Diff / Slide Review NO; Basophils Absolute Auto 0 /uL (0-100); Basophils Percent Auto 0.8 % (0-2); Eosinophils Absolute Auto 200 /uL (0-450); Eosinophils Percent Auto 3.8 % (2-4); Hematocrit 29.8 % (36-46); Lymphocytes Absolute Auto 1000 /uL (1100-4500); Lymphocytes Percent Auto 15.3 % (25-40); Mean Corpuscular HGB Conc 33.4 % (30-36); Mean Corpuscular Hemoglobin 27.8 PG (26-34); Mean Corpuscular Volume 83.4 fL (80-100); Monocytes Absolute Auto 700 /uL (0-900); Monocytes Percent Auto 11.4 % (3-14); Neutrophils Absolute Auto 4300 /uL (1500-7000); Neutrophils Percent Auto 68.7 % (50-75); Platelet Count 249 X10^3/uL (150-400); Red Blood Cell Count 3.58 X10^6/uL (4.0-5.2); White Blood Cell Count 6.3 X10^3/uL (4.5-11.0)
[2024-04-14] MEDS: DULOXETINE 20 MG CAPSULE PO ×2 (08:30→21:17)
[2024-04-14] MEDS: FUROSEMIDE 40 MG TABLET PO (08:30)
[2024-04-14] MEDS: ATORVASTATIN 20 MG TABLET 10 MG PO (08:30)
[2024-04-14] MEDS: HEPARIN 5,000 UNIT/ML VIAL 5000 UNIT SUBCUT ×2 (08:30→21:16)
[2024-04-14 08:40] LABS: Alanine Aminotransferase 18 IU/L (<35); Albumin 3.3 g/dL (3.5-5.0); Albumin Globulin Ratio 0.9 (1.0-2.8); Alkaline Phosphatase 107 U/L (38-126); Aspartate Aminotransferase 25 IU/L (14-36); BUN Creatinine Ratio 15.3 (6-22); Bilirubin Total 0.4 mg/dL (0.2-1.3); Blood Urea Nitrogen 18 mg/dL (7-17); Calcium 8.5 mg/dL (8.4-10.2); Carbon Dioxide 28 mmol/L (22-32); Chloride 102 mmol/L (98-107); Estimated Glomerular Filt Rate 45 mL/min (>60); Globulin 3.8 g/dL (1.7-4.1); Glucose 196 mg/dL (80-110); HEMOLYSIS < 15 (0-50); Magnesium 1.9 mg/dL (1.6-2.3); Potassium 3.9 mmol/L (3.4-5.1); Sodium 136 mmol/L (137-145); Total Protein 7.1 g/dL (6.3-8.2)
--- NOTE | 2024-04-14 09:50 | PC.NURSE ---
SKIN: Katiuska's bottom is red but blanchable. She has a small macerated area of skin inside her left butt cheek, that is intact and not open. Looks like it may have been caused from a shearing pressure to area. Cream applied to bottom, and waffle cushion put underneath her bottom while she sits in the chair. Will also apply and allevyn foam pad for extra cushion. When she is lying down we will also reposition her side to side.
--- NOTE | 2024-04-14 11:04 | CM.DPNOTE ---
DCP note EXECUTIVE PERSONAL ASSISTANT reviewed EMR per provider in morning rounds, still waiting to hear back from [facility] on final dosing but pt will likely remain on the same IV abx at nd. getting PICC today Per Ana Maria at , continuing to review her clinicals for official acceptance. attempting bed by nurses station. [employer] auth pending. hopeful that dtr or someone in family could be with pt during the day time at least for first few days to assist if pt attempts to run/gets confused. will coordinate with [facility] to confirm pt can return there after . Per RN, pt has not been messing with IV currently but can inquire about placing a wrap over PICC line to help keep pt from pulling it out incase she picks at it. EXECUTIVE PERSONAL ASSISTANT spoke with dtr Veronica, updated her on the above. expressed understanding. continues to hope pt can dc to , continues to want to be present for the dc and hopes to be notified when we know answers so she can coordinate being off at work. Veronica reports she will arrange for either her or someone else in family to be with pt during the middle of the day at least initially to be with pt to help with any potential confusion. EXECUTIVE PERSONAL ASSISTANT completed hospital exempt PASRR, provider signed. P: pending official acceptance/[employer] auth, dc to . transport via facility van. CM team will continue to follow closely for DCP coordination YUVAL Morley
--- NOTE | 2024-04-14 11:23 | P.PN_ITS ---
Subjective Subjective Interval history: 88 F admitted with group B strep bacteremia, most probably from a pneumonia but urine culture also positive with group B strep. Legs much less restless today, no complaints Exam Vital Signs (past 8 hours): - 04/14/24 08:00 Temperature 96.9 F L Pulse Rate 60 Respiratory Rate 15 Blood Pressure 129/63 Pulse Oximetry 95 Oxygen Flow Rate 0 Fraction of Inspired Oxygen 24 SaO2/FiO2 Ratio 408 Oxygen Delivery Method Nasal Cannula Oxygen Flow Rate 0 Narrative Exam Narrative: Physical Exam: GENERAL: The patient is not in any acute distressed. Awake and alert. HEENT: Nonicteric sclerae, PERRLA, EOMI. Oropharynx clear. Moist mucous membranes. HEART: Regular rate and rhythm without murmurs. No lower extremities edema. LUNGS: Clear to auscultation bilaterally. LLL rhonchi no wheezing ABDOMEN: Soft, positive bowel sounds, nontender. SKIN: No rash, no excessive bruising, petechiae, or purpura. Objective Labs 04/14/24 08:00 04/14/24 08:00 Labs: Laboratory Results - last 24 hr 04/14/24 08:00 WBC 6.3 RBC 3.58 L Hgb 10.0 L Hct 29.8 L MCV 83.4 MCH 27.8 MCHC 33.4 RDW 15.0 H Plt Count 249 Neut % (Auto) 68.7 Lymph % (Auto) 15.3 L [place] % (Auto) 11.4 Eos % (Auto) 3.8 Baso % (Auto) 0.8 Neut # (Auto) 4300 Lymph # (Auto) 1000 L [place] # (Auto) 700 Eos # (Auto) 200 Baso # (Auto) 0 Sodium 136 L Potassium 3.9 Chloride 102 Carbon Dioxide 28 BUN 18 H Creatinine 1.18 H Estimated GFR 45 L BUN/Creatinine Ratio 15.3 Glucose 196 H Calcium 8.5 Magnesium 1.9 Total Bilirubin 0.4 AST 25 ALT 18 Alkaline Phosphatase 107 Total Protein 7.1 Albumin 3.3 L Globulin 3.8 Albumin/Globulin Ratio 0.9 L PFSH Medical History HLD (hyperlipidemia) Restless legs HTN (hypertension) Diabetes Social History household members: caregiver Smoking Status: Former smoker alcohol intake: current Assessment & Plan Assessment & Plan narrative: #Sepsis with acute metabolic encephalopathy, acute respiratory failure with hypoxia secondary to group B strep bacteremia. POA, improving - blood cultures showing group B strep, 4/4 bottles. Repeat blood cultures 04/11 without growth. - continue ceftriaxone (increased to 2g daily given bacteremia). Stopped vancomycin as cultures show sensitivity to ceftriaxone. - encephalopathy has improved. Likely restless overnight due to SCDs, improved today. - 2 weeks of IV ceftriaxone, PICC ordered for today. Stop date will be 04/26/2024. - TTE without obvious vegetation. - source is probably pulmonary vs urine based on initial evaluation and imaging. #Lmy-yzertqh-bnniuvvgx diabetes. POA, chronic - hypoglycemic with 10 U of lantus given overnight on HD#1. - daughter refusing any insulin for patient, but blood sugars had been okay. Stopped fingersticks. Resume metformin on discharge. #Hypertension. chronic - continue home furosemide #Chronic diastolic heart failure, POA - continue home furosemide 40 mg daily, appears euvolemic on exam today #Hyperlipidemia. chronic - continue home statin #Restless leg syndrome. chronic, active. - continue home pramipexole, with overnight restlessness moved up bedtime dosing to 1800. - also added gabapentin with 100 at lunch, 200 mg at bedtime on 04/12 due to restless legs and inability to sit for more than 15 minutes per daughter. Oxycodone 2.5 not effective but 5 mg was better. Try to limit oxycodone to very severe symptoms. Chronic cognitive impairment - resides at [facility] normally. - continue home olanzapine at night DVT prophylaxis heparin subcu. CODE STATUS DNR/DNI, surrogate is patient's daughter Disposition likely SNF with IV antibiotics. Inpatient status. Anticipate discharge 04/15 but pending insurance authorization per director of casework department. I have utilized all available immediate resources to obtain, update, or review the patient's current medications. Additional history obtained via discussions with the director of casework department today. These discussions contributed to the creation of the above assessment and plan. I have reviewed patient's presenting documentation, labs, and imaging personally. Time-Based Coding :: [TOTAL MINUTES] spent with patient and on the chart (including review of chart, obtaining history, exam, reviewing outside data, placing orders, documenting exam and treatment plan, and counseling patient) on [DATE]. Quality VTE Deep Vein Thrombosis/Pulmonary Embolism Present on Admission: No
[2024-04-14 12:00] VITALS: BP 128/66; PULSE 77; RESP 14; TEMP 36.1; O2SAT 96
[2024-04-14] MEDS: GABAPENTIN 100 MG CAPSULE PO (13:19)
--- NOTE | 2024-04-14 14:00 | OT.IP.TRT ---
Current Diagnoses Pneumonia, unspecified organism (04/10/24) Occupational Therapy Treatment Note M2 OT-IP Current Condition Start: 04/13/24 14:16 Freq: Status: Active Protocol: Document 04/13/24 14:17 JOAQUIN (Rec: 04/13/24 14:40 [facility] [id number]) Occupational Therapy Current Condition Current Condition Evaluation Date 04/13/24 Treatment Diagnosis pneumonia, acute respiratory failure with hypoxia, confusion Diagnosis Onset Date 04/10/24 Post Operative Precautions Other Precautions falls M3 OT- IP Subjective and Pain Start: 04/13/24 14:16 Freq: Status: Active Protocol: Document 04/14/24 14:01 [facility] (Rec: 04/14/24 14:08 [facility] [id number]) OT- Subjective Occupational Therapy Visit Type Type Treatment Note Visit Start Time 13:45 Visit Stop Time 14:00 Occupational Therapy Visit Comments Patient Comments Pt states not needing to use the toilet or do any self care needs at this time. OT Pain Assessment Pain Present Pain Present Denied Pain M4 OT- IP ADL's Start: 04/13/24 14:16 Freq: Status: Active Protocol: Document 04/13/24 14:17 JOAQUIN (Rec: 04/13/24 14:40 [facility] [id number]) OT [id number] Comments OT Self-Feeding Comments not observed OT ADL-Grooming General Evaluation Grooming Ability Standby Assistance Areas Needing Assistance Combing/Brushing Hair,Face Washing Comments OT Grooming Comments sink side with vcs to locate items on counter OT ADL-Oral Care General Eval Oral Care Ability Standby Assistance Comments Oral Care Comments sink side with vcs to locate items on counter OT ADL-Dressing General Eval Upper Body Dressing Ability Standby Assistance Lower Body Dressing Ability Standby Assistance Comments OT Dressing Comments pt doff and dons sock while sitting EOB on request without assistance. pt is able to adjust and manage her gown when standing and preparing to amb in room. OT ADL-Toileting Comments OT Toileting Comments pt declined, stating she had just gone to the bathroom OT ADL-Bathing Comments OT Bathing Comments pt declined bathing at this time M5 OT- IP IADL's Start: 04/13/24 14:16 Freq: Status: Active Protocol: Document 04/13/24 14:17 JOAQUIN (Rec: 04/13/24 14:40 [facility] [id number]) OT-Instrumental Activities of Daily Living Home Safety Awareness Ability to Problem Solve Emergency Unable to Problem Solve Situations Medication Management Medication Management Caregiver Provides Supervision Money Management Money Management Caregiver Provides Supervision Meal Preparation Meal Preparation Caregiver Provides Supervision Road Freight Conductor Road Freight Conductor Caregiver Provides Assist Driving Driving Caregiver Provides Supervision M6 OT- IP Functional Cognition Start: 04/13/24 14:16 Freq: Status: Active Protocol: Document 04/14/24 14:01 [facility] (Rec: 04/14/24 14:08 [facility] [id number]) Cognitive Factors Limiting Selfcare Function Cognitive Ability Level of Alertness Alert,Confusional State Patient Orientation Name,Place Attention Span Ability Capable of Focused Attention, Capable of Sustained Attention Ability to Follow Commands Able to Follow One Step Commands Memory Description Short Term Impaired,Correction Impaired,Working Impaired Problem Solving Ability Unable to Identify Errors, Needs Assist to Identify Solutions Executive Function Ability Unable to Switch Focus,Unable to Filter Distractions,Unable to Make Plans,Unable to Remember Details Cognitive Tests SLUMS Pt scored 7/30 which implies dementia but would be best to reassess when pt is feeling better. Pt current score implies dementia. Pt able to add 30 + 3, and do calculation of 100-23, pt able to draw the numbers on the clock correctly, pt able to draw the x on the triangle and figure our the largest shape. Pt admits to having difficulty to get her words out. Cognitive Comments Cognitive Assessment Comments Pt is pleasant and cooperative . Pt needing to have the call light in front of her to remind her to push it if needing assistance. M7 OT- IP Mobility and Balance Start: 04/13/24 14:16 Freq: Status: Active Protocol: Document 04/13/24 14:17 [facility] (Rec: 04/13/24 14:40 [facility] [id number]) OT-Transfer Assessment Sit to and From Stand Sit to and from Stand Contact Guard Assistance,1 Person Assistance,Use of Upper Extremities Transfers Transfer Ability Contact Guard Assistance,1 Person Assistance,Use of Upper Extremities Technique Transfer Technique ambulated with FWW Devices Transfer Assistive Devices Gait Belt,Front Wheeled Walker Orthotic/Prosthetic Devices or Brace: No Comments Mobility Comments Pt vitals SaO2 95% on RA. Pt pushes up from chair and reaches for walker when standing without vcs. Pt amb with FWW to sink for sink side ADLs with CGA. Pt balances sink side for several minutes without LOB and good safety awareness. Pt returns to chair , requiring vcs to reach back with UE for chair prior to sitting. OT- Gait Assessment Gait Gait Assistance Required: Contact Guard Assist Distance (Feet) 15 Able to Maintain Weight Bearing Status Yes During Gait Assistive Devices Assistive Device Gait Belt,Front Wheeled Walker Orthotic/Prosthetic Devices or Brace: No OT- Balance Assessment Sitting Balance and Reactions Static Sitting Balance Ability Good Dynamic Sitting Balance Ability Good Standing Balance and Reactions Static Standing Balance Ability Good Dynamic Standing Balance Ability Fair M8 OT- IP Objective Assessments Start: 04/13/24 14:16 Freq: Status: Active Protocol: Document 04/13/24 14:17 [facility] (Rec: 04/13/24 14:40 [facility] [id number]) OT Gross Range of Motion Upper Extremity Range of Motion Assessment Within Functional Limits OT Strength Upper Extremity Strength Assessment Within Functional Limits Hand Chisel Grinder Strength Hand Dominance Right Comments Strength Comments Pt with 4-/5 UE strength grossly OT-Muscle Tone Assessment Muscle Tone WNL Yes M9 OT- IP Assessment and Plan Start: 04/13/24 14:16 Freq: Status: Active Protocol: Document 04/14/24 14:01 [facility] (Rec: 04/14/24 14:08 [facility] [id number]) OT Summary Assessment and Plan Potential Rehabilitation Potential Good Analytic Complexity at Evaluation Low Summary OT Impairments Strength,Functional Cognition, Dressing,Toileting,Bathing, Toilet Transfers,Shower Transfers Progress Towards Goals Progressing Toward Goals Assessment Summary Pt scored 7/30 on the SLUMS, which implies dementia. Pt looking to go to skilled rehab when medically stable. To go over energy conservation needs with pt tomorrow. Goals Self-Feeding Goal Independent Grooming Goal Independent Dressing Goal Independent Toileting Goal Standby Assistance Bathing Goal Standby Assistance Toilet Transfer Goal Standby Assistance Shower Transfer Goal Standby Assistance Days to Meet Goals 4 Treatment Plan OT Treatment Plan ADL Training,Functional Cognition Training,Functional Mobility,Therapeutic Exercises ,Patient/Family Education, Discharge Planning Discharge Recommendations OT Discharge Recommendations Home with 24/ Assist Available,Home Health Transportation Needs at Discharge Private Vehicle
--- NOTE | 2024-04-14 14:30 | PT.IPTN ---
Current Diagnoses Pneumonia, unspecified organism (04/10/24) Physical Therapy Treatment Note M2 PT-IP Current Condition Start: 04/11/24 12:31 Freq: NEEDED Status: Active Protocol: Document 04/13/24 10:42 SP (Rec: 04/13/24 11:55 SP [id number]) Physical Therapy Current Condition Current Condition Evaluation Date 04/11/24 Treatment Diagnosis Bactermia; PNA; difficulty in walking Onset Date 04/10/24 M3 PT-IP Subjective Start: 04/11/24 12:31 Freq: NEEDED Status: Active Protocol: Document 04/14/24 14:30 AB (Rec: 04/14/24 15:21 AB [id number]) Subjective Physical Therapy Visit Type Type Treatment Note Visit Start Time 14:30 Visit Stop Time 15:15 Number of PRESCHOOL PROGRAM DIRECTOR Visits 0 Physical Therapy Visit Comments Patient Comments agreeable to do PT M4 PT-IP Mobility and Gait Start: 04/11/24 12:31 Freq: NEEDED Status: Active Protocol: Document 04/14/24 14:30 [facility] (Rec: 04/14/24 15:21 AB [id number]) PT-Bed Mobility Assessment Sit to Supine Sit to Supine Minimal Assistance,1 Person Assistance,Head of Bed Elevated PT-Transfer Assessment Sit to and From Stand Sit to and from Stand Contact Guard Assistance,1 Person Assistance,Use of Upper Extremities Equipment Transfer Assistive Device Gait Belt,Front Wheeled Walker Orthotic/Prosthetic Devices or Brace: No Transfers Transfer Destination Bed Transfer Technique ambulated Transfer Ability Level of Assist Contact Guard Assistance, Minimal Assistance,1 Person Assistance,Use of Upper Extremities Comments Mobility Comments pt sitting on the chair and agreeable to do PT. completed sit to stand CGA and ambulated in the hallway using FWW CGA to min A. pt needing assist with maneuering of FWW and tends to bump/run into things. pt sat back on chair. refused to do LE exercises. nurse came in and wants pt back in bed for PICC line. pt agreed to get back in bed. sit to stand CGA and ambulated to EOB ~ 15 ft using FWW CGA to min . pt completed sit to supine min A for LE elevation and positioning. Left pt with nurse. Gait Assessment Gait Gait Assistance Required: Contact Guard Assist,Minimum Assistance Distance (Feet) 75 Able to Maintain Weight Bearing Status Yes During Gait Assistive Devices Assistive Device Gait Belt,Front Wheeled Walker Orthotic/Prosthetic Devices or Brace: No Gait Deviations General Gait Pattern Decreased Stride Length, Decreased Feet Clearance, Flexed Trunk Factors Limiting Gait Function Factors Limiting Gait Function Decreased Activity Tolerance, Decreased Strength,Difficulty Following Directions,Limited Range of Motion,Poor Balance, Poor Safety Awareness M5 PT-IP Objective Assessments Start: 04/11/24 12:31 Freq: NEEDED Status: Active Protocol: Document 04/11/24 11:25 AB (Rec: 04/11/24 12:46 [facility] [id number]) Orientation Orientation/Cognition Level of Alertness Alert Orientation Name Safety Awareness Decreased Safety Awareness Memory Description Short Term Impaired,Bacteriologist Soil Impaired Comments with confusion Gross Range of Motion Lower Extremity ROM Assessment Within Functional Limits Strength Lower Extremity Strength Assessment Within Functional Limits Muscle Tone Muscle Tone WNL Yes M6 PT-IP Treatment Start: 04/11/24 12:31 Freq: NEEDED Status: Active Protocol: Document 04/14/24 14:30 AB (Rec: 04/14/24 15:21 AB [id number]) Physical Therapy Treatment Education Education Provided Safety M7 PT-IP Assessment and Plan Start: 04/11/24 12:31 Freq: NEEDED Status: Active Protocol: Document 04/14/24 14:30 AB (Rec: 04/14/24 15:21 AB [id number]) PT Summary Assessment and Plan Potential Rehabilitation Potential Fair Summary Impairments Pain,ROM,Strength,Balance, Coordination,Sensation,Tone, Cognition,Bed Mobility, Transfers,Gait,Activity Tolerance Progress Towards Goals Slow Progress due to Medical Issues,Slow Progress due to Activity Tolerance Assessment Summary pt improving slowly with mobility and requiring CGA to min A with ambulation using FWW. pt lives at [facility] and will have assistance. pt may go back to [facility] with assistance and HHPT. will continue to assess. Goals Bed Mobility Goal Standby Assistance Transfer Goal Standby Assistance,Front Wheeled Walker Gait Goal Standby Assistance,Front Wheel Walker Gait Distance 200 Days to Meet Goals 5 Frequency of Treatment Frequency Of Treatment Once a Day Treatment Plan Physical Therapy Treatment Plan Bed Mobility Training,Transfer Training,Gait Training, Therapeutic Exercise,Balance Retraining,Discharge Planning, Hot or Cold Pack,Neuromuscular Re-ed,Coordination Retraining ,Manual Therapy Precautions Other Precautions falls Recommendations To Nursing Amount of Assist Needed 1 Person Assist Discharge Recommendations PT Discharge Recommendations Home with 03/09 Assist Available,Home Health,SNF Rehab Transportation Needs at Discharge Private Vehicle,Wheelchair/ Cabulance
[2024-04-14 16:00] VITALS: BP 133/66; PULSE 66; RESP 14; TEMP 36; O2SAT 96
[2024-04-14] MEDS: PRAMIPEXOLE 0.25 MG TABLET 0.5 MG PO (18:13)
[2024-04-14] MEDS: ACETAMINOPHEN 325 MG TABLET 650 MG PO (18:13)
[2024-04-14 20:00] VITALS: BP 120/66; PULSE 59; RESP 18; TEMP 35.6; O2SAT 92
[2024-04-14] MEDS: cefTRIAXone 2,000 MG in SODIUM CHLORIDE 0.9% 100 ML 200 MG IV (21:16)
[2024-04-14] MEDS: OLANZapine 2.5 MG TABLET PO (21:17)
[2024-04-14] MEDS: GABAPENTIN 100 MG CAPSULE 200 MG PO (21:17)
[2024-04-15 04:00] VITALS: BP 118/63; PULSE 57; RESP 17; TEMP 36.4; O2SAT 98
[2024-04-15] MEDS: ATORVASTATIN 20 MG TABLET 10 MG PO (08:29)
[2024-04-15] MEDS: FUROSEMIDE 40 MG TABLET PO (08:31)
[2024-04-15] MEDS: DULOXETINE 20 MG CAPSULE PO ×2 (08:31→20:03)
[2024-04-15] MEDS: HEPARIN 5,000 UNIT/ML VIAL 5000 UNIT SUBCUT ×2 (08:32→20:03)
[2024-04-15 08:49] VITALS: BP 135/79; PULSE 57; RESP 22; O2SAT 95
[2024-04-15 09:00] VITALS: BP 133/64; PULSE 63; RESP 13; TEMP 36; O2SAT 96
--- NOTE | 2024-04-15 11:28 | PM.PN.1 ---
Subjective Subjective Interval history: S: She was comfortable, denies any chest pain or dyspnea. She has a right arm midline in place. She was receiving a total of 14 days of ceftriaxone for bacteremia. We are awaiting authorization for [facility] facility from her ensure. Exam Vital Signs (past 8 hours): - 04/15/24 04:00 04/15/24 07:38 04/15/24 08:49 Temperature 97.5 F L Pulse Rate 57 L 57 L Respiratory Rate 17 22 Blood Pressure 118/63 135/79 Pulse Oximetry 98 95 Oxygen Delivery Method Room Air Oxygen Flow Rate 0 04/15/24 09:00 Temperature 96.8 F L Pulse Rate 63 Respiratory Rate 13 Blood Pressure 133/64 Pulse Oximetry 96 Oxygen Delivery Method Oxygen Flow Rate 0 Fraction of Inspired Oxygen 24 SaO2/FiO2 Ratio 408 Oxygen Delivery Method Room Air Oxygen Flow Rate 0 Narrative Exam Narrative: NAD, alert and oriented. Fluent speech. Lungs are clear, normal rate and effort. Heart is regular, no murmur gallop or rub. Abdomen is soft, non distended. Extremities are free of edema. Objective Labs 04/14/24 08:00 04/14/24 08:00 [facility] Medical History HLD (hyperlipidemia) Restless legs HTN (hypertension) Diabetes Social History household members: caregiver Smoking Status: Former smoker alcohol intake: current Assessment & Plan Assessment & Plan narrative: #Sepsis with acute metabolic encephalopathy, acute respiratory failure with hypoxia secondary to group B strep bacteremia. POA, improving - blood cultures showing group B strep, 4/4 bottles. Repeat blood cultures 04/11 without growth. - continue ceftriaxone (increased to 2g daily given bacteremia). Stopped vancomycin as cultures show sensitivity to ceftriaxone. - encephalopathy has improved. Likely restless overnight due to SCDs, improved today. - 2 weeks of IV ceftriaxone, PICC ordered for today. Stop date will be 04/26/2024. - TTE without obvious vegetation. - source is probably pulmonary vs urine based on initial evaluation and imaging. #Iqn-xoeuvcm-emhvtbcbr diabetes. POA, chronic and stable. - hypoglycemic with 10 U of lantus given overnight on HD#1. - daughter refusing any insulin for patient, but blood sugars had been okay. Stopped fingersticks. Resume metformin on discharge. #Hypertension. chronic - continue home furosemide #Chronic diastolic heart failure, POA - continue home furosemide 40 mg daily, appears euvolemic on exam today #Hyperlipidemia. chronic - continue home statin #Restless leg syndrome. chronic, active. - continue home pramipexole, with overnight restlessness moved up bedtime dosing to 1800. - also added gabapentin with 100 at lunch, 200 mg at bedtime on 04/12 due to restless legs and inability to sit for more than 15 minutes per daughter. Oxycodone 2.5 not effective but 5 mg was better. Try to limit oxycodone to very severe symptoms. Chronic cognitive impairment - resides at [facility] normally. - continue home olanzapine at night PLAN: -discharge to [facility] complete 14 total days of ceftriaxone when authorized by zach. -she is currently medically stable for discharge. DVT prophylaxis heparin SQ. CODE STATUS DNR/DNI, surrogate is patient's daughter Time-Based Coding :: [TOTAL MINUTES] spent with patient and on the chart (including review of chart, obtaining history, exam, reviewing outside data, placing orders, documenting exam and treatment plan, and counseling patient) on [DATE]. Quality VTE Deep Vein Thrombosis/Pulmonary Embolism Present on Admission: No
[2024-04-15] MEDS: GABAPENTIN 100 MG CAPSULE PO (11:53)
--- NOTE | 2024-04-15 14:05 | PT.IPTN ---
Current Diagnoses Pneumonia, unspecified organism (04/10/24) Physical Therapy Treatment Note M2 PT-IP Current Condition Start: 04/11/24 12:31 Freq: NEEDED Status: Active Protocol: Document 04/13/24 10:42 SP (Rec: 04/13/24 11:55 SP [id number]) Physical Therapy Current Condition Current Condition Evaluation Date 04/11/24 Treatment Diagnosis Bactermia; PNA; difficulty in walking Onset Date 04/10/24 M3 PT-IP Subjective Start: 04/11/24 12:31 Freq: NEEDED Status: Active Protocol: Document 04/15/24 14:05 AB (Rec: 04/15/24 15:47 AB [id number]) Subjective Physical Therapy Visit Type Type Treatment Note Visit Start Time 14:05 Visit Stop Time 14:50 Number of WIRELESS TELEGRAPHER Visits 0 Physical Therapy Visit Comments Patient Comments agreeable to do PT M4 PT-IP Mobility and Gait Start: 04/11/24 12:31 Freq: NEEDED Status: Active Protocol: Document 04/15/24 14:05 AB (Rec: 04/15/24 15:47 AB [id number]) PT-Transfer Assessment Sit to and From Stand Sit to and from Stand Contact Guard Assistance, Minimal Assistance,1 Person Assistance,Use of Upper Extremities Equipment Transfer Assistive Device Gait Belt,Front Wheeled Walker Orthotic/Prosthetic Devices or Brace: No Transfers Transfer Destination Toilet Transfer Technique ambulated Transfer Ability Level of Assist Contact Guard Assistance, Minimal Assistance,1 Person Assistance,Use of Upper Extremities Comments Mobility Comments pt sitting on the chair and daughter in room. pt agreed to do PT. completed sit to stand CGA and ambulated in the hallway using FWW ~ 250 ft CGA to occasionally min A for turns and assist with maneuvering FWW. pt with stooped and forward head posture. cued for upright position. pt with dx dementia and needing frequent cues for turning and positioning. pt requested to use the toilet and ambulated to the toilet using fWW CGA to min A. required cues for safety, assist with hygiene care and brief management. pt completed sit to stand from the toilet CGA to min A and cues. pt ambulated from the toilet to the sink using FWW CGA to min A. pt able to maintain standing CGA while completing handwashing. pt ambulated back to chair using FWW CGA to min A. positioned pt on the chair. call light and table placed within reach. left pt with daughter in room. Gait Assessment Gait Gait Assistance Required: Contact Guard Assist,Minimum Assistance,1 Person Assist Distance (Feet) 250 Able to Maintain Weight Bearing Status Yes During Gait Assistive Devices Assistive Device Gait Belt,Front Wheeled Walker Orthotic/Prosthetic Devices or Brace: No Gait Deviations General Gait Pattern Antalgic,Decreased Stride Length,Decreased Feet Clearance,Lateral Trunk Lean Factors Limiting Gait Function Factors Limiting Gait Function Decreased Activity Tolerance, Decreased Strength,Difficulty Following Directions,Limited Range of Motion,Poor Balance, Poor Safety Awareness M5 PT-IP Objective Assessments Start: 04/11/24 12:31 Freq: NEEDED Status: Active Protocol: Document 04/11/24 11:25 AB (Rec: 04/11/24 12:46 AB [id number]) Orientation Orientation/Cognition Level of Alertness Alert Orientation Name Safety Awareness Decreased Safety Awareness Memory Description Short Term Impaired,Image Archivist Impaired Comments with confusion Gross Range of Motion Lower Extremity ROM Assessment Within Functional Limits Strength Lower Extremity Strength Assessment Within Functional Limits Muscle Tone Muscle Tone WNL Yes M6 PT-IP Treatment Start: 04/11/24 12:31 Freq: NEEDED Status: Active Protocol: Document 04/15/24 14:05 AB (Rec: 04/15/24 15:47 AB [id number]) Physical Therapy Treatment Education Education Provided Safety M7 PT-IP Assessment and Plan Start: 04/11/24 12:31 Freq: NEEDED Status: Active Protocol: Document 04/15/24 14:05 AB (Rec: 04/15/24 15:47 AB [id number]) PT Summary Assessment and Plan Potential Rehabilitation Potential Fair Summary Impairments Pain,ROM,Strength,Balance, Coordination,Sensation,Tone, Cognition,Bed Mobility, Transfers,Gait,Activity Tolerance Progress Towards Goals Slow Progress due to Medical Issues,Slow Progress - Other Assessment Summary pt requiring CGA to min A with mobility using FWW and frequent cues for safety. pt awaiting insurance auth for SNF placement. will continue to assess pt's progress. Goals Bed Mobility Goal Standby Assistance Transfer Goal Standby Assistance,Front Wheeled Walker Gait Goal Standby Assistance,Front Wheel Walker Gait Distance 200 Days to Meet Goals 5 Frequency of Treatment Frequency Of Treatment Once a Day Treatment Plan Physical Therapy Treatment Plan Bed Mobility Training,Transfer Training,Gait Training, Therapeutic Exercise,Balance Retraining,Discharge Planning, Hot or Cold Pack,Neuromuscular Re-ed,Coordination Retraining ,Manual Therapy Precautions Other Precautions falls Recommendations To Nursing Amount of Assist Needed 1 Person Assist Discharge Recommendations PT Discharge Recommendations SNF Rehab Transportation Needs at Discharge Private Vehicle,Wheelchair/ Cabulance - PT assist CGA to min A
--- NOTE | 2024-04-15 15:49 | CM.DPNOTE ---
DCP Cont According to Ana Maria at [facility], no auth from [facility] yet. Emailed updated clinical to Ana Maria to send on to [facility] reviewers. CM team following closely for coordination of discharge plan. JW
--- NOTE | 2024-04-15 15:50 | OT.IP.TRT ---
Current Diagnoses Pneumonia, unspecified organism (04/10/24) Occupational Therapy Treatment Note M2 OT-IP Current Condition Start: 04/13/24 14:16 Freq: Status: Active Protocol: Document 04/13/24 14:17 JOAQUIN (Rec: 04/13/24 14:40 JESUSWYALPHONSE [id number]) Occupational Therapy Current Condition Current Condition Evaluation Date 04/13/24 Treatment Diagnosis pneumonia, acute respiratory failure with hypoxia, confusion Diagnosis Onset Date 04/10/24 Post Operative Precautions Other Precautions falls M3 OT- IP Subjective and Pain Start: 04/13/24 14:16 Freq: Status: Active Protocol: Document 04/15/24 15:53 [facility] (Rec: 04/15/24 16:02 [facility] [id number]) OT- Subjective Occupational Therapy Visit Type Type Treatment Note Visit Start Time 15:40 Visit Stop Time 15:50 Occupational Therapy Visit Comments Patient Comments Pt states willing to take a shower tomorrow but just content to stay in the recliner for now. Patient/Caregiver Goals To go home. OT Pain Assessment Pain When Pain Assessed At Rest Pain Present Pain Present Denied Pain M4 OT- IP ADL's Start: 04/13/24 14:16 Freq: Status: Active Protocol: Document 04/13/24 14:17 JOAQUIN (Rec: 04/13/24 14:40 JESUSWYALPHONSE [id number]) OT [id number]-Incsfzp Comments OT Self-Feeding Comments not observed OT ADL-Grooming General Evaluation Grooming Ability Standby Assistance Areas Needing Assistance Combing/Brushing Hair,Face Washing Comments OT Grooming Comments sink side with vcs to locate items on counter OT ADL-Oral Care General Eval Oral Care Ability Standby Assistance Comments Oral Care Comments sink side with vcs to locate items on counter OT ADL-Dressing General Eval Upper Body Dressing Ability Standby Assistance Lower Body Dressing Ability Standby Assistance Comments OT Dressing Comments pt doff and dons sock while sitting EOB on request without assistance. pt is able to adjust and manage her gown when standing and preparing to amb in room. OT ADL-Toileting Comments OT Toileting Comments pt declined, stating she had just gone to the bathroom OT ADL-Bathing Comments OT Bathing Comments pt declined bathing at this time M5 OT- IP IADL's Start: 04/13/24 14:16 Freq: Status: Active Protocol: Document 04/13/24 14:17 JESUSWYTRAYNARAYAN (Rec: 04/13/24 14:40 [facility] [id number]) OT-Instrumental Activities of Daily Living Home Safety Awareness Ability to Problem Solve Emergency Unable to Problem Solve Situations Medication Management Medication Management Caregiver Provides Supervision Money Management Money Management Caregiver Provides Supervision Meal Preparation Meal Preparation Caregiver Provides Supervision Fuse Coiler Fuse Coiler Caregiver Provides Assist Driving Driving Caregiver Provides Supervision M6 OT- IP Functional Cognition Start: 04/13/24 14:16 Freq: Status: Active Protocol: Document 04/15/24 15:53 [facility] (Rec: 04/15/24 16:02 [facility] [id number]) Cognitive Factors Limiting Selfcare Function Cognitive Ability Level of Alertness Confusional State Patient Orientation Name,Birthday Attention Span Ability Capable of Focused Attention, Capable of Sustained Attention Memory Description Short Term Impaired,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 When being told she is in the hospital, pt immediately forgets. Pt states that she will being going home with her mom who is in her late 90's when asking pt. Able to point out that pt is 88 years old and when adding the age her mom (which pt states was in her late 20's when the pt was born) that would make her mom's age well over 115 years old. Afterwards pt able to realize that her mom is not alive. Pt will benefit from going home and having a structured routine with familiar people around her. M7 OT- IP Mobility and Balance Start: 04/13/24 14:16 Freq: Status: Active Protocol: Document 04/13/24 14:17 GUNJANNARAYAN (Rec: 04/13/24 14:40 [facility] [id number]) OT-Transfer Assessment Sit to and From Stand Sit to and from Stand Contact Guard Assistance,1 Person Assistance,Use of Upper Extremities Transfers Transfer Ability Contact Guard Assistance,1 Person Assistance,Use of Upper Extremities Technique Transfer Technique ambulated with FWW Devices Transfer Assistive Devices Gait Belt,Front Wheeled Walker Orthotic/Prosthetic Devices or Brace: No Comments Mobility Comments Pt vitals SaO2 95% on RA. Pt pushes up from chair and reaches for walker when standing without vcs. Pt amb with FWW to sink for sink side ADLs with CGA. Pt balances sink side for several minutes without LOB and good safety awareness. Pt returns to chair , requiring vcs to reach back with UE for chair prior to sitting. OT- Gait Assessment Gait Gait Assistance Required: Contact Guard Assist Distance (Feet) 15 Able to Maintain Weight Bearing Status Yes During Gait Assistive Devices Assistive Device Gait Belt,Front Wheeled Walker Orthotic/Prosthetic Devices or Brace: No OT- Balance Assessment Sitting Balance and Reactions Static Sitting Balance Ability Good Dynamic Sitting Balance Ability Good Standing Balance and Reactions Static Standing Balance Ability Good Dynamic Standing Balance Ability Fair M8 OT- IP Objective Assessments Start: 04/13/24 14:16 Freq: Status: Active Protocol: Document 04/13/24 14:17 TJOHNSNARAYAN (Rec: 04/13/24 14:40 TJOHNSTON [id number]) OT Gross Range of Motion Upper Extremity Range of Motion Assessment Within Functional Limits OT Strength Upper Extremity Strength Assessment Within Functional Limits Hand Primer Supervisor Strength Hand Dominance Right Comments Strength Comments Pt with 4-/5 UE strength grossly OT-Muscle Tone Assessment Muscle Tone WNL Yes M9 OT- IP Assessment and Plan Start: 04/13/24 14:16 Freq: Status: Active Protocol: Document 04/15/24 15:53 [facility] (Rec: 04/15/24 16:02 [facility] [id number]) OT Summary Assessment and Plan Potential Rehabilitation Potential Good Analytic Complexity at Evaluation Low Summary OT Impairments Strength,Functional Cognition, Dressing,Toileting,Bathing, Toilet Transfers,Shower Transfers Progress Towards Goals Progressing Toward Goals Assessment Summary Pt still pleasantly confused and thinking that her mom is going to bring her home tomorrow. Pt needing continuous education to be able to use the call light. Chair alarm placed on pt. Pt to go home with 24/7 assist when medically stable. Goals Self-Feeding Goal Independent Grooming Goal Independent Dressing Goal Standby Assistance Toileting Goal Standby Assistance Bathing Goal Contact Guard Assistance Toilet Transfer Goal Standby Assistance Shower Transfer Goal Standby Assistance Days to Meet Goals 7 Frequency of Treatment Other frequency 5x/week Treatment Plan OT Treatment Plan ADL Training,Functional Cognition Training,Functional Mobility,Therapeutic Exercises ,Patient/Family Education, Discharge Planning Other Treatment Recommendations and Next Shower Treatment Focus Discharge Recommendations OT Discharge Recommendations Home with 24/7 Assist Available Transportation Needs at Discharge Private Vehicle
[2024-04-15] MEDS: PRAMIPEXOLE 0.25 MG TABLET 0.5 MG PO (18:07)
[2024-04-15 20:00] VITALS: BP 132/70; PULSE 79; RESP 19; TEMP 36.1; O2SAT 93
[2024-04-15] MEDS: cefTRIAXone 2,000 MG in SODIUM CHLORIDE 0.9% 100 ML 200 MG IV (20:02)
[2024-04-15] MEDS: GABAPENTIN 100 MG CAPSULE 200 MG PO (20:03)
[2024-04-16 04:00] VITALS: BP 138/72; PULSE 72; RESP 17; TEMP 36.2; O2SAT 91
[2024-04-16 08:00] VITALS: BP 133/66; PULSE 87; RESP 14; TEMP 36.2; O2SAT 93
[2024-04-16] MEDS: DULOXETINE 20 MG CAPSULE PO (08:28)
[2024-04-16] MEDS: ATORVASTATIN 20 MG TABLET 10 MG PO (08:28)
[2024-04-16] MEDS: FUROSEMIDE 40 MG TABLET PO (08:29)
[2024-04-16] MEDS: HEPARIN 5,000 UNIT/ML VIAL 5000 UNIT SUBCUT (08:29)
--- NOTE | 2024-04-16 09:03 | PT.IPTN ---
Current Diagnoses Pneumonia, unspecified organism (04/10/24) Physical Therapy Treatment Note M2 PT-IP Current Condition Start: 04/11/24 12:31 Freq: NEEDED Status: Active Protocol: Document 04/13/24 10:42 SP (Rec: 04/13/24 11:55 SP [id number]) Physical Therapy Current Condition Current Condition Evaluation Date 04/11/24 Treatment Diagnosis Bactermia; PNA; difficulty in walking Onset Date 04/10/24 M3 PT-IP Subjective Start: 04/11/24 12:31 Freq: NEEDED Status: Active Protocol: Document 04/16/24 08:52 SP (Rec: 04/16/24 09:17 SP [id number]) Subjective Physical Therapy Visit Type Type Treatment Note Visit Start Time 08:52 Visit Stop Time 09:03 Number of INTELLIGENCE OPERATIONS Visits 1 Physical Therapy Visit Comments Patient Comments agreeable to do PT M4 PT-IP Mobility and Gait Start: 04/11/24 12:31 Freq: NEEDED Status: Active Protocol: Document 04/16/24 08:52 SP (Rec: 04/16/24 09:17 SP [id number]) PT-Transfer Assessment Sit to and From Stand Sit to and from Stand Standby Assistance,1 Person Assistance,Use of Upper Extremities Equipment Transfer Assistive Device Gait Belt,Front Wheeled Walker Orthotic/Prosthetic Devices or Brace: No Transfers Transfer Destination Chair Transfer Technique ambulated /c FWW Transfer Ability Level of Assist Standby Assistance,Contact Guard Assistance,1 Person Assistance,Use of Upper Extremities Comments Mobility Comments Pt up in chair when arrived. Redirecting push from chair vs pulling on FWW to stand close SBA. Gait into hallway 136 ft /c FWW, cues to body positioning center within FWW, tends to be more right slight outside FWW, cues for keeping head up and navigation/ obstacle mgt in hallway, tends to run into wall, can scan talkingto nursing at station slight trunk deviations but no LOB. Pt returned to chair, all needs in reach with chair alarm donned, fall risk. Gait Assessment Gait Gait Assistance Required: Standby Assistance,Contact Guard Assist,1 Person Assist Distance (Feet) 250 Able to Maintain Weight Bearing Status Yes During Gait Assistive Devices Assistive Device Gait Belt,Front Wheeled Walker Orthotic/Prosthetic Devices or Brace: No Gait Deviations General Gait Pattern Antalgic,Decreased Stride Length,Decreased Feet Clearance,Lateral Trunk Lean, Narrow Based Gait Factors Limiting Gait Function Factors Limiting Gait Function Decreased Activity Tolerance, Decreased Strength,Difficulty Following Directions,Poor Balance,Poor Safety Awareness Comments Gait Comments see mobility comments Stair Climbing Assessment Comments Stair Climbing Comments no stairs at [facility] need to assess. PT-Balance Assessment Sitting Balance and Reactions Static Sitting Balance Ability Normal Dynamic Sitting Balance Ability Good Standing Balance and Reactions Static Standing Balance Ability Good Dynamic Standing Balance Ability Fair Device Used FWW & GB Functional Assessments Other Functional Tests Performed Deviations noted scan looking to talk to nurse, no LOB using FWW close SBA/CGA M5 PT-IP Objective Assessments Start: 04/11/24 12:31 Freq: NEEDED Status: Active Protocol: Document 04/11/24 11:25 AB (Rec: 04/11/24 12:46 AB [id number]) Orientation Orientation/Cognition Level of Alertness Alert Orientation Name Safety Awareness Decreased Safety Awareness Memory Description Short Term Impaired,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 Comments with confusion Gross Range of Motion Lower Extremity ROM Assessment Within Functional Limits Strength Lower Extremity Strength Assessment Within Functional Limits Muscle Tone Muscle Tone WNL Yes M6 PT-IP Treatment Start: 04/11/24 12:31 Freq: NEEDED Status: Active Protocol: Document 04/16/24 08:52 SP (Rec: 04/16/24 09:17 SP [id number]) Physical Therapy Treatment Education Education Provided Safety M7 PT-IP Assessment and Plan Start: 04/11/24 12:31 Freq: NEEDED Status: Active Protocol: Document 04/16/24 08:52 SP (Rec: 04/16/24 09:17 SP [id number]) PT Summary Assessment and Plan Potential Rehabilitation Potential Fair Status of Condition at Evaluation Evolving Summary Impairments Pain,ROM,Strength,Balance, Coordination,Sensation,Tone, Cognition,Bed Mobility, Transfers,Gait,Activity Tolerance Progress Towards Goals Progressing Toward Goals Assessment Summary Pt is CG/close SBA during all mobility /c FWW, cues for safety use hands stand/sit vs pulling on FWW. Cues for obstacle mgt in hallway /c FWW close SBA/CG, deviation gait no LOB scanning to talk to nurse. Pt seems close to baseline, pt awaiting insurance auth for SNF placement vs 03/09 available. will continue to assess pt's progress. Goals Bed Mobility Goal Standby Assistance Transfer Goal Standby Assistance,Front Wheeled Walker Gait Goal Standby Assistance,Front Wheel Walker Gait Distance 200 Days to Meet Goals 5 Frequency of Treatment Frequency Of Treatment Once a Day Treatment Plan Physical Therapy Treatment Plan Bed Mobility Training,Transfer Training,Gait Training, Therapeutic Exercise,Balance Retraining,Discharge Planning, Hot or Cold Pack,Neuromuscular Re-ed,Coordination Retraining ,Manual Therapy Other Recommendations and Next Treatment Balance assessment, recheck Focus bed mob, safety strategies during mobility. Precautions Other Precautions falls Recommendations To Nursing Amount of Assist Needed Standby Assistance,1 Person Assist Discharge Recommendations PT Discharge Recommendations Home with 03/09 Assist Available,SNF Rehab,Home vs SNF Transportation Needs at Discharge Private Vehicle,Wheelchair/ Cabulance - PT assist CGA to min A
--- NOTE | 2024-04-16 10:12 | PM.DS.1 ---
History of Present Illness History of Present Illness Chief complaint: acting different, shivering Narrative: From H&P: 88-year-old female with past medical history of restless leg syndrome, hypertension, frb-vbccvrk-szaryrpmo diabetes, CHF and anxiety presents with a fever. Per the patient's report, the patient noted to have increasing fatigue and developed a fever today. The patient admitted to have some dysuria and report a history of urinary tract infection. Otherwise the patient denies any nausea, vomiting, abdominal pain, diarrhea, chest pain, coughing or shortness of breath. In emergency room, the patient was hemodynamically stable initially without signs of sepsis. WBC was 10 and lactic acid was normal. Upper respiratory viral panel was negative. Chest x-ray is just possible atypical pneumonia. The patient however did require [address] angio of the chest shows no pulm embolism but did show small posterior left lower lobe suggest possible infection. There is also a nodule in the lung measuring 6 x 4 mm I recommend to repeat CT chest in 12 months. There is also possible pulmonary edema mild. The patient was given IV ceftriaxone and azithromycin. Discharge Providers Provider Date of admission: 04/10/24 20:08 Discharge Date: 04/16/24 Consults: 04/10/24 20:29 Consult to Occupational Therapy Evaluate & Treat Comment: Physician Instructions: Evaluate and treat Consult to Physical Therapy Evaluate & Treat Comment: Physician Instructions: Evaluate and Treat Discharge provider: Rafi Hernandez MD Summary Hospital Course Discharge Diagnosis: 1. Sepsis with acute septic encephalopathy, acute respiratory failure with hypoxia secondary to group B strep bacteremia. POA, improving - blood cultures showing group B strep, 4/4 bottles. Repeat blood cultures 04/11 without growth. - continue ceftriaxone (increased to 2g daily given bacteremia). Stopped vancomycin as cultures show sensitivity to ceftriaxone. - encephalopathy has improved. Likely restless overnight due to SCDs, improved today. - 2 weeks of IV ceftriaxone, PICC ordered for today. Stop date will be 04/26/2024. - TTE without obvious vegetation. - source is probably pulmonary vs urine based on initial evaluation and imaging. 2. Ncu-ksmbtyd-sudtovoxw diabetes. Present on admission and stable. 3. Hypertension. Present on admission and stable. - continue home furosemide 4. Chronic diastolic heart failure, present on admission and stable. - continue home furosemide 40 mg daily, appears euvolemic. 5. Hyperlipidemia. Present on admission and chronic - continue home statin 6. Restless leg syndrome. chronic, active. - continue home pramipexole, with overnight restlessness moved up bedtime dosing to 1800. - also added gabapentin with 100 at lunch, 200 mg at bedtime on 04/12 due to restless legs and inability to sit for more than 15 minutes per daughter. Oxycodone 2.5 not effective but 5 mg was better. Try to limit oxycodone to very severe symptoms. 7. Chronic cognitive impairment, present on admission and stable. - resides at [facility] normally. - continue home olanzapine at night 8. Depression, present on admission and stable. She takes chronic duloxetine 20 mg daily. Hospital Course: She was admitted initially with fatigue and fever. She turned out to have group B strep bacteremia. It was unclear if this related to a urine tract infection or pneumonia. She was treated with ceftriaxone after initially receiving azithromycin as well. She will complete a 14 day course. Gabapentin was added for restless legs with some improvement of the symptoms. She was on chronic olanzapine at night prior to admission. She was stable for discharge with resolution of fevers. Repeat blood cultures on April 12 were negative after the positive blood cultures on April 10. A urine dip and April 10 revealed 1+ leukocyte esterase positivity and urine culture revealed Pseudomonas and strep group B. chest imaging was not convincing for pneumonia. There was a nodule in the lingula at 6 x 4 mm with repeat chest CT to be considered in 12 months. Status at Discharge Cognitive/behavioral status at discharge: at baseline, confused Functional status at discharge: uses cane/walker Overall status at discharge: patient is back to baseline Time Spent with Patient Time spent: Greater than 30 minutes Exam Vital Signs (past 8 hours): - 04/16/24 04:00 04/16/24 07:36 04/16/24 08:00 Temperature 97.1 F L 97.1 F L Pulse Rate 72 87 Respiratory Rate 17 14 Blood Pressure 138/72 133/66 Pulse Oximetry 91 93 Oxygen Delivery Method Room Air Oxygen Flow Rate 0 0 Fraction of Inspired Oxygen 24 SaO2/FiO2 Ratio 408 Oxygen Delivery Method Room Air Oxygen Flow Rate 0 Narrative Exam Narrative: NAD, alert and oriented. Fluent speech. Lungs are clear, normal rate and effort. Heart is regular, no murmur gallop or rub. Abdomen is soft, non distended. Extremities are free of edema. Objective Imaging Multiple studies:: Radiologist's impression: Echo: nterpretation Summary The left ventricle is normal in size. Left ventricular systolic function appears normal without focal wall motion abnormalities. The ejection fraction is estimated to be 55-60%. The right ventricle is normal in size and function. The right ventricular systolic pressure is estimated to be at least 52 mmHg based on an estimated right atrial pressure of 15 mm Hg. The left atrium is mildly dilated. There is no obvious vegetation seen on the mitral valve. There is mild mitral regurgitation. The aortic valve is mildly calcified. There is no aortic valve stenosis. There is no obvious aortic valvular vegetation. There is no obvious tricuspid valve vegetation. A pulmonic valvular vegetation cannot be excluded. Chest CTA: IMPRESSION: No pulmonary embolus. Mild interlobular septal thickening is noted, may represent edema. Small opacity in the left lower lobe, may be infectious. Nodule in the lingula measuring 6 x 4 mm. Per Fleischner criteria, if patient is high risk, optional CT chest can be obtained in 12 months to assess stability. Head CT: No acute intracranial pathology. If there is high concern for parenchymal pathology, consider further evaluation with MRI. Similar moderate senescent changes and ventriculomegaly, as described above Chest x-ray: On this single view study, no dense airspace disease or pleural effusions. Mildly prominent interstitium could represent atypical infection. Cardiomegaly. Aortic calcifications. Degenerative osseous changes. Labs 04/14/24 08:00 04/14/24 08:00 [facility] Medical History HLD (hyperlipidemia) Restless legs HTN (hypertension) Diabetes Social History household members: caregiver Smoking Status: Former smoker alcohol intake: current Discharge Assessment & Plan Assessment and Plan Assessment: 1. Septic encephalopathy, resolved. 2. UTI, improving. 3. Strep B bacteremia, active and improving. 4. Acute hypoxic respiratory failure, resolved. Plan of Treatment: Transfer to [facility], complete 14 days of IV ceftriaxone. Last day will be April 26. She was a midline in place. Discharge Plan Discharge Plan Patient Disposition: SNF Transfer to: [facility] Under care of provider: SNF Providers. Provider Discharge Comment: Stable for discharge to [facility]p facility for completion of IV antibiotics, 14 day course. Discharge orders & Medications Prescriptions: New gabapentin 100 mg Capsule 200 mg PO BEDTIME Qty: 30 0RF gabapentin 100 mg Capsule 100 mg PO 1200 Qty: 30 0RF ceftriaxone 2 gram Recon Soln 2,000 mg IV BEDTIME Qty: 10 0RF oxycodone 5 mg Tablet 5 mg PO Q4HR PRN (Reason: Pain, Moderate (4-6)) Qty: 20 0RF Continued pramipexole 0.5 mg tablet 0.5 mg PO BEDTIME lidocaine 5 % adhesive patch,medicated 1 patch topical DAILY cyanocobalamin (vitamin B-12) [Vitamin B-12] 1,000 mcg tablet 1,000 mcg PO DAILY metformin 500 mg tablet 1,000 mg PO DAILY acetaminophen 325 mg tablet 325 mg PO Q6HR PRN (Reason: Pain (Scale Score 1-3)) Rx Instructions: 2 tabs by mouth simvastatin 20 mg tablet 20 mg PO DAILY losartan 25 mg tablet 12.5 mg PO DAILY cranberry extract [Cranberry Concentrate] 500 mg capsule 500 mg PO DAILY duloxetine 20 mg capsule,delayed release(DR/EC) 20 mg PO BID loperamide 2 mg capsule 2 mg PO Q OTHER DAY sennosides [senna] 8.6 mg tablet 17.2 mg PO DAILY olanzapine 2.5 mg tablet 2.5 mg PO BEDTIME PRN (Reason: Agitation) polyethylene glycol 3350 17 gram/dose powder 17 g PO PRN PRN (Reason: Constipation) furosemide [Lasix] 40 mg tablet 40 mg PO DAILY Qty: 30 0RF metformin 500 mg Tablet 500 mg PO BEDTIME Medication counseling provided by Pharmacist: No Discharge Health Status Multidrug resistant organism: No MDRO Diet/Activity/Treatments Diet: Carb-consistent/Diabetic Liquid consistency: Normal/Thin Food texture: Regular Skin/Wound/Dressing Care Report to your healthcare provider any signs of infection, such as:: chills, fever, night sweats, increased pain and unusual redness Visit Report/Discharge Packet Stand Alone Forms: Patient Portal/API Quality VTE Deep Vein Thrombosis/Pulmonary Embolism Present on Admission: No
--- NOTE | 2024-04-16 12:12 | CM.DPNOTE ---
DC Note Discharge to [facility]; auth through [employer] [facility] has been secured. Emailed Ana Maria at DC Summary, med list w/ printed Rx, DC visit report, Hospital exempt PASRR, diet orders. Bedside RN updated and calling report. Wheelchair van arranged for draft roller picker at 1215. Placed call to daughter Veronica who remains agreeable to plan; dtr plans to meet patient at this afternoon. Plan: Discharge to via wheelchair, [employer] auth secured. SHARITA
--- NOTE | 2024-04-16 12:41 | PC.NURSE ---
Addendum entered by Carol Pfeiffer R.N. 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 PICC left in place for outpatient antibiotic use, PIV discontinued prior to discharge. Original Note: Pt A&O to self and vague situation, on RA, ambulatory w/ FWW, gait belt to BR. Report given to receiving [facility] at [facility].
== END 2024-04-16 13:15 | DRG 871 ==
LOC: ED 20:07 → AC 20:09
PROVIDERS: Emergency Medicine; Internal Medicine; Admitting Provider Internal Medicine; Emergency Provider Emergency Medicine; Referring Provider Emergency Medicine; Visit Provider Internal Medicine
DX: A40.1 Sepsis due to streptococcus, group B (principal); G93.41 Metabolic encephalopathy; J96.01 Acute respiratory failure with hypoxia; R65.21 Severe sepsis with septic shock; J15.3 Pneumonia due to streptococcus, group B; I50.32 Chronic diastolic (congestive) heart failure; N39.0 Urinary tract infection, site not specified; R91.1 Solitary pulmonary nodule; I11.0 Hypertensive heart disease with heart failure; E78.5 Hyperlipidemia, unspecified; G25.81 Restless legs syndrome; E11.649 Type 2 diabetes mellitus with hypoglycemia without coma; G31.84 Mild cognitive impairment of uncertain or unknown etiology; F32.A Depression, unspecified; B96.5 Pseudomonas (aeruginosa) (mallei) (pseudomallei) as the cause of diseases classified elsewhere; Z87.891 Personal history of nicotine dependence; Z66 Do not resuscitate; Z79.84 Long term (current) use of oral hypoglycemic drugs
CPT/HCPCS: 0241U; 36415; 36569; 70450; 71045; 71275; 80048; 80053; 81001; 82962; 83036; 83605; 83690; 83735; 83880; 84145; 84443; 85025; 85610; 85651; 85730; 86140; 87040; 87077; 87086; 87147; 87154; 87186; 93005; 93306; 94760; 94762; 96361; 96365; 96367; 97116; 97129; 97162; 97165; 97530; 99285; J0696; J1630; J1642; J1644; J1815; J3370; Q9967

== ENCOUNTER 2024-05-15 08:23 | Emergency (ER) | payer OTHER, MEDICAID, SELFPAY ==
[2024-04-10 22:34] VITALS: BMI 20.5
[2024-05-15] VITALS (8 sets, daily range): BP systolic 129–145; BP diastolic 60–65; PULSE 56–61; RESP 16; TEMP 36.6; O2SAT 80–100
--- NOTE | 2024-05-15 08:28 | DI.RAD.S_ITS ---
PROCEDURE: XR CHEST 1V INDICATIONS: Possible stroke TECHNIQUE: One view of the chest was acquired. COMPARISON: [facility], CT, CT ANGIO HEAD AND NECK, 05/15/2024, 8:36. [facility], CR, XR CHEST 1V, 04/10/2024, 17:04. [facility], CR, XR CHEST 1V, 12/22/2023, 21:39. FINDINGS: Surgical changes and devices: None. Lungs and pleura: Increased interstitial prominence. No pleural effusions or pneumothorax. Mediastinum: Mediastinal contours appear normal. Heart size is normal. Bones and chest wall: No suspicious bony lesions. Overlying soft tissues appear unremarkable. IMPRESSION: Diffuse interstitial prominence, correlate for signs of pulmonary edema. Dictated by: Amador Leach M.D. on 05/15/2024 at 9:40 Approved by: Amador Leach M.D. on 05/15/2024 at 9:42
--- NOTE | 2024-05-15 08:28 | DI.CT.S_ITS ---
PROCEDURE: CT STROKE INDICATIONS: Positive BE-FAST, Stroke symptoms TECHNIQUE: Noncontrast 4.5 mm thick angled axial sections acquired from the foramen magnum to the vertex, with coronal reformats. For radiation dose reduction, the following was used: automated exposure control, adjustment of mA and/or kV according to patient size. COMPARISON: [facility], CT, CT HEAD/BRAIN WO CON, 04/10/2024, 18:23. FINDINGS: Image quality: Diagnostic. CSF spaces: Basal cisterns are patent. No extra-axial fluid collections. The ventricles are symmetric in size and shape. Brain: No intracranial bleeds or masses. There is cerebral volume loss for age, with resultant ventricular and sulcal prominence. There are periventricular and deep white matter chronic small vessel ischemic changes. There is intracranial internal carotid artery atherosclerosis. Skull and face: Calvarium and visualized facial bones appear intact, without suspicious lesions. Sinuses: Visualized sinuses and mastoids are clear. IMPRESSION: No acute intracranial pathology. Findings close with Dr. Tran by the covering radiologist at 9:01 a.m. On 05/15/2024. This study fulfills neurological imaging criteria for inclusion or exclusion of acute stroke therapies based on available published neurological guidelines. Dictated by: Amador Leach M.D. on 05/15/2024 at 9:20 Approved by: Amador Leach M.D. on 05/15/2024 at 9:22
--- NOTE | 2024-05-15 08:31 | DI.CT.S_ITS ---
PROCEDURE: CT ANGIO HEAD AND NECK INDICATIONS: r/o stroke TECHNIQUE: After the administration of intravenous contrast, 1 mm thick sections acquired from the aortic arch through the [place] of [place]. 3-dimensional ymoluoi-vptwzfiid-tkfkmyiimg (MIP) and/or volume rendering reformats were acquired of the central intracranial vasculature and neck separately. For radiation dose reduction, the following was used: automated exposure control, adjustment of mA and/or kV according to patient size. COMPARISON: None. FINDINGS: Image quality: Diagnostic. BRAIN: Please refer to same day CT of the head. HEAD CT ANGIOGRAPHY: Anterior circulation: Intracranial internal carotid arteries are normal in size and flow. The flow within the paired anterior cerebral arteries is normal and symmetric. The flow within the middle cerebral arteries is normal and symmetric. The anterior communicating artery is seen. No aneurysms are seen. Posterior circulation: Visualized portions of the vertebral arteries demonstrate normal caliber, and join to form a normal appearing basilar artery. Flow within the posterior cerebral arteries is normal and symmetric. No aneurysms are seen. NECK CT ANGIOGRAPHY: Carotid system: The great vessels demonstrate a conventional anatomy as they arise from the aortic arch with atherosclerotic calcifications. The origins of the common carotid arteries appear patent. The common carotid arteries demonstrate normal caliber and courses. The bifurcation regions are both widely patent with atherosclerotic calcifications. The internal carotid arteries demonstrate normal calibers and courses. Posterior circulation: The origins of the vertebral arteries both appear widely patent. The more superior extracranial portions of both vertebral arteries also demonstrate normal courses and calibers. They join to form a normal appearing basilar artery. Soft tissues: Visualized neck soft tissues demonstrate no suspicious abnormalities. Mild interlobular septal thickening within the visualized lung apices, consider pulmonary edema. Left upper lobe posterior subpleural nodule measuring 3 mm (5/272). Bones: No suspicious bony lesions. Visualized cervical spine appears normally aligned. Multilevel degenerative changes of the spine. IMPRESSION: No significant intracranial arterial abnormality is seen. No significant abnormality is seen within the arteries of the neck. Mild interlobular septal thickening within the visualized lung apices, consider pulmonary edema. Left upper lobe subpleural nodule posteriorly measuring 3 mm. Findings are concordant with preliminary interpretation provided by [facility]. Any quantitative measurements of stenosis were performed using NASCET criteria. Dictated by: Amador Leach M.D. on 05/15/2024 at 9:42 Approved by: Amador Leach M.D. on 05/15/2024 at 9:51
--- NOTE | 2024-05-15 08:35 | ED_ITS ---
HPI - Altered Mental Status General Chief Complaint: Weakness Stated Complaint: Slurred speech Time Seen by Provider: 05/15/24 08:27 History of Present Illness HPI narrative: A 88year-old female history of dementia, hypertension, chf, dyslipidemia, diabetes, presents from [address] [place] [address] for evaluation of possible CVA at 7:10 am with slurred speech. Her symptoms have since resolved. Patient is a DNR DNI. Other than what is stated 14 point review of system is negative Related Data Home Medications Medication Instructions Recorded Confirmed acetaminophen 325 mg tablet 325 mg PO Q6HR PRN Pain (Scale 06/13/23 04/10/24 Score 1-3) cranberry extract 500 mg capsule 500 mg PO DAILY 06/13/23 04/10/24 (Cranberry Concentrate) cyanocobalamin (vitamin B-12) 1,000 mcg PO DAILY 06/13/23 04/10/24 1,000 mcg tablet (Vitamin B-12) duloxetine 20 mg capsule,delayed 20 mg PO BID 06/13/23 04/10/24 release lidocaine 5 % topical patch 1 patch topical DAILY back pain 06/13/23 04/10/24 losartan 25 mg tablet 12.5 mg PO DAILY 06/13/23 04/10/24 metformin 500 mg tablet 1,000 mg PO DAILY 06/13/23 04/10/24 pramipexole 0.5 mg tablet 0.5 mg PO BEDTIME 06/13/23 04/10/24 simvastatin 20 mg tablet 20 mg PO DAILY 06/13/23 04/10/24 metformin 500 mg tablet 500 mg PO BEDTIME 12/20/23 04/10/24 loperamide 2 mg capsule 2 mg PO Q OTHER DAY Diarrhea 12/23/23 04/10/24 olanzapine 2.5 mg tablet 2.5 mg PO BEDTIME PRN Agitation 12/23/23 04/10/24 polyethylene glycol 3350 17 17 g PO PRN PRN Constipation 12/23/23 04/10/24 gram/dose oral powder sennosides 8.6 mg tablet (senna) 17.2 mg PO DAILY 12/23/23 04/10/24 Previous Rx's Medication Instructions Recorded furosemide 40 mg tablet (Lasix) 40 mg PO DAILY #30 tabs 12/24/23 ceftriaxone 2 gram solution for 2,000 mg IV BEDTIME #10 doses 04/16/24 injection gabapentin 100 mg capsule 100 mg PO 1200 #30 caps 04/16/24 gabapentin 100 mg capsule 200 mg (2 x 100 mg) PO BEDTIME #30 04/16/24 caps oxycodone 5 mg tablet 5 mg PO Q4HR PRN Pain, Moderate 04/16/24 (4-6) #20 tabs aspirin 81 mg capsule 81 mg PO DAILY #30 caps 05/15/24 atorvastatin 40 mg tablet 40 mg PO QPM #30 tabs 05/15/24 clopidogrel 75 mg tablet (Plavix) 75 mg PO DAILY #21 tabs 05/15/24 Allergies Allergy/AdvReac Type Severity Reaction Status Date / Time celecoxib [From Celebrex] AdvReac Verified 12/20/23 09:37 Review of Systems Review of Systems ROS Unobtainable: All systems reviewed & are unremarkable except as noted in HPI and below Patient History Medical History HLD (hyperlipidemia) Restless legs HTN (hypertension) Diabetes Social History household members: caregiver alcohol intake: current alcohol intake frequency: holidays/special occasions only Exam Narrative Exam Narrative: GENERAL: [88] year old patient appears stated age. Well-developed patient, in mild distress. HEAD: Atraumatic. Normocephalic. EYES: Pupils equal round and reactive. Extraocular motions intact. No scleral icterus. No injection or drainage. ENT: Nose without bleeding, purulent drainage. Throat without erythema, tonsillar hypertrophy or exudate. Airway patent. NECK: Trachea midline. Non tender CARDIOVASCULAR: Regular rate and rhythm without murmurs, gallops, or rubs. RESPIRATORY: Clear to auscultation. Breath sounds equal bilaterally. No wheezes, rales, or rhonchi. GASTROINTESTINAL: Abdomen soft, non-tender, nondistended. EXTREMITIES: No edema or joint tenderness. BACK: Nontender without deformity or crepitance. No flank tenderness. NEURO: AOx2, gcs 15 nonfocal neuro exam b/l u/e 5/5 b/l l/e 5/5, neg pronator drift, SKIN: No rash or erythema of visible areas Initial Vital Signs Initial Vital Signs: Vital Signs Temperature 97.8 F 05/15/24 08:28 Pulse Rate 59 L 05/15/24 08:28 Respiratory Rate 16 05/15/24 08:28 Blood Pressure 145/64 H 05/15/24 08:28 Pulse Oximetry 100 05/15/24 08:28 Oxygen Delivery Method Room Air 05/15/24 08:28 Scores NIH Stroke Scale Level of Conciousness: Alert, keenly responsive Open/close eyes, close hand: Performs both tasks correctly Best gaze horizontal: Normal Visual zambrano: No visual loss Facial palsy: Normal symetrical movement Left arm drift: No drift for full 10 sec Right arm drift: No drift for full 10 sec Left leg drift: No drift for full 5 sec Right leg drift: No drift for full 5 sec Limb ataxia: Absent Sensory on face/arms/legs: Normal, no sensory loss Best language: No aphasia, normal Dysarthria: Normal Extinction or inattention: No abnormality Citation:: NIH Stroke scale 1 Course Orders Ordered: ED Orders 05/15/24 08:15 Complete Blood Count AUTO DIFF Stat Comprehensive Metabolic Panel Stat Magnesium Stat NT-proBNP (BNP-Adult 18+) Stat PTT Partial Thromboplastin Anish Stat Prothrombin Time INR Stat Troponin & CK Cardiac Panel Stat 05/15/24 08:28 CT Stroke Stat XR chest 1V Stat EKG-12 Lead Stat 05/15/24 08:31 CT angio head and neck Stat 05/15/24 10:42 Urine Drug Screen, Rapid Stat Ondansetron HCl (Ondansetron 4 Mg/2 Ml Inj) 4 mg IV NOW PRN PRN Reason: Nausea And Vomiting Ondansetron HCl (Ondansetron 4 Mg Odt) 4 mg SL NOW PRN PRN Reason: Nausea And Vomiting Discontinued Medications Aspirin (Aspirin Ec 81 Mg Tablet) 81 mg PO NOW ONE Stop: 05/15/24 09:08 Last Admin: 05/15/24 10:02 Dose: 81 mg Documented By: GENARO Vital Signs Vital signs: Vital Signs - 8 hr 05/15/24 08:28 05/15/24 08:49 05/15/24 08:49 Temperature 97.8 F Pulse Rate 59 L 59 L Respiratory Rate 16 Blood Pressure 145/64 H 145/64 H Pulse Oximetry 100 Oxygen Delivery Method Room Air 05/15/24 09:00 05/15/24 09:00 05/15/24 09:30 Temperature Pulse Rate 56 L Respiratory Rate Blood Pressure 133/63 143/65 H Pulse Oximetry 96 Oxygen Delivery Method 05/15/24 09:30 05/15/24 10:00 05/15/24 10:00 Temperature Pulse Rate 58 L 58 L Respiratory Rate Blood Pressure 137/65 Pulse Oximetry 96 94 Oxygen Delivery Method 05/15/24 10:30 05/15/24 10:43 05/15/24 11:00 Temperature Pulse Rate 58 L 61 57 L Respiratory Rate Blood Pressure 129/65 129/60 138/65 Pulse Oximetry 95 80 L 95 Oxygen Delivery Method All lab work EKG chest x-ray CT imaging all reviewed nurse triage reviewed vital signs reviewed medication list reviewed previous visits all reviewed. Case discussed with Dr. Ballesteros hospitalist for admission who was seen and evaluated the patient in the ER who discussed plan of care with POA and is agreeable for discharge back to his area on dual platelet medication and statin as well. We do not have MRI here until this evening. Her neuro symptoms have since resolved. Differential diagnosis includes CVA TIA subarachnoid hemorrhage epidural hemorrhage STEMI NSTEMI hypoglycemia. MDM - Altered Mental Status Lab Data 05/15/24 08:15 05/15/24 08:15 Labs: Lab Results 05/15/24 05/15/24 Range/Units 08:15 10:42 WBC 6.4 (4.5-11.0) X10^3/uL RBC 4.13 (4.0-5.2) X10^6/uL Hgb 11.4 L (12.0-16.0) g/dL Hct 34.3 L (36-46) % MCV 83.3 (80-100) fL MCH 27.6 (26-34) PG MCHC 33.2 (30-36) % RDW 14.9 H (11.6-14.8) % Plt Count 259 (150-400) X10^3/uL Neut % (Auto) 50.7 (50-75) % Lymph % (Auto) 31.6 (25-40) % [place] % (Auto) 10.9 (3-14) % Eos % (Auto) 5.9 H (2-4) % Baso % (Auto) 0.9 (0-2) % Neut # (Auto) 3200 (2457-2480) /uL Lymph # (Auto) 2000 (6660-2768) /uL [place] # (Auto) 700 (0-900) /uL Eos # (Auto) 400 (0-450) /uL Baso # (Auto) 100 (0-100) /uL PT 11.2 (9.4-12.5) SECONDS INR 1.0 (0.9-1.3) APTT 33 (25.1-36.5) SECONDS Sodium 139 (137-145) mmol/L Potassium 4.4 (3.4-5.1) mmol/L Chloride 104 (98-107) mmol/L Carbon Dioxide 26 (22-32) mmol/L BUN 37 H (7-17) mg/dL Creatinine 1.37 H (0.52-1.04) mg/dL Estimated GFR 37 L (>60) mL/min BUN/Creatinine Ratio 27.0 H (6-22) Glucose 125 H (80-110) mg/dL Calcium 9.4 (8.4-10.2) mg/dL Magnesium 1.9 (1.6-2.3) mg/dL Total Bilirubin 0.7 (0.2-1.3) mg/dL AST 26 (14-36) IU/L ALT 14 (<35) IU/L Alkaline Phosphatase 99 (38-126) U/L Total Creatine Kinase 33 (30-135) U/L Troponin I < 0.012 (0.01-0.034) ng/mL NT-Pro-B Natriuret Pep 480 H (<450) pg/mL Total Protein 8.1 (6.3-8.2) g/dL Albumin 4.0 (3.5-5.0) g/dL Globulin 4.1 (1.7-4.1) g/dL Albumin/Globulin Ratio 1.0 (1.0-2.8) U Opiates 300ng/mL cut Negative (Negative) Ur Oxycodone Screen Negative (Negative) Urine Methadone Screen Negative (Negative) Ur Barbiturates Screen Negative (Negative) U Tricyclic Antidepress Negative (Negative) Ur Phencyclidine Scrn Negative (Negative) Ur Amphetamines Screen Negative (Negative) U Methamphetamines Scrn Negative (Negative) Ur MDMA Scrn (Ecstasy) Negative (Negative) U Benzodiazepines Scrn Negative (Negative) Urine Cocaine Screen Negative (Negative) U Marijuana (THC) Screen Negative (Negative) Urine pH Normal (Normal) Urine Specific [place] Normal (Normal) Ur Creatinine Normal (Normal) Point of Care Testing Glucose POC 136 Urine Dip Bedside Urine Glucose Negative Bedside Urine Bilirubin - Negative Bedside Urine Ketone - Negative Urine Specific [place] 1.010 Bedside Urine Occult Blood - Negative Bedside Urine pH 6.5 Bedside Urine Protein - Negative Bedside Urine Urobilinogen - Negative Bedside Urine Nitrite - Negative Bedside Urine Leukocytes - Negative Esterase Imaging Data CT scan - head: Radiologist's Impression: [address] [address] [address] Scan Report Signed Patient: Katiuska Art MR#: [id number] : 1935 Acct:[id number] Age/Sex: 88 / F Date of Service: 05/15/24 Loc: ED Accession Number: [id number] Procedure: CT Stroke Ordering Provider: Sachin Tran D.O. PROCEDURE: CT STROKE INDICATIONS: Positive BE-FAST, Stroke symptoms TECHNIQUE: Noncontrast 4.5 mm thick angled axial sections acquired from the foramen magnum to the vertex, with coronal reformats. For radiation dose reduction, the following was used: automated exposure control, adjustment of mA and/or kV according to patient size. COMPARISON: [facility], CT, CT HEAD/BRAIN WO CON, 04/10/2024, 18:23. FINDINGS: Image quality: Diagnostic. CSF spaces: Basal cisterns are patent. No extra-axial fluid collections. The ventricles are symmetric in size and shape. Brain: No intracranial bleeds or masses. There is cerebral volume loss for age, with resultant ventricular and sulcal prominence. There are periventricular and deep white matter chronic small vessel ischemic changes. There is intracranial internal carotid artery atherosclerosis. Skull and face: Calvarium and visualized facial bones appear intact, without suspicious lesions. Sinuses: Visualized sinuses and mastoids are clear. IMPRESSION: No acute intracranial pathology. Findings close with Dr. Tran by the covering radiologist at 9:01 a.m. On 05/15/2024. This study fulfills neurological imaging criteria for inclusion or exclusion of acute stroke therapies based on available published neurological guidelines. Dictated by: Amador Leach M.D. on 05/15/2024 at 9:20 Approved by: Amador Leach M.D. on 05/15/2024 at 9:[address] [address] [address] Scan Report Signed Patient: Katiuska Art MR#: [id number] : 1935 Acct:[id number] Age/Sex: 88 / F Date of Service: 05/15/24 Loc: ED Accession Number: [id number] Procedure: CT angio head and neck Ordering Provider: Sachin Tran D.O. PROCEDURE: CT ANGIO HEAD AND NECK INDICATIONS: r/o stroke TECHNIQUE: After the administration of intravenous contrast, 1 mm thick sections acquired from the aortic arch through the [place] of [place]. 3-dimensional smjdzwh-lvgeeczqr-twzdomnudm (MIP) and/or volume rendering reformats were acquired of the central intracranial vasculature and neck separately. For radiation dose reduction, the following was used: automated exposure control, adjustment of mA and/or kV according to patient size. COMPARISON: None. FINDINGS: Image quality: Diagnostic. BRAIN: Please refer to same day CT of the head. HEAD CT ANGIOGRAPHY: Anterior circulation: Intracranial internal carotid arteries are normal in size and flow. The flow within the paired anterior cerebral arteries is normal and symmetric. The flow within the middle cerebral arteries is normal and symmetric. The anterior communicating artery is seen. No aneurysms are seen. Posterior circulation: Visualized portions of the vertebral arteries demonstrate normal caliber, and join to form a normal appearing basilar artery. Flow within the posterior cerebral arteries is normal and symmetric. No aneurysms are seen. NECK CT ANGIOGRAPHY: Carotid system: The great vessels demonstrate a conventional anatomy as they arise from the aortic arch with atherosclerotic calcifications. The origins of the common carotid arteries appear patent. The common carotid arteries demonstrate normal caliber and courses. The bifurcation regions are both widely patent with atherosclerotic calcifications. The internal carotid arteries demonstrate normal calibers and courses. Posterior circulation: The origins of the vertebral arteries both appear widely patent. The more superior extracranial portions of both vertebral arteries also demonstrate normal courses and calibers. They join to form a normal appearing basilar artery. Soft tissues: Visualized neck soft tissues demonstrate no suspicious abnormalities. Mild interlobular septal thickening within the visualized lung apices, consider pulmonary edema. Left upper lobe posterior subpleural nodule measuring 3 mm (5/272). Bones: No suspicious bony lesions. Visualized cervical spine appears normally aligned. Multilevel degenerative changes of the spine. IMPRESSION: No significant intracranial arterial abnormality is seen. No significant abnormality is seen within the arteries of the neck. Mild interlobular septal thickening within the visualized lung apices, consider pulmonary edema. Left upper lobe subpleural nodule posteriorly measuring 3 mm. Findings are concordant with preliminary interpretation provided by [facility]. Any quantitative measurements of stenosis were performed using NASCET criteria. Dictated by: Amador Leach M.D. on 05/15/2024 at 9:42 Approved by: Amador Leach M.D. on 05/15/2024 at 9:[address] [address] XRay Report Signed Patient: Katiuska Art MR#: [id number] : 1935 Acct:[id number] Age/Sex: 88 / F Date of Service: 05/15/24 Loc: ED Accession Number: [id number] Procedure: XR chest 1V Ordering Provider: Sachin Tran D.O. PROCEDURE: XR CHEST 1V INDICATIONS: Possible stroke TECHNIQUE: One view of the chest was acquired. COMPARISON: [facility], CT, CT ANGIO HEAD AND NECK, 05/15/2024, 8:36. [facility], CR, XR CHEST 1V, 04/10/2024, 17:04. [facility], CR, XR CHEST 1V, 12/22/2023, 21:39. FINDINGS: Surgical changes and devices: None. Lungs and pleura: Increased interstitial prominence. No pleural effusions or pneumothorax. Mediastinum: Mediastinal contours appear normal. Heart size is normal. Bones and chest wall: No suspicious bony lesions. Overlying soft tissues appear unremarkable. IMPRESSION: Diffuse interstitial prominence, correlate for signs of pulmonary edema. Dictated by: Amador Leach M.D. on 05/15/2024 at 9:40 Approved by: Amador Leach M.D. on 05/15/2024 at 9:42 ECG Data Interpretation: HR [address]-twave change OK 188 QRS 86 QT 438 NSR Unchanged from 12/20/23 Discharge Plan Departure Patient Disposition: Home Clinical Impression: Brain TIA Instructions: DI for Transient Ischemic Attack Activity Restrictions/Additional Instructions: Return with new or worsening symptoms. Follow up with PCP next week. Take your medicines as directed. Prescriptions: New aspirin 81 mg capsule 81 mg PO DAILY Qty: 30 0RF clopidogrel [Plavix] 75 mg tablet 75 mg PO DAILY Qty: 21 0RF atorvastatin 40 mg tablet 40 mg PO QPM Qty: 30 0RF No Action pramipexole 0.5 mg tablet 0.5 mg PO BEDTIME lidocaine 5 % adhesive patch,medicated 1 patch topical DAILY cyanocobalamin (vitamin B-12) [Vitamin B-12] 1,000 mcg tablet 1,000 mcg PO DAILY metformin 500 mg tablet 1,000 mg PO DAILY acetaminophen 325 mg tablet 325 mg PO Q6HR PRN (Reason: Pain (Scale Score 1-3)) Rx Instructions: 2 tabs by mouth simvastatin 20 mg tablet 20 mg PO DAILY losartan 25 mg tablet 12.5 mg PO DAILY cranberry extract [Cranberry Concentrate] 500 mg capsule 500 mg PO DAILY duloxetine 20 mg capsule,delayed release(DR/EC) 20 mg PO BID loperamide 2 mg capsule 2 mg PO Q OTHER DAY sennosides [senna] 8.6 mg tablet 17.2 mg PO DAILY olanzapine 2.5 mg tablet 2.5 mg PO BEDTIME PRN (Reason: Agitation) polyethylene glycol 3350 17 gram/dose powder 17 g PO PRN PRN (Reason: Constipation) furosemide [Lasix] 40 mg tablet 40 mg PO DAILY Qty: 30 0RF gabapentin 100 mg Capsule 200 mg PO BEDTIME Qty: 30 0RF gabapentin 100 mg Capsule 100 mg PO 1200 Qty: 30 0RF ceftriaxone 2 gram Recon Soln 2,000 mg IV BEDTIME Qty: 10 0RF oxycodone 5 mg Tablet 5 mg PO Q4HR PRN (Reason: Pain, Moderate (4-6)) Qty: 20 0RF metformin 500 mg Tablet 500 mg PO BEDTIME Referrals: *Temp,ED* [Primary Care Provider] - Stand Alone Forms: Patient Portal/API/Survey
[2024-05-15 08:36] LABS: Add Manual Diff / Slide Review NO; Basophils Absolute Auto 100 /uL (0-100); Basophils Percent Auto 0.9 % (0-2); Eosinophils Absolute Auto 400 /uL (0-450); Eosinophils Percent Auto 5.9 % (2-4); Hematocrit 34.3 % (36-46); Hemoglobin 11.4 g/dL (12.0-16.0); Lymphocytes Absolute Auto 2000 /uL (1100-4500); Lymphocytes Percent Auto 31.6 % (25-40); Mean Corpuscular HGB Conc 33.2 % (30-36); Mean Corpuscular Hemoglobin 27.6 PG (26-34); Mean Corpuscular Volume 83.3 fL (80-100); Monocytes Absolute Auto 700 /uL (0-900); Monocytes Percent Auto 10.9 % (3-14); Neutrophils Absolute Auto 3200 /uL (1500-7000); Neutrophils Percent Auto 50.7 % (50-75); Platelet Count 259 X10^3/uL (150-400); Red Blood Cell Count 4.13 X10^6/uL (4.0-5.2); Red Cell Distribution Width 14.9 % (11.6-14.8); White Blood Cell Count 6.4 X10^3/uL (4.5-11.0)
[2024-05-15 08:46] LABS: Prothrombin Time 11.2 SECONDS (9.4-12.5)
[2024-05-15 08:49] LABS: PTT Partial Thromboplastin Tim 33 SECONDS (25.1-36.5)
[2024-05-15 08:53] LABS: Alanine Aminotransferase 14 IU/L (<35); Alkaline Phosphatase 99 U/L (38-126); Aspartate Aminotransferase 26 IU/L (14-36); Bilirubin Total 0.7 mg/dL (0.2-1.3); Blood Urea Nitrogen 37 mg/dL (7-17); Calcium 9.4 mg/dL (8.4-10.2); Carbon Dioxide 26 mmol/L (22-32); Chloride 104 mmol/L (98-107); Creatine Kinase 33 U/L (30-135); Estimated Glomerular Filt Rate 37 mL/min (>60); Globulin 4.1 g/dL (1.7-4.1); Glucose 125 mg/dL (80-110); HEMOLYSIS < 15 (0-50); Magnesium 1.9 mg/dL (1.6-2.3); Potassium 4.4 mmol/L (3.4-5.1); Sodium 139 mmol/L (137-145); Total Protein 8.1 g/dL (6.3-8.2)
[2024-05-15 09:03] LABS: Troponin I < 0.012 ng/mL (0.01-0.034)
--- NOTE | 2024-05-15 09:26 | PC.NURSE ---
Hx of dementia
--- NOTE | 2024-05-15 09:55 | EKG_ITS ---
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
[2024-05-15] MEDS: ASPIRIN EC 81 MG TABLET PO (10:02)
[2024-05-15 10:42] LABS: NT-proBNP (BNP-Adult 18+) 480 pg/mL (<450)
[2024-05-15 10:53] LABS: Ur Creatinine Normal (Normal); Ur Specific Gravity Normal (Normal); Urine Amphetamines Negative (Negative); Urine Barbiturates Negative (Negative); Urine Benzodiazepines Negative (Negative); Urine Cocaine Negative (Negative); Urine MDMA Negative (Negative); Urine Methadone Negative (Negative); Urine Methamphetamines Negative (Negative); Urine Opiates Negative (Negative); Urine Oxycodone Negative (Negative); Urine Phencyclidine Negative (Negative); Urine THC Negative (Negative); Urine Tricyclic Antidepressant Negative (Negative); Urine pH Normal (Normal)
--- NOTE | 2024-05-15 11:26 | PM.CN ---
History of Present Illness Consult details Date Patient Seen: 05/15/24 Time Patient Seen: 11:26 Chief complaint: Slurred speech Reason for consult: TIA Narrative: 88-year-old female with past medical history of restless leg syndrome, hypertension, qca-ftjicwt-dtstmfqar diabetes, CHF and anxiety who presented to the emergency room after a short episode of slurred speech and reported facial weakness. Patient does not recall what happened, only that she failed a test and was recommended to go to the emergency room. There was no reported leg weakness or numbness, and symptoms resolved with initial NIH prior to arrival in the ER. Patient recently had a TTE from her prior admission approx 3 weeks ago from a GBS bacteremia, with no PFO. EKG was unremarkable showing NSR. Patient had no complaints. CT head without contrast and CTA head and neck showed no acute abnormalities. Meds Home Medications and Allergies Home Medications Medication Instructions Recorded Confirmed Type acetaminophen 325 mg tablet 325 mg PO Q6HR PRN Pain (Scale 06/13/23 04/10/24 History Score 1-3) cranberry extract 500 mg capsule 500 mg PO DAILY 06/13/23 04/10/24 History (Cranberry Concentrate) cyanocobalamin (vitamin B-12) 1,000 mcg PO DAILY 06/13/23 04/10/24 History 1,000 mcg tablet (Vitamin B-12) duloxetine 20 mg capsule,delayed 20 mg PO BID 06/13/23 04/10/24 History release lidocaine 5 % topical patch 1 patch topical DAILY back pain 06/13/23 04/10/24 History losartan 25 mg tablet 12.5 mg PO DAILY 06/13/23 04/10/24 History metformin 500 mg tablet 1,000 mg PO DAILY 06/13/23 04/10/24 History pramipexole 0.5 mg tablet 0.5 mg PO BEDTIME 06/13/23 04/10/24 History simvastatin 20 mg tablet 20 mg PO DAILY 06/13/23 04/10/24 History metformin 500 mg tablet 500 mg PO BEDTIME 12/20/23 04/10/24 History loperamide 2 mg capsule 2 mg PO Q OTHER DAY Diarrhea 12/23/23 04/10/24 History olanzapine 2.5 mg tablet 2.5 mg PO BEDTIME PRN Agitation 12/23/23 04/10/24 History polyethylene glycol 3350 17 17 g PO PRN PRN Constipation 12/23/23 04/10/24 History gram/dose oral powder sennosides 8.6 mg tablet (senna) 17.2 mg PO DAILY 12/23/23 04/10/24 History furosemide 40 mg tablet (Lasix) 40 mg PO DAILY #30 tabs 12/24/23 04/10/24 Rx ceftriaxone 2 gram solution for 2,000 mg IV BEDTIME #10 doses 04/16/24 Rx injection gabapentin 100 mg capsule 100 mg PO 1200 #30 caps 04/16/24 Rx gabapentin 100 mg capsule 200 mg (2 x 100 mg) PO BEDTIME #30 04/16/24 Rx caps oxycodone 5 mg tablet 5 mg PO Q4HR PRN Pain, Moderate 04/16/24 Rx (4-6) #20 tabs aspirin 81 mg capsule 81 mg PO DAILY #30 caps 05/15/24 Rx atorvastatin 40 mg tablet 40 mg PO QPM #30 tabs 05/15/24 Rx clopidogrel 75 mg tablet (Plavix) 75 mg PO DAILY #21 tabs 05/15/24 Rx Allergies Allergy/AdvReac Type Severity Reaction Status Date / Time celecoxib [From Celebrex] AdvReac Verified 12/20/23 09:37 Review of Systems Review of Systems Narrative: All other systems reviewed with the patient and are negative unless otherwise stated. Exam Vital Signs (past 8 hours): - 05/15/24 08:28 05/15/24 08:49 05/15/24 08:49 Temperature 97.8 F Pulse Rate 59 L 59 L Respiratory Rate 16 Blood Pressure 145/64 H 145/64 H Pulse Oximetry 100 Oxygen Delivery Method Room Air 05/15/24 09:00 05/15/24 09:00 05/15/24 09:30 Temperature Pulse Rate 56 L Respiratory Rate Blood Pressure 133/63 143/65 H Pulse Oximetry 96 Oxygen Delivery Method 05/15/24 09:30 05/15/24 10:00 05/15/24 10:00 Temperature Pulse Rate 58 L 58 L Respiratory Rate Blood Pressure 137/65 Pulse Oximetry 96 94 Oxygen Delivery Method 05/15/24 10:30 05/15/24 10:43 05/15/24 11:00 Temperature Pulse Rate 58 L 61 57 L Respiratory Rate Blood Pressure 129/65 129/60 138/65 Pulse Oximetry 95 80 L 95 Oxygen Delivery Method Oxygen Delivery Method Room Air Narrative Exam Narrative: Physical Exam: GENERAL: The patient is not in any acute distressed. Awake and alert. HEENT: Nonicteric sclerae, PERRLA, EOMI. Oropharynx clear. Moist mucous membranes. HEART: Regular rate and rhythm without murmurs. No lower extremities edema. LUNGS: Clear to auscultation bilaterally. no wheezzing rhonchi or rales ABDOMEN: Soft, positive bowel sounds, nontender. SKIN: No rash, no excessive bruising, petechiae, or purpura. Neuro: face symmetric, smile weak but bilaterally. Strength is +5/5 in all extremities, no deficits in sensation to light touch. Rapid alternating movements are accurate but slowed bilaterally. Objective ECG Impression: Normal sinus rhythm with no evidence for acute ischemia Imaging CT scan - head: Radiologist's impression: IMPRESSION: No significant intracranial arterial abnormality is seen. No significant abnormality is seen within the arteries of the neck. Mild interlobular septal thickening within the visualized lung apices, consider pulmonary edema. Left upper lobe subpleural nodule posteriorly measuring 3 mm. Findings are concordant with preliminary interpretation provided by [facility]. Labs 05/15/24 08:15 05/15/24 08:15 Labs: Laboratory Results - last 24 hr 05/15/24 05/15/24 08:15 10:42 WBC 6.4 RBC 4.13 Hgb 11.4 L Hct 34.3 L MCV 83.3 MCH 27.6 MCHC 33.2 RDW 14.9 H Plt Count 259 Neut % (Auto) 50.7 Lymph % (Auto) 31.6 [place] % (Auto) 10.9 Eos % (Auto) 5.9 H Baso % (Auto) 0.9 Neut # (Auto) 3200 Lymph # (Auto) 2000 [place] # (Auto) 700 Eos # (Auto) 400 Baso # (Auto) 100 PT 11.2 INR 1.0 APTT 33 Sodium 139 Potassium 4.4 Chloride 104 Carbon Dioxide 26 BUN 37 H Creatinine 1.37 H Estimated GFR 37 L BUN/Creatinine Ratio 27.0 H Glucose 125 H Calcium 9.4 Magnesium 1.9 Total Bilirubin 0.7 AST 26 ALT 14 Alkaline Phosphatase 99 Total Creatine Kinase 33 Troponin I < 0.012 NT-Pro-B Natriuret Pep 480 H Total Protein 8.1 Albumin 4.0 Globulin 4.1 Albumin/Globulin Ratio 1.0 U Opiates 300ng/mL cut Negative Ur Oxycodone Screen Negative Urine Methadone Screen Negative Ur Barbiturates Screen Negative U Tricyclic Antidepress Negative Ur Phencyclidine Scrn Negative Ur Amphetamines Screen Negative U Methamphetamines Scrn Negative Ur MDMA Scrn (Ecstasy) Negative U Benzodiazepines Scrn Negative Urine Cocaine Screen Negative U Marijuana (THC) Screen Negative Urine pH Normal Urine Specific [place] Normal Ur Creatinine Normal PFSH Medical History HLD (hyperlipidemia) Restless legs HTN (hypertension) Diabetes Social History household members: caregiver Tobacco & Substance Use alcohol intake: current Assessment & Plan Assessment & Plan narrative: 1. Possible TIA - recommend 21 days asa/plavix, followed by daily baby aspirin - change simvastatin to atorvastatin 40 mg nightly for high intensity dosing. - no obvious signs of infection including fever, leukocytosis with recent bacteremia. - no MRI currently available, unsure if patient will able to tolerate MRI given her RLS and dementia. Discussed with Veronica HINOJOSA, regarding management, risks and benefits of observation or return to [facility]. 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. Risks of admission discussed included delirium given her cognitive impairment. Chronic conditions #Dbu-dounmmz-klgtymoem diabetes. POA, chronic and stable. #Hypertension. chronic #Chronic diastolic heart failure #Hyperlipidemia. chronic #Restless leg syndrome. chronic, active. #Chronic cognitive impairment #CKD Discussed risks and benefits of observation for possible TIA vs discharge to [facility] with DPOA. DPOA elects for return to [facility] at this time. Code: DNR, surrogate is patient's DPOA Veronica I have utilized all available immediate resources to obtain, update, or review the patient's current medications. Dispo: stable for return to [facility] assisted living with the above medication changes. Additional history obtained via discussions with the ER provider and patients DPOA. These discussions contributed to the creation of the above assessment and plan. I have reviewed patient's presenting documentation, labs, and imaging personally. Time-Based Coding :: [TOTAL MINUTES] spent with patient and on the chart (including review of chart, obtaining history, exam, reviewing outside data, placing orders, documenting exam and treatment plan, and counseling patient) on [DATE].
== END 2024-05-15 12:34 | disposition home or self-care (01) ==
PROVIDERS: Emergency Provider Family Medicine
DX: G45.9 Transient cerebral ischemic attack, unspecified (principal); R29.701 NIHSS score 1; I10 Essential (primary) hypertension; F03.90 Unspecified dementia, unspecified severity, without behavioral disturbance, psychotic disturbance, mood disturbance, and anxiety; I50.9 Heart failure, unspecified; E11.9 Type 2 diabetes mellitus without complications; E78.5 Hyperlipidemia, unspecified
CPT/HCPCS: 70450; 70496; 70498; 71045; 80053; 80305; 81003; 82550; 82962; 83735; 83880; 84484; 85025; 85610; 85730; 93005; 99284; 99285; Q9967

== ENCOUNTER 2024-07-06 18:54 | Emergency (ER) | payer OTHER, MEDICAID, SELFPAY ==
[2024-04-10 22:34] VITALS: BMI 20.5
[2024-07-06] VITALS (12 sets, daily range): BP systolic 114–165; BP diastolic 55–76; PULSE 56–64; RESP 16–31; TEMP 36.8; O2SAT 93–98; BMI 20.6
--- NOTE | 2024-07-06 19:15 | DI.RAD.S_ITS ---
PROCEDURE: XR RIBS LT MIN 3V W CXR1V INDICATIONS: trauma TECHNIQUE: 4 views of the ribs were acquired, along with a single view chest. COMPARISON: None. FINDINGS AND IMPRESSION: No acute displaced fracture. Background osseous degenerative changes. If there is high concern for occult injury, consider repeat radiography or cross-sectional imaging. Cphh-ae-stnwiplr diffuse lung disease possibly edema, atypical infection, versus underlying fibrosis. No definite pneumothorax. Heart size is within normal limits. Aortic calcifications. Partially seen aortic stent graft. Dictated by: Juan Jose Mccarthy M.D. on 07/06/2024 at 20:03 Approved by: Juan Jose Mccarthy M.D. on 07/06/2024 at 20:05
--- NOTE | 2024-07-06 19:15 | DI.CT.S_ITS ---
PROCEDURE: CT PEL WO CON INDICATIONS: trauma TECHNIQUE: Noncontrast 3 mm axial sections acquired through the bony pelvis, with coronal and sagittal reformatting. COMPARISON: [facility], CT, CT ABDOMEN PELVIS W CON, 06/12/2023, 19:45. FINDINGS: Image quality: Diagnostic Bones: Left hip arthroplasty in expected position. Lumbosacral degenerative changes. No dislocation identified. No pubic diastasis. Sacroiliac joints appear congruent. Soft tissues: Bowel containing right inguinal hernia, without definite obstruction. Aortoiliac stent graft and aneurysm, not well assessed on this noncontrast study. IMPRESSION: Left hip arthroplasty. No acute displaced fracture or dislocation. No acute pelvic ring disruption. Dictated by: Juan Jose Mccarthy M.D. on 07/06/2024 at 19:54 Approved by: Juan Jose Mccarthy M.D. on 07/06/2024 at 19:59
--- NOTE | 2024-07-06 19:15 | ED.FALL ---
HPI - Fall General Chief Complaint: Fall Stated Complaint: Fall Time Seen by Provider: 07/06/24 19:01 History of Present Illness HPI Narrative: 88-year-old female history of dementia, TIA, hypertension, CHF, dyslipidemia, diabetes, presents with mechanical fall tripping over her leg while in-house brought in via EMS with complaints of right-sided head pain and left sided chest wall pain. Patient denies loss of consciousness, dizziness, nausea, vomiting, blurred vision, active chest pain, shortness of breath, dyspnea on exertion, bowel or bladder incontinence. Other than what is stated 14 point review of system is negative. Related Data Home Medications Medication Instructions Recorded Confirmed acetaminophen 325 mg tablet 325 mg PO Q6HR PRN Pain (Scale 06/13/23 04/10/24 Score 1-3) cranberry extract 500 mg capsule 500 mg PO DAILY 06/13/23 04/10/24 (Cranberry Concentrate) cyanocobalamin (vitamin B-12) 1,000 mcg PO DAILY 06/13/23 04/10/24 1,000 mcg tablet (Vitamin B-12) duloxetine 20 mg capsule,delayed 20 mg PO BID 06/13/23 04/10/24 release lidocaine 5 % topical patch 1 patch topical DAILY back pain 06/13/23 04/10/24 losartan 25 mg tablet 12.5 mg PO DAILY 06/13/23 04/10/24 metformin 500 mg tablet 1,000 mg PO DAILY 06/13/23 04/10/24 pramipexole 0.5 mg tablet 0.5 mg PO BEDTIME 06/13/23 04/10/24 simvastatin 20 mg tablet 20 mg PO DAILY 06/13/23 04/10/24 metformin 500 mg tablet 500 mg PO BEDTIME 12/20/23 04/10/24 loperamide 2 mg capsule 2 mg PO Q OTHER DAY Diarrhea 12/23/23 04/10/24 olanzapine 2.5 mg tablet 2.5 mg PO BEDTIME PRN Agitation 12/23/23 04/10/24 polyethylene glycol 3350 17 17 g PO PRN PRN Constipation 12/23/23 04/10/24 gram/dose oral powder sennosides 8.6 mg tablet (senna) 17.2 mg PO DAILY 12/23/23 04/10/24 Previous Rx's Medication Instructions Recorded furosemide 40 mg tablet (Lasix) 40 mg PO DAILY #30 tabs 12/24/23 ceftriaxone 2 gram solution for 2,000 mg IV BEDTIME #10 doses 04/16/24 injection gabapentin 100 mg capsule 100 mg PO 1200 #30 caps 04/16/24 gabapentin 100 mg capsule 200 mg (2 x 100 mg) PO BEDTIME #30 04/16/24 caps oxycodone 5 mg tablet 5 mg PO Q4HR PRN Pain, Moderate 04/16/24 (4-6) #20 tabs aspirin 81 mg capsule 81 mg PO DAILY #30 caps 05/15/24 atorvastatin 40 mg tablet 40 mg PO QPM #30 tabs 05/15/24 clopidogrel 75 mg tablet (Plavix) 75 mg PO DAILY #21 tabs 05/15/24 Allergies Allergy/AdvReac Type Severity Reaction Status Date / Time celecoxib [From Celebrex] AdvReac Verified 12/20/23 09:37 Review of Systems Review of Systems ROS Unobtainable: All systems reviewed & are unremarkable except as noted in HPI and below Patient History Medical History HLD (hyperlipidemia) Restless legs HTN (hypertension) Diabetes Social History household members: caregiver alcohol intake: current alcohol intake frequency: holidays/special occasions only Exam Narrative Exam Narrative: GENERAL: [88] year old patient appears stated age. Well-developed patient, in mild distress. HEAD: Atraumatic. Normocephalic. EYES: Pupils equal round and reactive. Extraocular motions intact. No scleral icterus. No injection or drainage. ENT: Nose without bleeding, purulent drainage. Throat without erythema, tonsillar hypertrophy or exudate. Airway patent. NECK: Trachea midline. Non tender CARDIOVASCULAR: Regular rate and rhythm without murmurs, gallops, or rubs. RESPIRATORY: Clear to auscultation. Breath sounds equal bilaterally. No wheezes, rales, or rhonchi. GASTROINTESTINAL: Abdomen soft, non-tender, nondistended. EXTREMITIES: No edema or joint tenderness. BACK: Nontender without deformity or crepitance. No flank tenderness. NEURO: AOx2. GCS 15 nonfocal neuro exam motor sensory intact +2 DP +2 PT bilateral lower extremity +2 radial pulse bilateral upper extremity, moving all extremities spontaneously with no difficulty SKIN: No rash or erythema of visible areas. R occipital parietal scalp TTP Initial Vital Signs Initial Vital Signs: Vital Signs Temperature 98.2 F 07/06/24 19:01 Pulse Rate 61 07/06/24 19:01 Respiratory Rate 16 07/06/24 19:01 Blood Pressure 165/69 H 07/06/24 19:01 Pulse Oximetry 97 07/06/24 19:01 Oxygen Delivery Method Room Air 07/06/24 19:01 Course Orders Ordered: ED Orders 07/06/24 19:15 CT head/brain wo con Stat CT pelvis wo con Stat XR ribs LT min 3V w CXR1V Stat 07/06/24 19:16 EKG-12 Lead Stat 07/06/24 19:55 Complete Blood Count AUTO DIFF Stat Comprehensive Metabolic Panel Stat Troponin & CK Cardiac Panel Stat Vital Signs Vital signs: Vital Signs - 8 hr 07/06/24 19:01 07/06/24 19:19 07/06/24 19:48 Temperature 98.2 F Pulse Rate 61 64 60 Respiratory Rate 16 22 Blood Pressure 165/69 H Pulse Oximetry 97 96 Oxygen Delivery Method Room Air 07/06/24 19:50 07/06/24 19:50 07/06/24 20:00 Temperature Pulse Rate 59 L 61 Respiratory Rate 24 Blood Pressure 127/59 L Pulse Oximetry 96 98 Oxygen Delivery Method 07/06/24 20:00 07/06/24 20:30 07/06/24 20:30 Temperature Pulse Rate 61 Respiratory Rate Blood Pressure 132/62 114/55 L Pulse Oximetry 95 Oxygen Delivery Method Room Air 07/06/24 21:00 07/06/24 21:00 07/06/24 21:30 Temperature Pulse Rate 63 61 Respiratory Rate Blood Pressure 140/64 Pulse Oximetry 93 Oxygen Delivery Method Room Air 07/06/24 21:30 07/06/24 22:00 07/06/24 22:00 Temperature Pulse Rate 58 L Respiratory Rate 26 H Blood Pressure 139/76 127/61 Pulse Oximetry 94 Oxygen Delivery Method 07/06/24 22:30 07/06/24 22:30 07/06/24 23:00 Temperature Pulse Rate 58 L 56 L Respiratory Rate 24 24 Blood Pressure 135/63 Pulse Oximetry 94 94 Oxygen Delivery Method Room Air 07/06/24 23:00 07/06/24 23:30 07/06/24 23:30 Temperature Pulse Rate 57 L Respiratory Rate 31 H Blood Pressure 132/63 136/72 Pulse Oximetry 96 Oxygen Delivery Method Room Air MDM - Fall Lab Data 07/06/24 19:55 07/06/24 19:55 Labs: Lab Results 07/06/24 Range/Units 19:55 WBC 7.0 (4.5-11.0) X10^3/uL RBC 3.99 L (4.0-5.2) X10^6/uL Hgb 10.9 L (12.0-16.0) g/dL Hct 33.2 L (36-46) % MCV 83.4 (80-100) fL MCH 27.3 (26-34) PG MCHC 32.8 (30-36) % RDW 14.7 (11.6-14.8) % Plt Count 261 (150-400) X10^3/uL Neut % (Auto) 56.8 (50-75) % Lymph % (Auto) 24.8 L (25-40) % [place] % (Auto) 10.8 (3-14) % Eos % (Auto) 6.6 H (2-4) % Baso % (Auto) 1.0 (0-2) % Neut # (Auto) 4000 (0345-4120) /uL Lymph # (Auto) 1700 (3137-5691) /uL [place] # (Auto) 800 (0-900) /uL Eos # (Auto) 500 H (0-450) /uL Baso # (Auto) 100 (0-100) /uL Sodium 138 (137-145) mmol/L Potassium 4.3 (3.4-5.1) mmol/L Chloride 101 (98-107) mmol/L Carbon Dioxide 31 (22-32) mmol/L BUN 36 H (7-17) mg/dL Creatinine 1.54 H (0.52-1.04) mg/dL Estimated GFR 32 L (>60) mL/min BUN/Creatinine Ratio 23.4 H (6-22) Glucose 189 H (70-99) mg/dL Calcium 9.0 (8.4-10.2) mg/dL Total Bilirubin 0.3 (0.2-1.3) mg/dL AST 22 (14-36) IU/L ALT 12 (<35) IU/L Alkaline Phosphatase 136 H (38-126) U/L Total Creatine Kinase 40 (30-135) U/L Troponin I < 0.012 (0.01-0.034) ng/mL Total Protein 8.1 (6.3-8.2) g/dL Albumin 4.1 (3.5-5.0) g/dL Globulin 4.0 (1.7-4.1) g/dL Albumin/Globulin Ratio 1.0 (1.0-2.8) Imaging Data CT scan - head: Radiologist's Impression: [address] [address] [address] Scan Report Signed Patient: Chon Art MR#: [id number] : 1935 Acct:[id number] Age/Sex: 88 / F Date of Service: 07/06/24 Loc: ED Accession Number: [id number] Procedure: CT head/brain wo con Ordering Provider: Sachin Tran D.O. PROCEDURE: CT HEAD/BRAIN WO CON INDICATIONS: trauma TECHNIQUE: Noncontrast 4.5 mm thick angled axial sections acquired from the foramen magnum to the vertex, with coronal and sagittal reformats. For radiation dose reduction, the following was used: automated exposure control, adjustment of mA and/or kV according to patient size. COMPARISON: [facility], CT, CT HEAD/BRAIN WO CON, 04/10/2024, 18:23. FINDINGS: Image quality: Diagnostic CSF spaces: Moderate ventriculomegaly, slightly greater on the right, similar. Basal cisterns are patent Volume: Vascular calcifications. Periventricular white matter disease is commonly seen with chronic microangiopathy. Volume loss is present. These findings are moderate Brain: No acute hemorrhage. No gross loss of liu-white differentiation. Craniofacial structures: No significant paranasal sinus opacity. IMPRESSION: No acute intracranial pathology. [address] [address] [address] Scan Report Signed Patient: Chon Art MR#: [id number] : 1935 Acct:[id number] Age/Sex: 88 / F Date of Service: 07/06/24 Loc: ED Accession Number: [id number] Procedure: CT pelvis wo con Ordering Provider: Sachin Tran D.O. PROCEDURE: CT PEL WO CON INDICATIONS: trauma TECHNIQUE: Noncontrast 3 mm axial sections acquired through the bony pelvis, with coronal and sagittal reformatting. COMPARISON: [facility], CT, CT ABDOMEN PELVIS W CON, 06/12/2023, 19:45. FINDINGS: Image quality: Diagnostic Bones: Left hip arthroplasty in expected position. Lumbosacral degenerative changes. No dislocation identified. No pubic diastasis. Sacroiliac joints appear congruent. Soft tissues: Bowel containing right inguinal hernia, without definite obstruction. Aortoiliac stent graft and aneurysm, not well assessed on this noncontrast study. IMPRESSION: Left hip arthroplasty. No acute displaced fracture or dislocation. No acute pelvic ring disruption. [address] [address] XRay Report Signed Patient: Chon Art MR#: [id number] : 1935 Acct:[id number] Age/Sex: 88 / F Date of Service: 07/06/24 Loc: ED Accession Number: [id number] Procedure: XR ribs LT min 3V w CXR1V Ordering Provider: Sachin Tran D.O. PROCEDURE: XR RIBS LT MIN 3V W CXR1V INDICATIONS: trauma TECHNIQUE: 4 views of the ribs were acquired, along with a single view chest. COMPARISON: None. FINDINGS AND IMPRESSION: No acute displaced fracture. Background osseous degenerative changes. If there is high concern for occult injury, consider repeat radiography or cross-sectional imaging. Vozi-bi-pjxdvecp diffuse lung disease possibly edema, atypical infection, versus underlying fibrosis. No definite pneumothorax. Heart size is within normal limits. Aortic calcifications. Partially seen aortic stent graft. ECG Data Interpretation: NSR HR 62 MD 170 QRS [address]-t wave change Unchanged from 05/15/24 MDM Narrative Medical decision making narrative: All lab work vital signs nurse triage note medication list previous ER visits all reviewed including x-rays and CT scan. CT head showed no acute intracranial pathology. CT pelvis showed left hip arthroplasty no acute displaced fracture or dislocation no acute pelvic ring disruption. Chest x-ray showed no acute displaced fracture bcvi-js-ljzfolvz diffuse lung disease no definite pneumothorax heart size within normal in its aortic calcifications and partially seen aortic stent graft. BUN 36 creatinine 1.54 glucose 189 troponin was normal hemoglobin 10.9. Differential diagnosis includes brain hemorrhage pneumothorax rib fracture contusion dislocation. GCS 15 nonfocal neuro exam. Discharge Plan Departure Patient Disposition: Home Clinical Impression: Fall Qualifiers: Encounter type: initial encounter Qualified Code(s): W19.XXXA - Unspecified fall, initial encounter Contusion of head Qualifiers: Encounter type: initial encounter Contusion of head detail: scalp Qualified Code(s): S00.03XA - Contusion of scalp, initial encounter Chest wall contusion Qualifiers: Encounter type: initial encounter Laterality: left Qualified Code(s): S20.212A - Contusion of left front wall of thorax, initial encounter Activity Restrictions/Additional Instructions: Return with new or worsening symptoms. Follow up with PCP this week for re-evaluation. Prescriptions: No Action pramipexole 0.5 mg tablet 0.5 mg PO BEDTIME lidocaine 5 % adhesive patch,medicated 1 patch topical DAILY cyanocobalamin (vitamin B-12) [Vitamin B-12] 1,000 mcg tablet 1,000 mcg PO DAILY metformin 500 mg tablet 1,000 mg PO DAILY acetaminophen 325 mg tablet 325 mg PO Q6HR PRN (Reason: Pain (Scale Score 1-3)) Rx Instructions: 2 tabs by mouth simvastatin 20 mg tablet 20 mg PO DAILY losartan 25 mg tablet 12.5 mg PO DAILY cranberry extract [Cranberry Concentrate] 500 mg capsule 500 mg PO DAILY duloxetine 20 mg capsule,delayed release(DR/EC) 20 mg PO BID loperamide 2 mg capsule 2 mg PO Q OTHER DAY sennosides [senna] 8.6 mg tablet 17.2 mg PO DAILY olanzapine 2.5 mg tablet 2.5 mg PO BEDTIME PRN (Reason: Agitation) polyethylene glycol 3350 17 gram/dose powder 17 g PO PRN PRN (Reason: Constipation) furosemide [Lasix] 40 mg tablet 40 mg PO DAILY Qty: 30 0RF gabapentin 100 mg Capsule 200 mg PO BEDTIME Qty: 30 0RF gabapentin 100 mg Capsule 100 mg PO 1200 Qty: 30 0RF ceftriaxone 2 gram Recon Soln 2,000 mg IV BEDTIME Qty: 10 0RF oxycodone 5 mg Tablet 5 mg PO Q4HR PRN (Reason: Pain, Moderate (4-6)) Qty: 20 0RF metformin 500 mg Tablet 500 mg PO BEDTIME aspirin 81 mg capsule 81 mg PO DAILY Qty: 30 0RF clopidogrel [Plavix] 75 mg tablet 75 mg PO DAILY Qty: 21 0RF atorvastatin 40 mg tablet 40 mg PO QPM Qty: 30 0RF Referrals: *Temp,ED* [Primary Care Provider] - Stand Alone Forms: Patient Portal/API/Survey
--- NOTE | 2024-07-06 20:02 | EKG_ITS ---
[facility] [address] [place] [address] Test Date: 2024-07-06 Pat Name: Chon [facility] Department: [facility] Room: Gender: Female [employer]: : 1935 Requested By: Order Number: [id number] Reading MD: Rafi Hernandez Measurements Intervals [place] Rate: 62 P: 70 ND: 170 QRS: 17 QRSD: 84 T: 58 QT: 406 QTc: 412 Interpretive Statements Normal sinus rhythm Nonspecific ST and T wave abnormality Electronically Signed On 07-07-2024 8:37:31 PDT by Rafi Hernandez
[2024-07-06 20:08] LABS: Add Manual Diff / Slide Review NO; Basophils Absolute Auto 100 /uL (0-100); Eosinophils Absolute Auto 500 /uL (0-450); Eosinophils Percent Auto 6.6 % (2-4); Hematocrit 33.2 % (36-46); Hemoglobin 10.9 g/dL (12.0-16.0); Lymphocytes Absolute Auto 1700 /uL (1100-4500); Lymphocytes Percent Auto 24.8 % (25-40); Mean Corpuscular HGB Conc 32.8 % (30-36); Mean Corpuscular Hemoglobin 27.3 PG (26-34); Mean Corpuscular Volume 83.4 fL (80-100); Monocytes Absolute Auto 800 /uL (0-900); Monocytes Percent Auto 10.8 % (3-14); Neutrophils Absolute Auto 4000 /uL (1500-7000); Neutrophils Percent Auto 56.8 % (50-75); Platelet Count 261 X10^3/uL (150-400); Red Blood Cell Count 3.99 X10^6/uL (4.0-5.2); Red Cell Distribution Width 14.7 % (11.6-14.8)
[2024-07-06 20:23] LABS: Alanine Aminotransferase 12 IU/L (<35); Albumin 4.1 g/dL (3.5-5.0); Alkaline Phosphatase 136 U/L (38-126); Aspartate Aminotransferase 22 IU/L (14-36); BUN Creatinine Ratio 23.4 (6-22); Bilirubin Total 0.3 mg/dL (0.2-1.3); Blood Urea Nitrogen 36 mg/dL (7-17); Carbon Dioxide 31 mmol/L (22-32); Chloride 101 mmol/L (98-107); Creatine Kinase 40 U/L (30-135); Estimated Glomerular Filt Rate 32 mL/min (>60); Glucose 189 mg/dL (70-99); HEMOLYSIS < 15 (0-50); Potassium 4.3 mmol/L (3.4-5.1); Sodium 138 mmol/L (137-145); Total Protein 8.1 g/dL (6.3-8.2)
[2024-07-06 20:34] LABS: Troponin I < 0.012 ng/mL (0.01-0.034)
== END 2024-07-07 00:02 | disposition home or self-care (01) ==
PROVIDERS: Emergency Provider Family Medicine
DX: S20.212A Contusion of left front wall of thorax, initial encounter (principal); S00.03XA Contusion of scalp, initial encounter; S80.211A Abrasion, right knee, initial encounter; W19.XXXA Unspecified fall, initial encounter
CPT/HCPCS: 36415; 70450; 71101; 72192; 80053; 82550; 84484; 85025; 93005; 99283; 99284

== ENCOUNTER → 2024-07-22 06:07 | Outpatient (ROUT) | payer OTHER, MEDICAID, SELFPAY ==
[2024-04-10 22:34] VITALS: BMI 20.5
[2024-07-22 08:11] LABS: BUN Creatinine Ratio 27.9 (6-22); Blood Urea Nitrogen 38 mg/dL (7-17); Calcium 9.6 mg/dL (8.4-10.2); Carbon Dioxide 29 mmol/L (22-32); Chloride 101 mmol/L (98-107); Estimated Glomerular Filt Rate 38 mL/min (>60); Glucose 153 mg/dL (70-99); HEMOLYSIS < 15 (0-50); Potassium 4.7 mmol/L (3.4-5.1); Sodium 139 mmol/L (137-145)
== END ==
LOC: LAB 06:07
PROVIDERS: Visit Provider Nurse Practitioner Family
DX: N17.9 Acute kidney failure, unspecified (principal)
CPT/HCPCS: 36415; 80048